=== PATIENT | female | born 1940 | race Caucasian/White ===

== ENCOUNTER 2025-02-01 04:11 | Emergency (ER) | payer MEDICARE, SELFPAY ==
--- NOTE | 2025-02-01 | ECG_ITS ---
Test Reason : WEAKNESS Blood Pressure : */* mmHG Vent. Rate : 80 BPM Atrial Rate : * BPM P-R Int : * ms QRS Dur : 74 ms QT Int : 378 ms P-R-T Axes : * -10 54 degrees QTcB Int : 435 ms Atrial fibrillation Abnormal ECG No previous ECGs available Referred By: Generic ED Physician Electronically Signed By: ISABEL VERDUGO MD
[2025-02-01 04:13] VITALS: BP 160/90; PULSE 90; O2SAT 98; BMI 23.2
[2025-02-01 04:24] VITALS: BP 167/73; PULSE 100; RESP 16; TEMP 36.7; O2SAT 95
[2025-02-01 04:56] LABS: Appearance Urine Clear; Glucose Urine UA Negative (Negative); PH 7.5 (5.0-9.0); Specific Gravity - Urine <= 1.005 (1.005-1.025); UMIC TRIGGER UACC YES
--- NOTE | 2025-02-01 05:04 | PC.NURSE ---
Pt requested to have Albert and/or Melissa called to let them know where she is. Called and spoke with Melissa and she will be on her way to the hospital.
[2025-02-01 05:09] LABS: Hematocrit 39.8 % (37.0-47.0); Hemoglobin 13.7 g/dl (12.0-16.0); Imm Gran Abs Auto 0.02 X10*3/uL (0.00-0.03); Imm Gran Pct Auto 0.4 % (0.0-0.4); Lymphocytes Absolute Auto 1.5 X10*3/uL (1.2-4.9); MANUAL DIFF FLAG NO; Mean Corpuscular HGB Conc 34.4 g/dl (31.0-35.0); Mean Corpuscular Hemoglobin 29.8 pg (27.0-33.0); Mean Corpuscular Volume 86.7 fL (80.0-98.0); NRBC Abs Auto 0.000 X10*3/uL (0.0-0.012); NRBC Pct Auto 0.0 /100WBC (0.0-0.2); Platelet Count 275 X10*3/uL (160-400); Red Blood Count 4.59 X10*6/uL (4.20-5.50); White Blood Count 5.1 X10*3/uL (4.8-10.8)
[2025-02-01 05:22] LABS: Anion Gap 15 (12-20); Blood Urea Nitrogen 11 mg/dL (9-16); Calcium 9.5 mg/dL (8.4-10.2); Carbon Dioxide 19 mmol/L (22-29); Chloride 106 mmol/L (96-108); Creatinine Clr Calc Pharmacy 44.7; Estimated Glomerular Filt Rate > 60; Potassium 4.2 mmol/L (3.3-5.1); Sodium 136 mmol/L (135-145)
[2025-02-01 06:00] VITALS: BP 162/66; PULSE 109; RESP 18; O2SAT 96
--- NOTE | 2025-02-01 06:35 | ED.GENADULT ---
HPI - General Adult General Chief complaint: General Medical Stated complaint: SNF rambling weak & dizzy Time Seen by Provider: 02/01/25 06:35 Source: patient and family (Son and [id number]) Mode of arrival: EMS Limitations: no limitations History of Present Illness ED Provider: Dr. David Smith HPI narrative: 85-year-old female with a history of hypertension, hyperlipidemia, stroke (07/10/2023-aphasia which resolved), possibly atrial fibrillation in the past who presents emergency department for evaluation of weakness. The patient moved closer to her family in October of 2024 and has her 1st PCP appointment with Dr. Cao on 02/16/2025. Patient states that she has been in her usual state of health until this morning when she felt very weak and could not get out of bed. Patient had no other complaints. She denied fever, chills, chest pain, shortness of breath, nausea, vomiting, diarrhea, dark stools, bloody stools, frequency, urgency or dysuria. Patient states she was taking aspirin but stopped taking your aspirin secondary to developing ?spots ?on her skin. She has been compliant with her other medications which include meclizine, atorvastatin, losartan and amlodipine. At the time my evaluation the patient states she is feeling better in his no longer feeling weak. Related Data Previous Rx's ?Medication ?Instructions ?Recorded apixaban 2.5 mg tablet (Eliquis) 2.5 mg PO Q12H #60 tabs 02/01/25 metoprolol succinate 25 mg 25 mg PO DAILY #30 tabs 02/01/25 tablet,extended release 24 hr (Toprol XL) Allergies Allergy/AdvReac Type Severity Reaction Status Date / Time codeine Allergy Unknown Verified 02/01/25 04:18 Penicillins Allergy Unknown Verified 02/01/25 04:18 Review of Systems Review of Systems: Yes all other systems are reviewed and are negative [facility] Past Medical History [facility] Narrative: Social history: The patient lives in elderly housing at [facility]. She denies tobacco and alcohol use. Her son buster garcia and pbyulhab-ab-chf are here in the emergency department with her. Social History Social History Smoked in Last 30 Days: No Use of substances other than those prescribed or required for medical reasons: No Advance Directives: No Advance Directives Information Provided: Yes Physical Exam ED Vital Signs: Vital Signs - 24 hr 02/01/25 04:24 02/01/25 06:00 02/01/25 07:59 Temperature 98.0 F Pulse Rate 100 109 H 73 Respiratory Rate 16 18 18 Blood Pressure 167/73 H 162/66 H 148/57 H Pulse Oximetry 95 96 99 Oxygen Delivery Method Room Air Room Air Room Air 02/01/25 10:18 Temperature 98 F Pulse Rate 82 Respiratory Rate 18 Blood Pressure 129/55 L Pulse Oximetry 98 Oxygen Delivery Method Room Air BMI result Body Mass Index 23.2 Vital signs revealed an elevated heart rate of 100, elevated blood pressure of 167/73. Exam: General: Awake, alert in no distress Head: Normocephalic, atraumatic EENT: PERRL, Lids normal, sclera normal, conjunctiva normal, nose normal , ears normal, throat without erythema or exudates Neck: Supple, no adenopathy Lung: breath sounds symmetric, no wheezing, rales or rhonchi Chest: symmetric movement, nontender Heart: Irregular rate and rhythm, normal S1, S2 no murmurs or rubs Abdomen: soft, non-tender, nondistended, normal bowel sounds Back: no vertebral tenderness, no CVAT Extremities: no deformities, moves all extremities symmetrically Neuro: Awake, alert, oriented, normal speech, cranial nerves intact, moves all extremities symmetrically Psych: Pleasant, cooperative Medical Decision Making Medical Decision Making MDM Narrative: 85-year-old female with a history of hypertension, hyperlipidemia, stroke (07/10/2023-aphasia which resolved), possibly atrial fibrillation in the past who presents emergency department for evaluation of weakness. The patient moved closer to her family in October of 2024 and has her 1st PCP appointment with Dr. Cao on 02/16/2025. Patient states that she has been in her usual state of health until this morning when she felt very weak and could not get out of bed. Patient had no other complaints. She denied fever, chills, chest pain, shortness of breath, nausea, vomiting, diarrhea, dark stools, bloody stools, frequency, urgency or dysuria. Patient states she was taking aspirin but stopped taking your aspirin secondary to developing ?spots ?on her skin. She has been compliant with her other medications which include meclizine, atorvastatin, losartan and amlodipine. At the time my evaluation the patient states she is feeling better in his no longer feeling weak. Vital signs revealed an elevated heart rate of 100 elevated blood pressure of 167/73. Exam did reveal an irregular irregular heart rate otherwise was unremarkable. Differential diagnosis: ?Includes but is not limited to myocardial infarction, myocardial ischemia, paroxysmal versus new onset atrial fibrillation, anemia, electrolyte abnormalities, urinary tract infection Course: 07:06 My independent interpretation patient's laboratory evaluation is as follows: CBC was normal. Bicarb low 19. Glucose elevated 129. LFTs, lipase, troponin and magnesium are pending Patient's twelve EKG revealed atrial fibrillation with a rate of 80. On the monitor and storage bin tender the patient's rate varies from 80-110. 10:15 Patient's 1st troponin was 2.9 and 3 hour troponin was 4.1 suggesting that you did not have myocardial infarction or myocardial injury is the cause of her weakness today. I did discuss the patient's atrial fibrillation over tiger text with the covering sanitary plumber, Dr. Vega. After this discussion the patient will be started on metoprolol 25 mg daily and Eliquis 2.5 mg q.12 hours. Patient was advised to contact Dr. Veag's office to make a follow-up cardiology appointment and to also keep her PCP appointment. Patient was given printed and verbal instructions and discharged home. Admission/Observation Consideration of admission/observation: Escalation of care including admission/observation considered (Yes) Consult Healthcare Provider Management of the patient was discussed with: Superintendent Meters (Library Services Dean, Dr. Vega) Lab Data MDM Lab Attestation statement: I reviewed the patient's lab results. 02/01/25 05:04 02/01/25 05:04 Labs: Lab Results 02/01/25 02/01/25 02/01/25 Range/Units 04:51 05:04 08:30 WBC 5.1 (4.8-10.8) X10*3/uL RBC 4.59 (4.20-5.50) X10*6/uL Hgb 13.7 (12.0-16.0) g/dl Hct 39.8 (37.0-47.0) % MCV 86.7 (80.0-98.0) fL MCH 29.8 (27.0-33.0) pg MCHC 34.4 (31.0-35.0) g/dl RDW 13.1 (11.0-16.0) % Plt Count 275 (160-400) X10*3/uL MPV 8.6 L (9.4-12.3) fL Immature Gran % (Auto) 0.4 (0.0-0.4) % Neut % (Auto) 57.9 (45-73) % Lymph % (Auto) 29.2 (20-40) % [place] % (Auto) 9.9 (2-11) % Eos % (Auto) 1.6 (0-4) % Baso % (Auto) 1.0 (0-2) % Lymph # (Auto) 1.5 (1.2-4.9) X10*3/uL [place] # (Auto) 0.5 (0.1-1.2) X10*3/uL Eos # (Auto) 0.1 (0.0-0.4) X10*3/uL Baso # (Auto) 0.1 (0.0-0.2) X10*3/uL Abs Immat Gran (auto) 0.02 (0.00-0.03) X10*3/uL Absolute Neuts (auto) 2.9 (2.0-8.3) x10*3/uL Absolute Nucleated RBC 0.000 (0.0-0.012) X10*3/uL Nucleated RBC % (auto) 0.0 (0.0-0.2) /100WBC Sodium 136 (135-145) mmol/L Potassium 4.2 (3.3-5.1) mmol/L Chloride 106 (96-108) mmol/L Carbon Dioxide 19 L (22-29) mmol/L Anion Gap 15 (12-20) BUN 11 (9-16) mg/dL Creatinine 0.76 (0.5-1.4) mg/dL Estim Creat Clear Calc 44.7 Estimated GFR > 60 Random Glucose 129 H (60-115) mg/dL Calcium 9.5 (8.4-10.2) mg/dL Magnesium 2.1 (1.6-2.6) mg/dL Total Bilirubin 0.5 (0.0-1.0) mg/dL Direct Bilirubin 0.2 (0.0-0.5) mg/dL AST 31 (5-31) U/L ALT 34 H (0-31) U/L Alkaline Phosphatase 158 H (39-117) U/L Troponin I High Sens 2.9 4.1 (<3.5-17.0) ng/L Total Protein 7.6 (6.5-8.0) g/dL Albumin 4.6 (3.5-5.0) g/dL Lipase 62 (8-78) U/L Urine Color Yellow Urine Appearance Clear Urine pH 7.5 (5.0-9.0) Ur Specific [place] <= 1.005 (1.005-1.025) Urine Protein 30 (1+) H (Neg-Trace) mg/dL Urine Glucose (UA) Negative (Negative) mg/dL Urine Ketones Negative (Negative) mg/dL Urine Blood Negative (Negative) Urine Nitrite Negative (Negative) Ur Leukocyte Esterase Trace H (Negative) Urine RBC 0-2 (0-2) /HPF Urine WBC 0-5 (0-5) /HPF Ur Squamous Epith Cells 0-2 (0-2) /HPF Urine Bacteria None Seen (None Seen) Hyaline Casts 0-2 (0-2) /LPF Independent Interpretation I performed an independent interpretation of an: EKG Interpretation: My independent interpretation patient's 12 EKG done on 02/01/2025 at 04:51 hours is as follows: Atrial fibrillation with a rate of 80, no ST segment elevation, no ST segment depression, no PACs, no PVCs, no significant T-wave abnormalities Discharge Plan Discharge Clinical Impression: Weakness, Atrial fibrillation Instructions: A-fib (Atrial Fibrillation) (ED) Additional Instructions: Your blood work was unremarkable. Your marker of heart attack/heart damage (troponin) was 2.9 and 4.1. Normal in women is less than 17 which suggests you did not have a heart attack or heart damage as the cause of your weakness. Your EKG showed that you are in atrial fibrillation with a rate that was less than 110. It is possible that your heart rate may have been very fast this morning and this may have caused your feeling of weakness I did discuss treatment of your atrial fibrillation with our covering sanitary plumber, Dr. Vega. He recommended starting you on 2 medications Toprol (metoclopramide) 25 mg once a day. This medication will keep your heart rate from going very fast. Eliquis (apixaban) 2.5 mg every 12 hours-this has a blood thinner. Continue taking your other medications as prescribed by your providers Keep your follow-up appointment with your primary care doctor. Call the cardiology group to make a follow up appointment with the sanitary plumber. The office will let you know when they have an available appointment for you. Please return to the emergency department if your symptoms get worse or if you develop any symptoms that are concerning to you. Prescriptions: New Eliquis 2.5 mg tablet 2.5 mg PO Q12H Qty: 60 3RF metoprolol succinate [Toprol XL] 25 mg tablet extended release 24 hr 25 mg PO DAILY Qty: 30 3RF Referrals: Jackson Vega MD [Physician, Cardiology] Referral Note: Weakness, atrial fibrillation (possibly new diagnosis versus paroxysmal atrial fib), rate controlled without medications in the emergency department. Patient is started on Eliquis 2.5 mg q.12 and Toprol-XL 25 mg daily. Discussed treatment with Dr. Vega Print Language: [place]
[2025-02-01 07:42] LABS: Alanine Aminotransferase 34 U/L (0-31); Albumin Level 4.6 g/dL (3.5-5.0); Alkaline Phosphatase 158 U/L (39-117); Aspartate Amino Transferase 31 U/L (5-31); Lipase 62 U/L (8-78); Magnesium 2.1 mg/dL (1.6-2.6); Total Protein 7.6 g/dL (6.5-8.0)
[2025-02-01 07:50] LABS: Troponin-I High Sensitivity 2.9 ng/L (<3.5-17.0)
--- NOTE | 2025-02-01 07:57 | PC.NURSE ---
assumed care of pt approx 0700, pt a/o x 3, 80's-90's a-fib on monitor while at rest. Assisted pt x 1 to commode, voided moderate amount of CYU. HR increased 140's while MD JESSICA aware.
[2025-02-01 07:59] VITALS: BP 148/57; PULSE 73; RESP 18; O2SAT 99
[2025-02-01 08:59] LABS: Troponin-I High Sensitivity 4.1 ng/L (<3.5-17.0)
[2025-02-01 10:18] VITALS: BP 129/55; PULSE 82; RESP 18; TEMP 36.6; O2SAT 98
[2025-02-01 11:09] VITALS: BP 129/55; PULSE 82; RESP 18; TEMP 36.6; O2SAT 98
== END 2025-02-01 11:10 | disposition home or self-care (01) ==
PROVIDERS: Emergency Provider Emergency Medicine Emergency Medical Services
DX: I48.91 Unspecified atrial fibrillation (principal); R53.1 Weakness; Z79.899 Other long term (current) drug therapy
CPT/HCPCS: 36415; 80048; 80076; 81001; 81003; 83690; 83735; 84484; 85025; 93005; 99283; 99285

== ENCOUNTER → 2025-02-01 04:51 | Outpatient (BNV) | payer MEDICARE, SELFPAY | PROVIDERS: Emergency Provider Emergency Medicine Emergency Medical Services; Visit Provider Internal Medicine Cardiovascular Disease | DX: I48.91 Unspecified atrial fibrillation (principal) | CPT/HCPCS: 93010 ==

== ENCOUNTER 2025-02-16 08:10 | Outpatient (AMB) | payer MEDICARE, SELFPAY ==
[2025-02-16 08:14] VITALS: BP 130/52; PULSE 69; BMI 24.0
--- NOTE | 2025-02-16 08:14 | A.OFFVIS_ITS ---
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: No Financial Operations Consultant: Financial Operations Consultant Present Allergies codeine Allergy (Verified 02/16/25 08:19) Unknown Penicillins Allergy (Verified 02/16/25 08:19) Unknown Sulfa (Sulfonamide Antibiotics) Adverse Reaction (Intermediate, Verified 02/16/25 08:19) Blister Medication List - Last Reconciled 02/16/25 by JOSE LUIS PlasenciaC amlodipine 5 mg PO DAILY apixaban (Eliquis) 2.5 mg PO Q12H atorvastatin 40 mg PO DAILY losartan 25 mg PO DAILY meclizine 25 mg PO DAILY PRN metoprolol succinate ER (Toprol XL) 25 mg PO DAILY HPI HPI 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 Her EKG did show atrial fibrillation. She was referred to Cardiology in follow-up. Today she presents for cardiology consultation and reports that she had seen a supervisor laboratory 5 years ago and she did not pursue ongoing follow-up. She had not been on anticoagulation, only aspirin. She did have a CVA last year then continued on daily aspirin. She recently moved from [place] to this area to live closer to family. She is currently at [facility] in [facility] She has been taking the metoprolol and Eliquis since the time of her recent ER discharge. She denies any bleeding issues. She denies chest discomfort at rest or with activity. No shortness of breath, PND, orthopnea or edema. No heart palpitations, lightheadedness, presyncope, syncope. She expresses much frustration about her speech and the need to take medications. She describes herself as previously very active and healthy in her younger years and she is not liking her current situation. [id number] present. COUNT INCLUDES THE [facility] Medical History (Updated 02/16/25 @ 12:06 by Miriam Pinedo, HEEL NAILING MACHINE OPERATOR-C) HTN (hypertension) Hyperlipidemia CVA (cerebral vascular accident) Atrial fibrillation Review of Systems Const Details: word finding, aphasia All systems reviewed & are unremarkable except as noted in HPI and below ENT Denies dizziness Card Denies chest pain, Denies chest pain at rest, Denies chest pain with activity, Denies rapid heart rate, Denies pedal edema, Denies edema, Denies leg edema, Denies lightheadedness, Denies palpitations, Denies dyspnea, Denies dyspnea on exertion and Denies orthopnea Resp Denies cough, Denies dyspnea and Denies dyspnea on exertion GI Denies hematochezia and Denies change in stool character Musc Denies abnormal gait, Reports limited range of motion, Denies muscle cramps, Denies muscle weakness, Denies numbness, Denies radiating pain into limb, Denies stiffness and Denies tingling Neuro Denies abnormal gait, Denies dizziness, Denies numbness and Denies tingling Endo Denies palpitations Physical Exam Vital Signs: Last Vital Signs Pulse 69 02/16/25 08:14 BP 130/52 L 02/16/25 08:14 BMI result Body Mass Index 24.0 Const General: cooperative, healthy appearing, comfortable and no acute distress Orientation/consciousness: patient oriented x3 Neck Neck: Yes normal visual inspection Resp Effort & Inspection: normal respiratory effort Auscultation: clear to auscultation bilaterally, no rales, no rhonchi and no wheezes Cardio Jugular venous distension: no JVD Rate: regular rate Rhythm: abnormal rhythm Heart sounds: S1 normal heart sound present, S2 normal heart sound present, no gallops, no murmurs and no rubs Neuro General: patient oriented x3 Extrem General: Yes normal to inspection and No no pedal edema Psych Other: some aphasia and word finding from CVA Appearance: grossly normal Mental Status: mental status grossly normal Office Procedures EKG Details: Today, read by me, atrial fibrillation, rate 69, QTC 405 milliseconds [id number], Complete Assessment & Plan Assessment & Plan (1) Atrial fibrillation: Code(s): I48.91 - Unspecified atrial fibrillation Category: Medical Plan: History of atrial fibrillation, 1st diagnosed 5 years ago in [place]. It is not clear if she has persistent or paroxysmal AF at this time. EKG today showing atrial fibrillation, rate 69, asymptomatic. She was recently started on metoprolol XL 25 mg daily and Eliquis 2.5 mg b.i.d. which is appropriate for her age and weight. No bleeding issues reported. Diagnosis of atrial fibrillation, stroke risk with AFib and need for anticoagulation reviewed with her in detail. Continue current med management. Will check echocardiogram to assess for structural heart disease. Will check Holter monitor to assess for AFib rate control and if persistent or paroxysmal. Cardiology follow-up in 6-8 weeks to go over test results. (2) CVA (cerebral vascular accident): Code(s): I63.9 - Cerebral infarction, unspecified Category: Medical Plan: CVA 07/10/2023 with residual expressive aphasia. She is appropriate but having difficulty with word finding at times. With AFib she is at high risk for recurrent stroke with her CHADS-VASc score of 6. Continue Eliquis 2.5 mg b.i.d.. (3) HTN (hypertension): Code(s): I10 - Essential (primary) hypertension Category: Medical Plan: Blood pressure goal less than 130/80. Controlled at this time. Continue metoprolol, amlodipine and losartan. (4) Hyperlipidemia: Code(s): E78.5 - Hyperlipidemia, unspecified Category: Medical Plan: [place] LDL goal less than 100. No recent lipid profile in system for my review. She is on atorvastatin 40 mg daily which she can continue. (5) Hospital discharge follow-up: Code(s): Z09 - Encounter for follow-up examination after completed treatment for conditions other than malignant neoplasm Category: Medical Plan: ER notes reviewed. Plan I discussed with the patient the importance of continuing metoprolol and Eliquis to manage atrial fibrillation and prevent stroke. We reviewed the need for a heart monitor to assess the rhythm and an echocardiogram to evaluate cardiac function. I explained that these tests would help determine if the atrial fibrillation is persistent and if the current treatment is effective. We also talked about the follow-up plan in six to eight weeks to discuss the results and any necessary adjustments to her treatment. The patient expressed concerns about the blood thinner, but I emphasized its role in preventing recurrent strokes. Orders: Orders ECG 3 day holter monitor Today I48.91 - Unspecified atrial fibrillation CA echo transthoracic complete Today I48.91 - Unspecified atrial fibrillation Patient Instructions: - Continue taking metoprolol and Eliquis as prescribed. - Wear the heart monitor as instructed and return it after use. - Attend the scheduled echocardiogram appointment. - Follow up in six to eight weeks for test results and treatment review. Patient was informed and verbally consented to the use of an ambient scribe for clinic note documentation during this visit. Visit time spent on chart review, interview, assessment, orders, documentation. Coding Level of Care Code New Pt Level 4 (80289) Complex EM visit Add On G2211 Diagnoses Atrial fibrillation I48.91 CVA (cerebral vascular accident) I63.9 HTN (hypertension) I10 Hyperlipidemia E78.5 Hospital discharge follow-up Z09 CPT Codes EKG - CPT: 59717-[id number], Complete ([id number]) Time Spent (min) 32
== END 2025-02-16 09:01 | disposition home or self-care (01) ==
LOC: HO.HCS 08:11
PROVIDERS: Visit Provider Nurse Practitioner Family
DX: I48.91 Unspecified atrial fibrillation (principal); I63.9 Cerebral infarction, unspecified; I10 Essential (primary) hypertension; E78.5 Hyperlipidemia, unspecified; Z09 Encounter for follow-up examination after completed treatment for conditions other than malignant neoplasm
CPT/HCPCS: 93010; 99204; G2211

== ENCOUNTER → 2025-02-16 08:10 | Outpatient (BNVA) | payer MEDICARE, SELFPAY | PROVIDERS: Visit Provider Nurse Practitioner Family | DX: I48.91 Unspecified atrial fibrillation (principal); I10 Essential (primary) hypertension; E78.5 Hyperlipidemia, unspecified; M25.571 Pain in right ankle and joints of right foot; M25.572 Pain in left ankle and joints of left foot; G89.29 Other chronic pain; I69.320 Aphasia following cerebral infarction; Z79.01 Long term (current) use of anticoagulants; Z79.899 Other long term (current) drug therapy; Z13.31 Encounter for screening for depression; Z13.39 Encounter for screening examination for other mental health and behavioral disorders | CPT/HCPCS: 93005; 96127; 99202 ==

== ENCOUNTER 2025-02-16 13:32 | Outpatient (AMB) | payer BC, SELFPAY ==
--- OUTSIDE RECORDS SUMMARY | 2025-01-09 07:03 | XMS_ITS | Continuity of Care Document ---
Author Organization [facility] Address [address] [place] [address] Phone Care Team Providers Care Land Surveying Survey Worker Name Role Phone Leticia Russell M.D. Unavailable [...] NOTED NONE PRSNT MED LIST DOCD IN [facility] RVW MEDS BY RX/DR IN [facility] Diastolic Blood Pressure Less Than 80mm Hg Systolic Blood Pressure 131-139mm Hg Apr Office/outpatient visit,est, mod 2023 AMNT PAIN NOTED NONE PRSNT Diastolic Blood Pressure Less Than 80mm Hg Systolic Blood Pressure 131-139mm Hg Aug E/M service [facility] Office/outpatient visit,est, mod 2023 AMNT PAIN NOTED NONE PRSNT Diastolic Blood Pressure Less Than 80mm Hg Systolic Blood Pressure Greater Or Equal To 140mm MTMS BY PHARM EST 15 MIN Void Ticket [facility] MED/CURRENT MED MERGE MTMS BY PHARM BENDING MACHINE OPERATOR 15 MIN MTMS BY PHARM ADDL 15 [...] NOTED NONE PRSNT MED LIST DOCD IN [facility] RVW MEDS BY RX/DR IN [facility] Diastolic Blood Pressure 80-89mm Hg Systolic Blood Pressure Greater Or Equal To 140mm E/M service [facility] Preventive checkup, est,65+ yrs - [...] NOTED NONE PRSNT MED LIST DOCD IN [facility] RVW MEDS BY RX/DR IN [facility] BODY MASS INDEX DOCD Diastolic Blood [...] NOTED PAIN PRSNT MED LIST DOCD IN [facility] RVW MEDS BY RX/DR IN [facility] BODY M[place] INDEX DOCD Diastolic Blood Pressure 80-89mm Hg Systolic Blood Pressure Greater Or Equal To 140mm Office/outpatient visit,est, mod 2020 AMNT PAIN NOTED NONE PRSNT MED LIST DOCD IN [facility] RVW MEDS BY RX/DR IN [facility] BODY MASS INDEX DOCD Diastolic Blood Pressure 80-89mm Hg Systolic Blood Pressure Greater Or Equal To 140mm Office/outpatient visit,est, mod 2020 AMNT PAIN NOTED NONE PRSNT MED LIST DOCD IN [facility] RVW MEDS BY RX/DR IN [facility] BODY MASS INDEX [facility] Diastolic Blood Pressure Less Than 80mm Hg Systolic Blood Pressure Greater Or Equal To 140mm Office/outpatient visit,est, mod 2020 AMNT PAIN NOTED NONE PRSNT MED LIST DOCD IN [facility] RVW MEDS BY RX/DR IN [facility] BODY MASS INDEX [facility] Diastolic Blood Pressure Less Than 80mm Hg Systolic Blood Pressure Greater Or Equal To 140mm E/M service [facility] Preventive checkup, est,65+ yrs 021 AMNT PAIN NOTED NONE PRSNT MED LIST DOCD IN [facility] RVW MEDS BY RX/DR IN [facility] BODY MASS INDEX [facility] Diastolic Blood Pressure Greater Or Equa l To 90mm Systolic Blood Pressure Greater Or Equal To 140mm E/M service [facility] Preventive checkup, est,65+ yrs 020 AMNT PAIN NOTED NONE PRSNT [facility] Diastolic Blood Pressure 80-89mm Hg Systolic Blood Pressure Greater Or Equal To 140mm Office/outpatient visit,est, mod 2019 AMNT PAIN NOTED NONE PRSNT MED LIST DOCD IN [facility] RVW MEDS BY RX/DR IN [facility] Diastolic Blood Pressure Less Than 80mm Hg Systolic Blood Pressure Greater Or Equal To 140mm AMNT PAIN NOTED NONE PRSNT MED LIST DOCD IN [facility] RVW MEDS BY RX/DR IN [facility] BODY MASS INDEX [facility] Diastolic Blood Pressure Less Than 80mm Hg Systolic Blood Pressure Greater Or Equal To 140mm Office/outpatient visit,est, mod 2019 AMNT PAIN NOTED NONE PRSNT MED LIST DOCD IN [facility] RVW MEDS BY RX/DR IN [facility] BODY M[place] INDEX [facility] Diastolic Blood Pressure Less Than 80mm Hg Systolic Blood Pressure Greater Or Equal To 140mm Office/outpatient visit,est, mod 2019 AMNT PAIN NOTED NONE PRSNT [place] INDEX [facility] Diastolic Blood Pressure Greater Or Equa l To 90mm Systolic Blood Pressure Greater Or Equal To 140mm E/M service [facility] Office/outpatient visit,est, mod 2019 AMNT PAIN NOTED NONE PRSNT B[place] INDEX [facility] Diastolic Blood Pressure 80-89mm Hg Systolic Blood Pressure Greater Or Equal To 140mm Office/outpatient visit,est, mod 2019 AMNT PAIN NOTED NONE PRSNT MED LIST DOCD IN [facility] RVW MEDS BY RX/DR IN [facility] BODY M[place] INDEX [facility] Diastolic Blood Pressure 80-89mm Hg Systolic Blood Pressure Greater Or Equal To 140mm Office/outpatient visit,est, mod 2018 AMNT PAIN NOTED NONE PRSNT MED LIST DOCD IN [facility] RVW MEDS BY RX/DR IN [facility] Diastolic Blood Pressure Greater Or Equa l To 90mm Systolic Blood Pressure Greater Or Equal To 140mm Office/outpatient visit,est, min 2018 Diastolic Blood Pressure Less Than 80mm Hg Systolic Blood Pressure Greater Or Equal To 140mm Office/outpatient visit,est, mod 2018 AMNT PAIN NOTED PAIN PRSNT MED LIST DOCD IN [facility] RVW MEDS BY RX/DR IN [facility] Diastolic Blood Pressure Less Than 80mm Hg Systolic Blood Pressure Greater Or Equal To 140mm Office/outpatient visit,est, mod 2018 B[facility] [place] INDEX DOCD Diastolic Blood Pressure Less Than 80mm Hg Systolic Blood Pressure 131-139mm Hg Mar Office/outpatient visit,est, mod 2018 AMNT PAIN NOTED NONE PRSNT MED LIST DOCD IN [facility] RVW MEDS BY RX/DR IN [facility] Diastolic Blood Pressure 80-89mm Hg Systolic Blood Pressure Greater Or Equal To 140mm Office/outpatient visit,est, mod 2018 MED LIST DOCD IN [facility] RVW MEDS BY RX/DR IN [facility] Diastolic Blood Pressure 80-89mm Hg Systolic Blood Pressure Greater Or Equal To 140mm E/M service [facility] E/M service [facility] Preventive checkup, est,65+ yrs 019 AMNT PAIN NOTED NONE PRSNT MED LIST DOCD IN [facility] RVW MEDS BY RX/DR IN [facility] BODY MASS INDEX DOCD Diastolic Blood Pressure Less Than 80mm Hg Systolic Blood Pressure Greater Or Equal To 140mm MED LIST DOCD IN [facility] RVW MEDS BY RX/DR IN [facility] Office/outpatient visit,est, mod 2017 AMNT PAIN [...] Office/outpatient visit,est, mod 2014 [facility] Systolic Blood Pressure 131-139mm Hg Feb Diastolic Blood Pressure Less Than 80mm Hg Office/outpatient visit,est, low 2014 [facility] Systolic Blood Pressure Greater Or Equal To 140mm Diastolic Blood Pressure Less Than 80mm Hg Office/outpatient visit,est, mod 2014 B[place] M[place] INDEX DOCD Systolic Blood Pressure 131-139mm Hg Jan Diastolic Blood Pressure Less Than 80mm Hg [facility] Venipuncture Collection Of Blood 2014 Metabolic panel, basic Urinalysis, non-automated, w/scope Systolic Blood Pressure Greater Or Equal To 140mm Diastolic Blood Pressure Less Than 80mm Hg Office/outpatient visit,est, mod 2014 Spun microhematocrit blood count 2014 Hemoglobin count, colorimetric 15 Preventive checkup, [facility],65+ yrs 015 BODY MASS INDEX [...] Office/outpatient visit,est, mod 2013 [facility] Systolic Blood Pressure 131-139mm Hg Jan Diastolic Blood Pressure Less Than 80mm Hg BODY M[place] INDEX [facility] Systolic Blood Pressure 131-139mm Hg Jan Diastolic Blood Pressure Less Than 80mm Hg Preventive checkup, est,65+ yrs 014 RVW MEDS BY RX/DR IN [facility] Office/outpatient visit,est, mod 2012 RVW MEDS BY RX/DR IN [facility] AMNT PAIN NOTED PAIN PRSNT AMNT [...] Diagnoses Date Provider Providers Copied on Encounter [facility], [address], [place], [place], [id number], [place] tel:[phone] [facility] No Information 5 Christopher Kelly. [address] [place] [address], [address], [place]. tel:[phone] [facility], [address] [place] [address], [id number], [place] tel:[phone] [facility] No Information 0 5 [place] y-Cao Leticia. [address] [place] [address], [address], [place]. tel:[phone] [facility], [address] [place] [address], [id number], [place] tel:[phone] [facility] No Information 5 [place] y[place]ao Leticia. [address] [place] [address], [address], [place]. tel:[phone] E/M service NEC [facility], [address] [place] [address], [id number], [place] tel:[phone] [facility] Senior Wellness Visit (chief complaint)Me dication questions (chief complaint)HE DIS (chief complaint)Fo llow Up of Hypertension (chief complaint) Encounter for general adult medical examination without abnormal findingsEsse ntial hypertension Paroxysmal atrial fibrillation Senile purpuraHyper parathyroidi smAtheroscle rosis of aortaBody mass index [BMI] 23.0-23.9, adultEncount er for examination of blood pressure with abnormal findings 4 [place] [facility] Leticia. [address] [place] [address], [address], [place]. tel:[phone] [facility], [address] [place] [address], [id number], [place] tel:[phone] [facility] No Information 4 [place]ao Leticia. [address] [place] [address], [address], [place]. tel:[phone] [facility], [address] [place] [address], [id number], [place] tel:[phone] [facility] No Information 4 Christopher Kelly. [address] [place], [address], [place]. tel:[phone] Office/outpa tient visit,est, mod [facility], [address], [place], [id number], [place] [phone] [facility] Medication review (chief complaint)Lo wer extremity swelling (chief complaint)cv a (chief complaint) Essential hypertension Paroxysmal atrial fibrillation Aphasia S/P CVAPeriphera l edemaBody mass index [BMI] 22.0-22.9, adultEncount er for examination of blood pressure with abnormal findings 4 Cushingclarissar [facility] Leticia. [address] [place], [address], [place]. [phone] E/M service NEC [facility], [address], [place], [id number], [place] [phone] [facility] Follow Up of Hospital discharge (chief complaint) Paroxysmal atrial fibrillation Essential hypertension Hyperlipidem ia, unspecifiedD izzinessApha selin S/P CVABody mass index [BMI] 22.0-22.9, adultEncount er for examination of blood pressure with abnormal findings 4 Christopher Kelly. [address] [place], [address], [place]. tel:[phone] MTMS BY PHARM EST 15 MIN [facility], [address], [place], [id number], [place] [phone] Pharmacy Encounter for therapeutic drug level monitoringVo id Ticket 4 Rafi Briggs. [address] [place], [place], [id number], [place]. tel:[phone] MTMS BY PHARM BENDING MACHINE OPERATOR 15 MIN [facility], [address], [place], [id number], [place] tel:[phone] Pharmacy Encounter for therapeutic drug level monitoringVo id Ticket 4 Rafi Briggs. [address] [place], [place], [id number], [place]. tel:[phone] Office/outpa tient visit,[facility], [facility], [address], [place], [id number], [place] tel:[phone] [facility] Follow Up of Hypertension (chief complaint) Essential hypertension Body mass index [BMI] 22.0-22.9, [facility] for examination of blood pressure with abnormal findings 4 [place] y[facility]ao Leticia. [address] [place], [address], [place]. tel:[phone] Office/outpa tient visit,[facility], [facility], [address], [place], [id number], [place] tel:[phone] [facility] Follow Up of Hypertension (chief complaint) Essential hypertension Encounter for examination of blood pressure with abnormal findings 3 [place] y[facility]ao Leticia. [address] [place], [address], [place]. tel:[phone] Office/outpa tient visit,[facility], [facility], [address], [place], [id number], [place] tel:[phone] [facility] Follow Up of hypertension (chief complaint) Essential hypertension Body mass index [BMI] 22.0-22.9, [facility] er for examination of blood pressure with abnormal findings 3 [place] y-Cao Leticia. [address] [place], [address], [place]. tel:[phone] E/M service [facility], [address], [place], [id number], [place] tel:[phone] [facility] Senior Wellness Exam (chief complaint)Fo llow Up of Hypertension (chief complaint)Re fill request (chief complaint) Encounter for general adult medical examination without abnormal findingsEsse ntial hypertension Atrial fibrillation , controlledAt herosclerosi s of aortaHyperpa rathyroidism Senile purpuraBody mass index [BMI] 22.0-22.9, [facility] for examination of blood pressure with abnormal findingsSacr oiliitis, not elsewhere classified 3 [place] y-[place]ao Leticia. [address] [place], [address], [place]. tel:[phone] Office/outpa tient visit,[facility], [facility], [address] [place] [address], [id number], [place] tel:[phone] [facility] Follow Up of Hypertension (chief complaint) Essential hypertension Encounter for examination of blood pressure with abnormal findings 3 [place] y[facility]ao Leticia. [address] [place], [address], [place]. tel:[phone] Office/outpa tient visit,est, [facility], [address], [place], [id number], [place] tel:[phone] [facility] Follow Up of ER visit (chief complaint) Essential hypertension LFT elevationAtr ial fibrillation , controlledEn counter for examination of blood pressure with abnormal findings 3 [place] y-[place]ao Leticia. [address] [place], [address], [place]. tel:[phone] Office/outpa tient visit,est, [facility], [address], [place], [id number], [place] tel:[phone] [facility] Request for Kenalog injection (chief complaint)Bl ood pressure (chief complaint) Allergic rhinitis, unspecifiedE ssential hypertension Body mass index [BMI] 24.0-24.9, [facility] for examination of blood pressure without abnormal findings 2 [place] y-[place]ao Leticia. [address] [place], [address], [place]. tel:[phone] Office/outpa tient visit,est, [facility], [address], [place], [id number], [place] tel:[phone] [facility] Prescription refill request (chief complaint)Ma mmogram order (chief complaint) Sciatica of right sideBreast cancer screening by mammogramBod y mass index (BMI) 24.0-24.9, [facility] for exam of blood pressure w/o abnormal findings 1 Cushingberlily y-Cao Leticia. [address] [place], [address], [place]. [phone] [facility], [address], [place], [id number], [place] [phone] [facility] Right hand painRight wrist painDe Quervain's disease (tenosynovit is)Left hand painLeft wrist pain 1 Cushingberlily neves-Cao Leticia. [address] [place], [address], [place]. [phone] Office/outpa tient visit,est, [facility], [address], [place], [id number], [place] [phone] [facility] pain (chief complaint)bl ood pressure (chief complaint) De Quervain's disease (tenosynovit is)Essential hypertension Left sided sciaticaBody mass index (BMI) 24.0-24.9, [facility] of blood pressure w/o abnormal findings 1 [place] y-Cao Leticia. [address] [place], [address], [place]. [phone] Office/outpa tient visit,est, [facility], [address], [place], [id number], [place] tel:[phone] [facility] results (chief complaint)pa in (chief complaint) De Quervain's disease (tenosynovit is)Stage 2 chronic kidney diseaseBody mass index (BMI) 23.0-23.9, adultEncount er for exam of blood pressure w/o abnormal findings 1 Cushjustoberr y-Cao Leticia. [address] [place], [address], [place]. tel:[phone] Office/outpa tient visit,est, [facility], [address] [place] [address], [id number], [place] tel:[phone] [facility] Follow Up of hypertension (chief complaint) Stage 2 chronic kidney diseaseEssen tial hypertension Hyperlipidem ia, unspecifiedF Hx: breast cancerBody mass index (BMI) 23.0-23.9, [facility] for exam of blood pressure w/o abnormal findings 1 [place] [facility] Leticia. [address] [place], [address], [place]. tel:[phone] Office/outpa tient visit,[facility], [facility], [address], [place], [id number], [place] tel:[phone] [facility] Follow Up of Hypertension (chief complaint) Essential hypertension Body mass index (BMI) 23.0-23.9, [facility] er for exam of blood pressure w/o abnormal findings 1 [place] [facility] Leticia. [address] [place], [address], [place]. tel:[phone] E/M service [facility], [address] [place] [address], [id number], [place] tel:[phone] [facility] Senior Wellness Exam (chief complaint)Fo llow Up of Hypertension (chief complaint) Encounter for general adult medical examination without abnormal findingsEsse ntial hypertension Hyperlipidem ia, unspecifiedH yperparathyr oidismParoxy smal atrial fibrillation Atherosclero sis of aortaBody mass index (BMI) 24.0-24.9, adultEncount er for exam of blood pressure w/o abnormal findingsSeni le purpura Michele-2 8-202 1 [place] [facility] Leticia. [address] [place], [address], [place]. tel:[phone] E/M service [facility], [address], [place], [id number], [place] tel:[phone] [facility] senior wellness visit (chief complaint)he dis measures (chief complaint)Fo llow Up of hypertension (chief complaint) Encounter for general adult medical examination without abnormal findingsEsse ntial hypertension Allergic rhinitis, unspecifiedA theroscleros is of aortaSenile purpuraBody mass index (BMI) 24.0-24.9, adultEncount er for exam of blood pressure w/o abnormal findings 0 [place] y[facility] Leticia. [address] [place], [address], [place]. tel:[phone] Office/outpa tient visit,est, [facility], [address], [place], [id number], [place] tel:[phone] [facility] hypertension (chief complaint) Essential hypertension Body mass index (BMI) 24.0-24.9, adultEncount er for exam of blood pressure w/o abnormal findings Mar-2 3202 0 [place] y-Cao Leticia. [address] [place], [address], [place]. tel:[phone] Office/outpa tient visit,est, [facility], [address], [place], [id number], [place] tel:[phone] [facility] Follow Up of Hypertension (chief complaint) Essential hypertension Body mass index (BMI) 24.0-24.9, adultEncount er for exam of blood pressure w/o abnormal findings Sep-0 8-202 0 [place] [facility] Leticia. [address] [place], [address], [place]. tel:[phone] Office/outpa tient visit,est, [facility], [address], [place], [place], [id number], [place] tel:[phone] [facility] Elevated blood pressure (chief complaint) Essential hypertension Body mass index (BMI) 24.0-24.9, [facility] for exam of blood pressure w/o abnormal findings Mar- 0 [place] [facility] Leticia. [address] [place], [address], [place]. tel:[phone] E/M service [facility], [address], [place], [id number], [place] tel:[phone] [facility] Mammogram order (chief complaint)me ds (chief complaint) Essential hypertension Paroxysmal atrial fibrillation Secondary hyperparathy roidismBreas t cancer screeningNon compliance with medical treatmentBod y mass index (BMI) 23.0-23.9, [facility] er for exam of blood pressure w/o abnormal findings 0 [place] [facility] Leticia. [address] [place], [address], [place]. tel:[phone] [facility], [address], [place], [id number], [place] tel:[phone] [facility] Follow Up of hypertension (chief complaint)na useated (chief complaint) Generalized weaknessAtri al fibrillation , controlledEs sential hypertension Epigastric abdominal painBody mass index (BMI) 23.0-23.9, [facility] for exam of blood pressure w/o abnormal findings 0 [place] y-Cao Leticia. [address] [facility], [place], [address], [place]. tel:[phone] Office/outpa [facility]ient [facility], [address], [place], [id number], [place] tel:[phone] [facility] Follow Up of Elevated blood pressure (chief complaint) Paroxysmal atrial fibrillation Essential hypertension Body mass index (BMI) 24.0-24.9, [facility] for exam of blood pressure w/o abnormal findings 9 [place] y-Cao Leticia. [address] [place] [address], [address], [place]. [phone] Office/outpa tient visit,[facility], [facility], [address], [place], [id number], [place] tel:[phone] [place] [address] Procedures BP check (chief complaint) Elevated blood-pressu re reading, without diagnosis of hypertension Encounter for exam of blood pressure w/o abnormal findings 9 [place] Leticia. [address] [place] [address], [address], [place]. tel:[phone] Office/outpa tient visit,[facility], [facility], [address], [place], [id number], [place] tel:[phone] [facility] referral request (chief complaint)pa perwork (chief complaint) Sciatica of left sideElevated BP without diagnosis of hypertension Body mass index (BMI) 24.0-24.9, [facility] er for exam of blood pressure w/o abnormal findings 9 [place] y-Cao Leticia. [address] [place], [address], [place]. tel:[phone] Office/outpa tient visit,[facility], [facility], [address], [place], [id number], [place] [phone] [facility] referral request (chief complaint) Skin lesion of backAtrial fibrillation , controlledBo dy mass index (BMI) 23.0-23.9, [facility] er for exam of blood pressure w/o abnormal findings 9 [place] [facility]ao Leticia. [address] [place], [address], [place]. tel:[phone] Office/outpa tient visit,[facility], [facility], [address], [place], [id number], tel:[phone] [facility] mammo order (chief complaint)ma note (chief complaint) Breast cancer screeningAtr ial fibrillation , controlledBo dy mass index (BMI) 24.0-24.9, adultEncount er for exam of blood pressure w/o abnormal findings 9 Christopher neves-Cao Leticia. [address] [place] [address], [address], [place]. tel:[phone] Office/outpa tient visit,est, [facility], [address] [place] [address], [id number], [place] tel:[phone] [facility] Follow Up of A-fib (chief complaint) Atrial fibrillation by electrocardi ogramBody mass index (BMI) 23.0-23.9, adultEncount er for exam of blood pressure w/o abnormal findings Christopher neves-Cao Leticia. [address] [place] [address], [address], [place]. [phone] E/M service [facility], [address] [place] [address], [id number], tel:[phone] [facility] senior wellness visit (chief complaint)al [...] abnormal findings 9 Cushjustoberr y-Cao Leticia. [address] [place], [address], [place]. tel:[phone] Office/outpa tient visit,est, [facility], [address], [place], [id number], [place] tel:[phone] [facility] Mammogram (chief complaint) Breast cancer screeningWhi te coat syndrome with diagnosis of hypertension 8 [facility] [facility]-Cao Leticia. [address] [place], [address], [place]. [phone] Office/outpa tient visit,est, mod [facility], [address], [place], [id number], [place] [phone] [facility] Follow Up of HTN/Thyroid (chief complaint)Al lergies (chief complaint) Allergic rhinitis, unspecifiedS econdary hyperparathy roidismCKD (chronic kidney disease) stage 2, GFR 60-89 ml/min 8 [place] [facility] Leticia. [address] [place], [address], [place]. [phone] E/M service NEC [facility], [address], [place], [id number], [place] [phone] [facility] Senior Wellness Exam (chief complaint)Sc iatic pain (chief complaint)Al lergies (chief complaint) Encntr for general adult medical exam w/o abnormal findingsAlle rgic rhinitis, unspecifiedS ciatica of right sideAtherosc lerosis of aortaHyperli pidemia, unspecifiedH yperparathyr oidismCKD (chronic kidney disease) stage 2, GFR 60-89 ml/minEncoun ter for exam of blood pressure w/o abnormal findings 8 [place] [facility] Leticia. [address] [place], [address], [place]. [phone] [facility], [address], [place], [id number], [place] tel:[phone] [facility] Laboratory tests ordered as part of a complete physical exam (CPE) 8 [place] [facility] Leticia. [address] [place], [address], [place]. tel:[phone] Office/outpa tient visit,[facility], [address] [place] [address], [id number], [place] tel:[phone] [facility] follow up (chief complaint)ba ck pain (chief complaint) Fatigue, unspecified typeOsteoart hritis of spine with radiculopath y, lumbar regionHyperl ipidemia, unspecifiedE ncounter for exam of blood pressure w/o abnormal findings 7 [facility] [facility]icia. [address] [place] [address], [address], [place]. [phone] Office/outpa tient visit,[facility], [address] [place] [address], [id number], [place] tel:[phone] [facility] tired/weak (chief complaint) Fatigue, unspecified typeDepressi on screeningWhi te coat syndrome with diagnosis of hypertension Allergic rhinitis, unspecifiedB vincenzo mass index (BMI) 23.0-23.9, [facility] of blood pressure w/o abnormal findings 7 [place] [facility] Leticia. [address] [place] [address], [address], [place]. [phone] Office/outpa tient visit,est, [facility], [address] [place] [address], [id number], [place] [phone] [facility] follow up (chief complaint)ar thritis questions (chief complaint)ma mmagram (chief complaint) Hyperlipidem ia, unspecifiedO steoarthriti s of spine with radiculopath y, lumbar regionInconc lusive mammogramEnc ounter for exam of blood pressure w/o abnormal findings 7 [place] [facility] Leticia. [address] [place], [address], [place]. tel:[phone] E/M service NEC [facility], [address], [place], [place], [id number], [place] [phone] [facility] sciatic nerve pain (chief complaint)al lergy shot (chief complaint)ma mmogram (chief complaint)se nior well visit (chief complaint) Encntr for general adult medical exam w/o abnormal findingsAlle rgic rhinitis, unspecifiedO steoarthriti s of spine with radiculopath y, lumbar regionAthero sclerosis of aortaBreast cancer screening November-0 3201 7 [place] [facility] Leticia. [address] [place], [address], [place]. tel:[phone] [facility], [address], [place], [id number], [place] [phone] [place] [address] Inconclusive mammogram 201 6 [place] [facility]icia. [address] [place], [address], [place]. tel:[phone] Office/outpa tient visit,est, mod [facility], [address], [id number], [place] tel:[phone] [place] [address] ER follow up (chief complaint) Acute right-sided low back pain with right-sided sciatica Sep-0 6-201 6 [place] Leticia. [address] [place], [address], [place]. tel:[phone] Office/outpa tient visit,est, low [facility], [address], [place], [place], [id number], [place] [phone] [place] [address] Mammogram results (chief complaint) Inconclusive mammogram Sep-0 -201 6 [place] [facility] Leticia. [address] [facility], [place], [address], [place]. tel:[phone] Office/outpa tient visit,est, mod [facility], [address], [place], [id number], [place] tel:[phone] [facility] Breast discharge (chief complaint) Discharge from right nipple 6 [place] [facility] Leticia. [address] [place], [address], [place]. tel:[phone] Preventive checkup, est,65+ yrs [facility], [address], [address], [place] tel:[phone] [facility] Senior Wellness Exam (chief complaint)Cl inical guidelines (chief complaint)Ma mmogram order (chief complaint) Encntr for general adult medical exam w/o abnormal findingsHype rlipidemia, unspecifiedV itamin D deficiency, unspecifiedB reast cancer screeningBod y mass index (BMI) 24.0-24.9, [facility] of blood pressure w/o abnormal findings 6 [place] [facility] Leticia. [address] [place], [address], [place]. tel:[phone] [facility], [address], [place], [id number], [place] tel:[phone] [facility] Routine physical examination 6 [place] [facility] Leticia. [address] [place], [address], [place]. tel:[phone] Office/outpa tient visit,est, mod [facility], [address], [place], [address], [place] tel:[phone] [facility] fatigue (chief complaint) Fatigue Sep-0 5 Lianet Lou. [address] [place], [address], [place]. tel:[phone] Office/outpa tient visit,est, mod [facility], [address], [place], [address], [place] tel:[phone] [facility] rash (chief complaint) Allergic reaction caused by a drugAdv eff medicinal NOS 5 [place] [facility]icia. [address] [place], [address], [place]. tel:[phone] Office/outpa tient visit,est, mod [facility], [address], [place], [address], [place] tel:[phone] [facility] Urgent care f/u (chief complaint) Serous otitis media 5 [place] [facility] Leticia. [address] [place], [address], [place]. tel:[phone] Office/outpa tient visit,est, low [facility], [address], [address], [place] tel:[phone] [facility] Urgent Care Ear pain (chief complaint) Pustule 5 Lianet Lou. [facility] [place], [address], [place]. tel:[phone] Office/outpa tient visit,est, mod [facility], [address], [place], [id number], [place] tel:[phone] [facility] Follow Up of Urgent care (chief complaint) Hyponatremia 5 [place] [facility] Leticia. [address] [place], [address], [place]. tel:[phone] Office/outpa tient visit,est, mod [facility], [address], [address], [place] tel:[phone] [facility] Urgent Care generalized weakness (chief complaint) Suprapubic painWeakness 0 5 Halle Miner. [address] [place] [address], [address], [place]. tel:[phone] Preventive checkup, est,65+ yrs [facility], [address], [place], [address], [place] [phone] [facility] Senior Well Visit (chief complaint) ROUTINE MEDICAL EXAMHYPERLIP IDEMIAVitami n D insufficienc y Malachi-0 2- 5 [facility]. [address] [place], [address], [place]. tel:[phone] Office/outpa tient visit,est, [facility], [address], [place], [id number], [place] tel:[phone] [facility] Mammogram order (chief complaint)sc iatica (chief complaint)sk in lesion (chief complaint) Lumbosacral radiculopath y due to degenerative joint disease of spineScreeni ng breast examinationE levated blood pressure reading without diagnosis Sep-3 5 [place] [facility] [place]. [address] [place] [address], [address], [place]. tel:[phone] Office/outpa tient visit,est, [facility], [address] [place] [address], [id number], [place] tel:[phone] [facility] Follow Up of Ashish. 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 [address] [place], [address], [place]. tel:[phone] Office/outpa tient visit,est, [facility], [address], [place], [address], [place] tel:[phone] [facility] Establish care (chief complaint)re ferral (chief complaint) Sciatic nerve pain Apr- 6 4 [place] [facility]. [address] [place], [address], [place]. tel:[phone] Office/outpa tient visit,est, [facility], [address], [place], [place], [address], [place] tel:[phone] [facility] Urgent care f/u (chief complaint) Pain in joint, pelvic region and thigh Sep-1 4 Christopher Kelly. [address] [place], [address], [place]. tel:[phone] Office/outpa tient visit,est, mod [facility], [address], [place], [place], [address], [place] tel:[phone] [facility] Urgent Care Back pain (chief complaint)L leg pain (chief complaint) Lower back painSciatic nerve pain Sep-0 4 Roxie Aguilar. [address] [place] [address], [address], [place]. tel:[phone] Preventive checkup, est,65+ yrs [facility], [address], [place], [address], [place] tel:[phone] [facility] Senior Wellness Visit (chief complaint) BMI BETWEEN 19-24,ADULTO TH SPECIFIED EXAMEXAMINAT ION, WELL ADULTHYPERLI PIDEMIAEXAMI NATION, WELL ADULTGYN EXAM W/ PAPPVD (peripheral vascular disease) 4 Marsha Messer [address], [place], [address], [place]. tel:[phone] Office/outpa tient visit,est, mod [facility], [address], [place], [address], [place] tel:[phone] [facility] hyperlipidem ia (chief complaint) HYPERLIPIDEM IAScreening for osteoporosis SCREEN - OSTEOPOROSIS 3 Marsha Messer [address], [place], [address], [place]. tel:[phone] Preventive checkup, est,65+ yrs [facility], [address], [place], [id number], [place] tel:[phone] [facility] Internal Medicine Senior well visit (chief complaint)Pc p: Dr. Larson (chief complaint) EXAMINATION, WELL ADULTEXAMINA TION, WELL ADULT Oct- 2-201 3 Starr Desmondjose eadan . [address] [place], [address], [place]. tel: [phone] [facility], [address], [place], [place], [address], [place] tel: [phone] [facility] Internal Medicine EXAMINATION, WELL ADULT Oct-0 8-201 3 Starr Denia . [address] [place], [address], [place]. tel: [phone] [facility], [address], [place], [address], [place] tel: [phone] [facility] Visit for screening mammogramMam jenniferram, Screening 1- 3 Marsha Zeng. [address], [address], [place], [address], [place]. tel: [phone] Preventive checkup, est,65+ yrs [facility], [address], [place], [address], [place] tel: [phone] [facility] Senior Wellness Visit (chief complaint) EXAMINATION, WELL ADULTHYPERLI PIDEMIAEXAMI NATION, WELL ADULTVisit for screening mammogram 2 Marsha Zeng. [address], [address], [place], [address], [place]. tel: [phone] [facility], [address], [address], [place] tel: [phone] [facility] Internal Medicine EXAMINATION, WELL ADULT 0 7201 2 Keya Davis. [address] [place], [address], [place]. tel: [phone] [facility], [address], [place], [place], [id number], [place] tel: [phone] [facility] Procedures EKG (chief complaint) Pre-op examLacerati on of tendon of left rotator cuff Aug 1 Adriano Benitez. [address] [place], [address], [place]. tel:[phone] Referring Provider: Eli Oh, [address] [place], [address]. tel:[phone] Office/outpa tient visit,est, [facility], [address], [place], [place], [address], [place] tel:[phone] [facility] right shoulder pain (chief complaint) JOINT PAIN-SHLDER 1 Domo Davis. [address] [facility], [address], [address], [place]. tel:[phone] Referring Provider: Ryan Reyez, [address], [address]. tel:[phone] Office/outpa tient visit,[facility], [address], [place], [place], [address], [place] tel:[phone] [facility] right arm/shoulder pain (chief complaint) JOINT PAIN-SHLDER 1 Domo Davis. [address], [address], [place]. tel:[phone] Referring Provider: Ryan Reyez, [address], [address]. tel:[phone] Office/outpa tient visit,[facility], [address], [place], [place], [address], [place] tel:[phone] [facility] shoulder pain (chief complaint) JOINT PAIN-SHLDER 1 Domo Davis. [address] [employer], [address], [address], [place]. tel:[phone] Referring Provider: Ryan Reyez, [address], [address]. tel:[phone] Office/outpa tient visit,est, mod [facility], [address], [place], [place], [address], [place] tel:[phone] [facility] Family Practice right arm pain (chief complaint) Right shoulder pain 1 Marsha Messer [address], [place], [address], [place]. tel:[phone] Referring Provider: Brit[address], [place], [address]. tel:[phone] Office/outpa tient visit,est, low [facility], [address], [address], [place] tel:[phone] [facility] Urgent Care pain rt. arm x 1 week (chief complaint) Strain of upper arm 1 Chapin Noble. [address] [place] [address], [address], [place]. tel:[phone] Referring Provider: Jeremie Galicia, [address] [place] [address], [address]. tel:[phone] [facility], [address], [place], [place], [address], [place] tel:[phone] [facility] Mammogram No Information Sep-0 8-201 0 Marsha Messer [address], [place], [address], [place]. tel:[phone] Referring Provider: Karri Griffin, [address], [place], [address]. [phone] Preventive checkup, est,65+ yrs [facility], [address], [place], [place], [address], [place] tel:[phone] [facility] Family Practice physical exam (chief complaint) EXAMINATION, WELL ADULTMammogr am, ScreeningHYP ERLIPIDEMIAE XAMINATION, WELL ADULT Sep-0 7-201 0 Marsha Messer [address], [place], [address], [place]. tel:[phone] Referring Provider: Karri Griffin, [address] [facility] [address], [place], [address]. tel:[phone] Office/outpa tient visit,est, low [facility], [address], [address], [place] tel: [phone] [facility] Urgent Care No Information 9 Chapin Noble. [address] [place] [address], [address], [place]. tel:[phone] [facility], [address], [place], [address], [place] tel:[phone] [facility] Mammogram No Information 9 Adriano Benitez. [address] [place] [address], [address], [place]. tel:[phone] Referring Provider: Tan Alas, [address] [employer] [address], [address]. tel:[phone] Office/outpa tient visit,est, mod [facility], [address], [place] [address], [place] tel:[phone] [facility] physical exam (chief complaint) BREAST SCREEN FOR CAHYPERLIPID EMIAHEMORRHO IDS INTERNAL NO COMPLICATION SHEMORRHOIDS INTERNAL NO COMPLICATION S 9 Janice Maddox. [address], [address], [place]. tel:[phone] Office/outpa tient visit,est, mod [facility], [address], [place], [address], [place] tel:[phone] [facility] U/C f/u 09-28-08 (chief complaint)ma notes (chief complaint) GI BLEED, GASTROINTEST INAL HEMORRHAGE UNSPECIFIEDH YPERLIPIDEMI A Sep- 9 Janice Maddox. [address] [employer], [facility] [address], [place], [address], [place]. tel: [phone] Office/outpa tient visit,est, low [facility], [address], [place], [place], [address], [place] tel: [phone] [facility] Urgent Care No Information 2 7-200 9 Oliver Franz. [address] [place] [address], [address], [place]. tel: [phone] [facility], [address], [place], [place], [address], [place] tel: [phone] [facility] Mammogram No Information 0 5-200 8 [facility]. [address] [place] [address], [address], [place]. tel: [phone] Office/outpa tient visit,est, mod [facility], [address], [place], [place], [address], [place] tel: [phone] [facility] HEDIS (chief complaint)ph ysical exam (chief complaint)hy perlipidemia (chief complaint) PURE HYPERCHOLEST EROLEM 8-200 8 No Information [facility], [address], [place], [address], [place] tel: [phone] [facility] Mammogram No Information 0 9-200 7 [facility]. [address] [place] [address], [address], [place]. tel: [phone] Office/outpa tient visit,est, mod [facility], [address], [place], [place], [address], [place] tel: [phone] [facility] annual physical (chief complaint) Leukocytopen ia UnspPURE HYPERCHOLEST EROLEM 5-200 7 No Information Office/outpa tient visit,est, mod [facility], [address], [place], [place], [address], [place] tel: [phone] [facility] Urgent Care No Information 4-200 7 Chapin Noble. [address] [place] [address], [address], [place]. tel: [phone] [facility], [address], [place], [place], [address], [place] tel:[phone] [facility] Mammogram No Information [facility]. [address] [place] [address], [address], [place]. tel:[phone] Family History Family Member Type Diagnosis Age [...] Authoriza tion(s) [employer] O [facility] [id number] Social History Type Description Quantity Date Captured Comments Sex Female Smoking Status No Information Sexual Orientation Straight or heterosexual Mar Chief Complaint And Reason For Visit No Information Reason For Referral Reason For Referral No Information Plan Of Treatment Date Type Action Status Goal TSH. Due on due Goal Zoster vaccine. Due on due Goal Unhealthy drug u se screening. Due on due Goal Cognitive assess ment. Due on due Goal VOYAGE MANAGEMENT SYSTEM OPERATOR exam. Due on due Goal AST. Due [...] Due on due Goal FLUZONE QUAD MDV 9167-8140. Due on due Goal H&P. Due on [...] due Goal ALT. Due on due Goal VOYAGE MANAGEMENT SYSTEM OPERATOR exam. Due on due Goal ECG. Due on due Goal Eye Exam. Due on due Goal FLUZONE QUAD MDV 6929-7030. Due on due Goal TSH. Due on [...] Due on due Goal FLUZONE QUAD MDV 9235-7926. Due on due Goal Zoster vaccine. Due on due Goal ECG. Due on due Goal Eye Exam. Due on due Goal Oncology (colore ctal) screening. Due on due Goal Cognitive assess ment. Due on due Goal Zoster vaccine ( ). Due on due Goal Depression scree ginette. Due on due Goal VOYAGE MANAGEMENT SYSTEM OPERATOR exam. Due on due Goal Pneumococcal Vac cine. Due on due Goal Influenza Vaccin e. Due on due Goal TD Vaccine. Due on due Goal Pneumococcal Vac cine. Due on due Goal ALT. Due on due Goal FLUZONE QUAD MDV 7076-3704. Due on due Goal TSH. Due on [...] u se screening. Due on due Goal VOYAGE MANAGEMENT SYSTEM OPERATOR exam. Due on due Goal Tdap Vaccine [...] Pneumococcal Vac cine. Due on due Goal VOYAGE MANAGEMENT SYSTEM OPERATOR exam. Due on due Goal AST. Due on due Goal H&P. Due on due Goal ECG. Due on due Goal Zoster vaccine. Due on due Goal Tdap Vaccine . Due on due Goal DEXA Scan. Due on due Goal VOYAGE MANAGEMENT SYSTEM OPERATOR exam. Due on due Goal TSH. Due on due Goal FLUZONE QUAD MDV 8358-2872. Due on due Goal ALT. Due on [...] Due on due Goal FLUZONE QUAD MDV 9188-8615. Due on due Goal AST. Due on due Goal VOYAGE MANAGEMENT SYSTEM OPERATOR exam. Due on due Goal Zoster vaccine. Due on due Goal Breast exam. Due on due Goal Eye Exam. Due on due Goal TSH. Due on due Goal TD Vaccine. Due on due Goal Depression scree ginette. Due on due Goal Cognitive assess ment. Due on due Goal VOYAGE MANAGEMENT SYSTEM OPERATOR exam. Due on due Goal Zoster vaccine. Due on due Goal H&P. Due on due Goal Influenza Vaccin e. Due on due Goal FLUZONE QUAD MDV 9376-1955. Due on due Goal Eye Exam. Due [...] due Goal ECG. Due on due Goal VOYAGE MANAGEMENT SYSTEM OPERATOR exam. Due on due Goal Zoster vaccine. [...] Due on due Goal FLUZONE QUAD MDV 7463-8312. Due on due Goal DEXA Scan. Due [...] (colore ctal) screening. Due on due Goal VOYAGE MANAGEMENT SYSTEM OPERATOR exam. Due on due Goal Depression scree [...] Goal Zoster vaccine. Due on due Goal VOYAGE MANAGEMENT SYSTEM OPERATOR exam. Due on due Goal TD Vaccine. Due on due Goal Pneumococcal Vac cine. Due on due Goal TSH. Due on due Goal AST. Due on due Goal Unhealthy drug u se screening. Due on due Goal Depression scree ginette. Due on due Goal Breast exam. Due on 023 due Goal Zoster vaccine ( 1st). Due on due Goal Zoster vaccine. Due on due Goal TD Vaccine. Due on due Goal H&P. Due on due Goal Influenza Vaccin e. Due on due Goal Pneumococcal Vac cine. Due on due Goal TSH. Due on due Goal Lipid Panel. Due on 026 due Goal FLUZONE QUAD MDV 5134-6623. Due on due Goal ALT. Due on [...] Depression scree ginette. Due on due Goal VOYAGE MANAGEMENT SYSTEM OPERATOR exam. Due on due Goal DEXA Scan. Due on due Goal ALT. Due on due Goal Breast exam. Due on 021 due Goal ECG. Due on due Goal Zoster vaccine. Due on due Goal FLUZONE QUAD MDV 8310-2744. Due on due Goal Eye Exam. Due on due Goal VOYAGE MANAGEMENT SYSTEM OPERATOR exam. Due on due Goal Influenza Vaccin [...] Tdap Vaccine . Due on due Goal VOYAGE MANAGEMENT SYSTEM OPERATOR exam. Due on due Goal Oncology (colore [...] Due on due Goal FLUZONE QUAD MDV 8547-3560. Due on due Goal Eye Exam. Due on due Goal Pneumococcal Vac cine. Due on due Goal Lipid Panel. Due on 026 due Goal Tdap Vaccine . Due on due Goal VOYAGE MANAGEMENT SYSTEM OPERATOR exam. Due on due Goal ALT. Due [...] Influenza Vaccin e. Due on due Goal VOYAGE MANAGEMENT SYSTEM OPERATOR exam. Due on due Goal Zoster vaccine. Due on due Goal Depression scree ginette. Due on due Goal DEXA Scan. Due on due Goal Pneumococcal Vac cine. Due on due Goal ECG. Due on due Goal AST. Due on due Goal FLUZONE QUAD MDV 3089-3947. Due on due Goal Tdap Vaccine . Due on due Goal Eye Exam. Due on due Goal Oncology (colore ctal) screening. Due on due Goal Lipid Panel. Due on due Goal Hemoglobin A1C. Due on due Goal ALT. Due on due Goal VOYAGE MANAGEMENT SYSTEM OPERATOR exam. Due on due Goal Hemoglobin A1C. Due on due Goal Tdap Vaccine . Due on due Goal FLUZONE QUAD MDV 6449-5781. Due on due Goal Influenza Vaccin e. [...] due Goal H&P. Due on due Goal VOYAGE MANAGEMENT SYSTEM OPERATOR exam. Due on due Goal Tdap Vaccine . Due on due Goal Pneumococcal Vac cine. Due on due Goal ALT. Due on due Goal FLUZONE QUAD MDV 0434-0080. Due on due Goal Hemoglobin A1C. Due [...] due Goal AST. Due on due Goal VOYAGE MANAGEMENT SYSTEM OPERATOR exam. Due on due Goal Lipid Panel. Due on 026 due Goal TD Vaccine. Due on 21 due Goal Breast exam. Due on 021 due Goal Influenza Vaccin e. Due on due Goal TSH. Due on due Goal Zoster vaccine. Due on due Goal FLUZONE QUAD MDV 2222-4434. Due on due Goal Depression scree ginette. Due on due Goal Cognitive assess ment. Due on due Goal Tdap Vaccine . Due on due Goal FLUZONE QUAD MDV 7374-5760. Due on due Goal TSH. Due on [...] Influenza Vaccin e. Due on due Goal VOYAGE MANAGEMENT SYSTEM OPERATOR exam. Due on due Goal Oncology (colore [...] Due on due Goal FLUZONE QUAD MDV 3028-9692. Due on due Goal VOYAGE MANAGEMENT SYSTEM OPERATOR exam. Due on due Goal Influenza Vaccin [...] Goal Lipid Panel. Due on due Goal VOYAGE MANAGEMENT SYSTEM OPERATOR exam. Due on due Goal Zoster vaccine. Due on due Goal ECG. Due on due Goal Breast exam. Due on due Goal DEXA Scan. Due on 0 due Goal AST. Due on due Goal H&P. Due on due Goal Hemoglobin A1C. Due on due Goal ALT. Due on due Goal Influenza Vaccin e. Due on due Goal FLUZONE QUAD MDV [id number]. Due on due Goal TSH. Due on due Goal Depression scree ginette. Due on due Goal Cognitive assess ment. Due on due Goal AST. Due on due Goal ECG. Due on due Goal Pneumococcal Vac cine. Due on due Goal Hemoglobin A1C. Due on due Goal Tdap Vaccine . Due on due Goal ALT. Due on due Goal VOYAGE MANAGEMENT SYSTEM OPERATOR exam. Due on due Goal H&P. Due on due Goal DEXA Scan. Due on 0 due Goal Oncology (colore ctal) screening. Due on due Goal FLUZONE QUAD MDV [id number]. Due on due Goal Eye Exam. Due on due Goal Lipid Panel. Due on 024 due Goal Breast exam. Due on 020 due Goal TSH. Due on due Goal [...] 024 due Goal Breast exam. Due on due Goal Oncology (colore ctal) screening. Due on due Goal FLUZONE QUAD MDV [id number]. Due on due Goal AST. Due on due Goal DEXA Scan. Due on 0 due Goal VOYAGE MANAGEMENT SYSTEM OPERATOR exam. Due on due Goal Tdap Vaccine [...] (colore ctal) screening. Due on due Goal VOYAGE MANAGEMENT SYSTEM OPERATOR exam. Due on due Goal Pneumococcal Vac [...] due Goal Colonoscopy. Due on due Goal VOYAGE MANAGEMENT SYSTEM OPERATOR exam. Due on due Goal TSH. Due [...] due Goal ECG. Due on due Goal VOYAGE MANAGEMENT SYSTEM OPERATOR exam. Due on due Goal Lipid Panel. [...] Influenza Vaccin e. Due on due Goal VOYAGE MANAGEMENT SYSTEM OPERATOR exam. Due on due Goal FLUZONE QUAD [...] due Goal TSH. Due on due Goal VOYAGE MANAGEMENT SYSTEM OPERATOR exam. Due on due Goal Tdap Vaccine [...] Goal Breast exam. Due on due Goal VOYAGE MANAGEMENT SYSTEM OPERATOR exam. Due on due Goal AST. Due [...] Goal Breast exam. Due on due Goal VOYAGE MANAGEMENT SYSTEM OPERATOR exam. Due on due Goal Tdap Vaccine . Due on due Goal Zoster vaccine. Due on due Goal Eye Exam. Due on due Goal Colonoscopy. Due on due Goal Hemoglobin A1C. Due on due Goal ECG. Due on due Goal H&P. Due on due Goal AST. Due on due Goal Breast exam. Due on due Goal Zoster vaccine. Due on due Goal VOYAGE MANAGEMENT SYSTEM OPERATOR exam. Due on due Goal Lipid Panel. [...] Goal Zoster vaccine. Due on due Goal VOYAGE MANAGEMENT SYSTEM OPERATOR exam. Due on due Goal Influenza Vaccin [...] due Goal TSH. Due on due Goal VOYAGE MANAGEMENT SYSTEM OPERATOR exam. Due on due Goal Breast exam. [...] Influenza Vaccin e. Due on due Goal VOYAGE MANAGEMENT SYSTEM OPERATOR exam. Due on due Goal Breast exam. [...] Goal DEXA Scan. Due on due Goal VOYAGE MANAGEMENT SYSTEM OPERATOR exam. Due on due Goal Zoster vaccine. [...] Influenza Vaccin e. Due on due Goal VOYAGE MANAGEMENT SYSTEM OPERATOR exam. Due on due Goal Zoster vaccine. [...] Influenza Vaccin e. Due on due Goal VOYAGE MANAGEMENT SYSTEM OPERATOR exam. Due on due Goal ECG. Due [...] Depression scree ginette. Due on due Goal VOYAGE MANAGEMENT SYSTEM OPERATOR exam. Due on due Goal TSH. Due on due Goal Zoster vaccine. Due on due Goal Pneumococcal Vac cine. Due on due Goal DEXA Scan. Due on due Goal Eye Exam. Due on due Goal VOYAGE MANAGEMENT SYSTEM OPERATOR exam. Due on due Goal Tdap Vaccine [...] Depression scree ginette. Due on due Goal VOYAGE MANAGEMENT SYSTEM OPERATOR exam. Due on due Goal DEXA Scan. Due on due Goal VOYAGE MANAGEMENT SYSTEM OPERATOR exam. Due on due Goal Tdap Vaccine [...] due Goal ALT. Due on due Goal VOYAGE MANAGEMENT SYSTEM OPERATOR exam. Due on due Goal Cognitive assess ment. Due on due Goal ECG. Due on due Goal Breast exam. Due on 017 due Goal Tdap Vaccine . Due on due Goal Depression scree ginette. Due on due Goal Eye Exam. Due on due Goal VOYAGE MANAGEMENT SYSTEM OPERATOR exam. Due on due Goal DEXA Scan. [...] Influenza Vaccin e. Due on due Goal VOYAGE MANAGEMENT SYSTEM OPERATOR exam. Due on due Goal TSH. Due on due Goal Zoster vaccine. Due on due Goal Depression scree ginette. Due on due Goal DEXA Scan. Due on due Goal ECG. Due on due Goal Tdap Vaccine . Due on due Goal Pneumococcal Vac cine. Due on due Goal VOYAGE MANAGEMENT SYSTEM OPERATOR exam. Due on due Goal Cognitive assess ment. Due on due Goal ECG. Due on due Goal Depression scree ginette. Due on due Goal Cognitive assess ment. Due on due Goal Tdap Vaccine . Due on due Goal Pneumococcal Vac cine. Due on due Goal VOYAGE MANAGEMENT SYSTEM OPERATOR exam. Due on due Goal DEXA Scan. Due on due Goal Zoster vaccine. Due on due Goal TSH. Due on due Goal TSH. Due on due Goal Zoster vaccine. Due on due Goal Cognitive assess ment. Due on due Goal Pneumococcal Vac cine. Due on due Goal DEXA Scan. Due on due Goal VOYAGE MANAGEMENT SYSTEM OPERATOR exam. Due on due Goal ECG. Due [...] Goal Zoster vaccine. Due on due Goal VOYAGE MANAGEMENT SYSTEM OPERATOR exam. Due on due Goal Influenza Vaccin e. Due on due Goal H&P. Due on due Goal Pneumococcal Vac cine. Due on due Goal Breast exam. Due on 007 due Goal Hemoglobin A1C. Due on due Goal ECG. Due on due Referral Referred To: [facility], [address] [place], [phone] Ordered: Referrals: Cardiology. [facility], [facility]. Evaluate and treat Appointment date/timeframe: ROUTINE ordered Referral Referred To: [facility] [address] [place] [address], [phone] Ordered: Referrals: Orthopedic Surgery. [facility]. Evaluate and treat Appointment date/timeframe: ROUTINE ordered Referral Referred To: [facility] [address] [facility] [place], [place], [phone] Ordered: Referrals: Dermatology. [facility]. Location: Dr. Fernandez. Evaluate and treat Appointment date/timeframe: ROUTINE ordered Referral Referred To: [facility] [address] [place], [place], [phone] Ordered: Referrals: Cardiology. [facility]. Evaluate and treat Appointment date/timeframe: ROUTINE ordered Referral Ordered: Mammography Diagnostic Bilateral ordered Referral Referred To: [facility] [address] [place], [place], [phone] Ordered: Referrals: Radiology. [facility]. Diagnostic testing Appointment date/timeframe: ROUTINE ordered Referral Referred To: [facility] [address] [place], [place], [phone] Ordered: Referrals: Pain Medicine. [facility]. Evaluate and treat Appointment date/timeframe: EXPEDITE [...] Lab Order Basic Me tabolic Panel (8) ([id number]), Sent on: Sent Future Order: Lab Order Hepatic Function Panel (7) ([id number]), Sent on: Sent Future Order: Lab Order Lipid Pa olegario ([id number]), Sent on: Sent Future Order: Lab Order [...] she has always taken Losartan potassium 25mg. [facility] ER Follow-Up for people with chronicconditions Follow Up of Hypertension Risk f actors include age over age 60. Additional information: pt states BP at home this AM was 130/67 Comments: carson davila says no c/o says recently got refill losatran 50 mg q day but on 25mg needs refill --- living for [place] in 2 weeks Senior Wellness Visit 84 [...] not helping has not make appt for adjudication specialist ---- says unable to get there streets too busy--no Family around to help her says needs to sell her place moving to [place] with daughter --- will need find home there Follow Up of hypertension Risk f actors include age over age 60. Additional information: 83 y/[facility] female [facility] Comments: carson davila says taking her meds not helping --- could not get out to [facility] hospital she was sick too much traffic ( the adjudication specialist) side effects sleepy and tired all she does is sleep on the medicine sSays cant keep feeling this way lives alone has to be able to do for herself Refill request Metoprolol Tartr ate 50mg BID. -Vanda IYER Senior Wellness Exam 83 yr. old female presents for annual Senior Wellness Exam. -Vanda I[facility]ER Follow Up of Hypertension Comments: has ap pt with adjudication specialist Wednesday-- blood pressure machine has been compared [...] with request for refill on Gabapentin. [facility]. No lumps or discharge. -[facility] pain 81 y/o female pr esent today complaining of pain in sciatica x 1 month [facility] pain (comments) says was doing y [...] female pr esent today for US results [facility] Follow Up of hypertension Risk f actors include age over age 60. Additional information: 80 y/o female present today for f/u on bp states she has stopped taken her medication due to blood pressure readings being the same as when she is not taking it [facility] Follow Up of Hyperte nsion (comments) patient doing well no c/o today -- brought in log Follow Up of Hypertension Senior Wellness Exam 80 yr. old female presents for annual Senior Wellness Exam. Declined EKG. -Vanda [facility] Follow Up of Hypertension Senior Wellness Exam (comments) no c/o today Follow Up of Hyperte nsion (comments) patient says taking blood pressure meds takes q am senior wellness visit 80 y/o fem darrel present today for senior wellness visit, pt refused EKG [facility] hedis measures controlling high bp Follow [...] her loose her hair. -Vanda IYER meds Mammogram order meds (comments) patient says [...] for appt in 2 weeks, verbally understood. [facility] referral request (comments) pilo ent now having pain left side buttock down to legs - has had sciatic 5 yrs hurts to tie shoe hurts to sit down and get up. paperwork pt requesting WILFREDO goff paperwork to be filled out [facility] referral request 79 y/o female p resent today requesting referral to pain management for sciatica pain [facility] referral request (comments) has a lesion on upper back for years would like removed wants to see Dr. fernandez referral request 79 y/o female p resent today requesting derm referral for skin lesion on back [facility] mammo order (comments) needs ord er for mammogram ma note pt states she sa w cardio is scheduled for echo and holter monitor mammo order 78 y/o female pr esent today requesting mammo order [facility] Follow Up of A-fib (comments) sa [...] has an appt with cardiology december 13. [facility] senior wellness visit 78 y/o fem darrel present today for senior wellness visit. [facility] allergies Additional infor mation: pt complaining of bad allergies would like allergy shot. allergies (comments) c/o watery itchy eyes and nose Mammogram Pt states she is here to get a breast exam and an order for her annual Mammogram. Abr[facility] Allergies The patient pres ents with itchy eyes, sneezing and watery eyes. Additional information: Pateint requesting injection for sx's relief. -Vanda METAL ROOM DENTAL TECHNICIAN. Follow Up of HTN/Thyroid Follow Up of HTN/Thy roid (comments) here to f/u on parathyroid Allergies (comments) c/o of sque ezing runny nose - lot of trees in yard . does own gardening. Senior Wellness Exam 77 yr. old female presents for annual Senior Wellness exam. -Vanda TALLEY Sciatic pain Allergies Additional infor mation: Pateint requesting an injection to improve sx's . -Aliciaz METAL ROOM DENTAL TECHNICIAN. Sciatic pain (comments) right le g pain got worst. - morning cant straight up back helps when takes advil about 11 am - stop pain management afraid of shots - and tried accupunction. follow up pt is here for 1 week recheck on bp/ [facility] follow up (comments) patient fee ls better [...] something to find out whats wrong[facility]weak (comments) patient sa ys feels real [...] foll ow up and lab results/ [facility] arthritis questions pt has quest ions about arthritis/ [facility] mammagram arthritis questions (comments) s ay someone [...] to hurt her when she walks/ [facility] allergy shot pt wonders if caroline cooper could possibly get an allergy shot due to runny nose, watery eyes, sneezing/ [facility] mammogram pt states that s he would like to get a mammo ordered/ [facility] senior well visit pt here for a senior well visit/ [facility] ER follow up (comments) patient says pain [...] take it due to all side effects. -[facility] Mammogram results 76 yr. old fem darrel presents to discuss results on Mammogram performed on 02-26-2016. -[facility] Mammogram results (comments) pat inent here [...] guidelines Per clinical guidelines pateint due for TSH,VOYAGE MANAGEMENT SYSTEM OPERATOR,Dexa scan,Eye exam, Cognitive assessment,Depression screening,Pneumonia,Tdap vaccine, and Zoster.-[facility] Mammogram order Patient requesti ng order for Mammogram. Has been set up for Breast exam today. -[facility] Senior Wellness Exam (comments) no c/o today doing well fatigue This is an initi al visit. The symptoms began 4 days ago and began suddenly. The patient presents with abdominal pain, fatigue and muscle weakness. The fatigue is associated with change in sleep cycle and generalized weakness. Additional information: [facility]. rash (comments) rash x 2 days un [...] has been taking it for 1wk. [facility]. Urgent care f/u 75 yr. old femmihaela cooper presents for urgent care f/u. Was seen at [facility] urgent care for pain in the left [...] are no associated symptoms. Additional information: Deyvi PIANO CASE MAKER. Follow Up of Urgent care 75 yr. old female presents for urgent care f/u. Was seen at [facility] urgent care on 01-01-2015 for weakness and [...] on 11/27/14. Mammogram done on 11/01/14. [facility] METAL ROOM DENTAL TECHNICIAN Mammogram order 74 yr. old femal e [...] purpura update problem list patient moving to [place] cbc, cmp today declined influenza vaccine Related [...] S/P CVA continue meclizine 25 mg tid pr n Related to Dizziness continue atorvastatin 40 mg [...] continue current med s keep appt with adjudication specialist continue home blood pressure monitoring twice dayf/u [...] 25 mg q day keep appt with adjudication specialist Related to Essential hypertension update problem list [...] atrial fibrillation f/u repeat bp Related to [place] reinaldo BP without diagnosis of hypertension conservative [...] Related to HYPERLIPIDEMIA willl follow Related to [place] ted blood pressure reading without diagnosis refer for [...]
[2025-02-16 13:44] VITALS: BP 120/60; PULSE 60; RESP 18; TEMP 36.2; O2SAT 97; BMI 24.2
--- NOTE | 2025-02-16 13:44 | A.OFFPC_ITS ---
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 Accompanied by: Self / Same As Patient Allergies codeine Allergy (Verified 02/16/25 14:49) Unknown Penicillins Allergy (Verified 02/16/25 14:49) Unknown Sulfa (Sulfonamide Antibiotics) Adverse Reaction (Intermediate, Verified 14:49) Blister Medication List - Last Reconciled 02/16/25 by NAM Syed amlodipine 5 mg PO DAILY apixaban (Eliquis) 2.5 mg PO Q12H atorvastatin 40 mg PO DAILY losartan 25 mg PO DAILY meclizine 25 mg PO DAILY PRN metoprolol succinate ER (Toprol XL) 25 mg PO DAILY Tobacco use date assessed: 02/16/25 Fall risk assessment: No Falls in past year Last assessed Fall Risk: 02/16/25 Dental Screening Dental Screen Date: 02/16/25 Did you have a dental visit in the last 12 months?: No Did you have a dental problem in the last 6 months where you did not have access to dental care?: No Was dental information given to patient?: No HPI Pharmacy Resident establish care HPI Details Previous PCP: Dr. Cao, Last visit:years prior, then she saw a in [place] once of medication refill Last PE:couple of years Specialist:cardiology OBGYN: Past medical history: cva 07/14/23, expressive aphasia. Reports that she was seeing speech therapist, Medications: Family HX: Problem: The patient is an 85-year-old female presenting for management of atrial fibrillation and stroke prevention. The patient has a history of atrial fibrillation, which was not initially treated with anticoagulation therapy, leading to a stroke. She does not recall receiving blood pressure medication until after the stroke occurred. The patient is currently on anticoagulation therapy to prevent further thromboembolic events. She reports experiencing peripheral edema, which she attributes to medication us e and increased activity levels. The edema resolves after resting with her legs elevated for several hours. The patient has a history of sciatica, which required the use of a walker for approximately one year. She no longer uses a walker but experiences pain in her ankles and weakness in her legs, particularly after prolonged walking. Hypercholesterolemia is being managed with atorvastatin, and the patient is advised to maintain low cholesterol levels to prevent cardiovascular events. She is aware of the importance of controlling cholesterol and blood pressure to reduce the risk of stroke and heart attack. The patient has trouble while can distance due to bilateral ankle pain. We will have the patient fills out the application for a placard upon her next visit. FORMERLY [facility], [facility] Medical History Atrial fibrillation Dizziness HTN (hypertension) Hyperlipidemia CVA (cerebral vascular accident) Family History Father Heart attack Social History Household Members: Other Housing: Apartment Alcohol intake: never Patient Tobacco Use Status: Never used Tobacco e-Cigarette/Vaping Use: Never Used service: No Current occupational status: retired Cognitive needs: Yes Hearing needs: No Vision needs: Yes Questionnaire PHQ-9 Over the last 2 weeks, how often have you been bothered by any of the following problems? 1. Little interest or pleasure in doing things: several days 2. Feeling down, depressed, or hopeless: not at all 3. Trouble falling or staying asleep, or sleeping too much: not at all 4. Feeling tired or having little energy: nearly every day 5. Poor appetite or overeating: more than half the days 6. Feeling bad about yourself - or that you are a failure or have let yourself or your family down: not at all 7. Trouble concentrating on things, such as reading the newspaper or watching television: not at all 8. Moving or speaking so slowly that other people could have noticed. Or the opposite - being so fidgety or restless that you have been moving around a lot more than usual: not at all 9. Thoughts that you would be better off or of hurting yourself in some way: not at all Total score: 6 Depression Screening Interpretation: Positive Depression Screening Done: Yes 94023 - PHQ-9 Billing: Yes Source: Developed by Drs. Alfa Lawrence, Claude Mo and colleagues, with an educational laurel from [employer]. Thrive Questionnaire Date Thrive assessed: 02/16/25 I am a: Patient What is your living situation today?: I have a steady place to live Within the past 12 months, did the food you bought not last and you didn't have the money to get more?: Never true Within the past 12 months, did you worry whether your food would run out before you got money to buy more?: Never true Do you have trouble paying for medicines?: No Do you have trouble getting transportation to medical appointments?: No Do you have trouble paying your heating and electricity bill?: No Do you have trouble taking care of your child, family member or friend?: No Do you have trouble with day-to-day activities such as bathing, preparing meals, shopping, managing finances, etc.?: No Are you currently unemployed and looking for a job?: No Are you interested in more education?: No Please select the resources that you would like help with: None Currently or been in a relationship where the following occur: No concerns reported THRIVE Score: 0 AUDIT C Alcohol Use Questionnaire (AUDIT-C) 1. How often do you have a drink containing alcohol?: Never 3. How often do you have six or more drinks on one occasion?: Never Total Score: 0 AIRAM-7 AMB Questionnaire AIRAM-7 Date AIRAM - 7 assessed: 02/16/25 Feeling nervous, anxious, or on edge: 1 = Several days Not being able to stop or control worryin = Several days Worrying too much about different things: 2 = More than half the days Trouble relaxin = Not at all Being so restless that it is hard to sit still: 0 = Not at all Becoming easily annoyed or irritable: 1 = Several days Feeling afraid as if something awful might happen: 0 = Not at all Total AIRAM-7 score (0-4 normal; 5-9 mild; 10-14 moderate; 15-21 severe): 5 Source: Developed by Drs. Alfa Lawrence, Claude Mo and colleagues, with an educational laurel from [employer]. AIRAM-7 Assessment Billing AIRAM-7 Assessment Tool: AIRAM-7 Assessment 61313 Review of Systems Const Denies headache(s) Eyes Denies loss of vision ENT Denies vertigo, Reports dizziness (hx, has been stable), Denies headache(s) and Denies sore throat Card Denies chest pain, Reports leg edema (peripheral edema-bilateral) and Denies lightheadedness Resp Denies cough, Denies hemoptysis and Denies wheezing GI Denies abdominal pain, Denies melena, Denies constipation, Denies diarrhea and Denies vomiting Denies urinary frequency, Denies dysuria and Denies urinary urgency Musc Reports arthralgias (bilateral ankles), Denies joint swelling, Denies numbness and Denies tingling Neuro Denies behavioral changes, Denies vertigo, Reports dizziness (hx, has been stable), Denies headache(s), Denies loss of vision, Denies memory loss, Denies numbness and Denies tingling Psych Denies anxiety, Denies behavioral changes, Denies depression, Denies memory loss and Denies panic attacks Oleksandr/Lymph Denies easy bleeding and Denies easy bruising Aller/Immun Denies wheezing Physical exam (Primary Care) Vital Signs: Last Vital Signs Temp 97.1 F 02/16/25 13:44 Pulse 60 02/16/25 13:44 Resp 18 02/16/25 13:44 BP 128/52 L 02/16/25 14:53 Pulse Ox 97 02/16/25 13:44 Oxygen Delivery Method Room Air 02/16/25 13:44 BMI result Body Mass Index 24.2 Tobacco/Smoking Status: Tobacco use Status Tobacco use date assessed 02/16/25 02/16/25 13:45 Patient Tobacco Use Status Never used Tobacco 02/16/25 14:17 e-Cigarette/Vaping Use Never Used 02/16/25 14:17 PHQ-9: PHQ-9 Score PHQ-9: Total score 6 02/17/25 16:45 Depression Screening Interpretation: Positive Thrive Assessment: Date of Thrive Assessment Date Thrive assessed 02/16/25 02/16/25 13:45 Currently or been in a relationship where the following occur: No concerns reported Const General: healthy appearing, no acute distress, alert and awake Nutritional Appearance: well nourished Orientation/consciousness: oriented to person, oriented to place and oriented to time HENMT Ears: TM's normal bilaterally General nose exam: Normal nasal mucous membranes and turbinates present Eyes Conjunctivae: conjunctivae normal Sclerae: sclerae normal Pupils: Equal, round and reactive pupils present Neck Neck: Yes no lymphadenopathy and Yes no JVD Thyroid: Thyroid normal Carotids: no bruits Resp Effort & Inspection: normal respiratory effort and not tachypneic Auscultation: no crackles, no rales, no rhonchi and no wheezes Cardio Rate: regular rate Rhythm: abnormal rhythm irregularly irregular Heart sounds: no murmurs and normal S1 and S2 GI Palpation (GI): Soft to palpation, nontender, no hepatomegaly and no splenomegaly Auscultation: normal bowel sounds Skin General skin exam: no rashes or lesions noted and dry skin Neuro General: oriented to person, oriented to place and oriented to time Cranial nerves: Yes Equal, round and reactive pupils present Speech: Expressive aphasia present Gait exam (Neuro): Normal gait present Motor exam (neuro): no tremor noted Extrem Right upper extremity: full ROM Left upper extremity: full ROM Right lower extremity: full ROM, lower leg Details: pitting edema Details: 1+ and ankle Details: no tenderness Left lower extremity: full ROM, edema, lower leg Details: pitting edema Details: 1+ and ankle Details: no tenderness Psych Mental Status: mental status grossly normal Speech and movement: Normal speech and movement present Affect: normal affect Attitude: cooperative Thought process: Normal thought process present Coding Level of Care Code New Pt Level 4 (30004) Diagnoses Atrial fibrillation, unspecified type I48.91 Atrial fibrillation type: unspecified Hypertension, unspecified type I10 Hypertension type: unspecified Hyperlipidemia, unspecified hyperlipidemia type E78.5 Hyperlipidemia type: unspecified Cerebrovascular accident (CVA) due to embolism of cerebral artery I63.40 CVA mechanism: embolism Precerebral and cerebral artery: unspecified cerebral artery Chronic pain of both ankles M25.571; M25.572; G89.29 Chronicity: chronic Additional Codes AIRAM-7 Assessment Billing - AIRAM-7 Assessment Tool: AIRAM-7 Assessment 92008 ([id number]) PHQ-9 - 35083 - PHQ-9 Billing: Yes ([id number]) Time Spent (min) 39 Assessment & Plan Assessment & Plan (1) Atrial fibrillation: Code(s): I48.91 - Unspecified atrial fibrillation Category: Medical Qualifiers: Atrial fibrillation type: unspecified Qualified Code(s): I48.91 - Unspecified atrial fibrillation (2) HTN (hypertension): Code(s): I10 - Essential (primary) hypertension Category: Medical Qualifiers: Hypertension type: unspecified Qualified Code(s): I10 - Essential (primary) hypertension (3) Hyperlipidemia: Code(s): E78.5 - Hyperlipidemia, unspecified Category: Medical Qualifiers: Hyperlipidemia type: unspecified Qualified Code(s): E78.5 - Hyperlipidemia, unspecified (4) CVA (cerebral vascular accident): Code(s): I63.9 - Cerebral infarction, unspecified Category: Medical Qualifiers: CVA mechanism: embolism Precerebral and cerebral artery: unspecified cerebral artery Qualified Code(s): I63.40 - Cerebral infarction due to embolism of unspecified cerebral artery (5) Bilateral ankle pain: Code(s): M25.571 - Pain in right ankle and joints of right foot; M25.572 - Pain in left ankle and joints of left foot Category: Medical Qualifiers: Chronicity: chronic Qualified Code(s): M25.571 - Pain in right ankle and joints of right foot; M25.572 - Pain in left ankle and joints of left foot; G89.29 - Other chronic pain Plan The patient will continue anticoagulation therapy to manage atrial fibrillation and prevent further strokes. She was referred to Cardiology by the emergency room to ensure comprehensive management of her cardiovascular health and to prevent recurrent cerebrovascular events. In the emergency room she was placed on apixaban 2.5 mg b.i.d. and metoprolol succinate ER 25 mg daily. The patient is also on amlodipine 5 mg daily and losartan 25 mg daily for blood pressure management. Reinforced low-sodium diet. The patient has a history of dizziness that was ruled to be benign positional vertigo for which she takes meclizine 25 mg p.r.n. Management of peripheral edema includes advising the patient to elevate her legs and consider the use of compression stockings if necessary. The patient is ad vised to monitor her activity levels to prevent exacerbation of edema. For hypercholesterolemia, the patient will continue atorvastatin 40 mg therapy and is encouraged to maintain a diet low in cholesterol. Regular monitoring of cholesterol levels is advised to ensure therapeutic goals are met. Patient was informed and verbally consented to the use of an ambient scribe for clinic note documentation during this visit. Orders: Orders Complete Blood Count Auto Diff 02/16/25 E78.5 - Hyperlipidemia, unspecified, I10 - Essential (primary) hypertension, I63.9 - Cerebral infarction, unspecified, Z00.00 - Encounter for general adult medical examination without abnormal findings Comprehensive [place]. Panel Fast 02/16/25 E78.5 - Hyperlipidemia, unspecified, I10 - Essential (primary) hypertension, I63.9 - Cerebral infarction, unspecified, Z00.00 - Encounter for general adult medical examination without abnormal findings UA CC w/rflx Micro + Cult 02/16/25 E78.5 - Hyperlipidemia, unspecified, I10 - Essential (primary) hypertension, I63.9 - Cerebral infarction, unspecified, Z00.00 - Encounter for general adult medical examination without abnormal findings Lipid Panel 02/16/25 E78.5 - Hyperlipidemia, unspecified, I10 - Essential (primary) hypertension, I63.9 - Cerebral infarction, unspecified, Z00.00 - Encounter for general adult medical examination without abnormal findings TSH reflex Free T4 02/16/25 E78.5 - Hyperlipidemia, unspecified, I10 - Essential (primary) hypertension, I63.9 - Cerebral infarction, unspecified, Z00.00 - Encounter for general adult medical examination without abnormal findings Vitamin D 25-OH Total 02/16/25 E78.5 - Hyperlipidemia, unspecified, I10 - Essential (primary) hypertension, I63.9 - Cerebral infarction, unspecified, Z00.00 - Encounter for general adult medical examination without abnormal findings B Type Natriuretic Peptide 02/16/25 E78.5 - Hyperlipidemia, unspecified, I10 - Essential (primary) hypertension, I63.9 - Cerebral infarction, unspecified, Z00.00 - Encounter for general adult medical examination without abnormal findings Medications: New amlodipine 5 mg PO DAILY 90 tabs 3RF atorvastatin 40 mg PO DAILY 90 tabs 3RF losartan 25 mg PO DAILY 90 tabs 3RF Patient Instructions: - Continue taking anticoagulation medication as prescribed. - follow up with Cardiology as scheduled. - Elevate legs when resting to help reduce swelling. - Consider using compression stockings if swelling persists. - Maintain a low-cholesterol diet and continue atorvastatin therapy. - Monitor cholesterol levels regularly.
[2025-02-16 14:53] VITALS: BP 128/52
== END 2025-02-16 15:29 | disposition home or self-care (01) ==
LOC: HO.HMCH 13:33
DX: I48.91 Unspecified atrial fibrillation (principal); I10 Essential (primary) hypertension; E78.5 Hyperlipidemia, unspecified; I63.40 Cerebral infarction due to embolism of unspecified cerebral artery; M25.571 Pain in right ankle and joints of right foot; M25.572 Pain in left ankle and joints of left foot; G89.29 Other chronic pain

== ENCOUNTER 2025-03-02 10:09 | Outpatient (REF) | payer MEDICARE, SELFPAY ==
[2025-03-02 10:44] LABS: MANUAL DIFF FLAG NO
[2025-03-02 11:35] LABS: Hematocrit 39.2 % (37.0-47.0); Hemoglobin 13.2 g/dl (12.0-16.0); Imm Gran Abs Auto 0.02 X10*3/uL (0.00-0.03); Imm Gran Pct Auto 0.4 % (0.0-0.4); Lymphocytes Absolute Auto 1.2 X10*3/uL (1.2-4.9); Mean Corpuscular HGB Conc 33.7 g/dl (31.0-35.0); Mean Corpuscular Hemoglobin 29.7 pg (27.0-33.0); Mean Corpuscular Volume 88.1 fL (80.0-98.0); NRBC Abs Auto 0.000 X10*3/uL (0.0-0.012); NRBC Pct Auto 0.0 /100WBC (0.0-0.2); Platelet Count 282 X10*3/uL (160-400); Red Blood Count 4.45 X10*6/uL (4.20-5.50); White Blood Count 5.7 X10*3/uL (4.8-10.8)
[2025-03-02 12:04] LABS: Appearance Urine Clear; Glucose Urine UA Negative (Negative); PH 7.5 (5.0-9.0); Specific Gravity - Urine <= 1.005 (1.005-1.025); UMIC TRIGGER UACC YES
[2025-03-02 12:15] LABS: B Type Natriuretic Peptide 218 pg/mL (<100)
[2025-03-02 12:23] LABS: Alanine Aminotransferase 35 U/L (0-31); Albumin Level 4.6 g/dL (3.5-5.0); Alkaline Phosphatase 139 U/L (39-117); Anion Gap 14 (12-20); Aspartate Amino Transferase 30 U/L (5-31); Blood Urea Nitrogen 12 mg/dL (9-16); Calcium 9.6 mg/dL (8.4-10.2); Carbon Dioxide 23 mmol/L (22-29); Chloride 106 mmol/L (96-108); Cholesterol 141 mg/dL (<200); Estimated Glomerular Filt Rate > 60; HDL Cholesterol 66 mg/dL (>40); Potassium 4.9 mmol/L (3.3-5.1); Sodium 138 mmol/L (135-145); Total Protein 7.6 g/dL (6.5-8.0); Triglycerides 43 mg/dL (<150)
== END 2025-03-02 10:10 | disposition home or self-care (01) ==
LOC: HO.LAB 10:09
DX: Z00.00 Encounter for general adult medical examination without abnormal findings (principal); I10 Essential (primary) hypertension; E78.5 Hyperlipidemia, unspecified; I63.9 Cerebral infarction, unspecified
CPT/HCPCS: 36415; 80053; 80061; 81001; 81003; 82306; 83880; 84443; 85025

== ENCOUNTER → 2025-03-23 09:48 | Outpatient (REF) | payer MEDICARE, SELFPAY ==
--- NOTE | 2025-03-23 09:52 | CA_ITS ---
Transthoracic Echocardiogram Patient (Last, First, Middle): Garrick Huerta, Gender: F Date of : 1940 Age: 85 Procedure Date: 03/23/2025 Procedure Type: Transthoracic Echocardiogram Location: OP Height: 160. cm Weight: 60.33 kg BSA: 1.63 m2 Heart Rate: 57 bpm BP: 165 / 70 mmHg Litigation Docket Manager: JOSEMANUEL Referring MD: Miriam Pinedo FORM RAISERDon Symptoms: I48.91 - Unspecified atrial fibrillation Study Quality: Adequate ECG Rhythm: Atrial Fibrillation Conclusions: - The left ventricular systolic function is normal. The calculated ejection fraction is 62% by biplane method. - There is mild aortic valve regurgitation. - There is mild to moderate mitral valve regurgitation. - There is moderate tricuspid valve regurgitation. Findings Left Ventricle Normal left ventricular cavity size. There is normal left ventricular wall thickness. The left ventricular systolic function is normal. The calculated ejection fraction is 62% by biplane method. There is no evidence of regional wall motion abnormalities. Diastolic function is indeterminate on the basis of available data. Right Ventricle Normal right ventricular cavity size. There is mildly decreased right ventricular systolic function. Atria The left atrium is normal in size. The right atrium is mildly dilated. Aortic Valve There is a normal trileaflet aortic valve. There is no aortic valve stenosis. There is mild aortic valve regurgitation. Mitral Valve The mitral valve appears normal. There is mild to moderate mitral valve regurgitation. There is no mitral valve stenosis. Pulmonic Valve There is trace pulmonic valve regurgitation. Tricuspid Valve There is moderate tricuspid valve regurgitation. Borderline RVSP. Great Vessels The asc aorta and aortic arch are normal in size. Venous The inferior vena cava is normal in size and collapses greater than 50% with inspiration. Pericardium/Pleural There is no evidence of pericardial effusion. Prior Study Comparison No prior study available for comparison. Measurements 2D Linear Measurements IVSd: 0.86 0.6-0.9/0.6-1.0 cm LVIDd: 4.25 3.9-5.3/4.2-5.9 cm LVIDd Index: 2.61 2.4-3.2/2.2-3.1 cm/m2 LVIDs: 2.66 2.0-3.6 cm LVPWd: 0.82 0.7-1.1 cm LA Diam: 3.30 2.7-3.8/3.0-4.0 cm LAIDs Index: 2.02 1.5-2.3 cm/m2 LV Mass: 136.92 67-162/88-224 g LV Mass Index: 84.00 43-95/49-115 g/m2 LVOT Diam: 1.90 3.0+(-)1.3 cm 2D Systolic Function EF 4C: 70.50 >55% EF 2C: 50.00 >55% EF BiP: 62.00 >55% Mitral Valve MV Pk E: 1.50 MV Decel Time: 185.00 E'Lateral: 8.77 E'Medial: 7.69 E/E' Med: 19.50 E/E' Lat: 17.10 PHT: 54.00 MVA PHT: 4.07 Decel Berg[place]: 8.11 Aortic Valve AoV Pk Ignacio: 1.75 AoV Mn Ignacio: 1.17 AoV VTI: 0.42 AoV Pk Grad: 12.00 Aov Mn Grad: 7.00 FAUSTO Cont.VTI: 1.48 AI Pk Ignacio: 4.54 AI VTI: 2.05 AI Berg[place]: 3.59 AI Alias Ignacio: 0.39 AI RV - PISA: 18.00 ERO - PISA: 9.00 LVOT LVOT Pk Ignacio: 0.88 LVOT Mn Ginacio: 0.65 LVOT VTI: 0.22 LVOT Pk Grad: 3.00 LVOT Mn Grad: 2.00 LVOT Diam: 1.90 LVOT Area: 2.84 Diastolic Function MV Pk E: 1.50 E'Medial: 7.69 E/E' Med: 19.50 E' Laterial: 8.77 E/E' Lat: 17.10 Right Ventricle TAPSE (mm): 16.30 TVS' Ignacio: 7.71 Tricuspid Valve TR Pk Ignacio: 2.84 TR Pk Grad: 32.00 RA Press: 3.00 RVSP: 35.00 Great Vessels Aorta Sinus of Valsalva: 2.60 2.0-3.5 cm Ao Asc: 3.40 2.1-3.4 cm Ao Arch: 2.60 Pulmonary Valve PV Pk Ignacio: 0.87 Peak PV Grad: 3.00 Updated in Other Vendor System with Status of Final Quoc Scott MD electronically signed on 03/24/2025 1:01:36 PM with status of Final
== END ==
LOC: HO.CARD 09:48
PROVIDERS: Visit Provider Nurse Practitioner Family
DX: I48.91 Unspecified atrial fibrillation (principal)
CPT/HCPCS: 93242; 93306

== ENCOUNTER → 2025-03-23 09:52 | Outpatient (BNV) | payer MEDICARE, SELFPAY | PROVIDERS: Visit Provider Internal Medicine | DX: I34.0 Nonrheumatic mitral (valve) insufficiency (principal); I36.1 Nonrheumatic tricuspid (valve) insufficiency; I35.1 Nonrheumatic aortic (valve) insufficiency | CPT/HCPCS: 93306 ==

== ENCOUNTER 2025-04-06 13:37 | Outpatient (AMB) | payer MEDICARE, SELFPAY ==
--- OUTSIDE RECORDS SUMMARY | 2025-01-09 07:03 | XMS_ITS | Continuity of Care Document ---
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 Operator Name Role Phone Leticia Russell [...] NOTED NONE PRSNT MED LIST DOCD IN [facility] RVW MEDS BY RX/DR IN [facility] Diastolic Blood Pressure Less Than 80mm Hg Systolic Blood Pressure 131-139mm Hg Apr Office/outpatient visit,est, mod 2023 AMNT PAIN NOTED NONE PRSNT Diastolic Blood Pressure Less Than 80mm Hg Systolic Blood Pressure 131-139mm Hg Aug E/M service [facility] Office/outpatient visit,est, mod 2023 AMNT PAIN NOTED NONE PRSNT Diastolic Blood Pressure Less Than 80mm Hg Systolic Blood Pressure Greater Or Equal To 140mm MTMS BY PHARM EST 15 MIN Void Ticket [facility] MED/CURRENT MED MERGE MTMS BY PHARM PATIENT SERVICES TECHNICIAN 15 MIN MTMS BY PHARM ADDL 15 [...] NOTED NONE PRSNT MED LIST DOCD IN [facility] RVW MEDS BY RX/DR IN [facility] Diastolic Blood Pressure 80-89mm Hg Systolic Blood Pressure Greater Or Equal To 140mm E/M service [facility] Preventive checkup, est,65+ yrs - 023 AMNT [...] NOTED NONE PRSNT MED LIST DOCD IN [facility] RVW MEDS BY RX/DR IN [facility] BODY MASS INDEX DOCD Diastolic Blood Pressure [...] NOTED PAIN PRSNT MED LIST DOCD IN [facility] RVW MEDS BY RX/DR IN [facility] BODY [place] INDEX DOCD Diastolic Blood Pressure 80-89mm Hg Systolic Blood Pressure Greater Or Equal To 140mm Office/outpatient visit,est, mod 2020 AMNT PAIN NOTED NONE PRSNT MED LIST DOCD IN [facility] RVW MEDS BY RX/DR IN [facility] BODY M[place] INDEX DOCD Diastolic Blood Pressure 80-89mm Hg Systolic Blood Pressure Greater Or Equal To 140mm Office/outpatient visit,est, mod 2020 AMNT PAIN NOTED NONE PRSNT MED LIST DOCD IN [facility] RVW MEDS BY RX/DR IN [facility] BODY M[place] INDEX [facility] Diastolic Blood Pressure Less Than 80mm Hg Systolic Blood Pressure Greater Or Equal To 140mm Office/outpatient visit,est, mod 2020 AMNT PAIN NOTED NONE PRSNT MED LIST DOCD IN [facility] RVW MEDS BY RX/DR IN [facility] BODY M[place] INDEX [facility] Diastolic Blood Pressure Less Than 80mm Hg Systolic Blood Pressure Greater Or Equal To 140mm E/M service [facility] Preventive checkup, est,65+ yrs 021 AMNT PAIN NOTED NONE PRSNT MED LIST DOCD IN [facility] RVW MEDS BY RX/DR IN [facility] BODY [place] INDEX [facility] Diastolic Blood Pressure Greater Or Equa l To 90mm Systolic Blood Pressure Greater Or Equal To 140mm E/M service [facility] Preventive checkup, est,65+ yrs 020 AMNT PAIN NOTED NONE PRSNT [facility] Diastolic Blood Pressure 80-89mm Hg Systolic Blood Pressure Greater Or Equal To 140mm Office/outpatient visit,est, mod 2019 AMNT PAIN NOTED NONE PRSNT MED LIST DOCD IN [facility] RVW MEDS BY RX/DR IN [facility] Diastolic Blood Pressure Less Than 80mm Hg Systolic Blood Pressure Greater Or Equal To 140mm AMNT PAIN NOTED NONE PRSNT MED LIST DOCD IN [facility] RVW MEDS BY RX/DR IN [facility] BODY [place] INDEX [facility] Diastolic Blood Pressure Less Than 80mm Hg Systolic Blood Pressure Greater Or Equal To 140mm Office/outpatient visit,est, mod 2019 AMNT PAIN NOTED NONE PRSNT MED LIST DOCD IN [facility] RVW MEDS BY RX/DR IN [facility] B[place] INDEX [facility] Diastolic Blood Pressure Less Than 80mm Hg Systolic Blood Pressure Greater Or Equal To 140mm Office/outpatient visit,est, mod 2019 AMNT PAIN NOTED NONE PRSNT [place] INDEX [facility] Diastolic Blood Pressure Greater Or Equa l To 90mm Systolic Blood Pressure Greater Or Equal To 140mm E/M service [facility] Office/outpatient visit,est, mod 2019 AMNT PAIN NOTED NONE PRSNT [place] INDEX [facility] Diastolic Blood Pressure 80-89mm Hg Systolic Blood Pressure Greater Or Equal To 140mm Office/outpatient visit,est, mod 2019 AMNT PAIN NOTED NONE PRSNT MED LIST DOCD IN [facility] RVW MEDS BY RX/DR IN [facility] B[place] INDEX [facility] Diastolic Blood Pressure 80-89mm Hg Systolic Blood Pressure Greater Or Equal To 140mm Office/outpatient visit,est, mod 2018 AMNT PAIN NOTED NONE PRSNT MED LIST DOCD IN [facility] RVW MEDS BY RX/DR IN [facility] Diastolic Blood Pressure Greater Or Equa l To 90mm Systolic Blood Pressure Greater Or Equal To 140mm Office/outpatient visit,est, min 2018 Diastolic Blood Pressure Less Than 80mm Hg Systolic Blood Pressure Greater Or Equal To 140mm Office/outpatient visit,est, mod 2018 AMNT PAIN NOTED PAIN PRSNT MED LIST DOCD IN [facility] RVW MEDS BY RX/DR IN [facility] Diastolic Blood Pressure Less Than 80mm Hg Systolic Blood Pressure Greater Or Equal To 140mm Office/outpatient visit,est, mod 2018 [place] INDEX DOCD Diastolic Blood Pressure Less Than 80mm Hg Systolic Blood Pressure 131-139mm Hg Mar Office/outpatient visit,est, mod 2018 AMNT PAIN NOTED NONE PRSNT MED LIST DOCD IN [facility] RVW MEDS BY RX/DR IN [facility] Diastolic Blood Pressure 80-89mm Hg Systolic Blood Pressure Greater Or Equal To 140mm Office/outpatient visit,est, mod 2018 MED LIST DOCD IN [facility] RVW MEDS BY RX/DR IN [facility] Diastolic Blood Pressure 80-89mm Hg Systolic Blood Pressure Greater Or Equal To 140mm E/M service [facility] E/M service [facility] Preventive checkup, est,65+ yrs 019 AMNT PAIN NOTED NONE PRSNT MED LIST DOCD IN [facility] RVW MEDS BY RX/DR IN [facility] BODY MASS INDEX DOCD Diastolic Blood Pressure Less Than 80mm Hg Systolic Blood Pressure Greater Or Equal To 140mm MED LIST DOCD IN [facility] RVW MEDS BY RX/DR IN [facility] Office/outpatient visit,est, mod 2017 AMNT PAIN NOTED [...] Office/outpatient visit,est, mod 2014 [facility] Systolic Blood Pressure 131-139mm Hg Feb Diastolic Blood Pressure Less Than 80mm Hg Office/outpatient visit,est, low 2014 [facility] Systolic Blood Pressure Greater Or Equal To 140mm Diastolic Blood Pressure Less Than 80mm Hg Office/outpatient visit,est, mod 2014 [place] INDEX DOC[facility] Systolic Blood Pressure 131-139mm Hg Jan Diastolic Blood Pressure Less Than 80mm Hg [facility] Venipuncture Collection Of Blood 2014 Metabolic panel, [...] Office/outpatient visit,est, mod 2013 [facility] Systolic Blood Pressure 131-139mm Hg Jan Diastolic Blood Pressure Less Than 80mm Hg [facility] [place] INDEX [facility] Systolic Blood Pressure 131-139mm Hg Jan Diastolic Blood Pressure Less Than 80mm Hg Preventive checkup, est,65+ yrs 014 RVW MEDS BY RX/DR IN [facility] Office/outpatient visit,est, mod 2012 RVW MEDS BY RX/DR IN [facility] AMNT PAIN NOTED PAIN PRSNT AMNT PAIN [...] Diagnoses Date Provider Providers Copied on Encounter [facility], [address], [place], [place], [id number], [place] tel:[phone] [facility] No Information 5 Christopher Kelly. [address] [place] [address], [address], [place]. tel:[phone] [facility], [address] [place] [address], [id number], [place] tel:[phone] [facility] No Information 0 5 Cushingberr y-Cao Leticia. [address] [place] [address], [address], [place]. tel:[phone] [facility], [address] [place] [address], [id number], [place] tel:[phone] [facility] No Information 5 [place] y-Cao Leticia. [address] [place] [address], [address], [place]. tel:[phone] E/M service NEC [facility], [address] [place] [address], [id number], [place] tel:[phone] [facility] Senior Wellness Visit (chief complaint)Me dication questions (chief complaint)HE DIS (chief complaint)Fo llow Up of Hypertension (chief complaint) Encounter for general adult medical examination without abnormal findingsEsse ntial hypertension Paroxysmal atrial fibrillation Senile purpuraHyper parathyroidi smAtheroscle rosis of aortaBody mass index [BMI] 23.0-23.9, adultEncount er for examination of blood pressure with abnormal findings 4 [place] y-Cao Leticia. [address] [place] [address], [address], [place]. tel:[phone] [facility], [address] [place] [address], [id number], [place] tel:[phone] [facility] No Information 4 [place] y-Cao Leticia. [address] [place] [address], [address], [place]. tel:[phone] [facility], [address] [place] [address], [id number], [place] tel:[phone] [facility] No Information 4 Christopher Kelly. [address] [place], [address], [place]. tel:[phone] Office/outpa tient visit,est, mod [facility], [address], [place], [id number], [place] [phone] [facility] Medication review (chief complaint)Lo wer extremity swelling (chief complaint)cv a (chief complaint) Essential hypertension Paroxysmal atrial fibrillation Aphasia S/P CVAPeriphera l edemaBody mass index [BMI] 22.0-22.9, adultEncount er for examination of blood pressure with abnormal findings 4 Cushingclarissar y-Cao Leticia. [address] [place], [address], [place]. [phone] E/M service NEC [facility], [address], [place], [id number], [place] [phone] [facility] Follow Up of Hospital discharge (chief complaint) Paroxysmal atrial fibrillation Essential hypertension Hyperlipidem ia, unspecifiedD izzinessApha selin S/P CVABody mass index [BMI] 22.0-22.9, adultEncount er for examination of blood pressure with abnormal findings 4 Christopher Kelly. [address] [place], [address], [place]. tel:[phone] MTMS BY PHARM EST 15 MIN [facility], [address], [place], [id number], [place] [phone] Pharmacy Encounter for therapeutic drug level monitoringVo id Ticket 4 Rafi Briggs. [address] [place], [place], [id number], [place]. tel:[phone] MTMS BY PHARM PATIENT SERVICES TECHNICIAN 15 MIN [facility], [address], [place], [id number], [place] tel:[phone] Pharmacy Encounter for therapeutic drug level monitoringVo id Ticket 4 Rafi Briggs. [address] [place], [place], [id number], [place]. tel:[phone] [facility], [facility], [address], [place], [id number], [place] tel:[phone] [facility] Follow Up of Hypertension (chief complaint) Essential hypertension Body mass index [BMI] 22.0-22.9, [facility] of [facility] pressure with abnormal findings 4 [place]berr y-Cao Leticia. [address] [place], [address], [place]. tel:[phone] [facility]pa [facility]ient [facility], [facility], [address], [place], [id number], [place] tel:[phone] [facility] Follow Up of Hypertension (chief complaint) Essential hypertension Encounter for examination of blood pressure with abnormal findings 3 [place] y-Cao Leticia. [address] [place], [address], [place]. tel:[phone] [facility], [facility], [address], [place], [id number], [place] tel:[phone] [facility] Follow Up of hypertension (chief complaint) Essential hypertension Body mass index [BMI] 22.0-22.9, [facility] er for examination of blood pressure with abnormal findings 3 [place]berr y-Cao Leticia. [address] [place], [address], [place]. tel:[phone] E/M service [facility], [address], [place], [id number], [place] tel:[phone] [facility] Senior Wellness Exam (chief complaint)Fo llow Up of Hypertension (chief complaint)Re fill request (chief complaint) Encounter for general adult medical examination without abnormal findingsEsse ntial hypertension Atrial fibrillation , controlledAt herosclerosi s of aortaHyperpa rathyroidism Senile purpuraBody mass index [BMI] 22.0-22.9, [facility] for examination of blood pressure with abnormal findingsSacr oiliitis, not elsewhere classified 3 [place]ber[place] y-Cao Leticia. [address] [place], [address], [place]. tel:[phone] [facility], [facility], [address] [place] [address], [id number], [place] tel:[phone] [facility] Follow Up of Hypertension (chief complaint) Essential hypertension Encounter for examination of blood pressure with abnormal findings 3 [place]berr y-Cao Leticia. [address] [place], [address], [place]. tel:[phone] Office/outpa tient visit,est, [facility], [address], [place], [id number], [place] tel:[phone] [facility] Follow Up of ER visit (chief complaint) Essential hypertension LFT elevationAtr ial fibrillation , controlledEn counter for examination of blood pressure with abnormal findings 3 [place]berr y-Cao Leticia. [address] [place], [address], [place]. tel:[phone] Office/outpa tient visit,est, [facility], [address], [place], [id number], [place] tel:[phone] [facility] Request for Kenalog injection (chief complaint)Bl ood pressure (chief complaint) Allergic rhinitis, unspecifiedE ssential hypertension Body mass index [BMI] 24.0-24.9, [facility] for examination of blood pressure without abnormal findings 2 [place]berr y-Cao Leticia. [address] [place], [address], [place]. tel:[phone] Office/outpa tient visit,est, [facility], [address], [place], [id number], [place] tel:[phone] [facility] Prescription refill request (chief complaint)Ma mmogram order (chief complaint) Sciatica of right sideBreast cancer screening by mammogramBod y mass index (BMI) 24.0-24.9, [facility] for exam of blood pressure w/o abnormal findings 1 Cushingberlily y-Cao Leticia. [address] [place], [address], [place]. [phone] [facility], [address], [place], [id number], [place] [phone] [facility] Right hand painRight wrist painDe Quervain's disease (tenosynovit is)Left hand painLeft wrist pain 1 Cushingberlily neves-Cao Leticia. [address] [place], [address], [place]. [phone] Office/outpa tient visit,est, [facility], [address], [place], [id number], [place] [phone] [facility] pain (chief complaint)bl ood pressure (chief complaint) De Quervain's disease (tenosynovit is)Essential hypertension Left sided sciaticaBody mass index (BMI) 24.0-24.9, [facility] of blood pressure w/o abnormal findings 1 Cushingberr y-Cao Leticia. [address] [place], [address], [place]. [phone] Office/outpa tient visit,est, [facility], [address], [place], [id number], [place] tel:[phone] [facility] results (chief complaint)pa in (chief complaint) De Quervain's disease (tenosynovit is)Stage 2 chronic kidney diseaseBody mass index (BMI) 23.0-23.9, adultEncount er for exam of blood pressure w/o abnormal findings 1 Cushjustoberr y-Cao Leticia. [address] [place], [address], [place]. tel:[phone] Office/outpa tient visit,est, [facility], [address] [place] [address], [id number], [place] tel:[phone] [facility] Follow Up of hypertension (chief complaint) Stage 2 chronic kidney diseaseEssen tial hypertension Hyperlipidem ia, unspecifiedF Hx: breast cancerBody mass index (BMI) 23.0-23.9, [facility] for exam of blood pressure w/o abnormal findings 1 [place]berr y-Cao Leticia. [address] [place], [address], [place]. tel:[phone] [facility], [facility], [address], [place], [id number], [place] tel:[phone] [facility] Follow Up of Hypertension (chief complaint) Essential hypertension Body mass index (BMI) 23.0-23.9, [facility] for exam of blood pressure w/o abnormal findings 1 [place] y-[place]ao Leticia. [address] [place], [address], [place]. tel:[phone] E/M service [facility], [address] [place] [address], [id number], [place] tel:[phone] [facility] Senior Wellness Exam (chief complaint)Fo llow Up of Hypertension (chief complaint) Encounter for general adult medical examination without abnormal findingsEsse ntial hypertension Hyperlipidem ia, unspecifiedH yperparathyr oidismParoxy smal atrial fibrillation Atherosclero sis of aortaBody mass index (BMI) 24.0-24.9, adultEncount er for exam of blood pressure w/o abnormal findingsSeni le purpura Michele-2 8-202 1 [place] [facility]ao Leticia. [address] [place], [address], [place]. tel:[phone] E/M service [facility], [address], [place], [id number], [place] tel:[phone] [facility] senior wellness visit (chief complaint)he dis measures (chief complaint)Fo llow Up of hypertension (chief complaint) Encounter for general adult medical examination without abnormal findingsEsse ntial hypertension Allergic rhinitis, unspecifiedA theroscleros is of aortaSenile purpuraBody mass index (BMI) 24.0-24.9, adultEncount er for exam of blood pressure w/o abnormal findings 0 [place] y-Cao Leticia. [address] [place], [address], [place]. tel:[phone] Office/outpa tient visit,est, [facility], [address], [place], [id number], [place] tel:[phone] [facility] hypertension (chief complaint) Essential hypertension Body mass index (BMI) 24.0-24.9, adultEncount er for exam of blood pressure w/o abnormal findings Mar-2 3202 0 [place] y-Cao Leticia. [address] [place], [address], [place]. tel:[phone] Office/outpa tient visit,est, [facility], [address], [place], [id number], [place] tel:[phone] [facility] Follow Up of Hypertension (chief complaint) Essential hypertension Body mass index (BMI) 24.0-24.9, adultEncount er for exam of blood pressure w/o abnormal findings Sep-0 8-202 0 [place] y-[place]ao Leticia. [address] [place], [address], [place]. tel:[phone] Office/outpa tient visit,est, [facility], [address], [place], [place], [id number], [place] tel:[phone] [facility] Elevated blood pressure (chief complaint) Essential hypertension Body mass index (BMI) 24.0-24.9, [facility] for exam of blood pressure w/o abnormal findings Mar- 0 [place] y-Cao Leticia. [address] [place], [address], [place]. tel:[phone] E/M service [facility], [address], [place], [id number], [place] tel:[phone] [facility] Mammogram order (chief complaint)me ds (chief complaint) Essential hypertension Paroxysmal atrial fibrillation Secondary hyperparathy roidismBreas t cancer screeningNon compliance with medical treatmentBod y mass index (BMI) 23.0-23.9, [facility] for exam of blood pressure w/o abnormal findings 0 [place] y-Cao Leticia. [address] [place], [address], [place]. tel:[phone] Office/outpa tient visit,[facility], [address], [place], [id number], [place] tel:[phone] [facility] Follow Up of hypertension (chief complaint)na useated (chief complaint) Generalized weaknessAtri al fibrillation , controlledEs sential hypertension Epigastric abdominal painBody mass index (BMI) 23.0-23.9, [facility] for exam of blood pressure w/o abnormal findings 0 Cushingberr y-Cao Leticia. [address] [facility], [place], [address], [place]. tel:[phone] Office/outpa tient visit,[facility], [address], [place], [id number], [place] tel:[phone] [facility] Follow Up of Elevated blood pressure (chief complaint) Paroxysmal atrial fibrillation Essential hypertension Body mass index (BMI) 24.0-24.9, [facility] for exam of blood pressure w/o abnormal findings 9 [place]ber[place] y-Cao Leticia. [address] [place] [address], [address], [place]. [phone] Office[facility]pa [facility]ient visit,[facility], [facility], [address], [place], [id number], [place] tel:[phone] [place] [address] Procedures BP check (chief complaint) Elevated blood-pressu re reading, without diagnosis of hypertension Encounter for exam of blood pressure w/o abnormal findings 9 [place] y-[place]ao Leticia. [address] [place] [address], [address], [place]. tel:[phone] Office/outpa [facility]ient visit,[facility], [facility], [address], [place], [id number], [place] tel:[phone] [facility] referral request (chief complaint)pa perwork (chief complaint) Sciatica of left sideElevated BP without diagnosis of hypertension Body mass index (BMI) 24.0-24.9, [facility] er for exam of blood pressure w/o abnormal findings 9 [place] y-Cao Leticia. [address] [place], [address], [place]. tel:[phone] Office/outpa [facility]ient visit,[facility], [facility], [address], [place], [id number], [place] [phone] [facility] referral request (chief complaint) Skin lesion of backAtrial fibrillation , controlledBo dy mass index (BMI) 23.0-23.9, [facility] er for exam of blood pressure w/o abnormal findings 9 [place] y-Cao Leticia. [address] [place], [address], [place]. tel:[phone] Office/outpa [facility]ient visit,[facility], [facility], [address], [place], [id number], tel:[phone] [facility] mammo order (chief complaint)ma note (chief complaint) Breast cancer screeningAtr ial fibrillation , controlledBo dy mass index (BMI) 24.0-24.9, adultEncount er for exam of blood pressure w/o abnormal findings 9 Christopher neves-Cao Leticia. [address] [place] [address], [address], [place]. tel:[phone] Office/outpa tient visit,est, [facility], [address] [place] [address], [id number], [place] tel:[phone] [facility] Follow Up of A-fib (chief complaint) Atrial fibrillation by electrocardi ogramBody mass index (BMI) 23.0-23.9, adultEncount er for exam of blood pressure w/o abnormal findings Christopher neves-Cao Leticia. [address] [place] [address], [address], [place]. [phone] E/M service [facility], [address] [place] [address], [id number], tel:[phone] [facility] senior wellness visit (chief complaint)al lergies (chief [...] abnormal findings 9 Cushjustoberr y-Cao Leticia. [address] [place], [address], [place]. tel:[phone] Office/outpa tient visit,est, [facility], [address], [place], [id number], [place] tel:[phone] [facility] Mammogram (chief complaint) Breast cancer screeningWhi te coat syndrome with diagnosis of hypertension 8 Cushingberr y-Cao Leticia. [address] [place], [address], [place]. [phone] Office/outpa tient visit,est, mod [facility], [address], [place], [id number], [place] [phone] [facility] Follow Up of HTN/Thyroid (chief complaint)Al lergies (chief complaint) Allergic rhinitis, unspecifiedS econdary hyperparathy roidismCKD (chronic kidney disease) stage 2, GFR 60-89 ml/min 8 C[place]ber[place] y-Cao Leticia. [address] [place], [address], [place]. [phone] E/M service NEC [facility], [address], [place], [id number], [place] [phone] [facility] Senior Wellness Exam (chief complaint)Sc iatic pain (chief complaint)Al lergies (chief complaint) Encntr for general adult medical exam w/o abnormal findingsAlle rgic rhinitis, unspecifiedS ciatica of right sideAtherosc lerosis of aortaHyperli pidemia, unspecifiedH yperparathyr oidismCKD (chronic kidney disease) stage 2, GFR 60-89 ml/minEncoun ter for exam of blood pressure w/o abnormal findings 8 Cushingberr y-Cao Leticia. [address] [place], [address], [place]. [phone] [facility], [address], [place], [id number], [place] tel:[phone] [facility] Laboratory tests ordered as part of a complete physical exam (CPE) 8 Cushingber[place] y-Cao Leticia. [address] [place], [address], [place]. tel:[phone] Office/outpa tient visit,[facility], [address] [place] [address], [id number], [place] tel:[phone] [facility] follow up (chief complaint)ba ck pain (chief complaint) Fatigue, unspecified typeOsteoart hritis of spine with radiculopath y, lumbar regionHyperl ipidemia, unspecifiedE ncounter for exam of blood pressure w/o abnormal findings 7 [place] y-[place]ao Leticia. [address] [place] [address], [address], [place]. [phone] Office/outpa tient visit,[facility], [address] [place] [address], [id number], [place] tel:[phone] [facility] tired/weak (chief complaint) Fatigue, unspecified typeDepressi on screeningWhi te coat syndrome with diagnosis of hypertension Allergic rhinitis, unspecifiedB vincenzo mass index (BMI) 23.0-23.9, [facility]En[facility] for exam of blood pressure w/o abnormal findings 7 Cushingberr y-Cao Leticia. [address] [place] [address], [address], [place]. [phone] Office/outpa tient visit,est, [facility], [address] [place] [address], [id number], [place] [phone] [facility] follow up (chief complaint)ar thritis questions (chief complaint)ma mmagram (chief complaint) Hyperlipidem ia, unspecifiedO steoarthriti s of spine with radiculopath y, lumbar regionInconc lusive mammogramEnc ounter for exam of blood pressure w/o abnormal findings 7 Cushingberr y-Cao Leticia. [address] [place], [address], [place]. tel:[phone] E/M service NEC [facility], [address], [place], [id number], [place] [phone] [facility] sciatic nerve pain (chief complaint)al lergy shot (chief complaint)ma mmogram (chief complaint)se nior well visit (chief complaint) Encntr for general adult medical exam w/o abnormal findingsAlle rgic rhinitis, unspecifiedO steoarthriti s of spine with radiculopath y, lumbar regionAthero sclerosis of aortaBreast cancer screening November-0 3201 7 C[place]ber[place] y-Cao Leticia. [address] [place], [address], [place]. tel:[phone] [facility], [address], [place], [id number], [place] [phone] [place] [address] Inconclusive mammogram 201 6 C[place]ber[place] y-Cao Leticia. [address] [place], [address], [place]. tel:[phone] Office/outpa tient visit,est, mod [facility], [address], [id number], [place] tel:[phone] [place] [address] ER follow up (chief complaint) Acute right-sided low back pain with right-sided sciatica Sep-0 6-201 6 Cushingberr y-Cao Leticia. [address] [place], [address], [place]. tel:[phone] Office/outpa tient visit,est, low [facility], [address], [place], [id number], [place] [phone] [place] [address] Mammogram results (chief complaint) Inconclusive mammogram Sep-0 -201 6 Cushingberr y-Cao Leticia. [address] [facility], [place], [address], [place]. tel:[phone] Office/outpa tient visit,est, mod [facility], [address], [id number], [place] tel:[phone] [facility] Breast discharge (chief complaint) Discharge from right nipple 6 Cushingberr y-Cao Leticia. [address] [place], [address], [place]. tel:[phone] Preventive checkup, est,65+ yrs [facility], [address], [place], [id number], [place] tel:[phone] [facility] Senior Wellness Exam (chief complaint)Cl inical guidelines (chief complaint)Ma mmogram order (chief complaint) Encntr for general adult medical exam w/o abnormal findingsHype rlipidemia, unspecifiedV itamin D deficiency, unspecifiedB reast cancer screeningBod y mass index (BMI) 24.0-24.9, [facility]Gar[facility] er for exam of blood pressure w/o abnormal findings 6 Cushingberr y-Cao Leticia. [address] [place], [address], [place]. tel:[phone] [facility], [address], [place], [address], [place] tel:[phone] [facility] Routine physical examination 6 Cushingberr y-Cao Leticia. [address] [place], [address], [place]. tel:[phone] Office/outpa tient visit,est, mod [facility], [address], [id number], [place] tel:[phone] [facility] fatigue (chief complaint) Fatigue Sep-0 5 Lianet Lou. [address] [place], [address], [place]. tel:[phone] Office/outpa tient visit,est, mod [facility], [address], [place], [address], [place] tel:[phone] [facility] rash (chief complaint) Allergic reaction caused by a drugAdv eff medicinal NOS 5 C[place]ber[place] y-Cao Leticia. [address] [place], [address], [place]. tel:[phone] Office/outpa tient visit,est, mod [facility], [address], [place], [address], [place] tel:[phone] [facility] Urgent care f/u (chief complaint) Serous otitis media 5 Cushingberr y-Cao Leticia. [address] [place], [address], [place]. tel:[phone] Office/outpa tient visit,est, low [facility], [address], [place], [id number], [place] tel:[phone] [facility] Ear pain (chief complaint) Pustule 5 Lianet Lou. [facility] [place], [address], [place]. tel:[phone] Office/outpa tient visit,est, mod [facility], [address], [place], [address], [place] tel:[phone] [facility] Follow Up of Urgent care (chief complaint) Hyponatremia 5 Cushingberr y-Cao Leticia. [address] [place], [address], [place]. tel:[phone] Office/outpa tient visit,est, mod [facility], [address], [place], [id number], [place] tel:[phone] [facility] generalized weakness (chief complaint) Suprapubic painWeakness 0 5 Halle Miner. [address] [place] [address], [address], [place]. tel:[phone] Preventive checkup, est,65+ yrs [facility], [address], [place], [id number], [place] [phone] [facility] Senior Well Visit (chief complaint) ROUTINE MEDICAL EXAMHYPERLIP IDEMIAVitami n D insufficienc y Malachi-0 2- 5 Cushingberr y-Cao Leticia. [address] [place], [address], [place]. tel:[phone] Office/outpa tient visit,est, [facility], [address], [place], [id number], [place] tel:[phone] [facility] Mammogram order (chief complaint)sc iatica (chief complaint)sk in lesion (chief complaint) Lumbosacral radiculopath y due to degenerative joint disease of spineScreeni ng breast examinationE levated blood pressure reading without diagnosis Sep-3 5 C[place] y-Cao Leticia. [address] [place] [address], [address], [place]. tel:[phone] Office/outpa tient visit,est, [facility], [address] [place] [address], [id number], [place] tel:[phone] [facility] Follow Up of Ashish. 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 [address] [place], [address], [place]. tel:[phone] Office/outpa tient visit,est, [facility], [address], [place], [id number], [place] tel:[phone] [facility] Establish care (chief complaint)re ferral (chief complaint) Sciatic nerve pain Apr- 6 4 Cushingberr y-Cao Leticia. [address] [place], [address], [place]. tel:[phone] Office/outpa tient visit,est, [facility], [address], [place], [place], [address], [place] tel:[phone] [facility] Urgent care f/u (chief complaint) Pain in joint, pelvic region and thigh Sep-1 4 Christopher Kelly. [address] [place], [address], [place]. tel:[phone] Office/outpa tient visit,est, mod [facility], [address], [place], [place], [address], [place] tel:[phone] [facility] Back pain (chief complaint)L leg pain (chief complaint) Lower back painSciatic nerve pain Sep-0 4 Roxie Aguilar. [address] [place] [address], [address], [place]. tel:[phone] Preventive checkup, est,65+ yrs [facility], [address], [place], [address], [place] tel:[phone] [facility] Senior Wellness Visit (chief complaint) BMI BETWEEN 19-24,ADULTO TH SPECIFIED EXAMEXAMINAT ION, WELL ADULTHYPERLI PIDEMIAEXAMI NATION, WELL ADULTGYN EXAM W/ PAPPVD (peripheral vascular disease) 4 Marsha Messer [address], [place], [address], [place]. tel:[phone] Office/outpa tient visit,est, mod [facility], [address], [id number], [place] tel:[phone] [facility] hyperlipidem ia (chief complaint) HYPERLIPIDEM IAScreening for osteoporosis SCREEN - OSTEOPOROSIS 3 Marsha Messer [address], [place], [address], [place]. tel:[phone] Preventive checkup, est,65+ yrs [facility], [address], [address], [place] tel:[phone] [facility] Senior well visit (chief complaint)Pc p: Dr. Larson (chief complaint) EXAMINATION, WELL ADULTEXAMINA TION, WELL ADULT Oct- 2-201 3 Starr Desmondjose eadan . [address] [place], [address], [place]. tel: [phone] [facility], [address], [place], [place] [address], [place] tel: [phone] [facility] EXAMINATION, WELL ADULT Oct-0 8-201 3 Starr Denia . [address] [facility] [place], [address], [place]. tel: [phone] [facility], [address], [place], [address], [place] tel: [phone] [facility] Visit for screening mammogramMam jenniferram, Screening 1- 3 Marsha Zeng. [address], [address], [place], [address], [place]. tel: [phone] Preventive checkup, est,65+ yrs [facility], [address], [place], [address], [place] tel: [phone] [facility] Senior Wellness Visit (chief complaint) EXAMINATION, WELL ADULTHYPERLI PIDEMIAEXAMI NATION, WELL ADULTVisit for screening mammogram 2 Marsha Zeng. [address], [address], [place], [address], [place]. tel: [phone] [facility], [address], [place], [address], [place] tel: [phone] [facility] EXAMINATION, WELL ADULT 0 7201 2 Keya Davis. [address] [facility] [place], [address], [place]. tel: [phone] [facility], [address], [place], [id number], [place] tel: [phone] [facility] Procedures EKG (chief complaint) Pre-op examLacerati on of tendon of left rotator cuff Aug 1 Adriano Benitez. [address] [place], [address], [place]. tel:[phone] Referring Provider: Eli Oh, [address] [place], [address]. tel:[phone] Office/outpa tient visit,est, [facility], [address], [place], [place], [address], [place] tel:[phone] [facility] right shoulder pain (chief complaint) JOINT PAIN-SHLDER 1 Domo Davis. [address] [facility], [address], [address], [place]. tel:[phone] Referring Provider: Ryan Reyez, [address] [place] [address], [address]. tel:[phone] Office/outpa tient visit,[facility], [address], [place], [place], [address], [place] tel:[phone] [facility] right arm/shoulder pain (chief complaint) JOINT PAIN-SHLDER 1 Domo Davis. [address], [address], [place]. tel:[phone] Referring Provider: Ryan Reyez, [address] [place] [address], [address]. tel:[phone] Office/outpa tient visit,[facility], [address], [place], [place], [address], [place] tel:[phone] [facility] shoulder pain (chief complaint) JOINT PAIN-SHLDER 1 Domo Davis. [address] [employer], [address], [address], [place]. tel:[phone] Referring Provider: Ryan Reyez, [address], [address]. tel:[phone] Office/outpa tient visit,est, mod [facility], [address], [place], [place], [address], [place] tel:[phone] [facility] right arm pain (chief complaint) Right shoulder pain 1 Marsha Messer [address], [place], [address], [place]. tel:[phone] Referring Provider: Britni [address], [place], [address]. tel:[phone] Office/outpa tient visit,est, low [facility], [address], [place], [address], [place] tel:[phone] [facility] pain rt. arm x 1 week (chief complaint) Strain of upper arm 1 Chapin Noble. [address] [place] [address], [address], [place]. tel:[phone] Referring Provider: Jeremie Galicia, [address] [place] [address], [address]. tel:[phone] [facility], [address], [place], [place], [address], [place] tel:[phone] [facility] Mammogram No Information Sep-0 8-201 0 Marsha Messer [address], [place], [address], [place]. tel:[phone] Referring Provider: Karri Griffin, [address], [place], [address]. [phone] Preventive checkup, est,65+ yrs [facility], [address], [place], [place], [address], [place] tel:[phone] [facility] physical exam (chief complaint) EXAMINATION, WELL ADULTMammogr am, ScreeningHYP ERLIPIDEMIAE XAMINATION, WELL ADULT Sep-0 7-201 0 Marsha Messer [address], [place], [address], [place]. tel:[phone] Referring Provider: Karri Griffin, [address] [facility] [address], [place], [address]. tel:[phone] Office/outpa tient visit,est, low [facility], [address], [place], [address], [place] tel:[phone] [facility] No Information 9 Chapin Noble. [address] [place] [address], [address], [place]. tel:[phone] [facility], [address], [place], [address], [place] tel:[phone] [facility] Mammogram No Information 9 Adriano Benitez. [address] [place] [address], [address], [place]. tel:[phone] Referring Provider: Tan Alas, [address], [address]. tel:[phone] Office/outpa tient visit,est, mod [facility], [address], [place], [address], [place] tel:[phone] [facility] physical exam (chief complaint) BREAST SCREEN FOR CAHYPERLIPID EMIAHEMORRHO IDS INTERNAL NO COMPLICATION SHEMORRHOIDS INTERNAL NO COMPLICATION S 9 Janice Maddox. [address], [address], [place]. tel:[phone] Office/outpa tient visit,est, mod [facility], [address], [place], [address], [place] tel:[phone] [facility] U/C f/u 09-28-08 (chief complaint)ma notes (chief complaint) GI BLEED, GASTROINTEST INAL HEMORRHAGE UNSPECIFIEDH YPERLIPIDEMI A Sep- 9 Janice Maddox. [address], [facility] [address], [place], [address], [place]. tel: [phone] Office/outpa tient visit,est, low [facility], [address], [place], [place], [address], [place] tel: [phone] [facility] No Information 2 7-200 9 Oliver Franz. [address] [place] [address], [address], [place]. tel: [phone] [facility], [address], [place], [place], [address], [place] tel: [phone] [facility] Mammogram No Information 0 5-200 8 [facility]. [address] [place] [address], [address], [place]. tel: [phone] Office/outpa tient visit,est, mod [facility], [address], [place], [place], [address], [place] tel: [phone] [facility] HEDIS (chief complaint)ph ysical exam (chief complaint)hy perlipidemia (chief complaint) PURE HYPERCHOLEST EROLEM 8-200 8 No Information [facility], [address], [place], [address], [place] tel: [phone] [facility] Mammogram No Information 0 9-200 7 [facility]. [address] [place] [address], [address], [place]. tel: [phone] Office/outpa tient visit,est, mod [facility], [address], [place], [place], [address], [place] tel: [phone] [facility] annual physical (chief complaint) Leukocytopen ia UnspPURE HYPERCHOLEST EROLEM 5-200 7 No Information Office/outpa tient visit,est, mod [facility], [address], [place], [place], [address], [place] tel: [phone] [facility] No Information 4-200 7 Chapin Noble. [address] [place] [address], [address], [place]. tel: [phone] [facility], [address], [place], [place], [address], [place] tel:[phone] [facility] No Information [facility]. [address] [place] [address], [address], [place]. tel:[phone] Family History Family Member Type Diagnosis Age At Onset Problem (finding) Family history of Heart disease Sister Problem (finding) Parkinson's disease Problem (finding) Family history of Cance r -breast Immunizations Vaccine Date Status Comments Pneumococcal vaccine cancelled Source: New Immunization Record Td vaccine cancelled Source: New Imm unization Record Payers Payer name Insurance type Covered green party ID Authoriza tion(s) [employer] [facility] [id number] Social History Type Description Quantity Date [...] Cognitive assess ment. Due on due Goal CAR STEREO INSTALLER exam. Due on due Goal AST. Due [...] Due on due Goal FLUZONE QUAD MDV 5639-5058. Due on due Goal H&P. Due on [...] due Goal ALT. Due on due Goal CAR STEREO INSTALLER exam. Due on due Goal ECG. Due on due Goal Eye Exam. Due on due Goal FLUZONE QUAD MDV 8400-4759. Due on due Goal TSH. Due on due Goal Tdap Vaccine . Due on due Goal Cognitive assess ment. Due on due Goal Zoster vaccine ( 1st). Due on due Goal Breast exam. Due on due Goal Unhealthy drug u [...] Due on due Goal FLUZONE QUAD MDV 7963-1886. Due on due Goal Zoster vaccine. Due on due Goal ECG. Due on due Goal Eye Exam. Due on due Goal Oncology (colore ctal) screening. Due on due Goal Cognitive assess ment. Due on due Goal Zoster vaccine ( 1st). Due on due Goal Depression scree ginette. Due on due Goal CAR STEREO INSTALLER exam. Due on due Goal Pneumococcal Vac cine. Due on due Goal Influenza Vaccin e. Due on due Goal TD Vaccine. Due on due Goal Pneumococcal Vac cine. Due on due Goal ALT. Due on due Goal FLUZONE QUAD MDV . Due on due Goal TSH. Due [...] vaccine ( 1st). Due on due Goal Oncology (colore ctal) screening. Due on due Goal Unhealthy drug u se screening. Due on due Goal CAR STEREO INSTALLER exam. Due on due Goal Tdap Vaccine [...] Pneumococcal Vac cine. Due on due Goal CAR STEREO INSTALLER exam. Due on due Goal AST. Due on due Goal H&P. Due on due Goal ECG. Due on due Goal Zoster vaccine. Due on due Goal Tdap Vaccine . Due on due Goal DEXA Scan. Due on due Goal CAR STEREO INSTALLER exam. Due on due Goal TSH. Due on due Goal FLUZONE QUAD MDV 7780-2889. Due on due Goal ALT. Due on due Goal Pneumococcal Vac cine. Due on due Goal Eye Exam. Due on due Goal Oncology (colore ctal) screening. Due on due Goal Zoster vaccine ( 1st). Due on due Goal TD Vaccine. Due on 24 due Goal Unhealthy drug u se screening. [...] Goal H&P. Due on due Goal Zoster vaccine ( 1st). Due on due Goal Influenza Vaccin e. Due on due Goal FLUZONE QUAD MDV 3040-7429. Due on due Goal AST. Due on due Goal CAR STEREO INSTALLER exam. Due on due Goal Zoster vaccine. Due on due Goal Breast exam. Due on due Goal Eye Exam. Due on due Goal TSH. Due on due Goal TD Vaccine. Due on due Goal Depression scree ginette. Due on due Goal Cognitive assess ment. Due on due Goal CAR STEREO INSTALLER exam. Due on due Goal Zoster vaccine. Due on due Goal H&P. Due on due Goal Influenza Vaccin e. Due on due Goal FLUZONE QUAD MDV 2925-3673. Due on due Goal Eye Exam. Due on due Goal AST. Due on due Goal DEXA Scan. Due on due Goal Breast exam. Due on due Goal Zoster vaccine ( 1st). Due on due Goal Tdap Vaccine . Due on due Goal ALT. Due on due Goal Pneumococcal Vac cine. Due on due Goal Oncology (colore ctal) screening. Due on due Goal Unhealthy drug u se screening. Due on due Goal ECG. Due on due Goal CAR STEREO INSTALLER exam. Due on due Goal Zoster vaccine. Due on due Goal Breast exam. Due on 023 due Goal Cognitive assess ment. Due on due Goal Depression scree ginette. Due on due Goal TD Vaccine. Due on due Goal Zoster vaccine ( 1st). Due on due Goal TSH. Due on due Goal ALT. Due on due Goal ECG. Due on due Goal Tdap Vaccine . Due on due Goal Influenza Vaccin e. Due on due Goal Oncology (colore ctal) screening. Due on due Goal FLUZONE QUAD MDV 5883-2962. Due on due Goal DEXA Scan. Due [...] QUAD MDV . Due on due Goal Eye Exam. Due on due Goal TSH. Due on due Goal Zoster vaccine ( 1st). Due on due Goal H&P. Due on due Goal Oncology (colore ctal) screening. Due on due Goal CAR STEREO INSTALLER exam. Due on due Goal Depression scree ginette. Due on due Goal Breast exam. Due on 023 due Goal ECG. Due on due Goal FLUZONE QUAD MDV . Due on due Goal DEXA Scan. Due on due Goal Influenza Vaccin e. Due on due Goal Oncology (colore ctal) screening. Due on due Goal ALT. Due on due Goal H&P. Due on due Goal Tdap Vaccine . Due on due Goal Eye Exam. Due on due Goal Cognitive assess ment. Due on due Goal Zoster vaccine. Due on due Goal CAR STEREO INSTALLER exam. Due on due Goal TD Vaccine. Due on due Goal Pneumococcal Vac cine. Due on due Goal TSH. Due on due Goal AST. Due on due Goal Unhealthy drug u se screening. Due on due Goal Depression scree ginette. Due on due Goal Breast exam. Due on due Goal Zoster vaccine ( ). Due on due Goal Zoster vaccine. Due on due Goal TD Vaccine. Due on due Goal H&P. Due on due Goal Influenza Vaccin e. Due on due Goal Pneumococcal Vac cine. Due on due Goal TSH. Due on due Goal Lipid Panel. Due on 026 due Goal FLUZONE QUAD MDV 8586-9489. Due on due Goal ALT. Due on [...] Depression scree ginette. Due on due Goal CAR STEREO INSTALLER exam. Due on due Goal DEXA Scan. Due on due Goal ALT. Due on due Goal Breast exam. Due on 021 due Goal ECG. Due on due Goal Zoster vaccine. Due on due Goal FLUZONE QUAD MDV 2477-4538. Due on due Goal Eye Exam. Due on due Goal CAR STEREO INSTALLER exam. Due on due Goal Influenza Vaccin [...] Lipid Panel. Due on 026 due Goal H&P. Due on due Goal [...] Tdap Vaccine . Due on due Goal CAR STEREO INSTALLER exam. Due on due Goal Oncology (colore ctal) screening. Due on due Goal Hemoglobin A1C. Due on due Goal AST. Due on due Goal Depression scree ginette. Due on due Goal Cognitive assess ment. Due on due Goal Breast exam. Due on due Goal ECG. Due on due Goal DEXA Scan. Due on due Goal TD Vaccine. Due on due Goal FLUZONE QUAD MDV . Due on due Goal Eye Exam. Due on due Goal Pneumococcal Vac cine. Due on due Goal Lipid Panel. Due on 026 due Goal Tdap Vaccine . Due on due Goal CAR STEREO INSTALLER exam. Due on due Goal ALT. Due [...] Influenza Vaccin e. Due on due Goal CAR STEREO INSTALLER exam. Due on due Goal Zoster vaccine. Due on due Goal Depression scree ginette. Due on due Goal DEXA Scan. Due on due Goal Pneumococcal Vac cine. Due on due Goal ECG. Due on due Goal AST. Due on due Goal FLUZONE QUAD MDV 9310-8526. Due on due Goal Tdap Vaccine . Due on due Goal Eye Exam. Due on due Goal Oncology (colore ctal) screening. Due on due Goal Lipid Panel. Due on due Goal Hemoglobin A1C. Due on due Goal ALT. Due on due Goal CAR STEREO INSTALLER exam. Due on due Goal Hemoglobin A1C. Due on due Goal Tdap Vaccine . Due on due Goal FLUZONE QUAD MDV [id number]. Due on due Goal Influenza Vaccin e. [...] due Goal H&P. Due on due Goal CAR STEREO INSTALLER exam. Due on due Goal Tdap Vaccine . Due on due Goal Pneumococcal Vac cine. Due on due Goal ALT. Due on due Goal FLUZONE QUAD MDV 6202-3114. Due on due Goal Hemoglobin A1C. Due on due Goal AST. Due on due Goal Eye Exam. Due on due Goal ECG. Due on due Goal Influenza Vaccin e. Due on due Goal Oncology (colore ctal) screening. Due on due Goal DEXA Scan. Due on due Goal Depression scree ginette. Due on due Goal Breast exam. Due on 021 due Goal Lipid Panel. Due on 026 [...] due Goal AST. Due on due Goal CAR STEREO INSTALLER exam. Due on due Goal Lipid Panel. Due on 026 due Goal TD Vaccine. Due on 21 due Goal Breast exam. Due on 021 due Goal Influenza Vaccin e. Due on due Goal TSH. Due on due Goal Zoster vaccine. Due on due Goal FLUZONE QUAD MDV 8781-9522. Due on due Goal Depression scree ginette. Due on due Goal Cognitive assess ment. Due on due Goal Tdap Vaccine . Due on due Goal FLUZONE QUAD MDV 4931-9167. Due on due Goal TSH. Due on [...] Influenza Vaccin e. Due on due Goal CAR STEREO INSTALLER exam. Due on due Goal Oncology (colore [...] Due on due Goal FLUZONE QUAD MDV 1827-5140. Due on due Goal CAR STEREO INSTALLER exam. Due on due Goal Influenza Vaccin [...] Goal Lipid Panel. Due on due Goal CAR STEREO INSTALLER exam. Due on due Goal Zoster vaccine. Due on due Goal ECG. Due on due Goal Breast exam. Due on due Goal DEXA Scan. Due on 0 due Goal AST. Due on due Goal H&P. Due on due Goal Hemoglobin A1C. Due on due Goal ALT. Due on due Goal Influenza Vaccin e. Due on due Goal FLUZONE QUAD MDV 9015-8595. Due on due Goal TSH. Due on due Goal Depression scree ginette. Due on due Goal Cognitive assess ment. Due on due Goal AST. Due on due Goal ECG. Due on due Goal Pneumococcal Vac cine. Due on due Goal Hemoglobin A1C. Due on due Goal Tdap Vaccine . Due on due Goal ALT. Due on due Goal CAR STEREO INSTALLER exam. Due on due Goal H&P. Due on due Goal DEXA Scan. Due on 0 due Goal Oncology (colore ctal) screening. Due on due Goal FLUZONE QUAD MDV 3546-4492. Due on due Goal Eye Exam. Due [...] Due on due Goal FLUZONE QUAD MDV 5404-5542. Due on due Goal AST. Due on due Goal DEXA Scan. Due on 0 due Goal CAR STEREO INSTALLER exam. Due on due Goal Tdap Vaccine [...] (colore ctal) screening. Due on due Goal CAR STEREO INSTALLER exam. Due on due Goal Pneumococcal Vac cine. Due on due Goal FLUZONE QUAD MDV . Due on due Goal Zoster vaccine. Due on due Goal Breast exam. Due on due Goal Depression scree gintete. Due on due Goal H&P. Due on due Goal Influenza Vaccin e. Due on due Goal FLUZONE QUAD MDV . Due on due Goal Tdap Vaccine . Due on due Goal ECG. Due on due Goal ALT. Due on due Goal Lipid Panel. Due on due Goal Colonoscopy. Due on due Goal CAR STEREO INSTALLER exam. Due on due Goal TSH. Due on due Goal Cognitive assess ment. Due on due Goal Hemoglobin A1C. Due on due Goal Eye Exam. Due on due Goal Pneumococcal Vac cine. Due on due Goal AST. Due on due Goal Oncology (colore ctal) screening. Due on due Goal DEXA Scan. Due on 9 due Goal Depression scree ginette. Due on due Goal Zoster vaccine. Due on due Goal Breast exam. Due on due Goal TD Vaccine. Due on 19 due Goal Hemoglobin A1C. Due on due Goal TSH. Due on due Goal Zoster vaccine. Due on due Goal Influenza Vaccin e. Due on due Goal Pneumococcal Vac cine. Due on due Goal ECG. Due on due Goal CAR STEREO INSTALLER exam. Due on due Goal Lipid Panel. [...] Influenza Vaccin e. Due on due Goal CAR STEREO INSTALLER exam. Due on due Goal FLUZONE QUAD [...] due Goal TSH. Due on due Goal CAR STEREO INSTALLER exam. Due on due Goal Tdap Vaccine [...] TD Vaccine. Due on 19 due Goal Tdap Vaccine . Due on due Goal Oncology (colore ctal) screening. Due on due Goal DEXA Scan. Due on 9 due Goal Pneumococcal Vac cine. Due on due Goal Breast exam. Due on due Goal CAR STEREO INSTALLER exam. Due on due Goal AST. Due on due Goal H&P. Due on due Goal Eye Exam. Due on due Goal Hemoglobin A1C. Due on due Goal Influenza Vaccin e. Due on due Goal FLUZONE QUAD MDV . Due on due Goal ECG. Due on due Goal ALT. Due on due Goal Cognitive assess ment. Due on due Goal Lipid Panel. Due on 024 due Goal Pneumococcal Vac cine. Due on [...] Goal Breast exam. Due on due Goal CAR STEREO INSTALLER exam. Due on due Goal Tdap Vaccine . Due on due Goal Zoster vaccine. Due on due Goal Eye Exam. Due on due Goal Colonoscopy. Due on due Goal Hemoglobin A1C. Due on due Goal ECG. Due on due Goal H&P. Due on due Goal AST. Due on due Goal Breast exam. Due on due Goal Zoster vaccine. Due on due Goal CAR STEREO INSTALLER exam. Due on due Goal Lipid Panel. Due on 024 due Goal Tdap Vaccine . Due on due Goal FLUZONE QUAD MDV . Due on due Goal Influenza Vaccin e. Due on due Goal Depression scree ginette. Due on due Goal Colonoscopy. Due on 019 due Goal ALT. Due on due Goal [...] Goal Zoster vaccine. Due on due Goal CAR STEREO INSTALLER exam. Due on due Goal Influenza Vaccin [...] due Goal TSH. Due on due Goal CAR STEREO INSTALLER exam. Due on due Goal Breast exam. [...] Influenza Vaccin e. Due on due Goal CAR STEREO INSTALLER exam. Due on due Goal Breast exam. Due on due Goal Tdap Vaccine [...] Goal DEXA Scan. Due on due Goal CAR STEREO INSTALLER exam. Due on due Goal Zoster vaccine. [...] Influenza Vaccin e. Due on due Goal CAR STEREO INSTALLER exam. Due on due Goal Zoster vaccine. [...] Influenza Vaccin e. Due on due Goal CAR STEREO INSTALLER exam. Due on due Goal ECG. Due on due Goal Eye Exam. Due on due Goal Zoster vaccine. Due on due Goal Pneumococcal Vac cine. Due on due Goal AST. Due on due Goal Breast exam. Due on 017 due Goal Cognitive assess ment. Due on [...] Breast exam. Due on 017 due Goal ALT. Due on due Goal Pneumococcal Vac cine. Due on due Goal Depression scree ginette. Due on due Goal CAR STEREO INSTALLER exam. Due on due Goal TSH. Due on due Goal Zoster vaccine. Due on due Goal Pneumococcal Vac cine. Due on due Goal DEXA Scan. Due on due Goal Eye Exam. Due on due Goal CAR STEREO INSTALLER exam. Due on due Goal Tdap Vaccine [...] Depression scree ginette. Due on due Goal CAR STEREO INSTALLER exam. Due on due Goal DEXA Scan. Due on due Goal CAR STEREO INSTALLER exam. Due on due Goal Tdap Vaccine [...] due Goal ALT. Due on due Goal CAR STEREO INSTALLER exam. Due on due Goal Cognitive assess ment. Due on due Goal ECG. Due on due Goal Breast exam. Due on 017 due Goal Tdap Vaccine . Due on due Goal Depression scree ginette. Due on due Goal Eye Exam. Due on due Goal CAR STEREO INSTALLER exam. Due on due Goal DEXA Scan. [...] Influenza Vaccin e. Due on due Goal CAR STEREO INSTALLER exam. Due on due Goal TSH. Due on due Goal Zoster vaccine. Due on due Goal Depression scree ginette. Due on due Goal DEXA Scan. Due on due Goal ECG. Due on due Goal Tdap Vaccine . Due on due Goal Pneumococcal Vac cine. Due on due Goal CAR STEREO INSTALLER exam. Due on due Goal Cognitive assess ment. Due on due Goal ECG. Due on due Goal Depression scree ginette. Due on due Goal Cognitive assess ment. Due on due Goal Tdap Vaccine . Due on due Goal Pneumococcal Vac cine. Due on due Goal CAR STEREO INSTALLER exam. Due on due Goal DEXA Scan. Due on due Goal Zoster vaccine. Due on due Goal TSH. Due on due Goal TSH. Due on due Goal Zoster vaccine. Due on due Goal Cognitive assess ment. Due on due Goal Pneumococcal Vac cine. Due on due Goal DEXA Scan. Due on due Goal CAR STEREO INSTALLER exam. Due on due Goal ECG. Due [...] Pneumococcal Vac cine. Due on due Goal Mammogram. Due on [...] Breast exam. Due on 007 due Goal Pneumococcal Vac cine. Due on due Goal FLUZONE HIGH DOS E. Due [...] Goal Zoster vaccine. Due on due Goal CAR STEREO INSTALLER exam. Due on due Goal Influenza Vaccin e. Due on due Goal H&P. Due on due Goal Pneumococcal Vac cine. Due on due Goal Breast exam. Due on 007 due Goal Hemoglobin A1C. Due on due Goal ECG. Due on due [place]erral [place] [facility] [address], [phone] Ordered: Referrals: [place]. [facility] [facility]uate and treat Appointment date/timeframe: ROUTINE ordered Referral Referred To: [facility] [address] [place], [place], [phone] Ordered: Referrals: Orthopedic Surgery. [facility]. Evaluate and treat Appointment date/timeframe: ROUTINE ordered Referral Referred To: [facility] [address] [place], [place], [phone] Ordered: Referrals: Dermatology. [facility]. Location: Dr. Fernandez. Evaluate and treat Appointment date/timeframe: ROUTINE ordered Referral Referred To: [facility] [address] [place], [place], [phone] Ordered: Referrals: Cardiology. [facility]. Evaluate and treat Appointment date/timeframe: ROUTINE ordered Referral Ordered: Mammography Diagnostic Bilateral ordered Referral Referred To: [facility] [address] [place], [place], [phone] Ordered: Referrals: Radiology. [facility]. Diagnostic testing Appointment date/timeframe: ROUTINE ordered Referral Referred To: [facility] [address] [place], [place], [phone] Ordered: Referrals: Pain Medicine. [facility]. Evaluate and treat Appointment date/timeframe: EXPEDITE ordered [...] Lab Order Basic Me tabolic Panel (8) ([id number]), Sent on: Sent Future Order: Lab Order Hepatic Function Panel (7) ([id number]), Sent on: Sent Future Order: Lab Order Lipid Pa olegario ([id number]), Sent on: Sent Future Order: Lab Order [...] she has always taken Losartan potassium 25mg. [facility] Follow[facility]Up for people with chronicconditions [...] not helping has not make appt for director of program management ---- says unable to get there streets too busy--no Family around to help her says needs to sell her place moving to [place] with daughter --- will need find home there Follow Up of hypertension Risk f actors include age over age 60. Additional information: 83 y/o female present [facility] Comments: carson davila says taking her meds not helping --- could not get out to heart hospital she was sick too much traffic ( the director of program management) side effects sleepy and tired all she does is sleep on the medicine sSays cant keep feeling this way lives alone has to be able to do for herself Refill request Metoprolol Tartr ate 50mg BID. -Vanda IYER Senior Wellness Exam 83 yr. old female presents for annual Senior Wellness Exam. -Vanda IYER Follow Up of Hypertension Comments: has ap pt with director of program management Wednesday-- blood pressure machine has been compared [...] symptoms in spring Mammogram order (comments) no s ymptoms Prescription refill request 81 y r. old female presents with request for refill on Gabapentin. -Vanda [facility] Mammogram order Self exam at [facility]. No lumps or discharge. -Vanda [facility] pain 81 y/o female pr esent today complaining of pain in sciatica x 1 month formerly [facility] pain (comments) says was doing y gisel work on the 16 of january says now using the walker has not been out of house since happen --- wants to go back to pain management ---- been taking advil 3 in morning to help wrist still has pain heating pad hurt the most. blood pressure blood pressure (comments) not ta rico her meds pain pt complaining o f left wrist pain x couple months states Tylenol results 80 y/o female pr esent today for US results formerly [facility] Follow Up of hypertension Risk f actors include age over age 60. Additional information: 80 y/o female present today for f/u on bp states she has stopped taken her medication due to blood pressure readings being the same as when she is not taking it formerly [facility] Follow Up of Hyperte nsion (comments) patient doing well no c/o today -- brought in log Follow Up of Hypertension Senior Wellness Exam 80 yr. old female presents for annual Senior Wellness Exam. Declined EKG. -Vanda [facility] Follow Up of Hypertension Senior Wellness Exam (comments) no c/o today Follow Up of Hyperte nsion (comments) patient says taking blood pressure meds takes q am senior wellness visit 80 y/o fem darrel present today for senior wellness visit, pt refused EKG [facility] hedis measures controlling high bp Follow [...] not make her loose her hair. -Vanda [facility] meds Mammogram order meds (comments) patient says sto p taking all meds don't feel she needs them does check her blood pressure been high at home not taking meds makes hair fall out don't want to try another medicine -- just don't want to take pillsdenies chest pain or palpitations Follow Up of opal ledesma (comments) leg feels better nauseated nauseated (comments) c/o stomach pain feels week [...] for appt in 2 weeks, verbally understood. [facility] referral request (comments) pilo ent now having pain left side buttock down to legs - has had sciatic 5 yrs hurts to tie shoe hurts to sit down and get up. paperwork pt requesting WILFREDO goff paperwork to be filled out formerly [facility] referral request 79 y/o female p resent today requesting referral to pain management for sciatica pain formerly [facility] referral request (comments) has a lesion on upper back for years would like removed wants to see Dr. fernandez referral request 79 y/o female p resent today requesting derm referral for skin lesion on back [facility] mammo order (comments) needs ord er for mammogram ma note pt states she sa w cardio is scheduled for echo and holter monitor mammo order 78 y/o female pr esent today requesting mammo order formerly [facility] Follow Up of A-fib (comments) sa [...] has an appt with cardiology december 13. [facility] senior wellness visit 78 y/o fem darrel present today for senior wellness visit. formerly [facility] allergies Additional infor mation: pt complaining of bad allergies would like allergy shot. allergies (comments) c/o watery itchy eyes and nose Mammogram Pt states she is here to get a breast exam and an order for her annual Mammogram. Abril [facility] Allergies The patient pres ents with itchy eyes, sneezing and watery eyes. Additional information: Pateint requesting injection for sx's relief. -Vanda TALLEY. Follow Up of HTN/Thyroid Follow Up of HTN/Thy roid (comments) here to f/u on parathyroid Allergies (comments) c/o of sque ezing runny nose - lot of trees in yard . does own gardening. Senior Wellness Exam 77 yr. old female presents for annual Senior Wellness exam. -Vanda TALLEY Sciatic pain Allergies Additional infor mation: Pateint requesting an injection to improve sx's . -Vanda TALLEY. Sciatic pain (comments) right le g pain got worst. - morning cant straight up back helps when takes advil about 11 am - stop pain management afraid of shots - and tried accupunction. follow up pt is here for 1 week recheck on bp/ [facility] follow up (comments) patient fee ls better [...] something to find out whats wrong/ [facility] tired/weak (comments) patient sa ys feels real tired and weak gettin use to back pain . has been eating more help with fatiguedenies depression has a cough comes out of no where non- productive no shortness of breath for about 3 weeks- Says dad and sister with heart disease. renato bp-- this morning at home 135/ follow up pt here for foll ow up and lab results/ [facility] arthritis questions pt has quest ions about arthritis/ [facility] mammagram arthritis questions (comments) s ay someone showed her from excercises for back wants to know if they will make her artheritis worst. - patient did not take gabapentin too many side effects listed mammagram (comments) patient say s declined to do mri breast says has not had any breast discharge had x once only last yr small spot - says she has been schedule for bilateral breast ultrsound allergy shot (comments) usually have ruunny nose [...] to hurt her when she walks/ [facility] allergy shot pt wonders if caroline cooper could possibly get an allergy shot due to runny nose, watery eyes, sneezing/ [facility] mammogram pt states that s he would like to get a mammo ordered/ [facility] senior well visit pt here for a senior well visit/ [facility] ER follow up (comments) patient says pain [...] it due to all side effects. -Vsaens [employer] Mammogram results 76 yr. old fem darrel presents to discuss results on Mammogram performed on 02-26-2016. -[facility] Mammogram results (comments) pat inent [...] guidelines Per clinical guidelines pateint due for TSH,CAR STEREO INSTALLER,Dexa scan,Eye exam, Cognitive assessment,Depression screening,Pneumonia,Tdap vaccine, and Zoster.-[facility] Mammogram order Patient requesti ng order for Mammogram. Has been set up for Breast exam today. -[facility] Senior Wellness Exam (comments) no c/o today doing well fatigue This is an initi al visit. The symptoms began 4 days ago and began suddenly. The patient presents with abdominal pain, fatigue and muscle weakness. The fatigue is associated with change in sleep cycle and generalized weakness. Additional information: [facility]. rash (comments) rash x 2 days un [...] has been taking it for 1wk. [facility]. Urgent care f/u 75 yr. old femmihaela cooper presents for urgent care f/u. [place] [facility] [place] for pain in the left [...] are no associated symptoms. Additional information: Deyvi [employer]ANCER. Follow Up of Urgent care 75 yr. old female presents for urgent care f/u. Was [place] [facility] [place] 01-01-2015 for weakness and [...] 113/84. Feels much better now. generalized weakness (comments) pt states she has increased stress due to termal illness of a family member - unsure it that may be causing her symptoms denies any chronic conditions besides low back pain generalized weakness Senior Well Visit (comments) pat ient no c/o takes ocutavite for eyes and , flax seed capsule, occ advil Senior Well Visit Patient is her e for her Senior well visit and had her labs done on 11/27/14. Mammogram done on 11/01/14. [employer] Mammogram order 74 yr. old femal e [...] Dr. Karri Larson. referral Pt requesting re ferral for Physical therapy. Pt states she would [...] continue current med s keep appt with director of program management continue home blood pressure monitoring twice dayf/u 4 weeks Related to Essential hypertension needs to see cardiol ogist was referred in 04/2023 reports no transportation - check transport benefits - does have 6 rides add amlodipine 5 mg q day and continue bystolic 10 mg and losartan 25 mg f/u 2 weeks refer for case consultant Related to Essential hypertension patient reports cant [...] 25 mg q day keep appt with director of program management Related to Essential hypertension update problem list [...] refer to cardiology Related to Essential hypertension Feb-16-2022 PATIENT [facility]CL[facility] MED ICAL MANAGEMENT Related to [...] atrial fibrillation f/u repeat bp Related to K[facility] reinaldo BP without diagnosis of hypertension conservative [...] D insufficiency reviewed labs Related to ROUTI NE MEDICAL EXAM continue curent cindi ement and [...]
--- NOTE | 2025-04-06 13:59 | A.OFFVIS_ITS ---
Vital Signs 04/06/25 14:00 Height 5 ft 3 in Weight 135 lb 5.821 oz BMI 24.0 BP 134/62 Blood Pressure Location Lt brachial Position Sitting Pulse 63 Pulse Source Monitor Intake Visit Reasons: f/u after echo and holter Document Control Coordinator Required: No Accompanied by: Other Relationship Allergies codeine Allergy (Verified 04/06/25 14:03) Unknown Penicillins Allergy (Verified 04/06/25 14:03) Unknown Sulfa (Sulfonamide Antibiotics) Adverse Reaction (Intermediate, Verified 04/06/25 14:03) Blister Medication List - Last Reconciled 04/06/25 by Miriam Pinedo NP-C amlodipine 5 mg PO DAILY apixaban (Eliquis) 2.5 mg PO Q12H atorvastatin 40 mg PO DAILY losartan 25 mg PO DAILY meclizine 25 mg PO DAILY PRN metoprolol succinate ER (Toprol XL) 25 mg PO DAILY HPI HPI f/u after echo and holter: Details: Garrick is a 85-year-old female with past medical history of hypertension, hyperlipidemia, 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 - She did see a grill cook 5 years ago and did not pursue follow-up. She had not been on anticoagulation with the exception of aspirin and did have a CVA last year. On last visit here she was seen for Cardiology consultation and a Holter monitor and echocardiogram were ordered. She now presents for follow-up. Today she reports that she is frustrated that she just does not feel well. She believes it may be the medications she is taking. She feels she is worse since starting on atorvastatin. She tires very easily when she tries to do activities such as making her bed. She is not noticing heart palpitations, lighthead edness, presyncope, syncope. She denies chest discomfort at rest or with activity. No shortness of breath, PND, orthopnea. He does get mild ankle edema at times. She expresses much frustration about her speech and the need to take medications. She describes herself as previously very active and healthy in her younger years and she is not liking her current situation. No bleeding issues reported. [id number] present. [facility] Medical History Atrial fibrillation Dizziness HTN (hypertension) Hyperlipidemia CVA (cerebral vascular accident) Family History Father Heart attack Social History Household Members: Other Housing: Apartment Alcohol intake: never Patient Tobacco Use Status: Never used Tobacco e-Cigarette/Vaping Use: Never Used service: No Current occupational status: retired Cognitive needs: Yes Hearing needs: No Vision needs: Yes Review of Systems Const Details: expressive aphagia All systems reviewed & are unremarkable except as noted in HPI and below Denies daytime sleepiness, Denies difficulty sleeping, Reports fatigue, Reports lethargy, Denies snoring, Denies stops breathing during sleep and Denies weakness Card Denies chest pain, Denies rapid heart rate, Denies irregular heart rhythm, Denies claudication, Denies leg edema, Denies lightheadedness, Denies palpitations, Reports dyspnea, Denies dyspnea on exertion, Denies orthopnea, Denies paroxysmal nocturnal dyspnea and Denies slow heart rate Resp Denies cough, Reports dyspnea, Denies dyspnea on exertion and Denies snoring GI Reports no additional complaints, Denies hematochezia, Denies change in stool character and Denies dyspepsia Musc Denies abnormal gait, Denies muscle weakness and Denies numbness Neuro Denies abnormal gait, Denies numbness and Denies weakness Endo Reports fatigue and Denies palpitations Physical Exam Vital Signs: Last Vital Signs Pulse 63 04/06/25 14:00 BP 134/62 04/06/25 14:00 BMI result Body Mass Index 24.0 Const General: cooperative, healthy appearing, comfortable and no acute distress Orientation/consciousness: patient oriented x3 Neck Neck: Yes normal visual inspection Resp Effort & Inspection: normal respiratory effort Auscultation: clear to auscultation bilaterally, no rales, no rhonchi and no wheezes Cardio Jugular venous distension: no JVD Rate: regular rate Rhythm: abnormal rhythm Heart sounds: S1 normal heart sound present, S2 normal heart sound present, no gallops, no murmurs and no rubs Neuro General: patient oriented x3 Extrem General: Yes normal to inspection and No no pedal edema Psych Other: some aphasia and word finding from CVA Appearance: grossly normal Mental Status: mental status grossly normal Office Procedures EKG Details: Today, read by me, atrial fibrillation, right axis, low-voltage QRS, rate 63, QTC 388 milliseconds [id number], Complete Assessment & Plan Assessment & Plan (1) Atrial fibrillation: Code(s): I48.91 - Unspecified atrial fibrillation Category: Medical Qualifiers: Atrial fibrillation type: unspecified Qualified Code(s): I48.91 - Unspecified atrial fibrillation Plan: History of atrial fibrillation, 1st diagnosed 5 years ago in [place]. It is not clear if she has been persistent or paroxysmal -however most likely persistent. EKG last visit showed atrial fibrillation. Holter monitor done 03/23/2025 showed atrial fibrillation, average heart rate 59 beats per minute. Echocardiogram 03/23/2025 showed EF 62%, right atrium mildly dilated, mild aortic regurgitation, [id number] mitral regurgitation and moderate tricuspid regurgitation. EKG done today showing atrial fibrillation, rate 63. Symptoms of fatigue, lack of energy. Will reduce metoprolol XL down to 12.5 mg daily. Continue Eliquis 2.5 mg b.i.d. which is appropriate for her age and weight. We discussed trying to pursue rhythm control and she is unsure. She wants to see if she feels better after her medicine changes. Cardiology follow-up in 6 weeks, sooner if needed to reassess symptom and further determine plan of care (2) CVA (cerebral vascular accident): Code(s): I63.9 - Cerebral infarction, unspecified Category: Medical Qualifiers: CVA mechanism: embolism Precerebral and cerebral artery: unspecified cerebral artery Qualified Code(s): I63.40 - Cerebral infarction due to embolism of unspecified cerebral artery Plan: CVA 07/10/2023 with residual expressive aphasia. She is appropriate but having difficulty with word finding at times. With AFib she is at high risk for recurrent stroke with her CHADS-VASc score of 6. Continue Eliquis 2.5 mg b.i.d.. (3) HTN (hypertension): Code(s): I10 - Essential (primary) hypertension Category: Medical Qualifiers: Hypertension type: unspecified Qualified Code(s): I10 - Essential (primary) hypertension Plan: Blood pressure goal less than 130/80. Controlled at this time. Continue metoprolol, amlodipine and losartan. (4) Hyperlipidemia: Code(s): E78.5 - Hyperlipidemia, unspecified Category: Medical Qualifiers: Hyperlipidemia type: unspecified Qualified Code(s): E78.5 - Hyperlipidemia, unspecified Plan: Etlan LDL goal less than 100. No recent lipid profile in system for my review. She is on atorvastatin 40 mg daily and feels that she has not been feeling well since starting this medication. She does have fatigue and some back muscle aching. Will have her put atorvastatin on hold and see if her symptoms improve. Plan to re-evaluate next visit. Plan Time spent on chart review, documentation, interview and assessment Medications: Changed From metoprolol succinate ER (Toprol XL) 25 mg PO DAILY 30 tabs 3RF To metoprolol succinate ER (Toprol XL) Take 1/2 tablet daily 12.5 mg (1/2 x 25 mg) PO DAILY 45 tabs 1RF 90 days On Hold atorvastatin Hold Comment: Doctor's Order 40 mg PO DAILY 90 tabs 3RF Coding Level of Care Code Est Pt Level 4 (88444) Complex EM visit Add On G2211 Diagnoses Atrial fibrillation, unspecified type I48.91 Atrial fibrillation type: unspecified Cerebrovascular accident (CVA) due to embolism of cerebral artery I63.40 CVA mechanism: embolism Precerebral and cerebral artery: unspecified cerebral artery Hypertension, unspecified type I10 Hypertension type: unspecified Hyperlipidemia, unspecified hyperlipidemia type E78.5 Hyperlipidemia type: unspecified CPT Codes EKG - CPT: 66705-[id number], Complete ([id number]) Time Spent (min) 32
[2025-04-06 14:00] VITALS: BP 134/62; PULSE 63; BMI 24.0
== END 2025-04-06 14:54 | disposition home or self-care (01) ==
LOC: HO.HCS 13:38
PROVIDERS: Visit Provider Nurse Practitioner Family
DX: I48.91 Unspecified atrial fibrillation (principal); I63.40 Cerebral infarction due to embolism of unspecified cerebral artery; I10 Essential (primary) hypertension; E78.5 Hyperlipidemia, unspecified
CPT/HCPCS: 93010; 99214; G2211

== ENCOUNTER → 2025-04-06 13:37 | Outpatient (BNVA) | payer MEDICARE, SELFPAY | PROVIDERS: Visit Provider Nurse Practitioner Family | DX: Z71.2 Person consulting for explanation of examination or test findings (principal); I48.91 Unspecified atrial fibrillation; I63.40 Cerebral infarction due to embolism of unspecified cerebral artery; I10 Essential (primary) hypertension; E78.5 Hyperlipidemia, unspecified | CPT/HCPCS: 93005; 99212 ==

== ENCOUNTER 2025-05-01 09:55 | Outpatient (AMB) | payer MEDICARE, SELFPAY ==
[2025-05-01 10:02] VITALS: BP 132/52; PULSE 84; RESP 18; TEMP 36.2; O2SAT 99; BMI 23.9
--- NOTE | 2025-05-01 10:02 | A.OFFPC_ITS ---
Vital Signs 05/01/25 10:02 Height 5 ft 3 in Weight 135 lb BMI 23.9 BP 132/52 L Blood Pressure Location Lt brachial Position Sitting Respiration 18 Pulse 84 Pulse Source Pulse Oximeter Temp 97.1 F Temp Source Temporal Artery Scan Pulse Oximetry (%) 99 Oxygen Delivery Method Room Air Intake Visit Reasons: annual physical/lab review Broadcast Operations Director Required: No Accompanied by: Self / Same As Patient Allergies codeine Allergy (Verified 05/01/25 10:11) Unknown Penicillins Allergy (Verified 05/01/25 10:11) Unknown Sulfa (Sulfonamide Antibiotics) Adverse Reaction (Intermediate, Verified 05/01/25 10:11) Blister Medication List - Last Reconciled 05/01/25 by NAM Syed amlodipine 5 mg PO DAILY apixaban (Eliquis) 2.5 mg PO BID atorvastatin 40 mg PO DAILY Held on 04/06/25. Instructions: Doctor's Order losartan 25 mg PO DAILY meclizine 25 mg PO DAILY PRN metoprolol succinate ER (Toprol XL) 12.5 mg (1/2 x 25 mg) PO DAILY 90 days Tobacco use date assessed: 05/01/25 Fall risk assessment: No Falls in past year Last assessed Fall Risk: 05/01/25 Dental Screening Dental Screen Date: 05/01/25 Did you have a dental visit in the last 12 months?: No Did you have a dental problem in the last 6 months where you did not have access to dental care?: No Was dental information given to patient?: No HPI annual physical/lab review HPI Details Dentist: not in a year Eye: not in a year, needs a new plant operator helper Snellen: Right: Left: Corrected vision: STI screening: Colonoscopy: Pap Smer: PHQ-9: Flu: does not take this COVID: x2 Tdap: not a risk Diet: regular Exercise: reports that she was not a exercise person The patient is an 85-year-old female presenting for annual physical and for review of lab results. She was recently seen by her digital learning platforms manager, who decreased her metoprolol to 12.5 mg and placed her cholesterol medication on hold. The cholesterol medication was stopped because it was making her feel tired and weak , and she reports feeling better with more energy since its discontinuation. The patient has a history of a stroke, with the first event occurring in July. She is on Eliquis for secondary stroke prevention. Regarding health maintenance, the patient has not seen a dentist in over a year. Her last eye exam with an plant operator helper was also over a year ago in [place], where she had a LASIK procedure previously. She declines the annual flu vaccine but has received two COVID-19 vaccines. She is no longer undergoing screenings such as mammograms, Pap smears, or colonoscopies. Her caregiver has expressed concerns about her balance, noting she tends to lose her balance on ramps and has had multiple near-falls. The patient uses a walker for tasks like going to the laundry room but does not feel she needs it regularly. She declines physical therapy but is agreeable to using her walker more frequently. The patient daughter will call to give the informatoin on a specific ophthalmol ogist that she wants the patient to be referred to. [facility], LAT[facility] Medical History Atrial fibrillation Dizziness HTN (hypertension) Hyperlipidemia CVA (cerebral vascular accident) Family History Father Heart attack Social History Household Members: Other Housing: Apartment Alcohol intake: never Patient Tobacco Use Status: Never used Tobacco e-Cigarette/Vaping Use: Never Used service: No Current occupational status: retired Cognitive needs: Yes Hearing needs: No Vision needs: Yes Questionnaire PHQ-9 Over the last 2 weeks, how often have you been bothered by any of the following problems? Depression Screening Interpretation: Positive Depression Screening Done: Yes Source: Developed by Drs. Alfa Lawrence, Deb Gonzales, Claude pham nd colleagues, with an educational laurel from [employer]. Thrive Questionnaire Date Thrive assessed: 02/14/25 I am a: Patient What is your living situation today?: I have a steady place to live Within the past 12 months, did the food you bought not last and you didn't have the money to get more?: Never true Within the past 12 months, did you worry whether your food would run out before you got money to buy more?: Never true Do you have trouble paying for medicines?: No Do you have trouble getting transportation to medical appointments?: No Do you have trouble paying your heating and electricity bill?: No Do you have trouble taking care of your child, family member or friend?: No Do you have trouble with day-to-day activities such as bathing, preparing meals, shopping, managing finances, etc.?: No Are you currently unemployed and looking for a job?: No Are you interested in more education?: No Please select the resources that you would like help with: None Currently or been in a relationship where the following occur: No concerns reported THRIVE Score: 0 AUDIT C Alcohol Use Questionnaire (AUDIT-C) 2. How many drinks containing alcohol do you have on a typical day when you are drinking?: 1 or 2 Total Score: 0 AIRAM-7 AMB Questionnaire AIRAM-7 Date AIRAM - 7 assessed: 02/16/25 Source: Developed by Drs. Alfa Lawrence, Deb Gonzales, Claude Rodriguez and colleagues, with an educational laurel from [employer]. Review of Systems Const Denies headache(s) Eyes Denies loss of vision ENT Denies vertigo, Reports dizziness (hx, has been stable), Denies headache(s) and Denies sore throat Card Denies chest pain, Reports leg edema (peripheral edema-bilateral) and Denies lightheadedness Resp Denies cough, Denies hemoptysis and Denies wheezing GI Denies abdominal pain, Denies melena, Denies constipation, Denies diarrhea and Denies vomiting Denies urinary frequency, Denies dysuria and Denies urinary urgency Musc Reports arthralgias (bilateral ankles), Denies joint swelling, Denies numbness and Denies tingling Neuro Denies behavioral changes, Denies vertigo, Reports dizziness (hx, has been stable), Denies headache(s), Denies loss of vision, Denies memory loss, Denies numbness and Denies tingling Psych Denies anxiety, Denies behavioral changes, Denies depression, Denies memory loss and Denies panic attacks Oleksandr/Lymph Denies easy bleeding and Denies easy bruising Aller/Immun Denies wheezing Physical exam (Primary Care) Vital Signs: Last Vital Signs Temp 97.1 F 05/01/25 10:02 Pulse 84 05/01/25 10:02 Resp 18 05/01/25 10:02 BP 132/52 L 05/01/25 10:02 Pulse Ox 99 05/01/25 10:02 Oxygen Delivery Method Room Air 05/01/25 10:02 BMI result Body Mass Index 23.9 Tobacco/Smoking Status: Tobacco use Status Tobacco use date assessed 05/01/25 05/01/25 10:05 Patient Tobacco Use Status Never used Tobacco 05/01/25 10:05 e-Cigarette/Vaping Use Never Used 05/01/25 10:05 Depression Screening Interpretation: Positive Thrive Assessment: Date of Thrive Assessment Date Thrive assessed 02/14/25 05/01/25 10:05 Currently or been in a relationship where the following occur: No concerns reported Const General: healthy appearing, no acute distress, alert and awake Nutritional Appearance: well nourished Orientation/consciousness: oriented to person, oriented to place and oriented to time HENMT Ears: TM's normal bilaterally General nose exam: Normal nasal mucous membranes and turbinates present Eyes Conjunctivae: conjunctivae normal Sclerae: sclerae normal Pupils: Equal, round and reactive pupils present Neck Neck: Yes no lymphadenopathy and Yes no JVD Thyroid: Thyroid normal Carotids: no bruits Resp Effort & Inspection: normal respiratory effort and not tachypneic Auscultation: no crackles, no rales, no rhonchi and no wheezes Cardio Rate: regular rate Rhythm: regular rhythm Heart sounds: no murmurs and normal S1 and S2 GI Palpation (GI): Soft to palpation, nontender, no hepatomegaly and no splenomegaly Auscultation: normal bowel sounds Skin General skin exam: no rashes or lesions noted and dry skin Neuro General: oriented to person, oriented to place and oriented to time Cranial nerves: Yes Equal, round and reactive pupils present Speech: Expressive aphasia present Gait exam (Neuro): Normal gait present Motor exam (neuro): no tremor noted Deep tendon reflexes (DTR's): Right triceps reflex intensity grade: 2+, Left triceps reflex intensity grade: 2+, Rt Biceps (C5, C6): 2+, Left biceps reflex intensity grade: 1+, Right brachioradialis reflex intensity grade: 1+, Left brachioradialis reflex intensity grade: 1+, Right patellar reflex intensity grade: 2+ and Left patellar reflex intensity grade: 2+ Extrem Right upper extremity: full ROM Left upper extremity: full ROM Right lower extremity: full ROM; no edema Left lower extremity: full ROM; no edema Psych Mental Status: mental status grossly normal Speech and movement: Normal speech and movement present Affect: normal affect Attitude: cooperative Thought process: Normal thought process present Results Reviewed Results Reviewed: Laboratory Tests 03/02/25 03/02/25 10:35 10:41 WBC 5.7 RBC 4.45 Hgb 13.2 Hct 39.2 MCV 88.1 MCH 29.7 MCHC 33.7 RDW 12.9 Plt Count 282 MPV 9.0 L Sodium 138 Potassium 4.9 Chloride 106 Carbon Dioxide 23 Anion Gap 14 BUN 12 Creatinine 0.86 Estimated GFR > 60 Fasting Glucose 107 H Calcium 9.6 Total Bilirubin 0.8 AST 30 ALT 35 H Alkaline Phosphatase 139 H B-Natriuretic Peptide 218 H Total Protein 7.6 Albumin 4.6 Triglycerides 43 Cholesterol 141 LDL Cholesterol, Calc 67 HDL Cholesterol 66 25-OH Vitamin D Total 41.0 TSH 1.80 Urine Color Yellow Urine Appearance Clear Urine pH 7.5 Ur Specific [place] <= 1.005 Urine Protein Negative Urine Glucose (UA) Negative Urine Ketones Negative Urine Blood Negative Urine Nitrite Negative Ur Leukocyte Esterase Trace H Urine RBC 0-2 Urine WBC 0-5 Ur Squamous Epith Cells 0-2 Urine Bacteria None Seen Hyaline Casts 0-2 Coding Level of Care Code Est Pt Prev Care >65y(63185) Diagnoses Annual physical exam Z00.00 Atrial fibrillation, unspecified type I48.91 Atrial fibrillation type: unspecified Hypertension, unspecified type I10 Hypertension type: unspecified Hyperlipidemia, unspecified hyperlipidemia type E78.5 Hyperlipidemia type: unspecified Cerebrovascular accident (CVA) due to embolism of cerebral artery I63.40 CVA mechanism: embolism Precerebral and cerebral artery: unspecified cerebral artery Chronic pain of both ankles M25.571; M25.572; G89.29 Chronicity: chronic Elevated liver enzymes R74.8 Elevated alkaline phosphatase level R74.8 Vertigo R42 Time Spent (min) 38 Assessment & Plan Assessment & Plan (1) Annual physical exam: Code(s): Z00.00 - Encounter for general adult medical examination without abnormal findings Category: Medical Plan: Preventative guidelines and recent labs reviewed with the patient. (2) Atrial fibrillation: Code(s): I48.91 - Unspecified atrial fibrillation Category: Medical Qualifiers: Atrial fibrillation type: unspecified Qualified Code(s): I48.91 - Unspecified atrial fibrillation Plan: The patient will continue anticoagulation therapy to manage atrial fibrillation and prevent further strokes. She was referred to Cardiology by the emergency room to ensure comprehensive management of her cardiovascular health and to prevent recurrent cerebrovascular events. In the emergency room she was placed on apixaban 2.5 mg b.i.d. and metoprolol succinate ER 25 mg daily. (3) HTN (hypertension): Code(s): I10 - Essential (primary) hypertension Category: Medical Qualifiers: Hypertension type: unspecified Qualified Code(s): I10 - Essential (primary) hypertension Plan: Blood pressure 132/52-systolic 140 mmhg Reinforced low-salt diet Continue metoprolol succinate XL 12.5 mg daily, amlodipine 5 mg daily (4) Hyperlipidemia: Code(s): E78.5 - Hyperlipidemia, unspecified Category: Medical Qualifiers: Hyperlipidemia type: unspecified Qualified Code(s): E78.5 - Hyperlipidemia, unspecified Plan: The patient's cholesterol medication was recently discontinued by her digital learning platforms manager due to side effects of fatigue and weakness. The patient feels much better since stopping the medication. Lipid panel will be rechecked in three months to evaluate her cholesterol levels off the medication. The option of trying a lower dose (e.g., 20 mg instead of 40 mg) was discussed as a future possibility depending on the new lab results. (5) CVA (cerebral vascular accident): Code(s): I63.9 - Cerebral infarction, unspecified Category: Medical Qualifiers: CVA mechanism: embolism Precerebral and cerebral artery: unspecified cerebral artery Qualified Code(s): I63.40 - Cerebral infarction due to embolism of unspecified cerebral artery Plan: cva 07/14/23, expressive aphasia. NO focal deficit. The patient has some balance issues, unclear if this related. (6) Bilateral ankle pain: Code(s): M25.571 - Pain in right ankle and joints of right foot; M25.572 - Pain in left ankle and joints of left foot Category: Medical Qualifiers: Chronicity: chronic Qualified Code(s): M25.571 - Pain in right ankle and joints of right foot; M25.572 - Pain in left ankle and joints of left foot; G89.29 - Other chronic pain Plan: The patient's caregiver reports concerns about her balance and multiple near- falls, especially on uneven surfaces like ramps. The risks of falling, particularly hip fractures and subsequent complications, were discussed with the patient. A referral for physical therapy to work on balance and gait was offered, but the patient declined at this time. The patient agreed to use her walker more frequently for safety. The patient continues to have pain in bilateral ankles which she credit to be related to her balance abnormalities. She struggles to ambulated far distance. (7) Elevated liver enzymes: Code(s): R74.8 - Abnormal levels of other serum enzymes Category: Medical Plan: The patient's liver enzymes are noted to be slightly elevated, though they have improved since the last measurement. Potential causes, including medications like the recently stopped statin, fatty foods, Tylenol, and alcohol, were discussed. Plan includes repeating blood work in three months with additional liver-specific tests to further investigate. An abdominal ultrasound may be considered to evaluate for fatty liver if the labs remain abnormal. (8) Elevated alkaline phosphatase level: Code(s): R74.8 - Abnormal levels of other serum enzymes Category: Medical Plan: GGT added to follow up to further evaluate (9) Vertigo: Code(s): R42 - Dizziness and giddiness Category: Medical Plan: The patient has a history of dizziness that was ruled to be benign positional vertigo for which she takes meclizine 25 mg p.r.n. Orders: Orders Complete Blood Count Auto Diff 3 Months NAM Syed E78.5 - Hyperlipidemia, unspecified, I10 - Essential (primary) hypertension, I48.91 - Unspecified atrial fibrillation, I63.40 - Cerebral infarction due to embolism of unspecified cerebral artery, R74.8 - Abnormal levels of other serum enzymes UA CC w/rflx Micro + Cult 3 Months NAM Syed E78.5 - Hyperlipidemia, unspecified, I10 - Essential (primary) hypertension, I48.91 - Unspecified atrial fibrillation, I63.40 - Cerebral infarction due to embolism of unspecified cerebral artery, R74.8 - Abnormal levels of other serum enzymes Transferrin 3 Months NAM Syed E78.5 - Hyperlipidemia, unspecified, I10 - Essential (primary) hypertension, I48.91 - Unspecified atrial fibrilla tion, I63.40 - Cerebral infarction due to embolism of unspecified cerebral artery, R74.8 - Abnormal levels of other serum enzymes IRON PROFILE 3 Months Maximilian Cao RETAIL EVENT AND SALES ASSISTANT-C E78.5 - Hyperlipidemia, unspecified, I10 - Essential (primary) hypertension, I48.91 - Unspecified atrial fibrillation, I63.40 - Cerebral infarction due to embolism of unspecified cerebral artery, R74.8 - Abnormal levels of other serum enzymes Gamma Glutamyl Transpeptidase 3 Months Maximiliankaterin Cao RETAIL EVENT AND SALES ASSISTANT-C E78.5 - Hyperlipidemia, unspecified, I10 - Essential (primary) hypertension, I48.91 - Unspecified atrial fibrillation, I63.40 - Cerebral infarction due to embolism of unspecified cerebral artery, R74.8 - Abnormal levels of other serum enzymes Lipid Panel 3 Months Maximilian Nash RETAIL EVENT AND SALES ASSISTANT-C E78.5 - Hyperlipidemia, unspecified, I10 - Essential (primary) hypertension, I48.91 - Unspecified atrial fibrillation, I63.40 - Cerebral infarction due to embolism of unspecified cerebral artery, R74.8 - Abnormal levels of other serum enzymes Comprehensive [place]. Panel Fast 3 Months Maximiliankaterin Cao RETAIL EVENT AND SALES ASSISTANT-C E78.5 - Hyperlipidemia, unspecified, I10 - Essential (primary) hypertension, I48.91 - Unspecified atrial fibrillation, I63.40 - Cerebral infarction due to embolism of unspecified cerebral artery, R74.8 - Abnormal levels of other serum enzymes TSH reflex Free T4 3 Months Maximiliankaterin Cao RETAIL EVENT AND SALES ASSISTANT-C E78.5 - Hyperlipidemia, unspecified, I10 - Essential (primary) hypertension, I48.91 - Unspecified atrial fibrillation, I63.40 - Cerebral infarction due to embolism of unspecified cerebral artery, R74.8 - Abnormal levels of other serum enzymes Hepatitis A,B,C Profile 3 Months Maximilian Cao RETAIL EVENT AND SALES ASSISTANT-C E78.5 - Hyperlipidemia, unspecified, I10 - Essential (primary) hypertension, I48.91 - Unspecified atrial fibrillation, I63.40 - Cerebral infarction due to embolism of unspecified cereb ral artery, R74.8 - Abnormal levels of other serum enzymes Medications: Changed From apixaban (Eliquis) 2.5 mg PO Q12H 60 tabs 3RF To apixaban (Eliquis) 2.5 mg PO BID David Sciaruto, MD
== END 2025-05-01 11:11 | disposition home or self-care (01) ==
LOC: HO.HMCH 09:58
DX: Z00.00 Encounter for general adult medical examination without abnormal findings (principal); I48.91 Unspecified atrial fibrillation; I63.40 Cerebral infarction due to embolism of unspecified cerebral artery; I10 Essential (primary) hypertension; E78.5 Hyperlipidemia, unspecified; M25.571 Pain in right ankle and joints of right foot; M25.572 Pain in left ankle and joints of left foot; G89.29 Other chronic pain; R74.8 Abnormal levels of other serum enzymes; R42 Dizziness and giddiness

== ENCOUNTER → 2025-05-01 09:55 | Outpatient (BNVA) | payer MEDICARE, SELFPAY | DX: Z00.00 Encounter for general adult medical examination without abnormal findings (principal); I48.91 Unspecified atrial fibrillation; I10 Essential (primary) hypertension; E78.5 Hyperlipidemia, unspecified; M25.571 Pain in right ankle and joints of right foot; M25.572 Pain in left ankle and joints of left foot; G89.29 Other chronic pain; R74.8 Abnormal levels of other serum enzymes; R42 Dizziness and giddiness; Z86.73 Personal history of transient ischemic attack (TIA), and cerebral infarction without residual deficits; Z79.01 Long term (current) use of anticoagulants; Z79.899 Other long term (current) drug therapy | CPT/HCPCS: 99397 ==

== ENCOUNTER 2025-05-07 13:54 | Emergency (ER) | payer MEDICARE, SELFPAY ==
--- OUTSIDE RECORDS SUMMARY | 2025-01-09 06:03 | XMS_ITS | Continuity of Care Document ---
Author Organization [facility] edical Group Address [address] [place] [address] Phone Care Team Providers Care Novelty Printing Machine Operator Name Role Phone Leticia Russell M.D. Unavailable [...] NOTED NONE PRSNT MED LIST DOCD IN [facility] RVW MEDS BY RX/DR IN [facility] Diastolic Blood Pressure Less Than 80mm Hg Systolic Blood Pressure 131-139mm Hg Apr Office/outpatient visit,est, mod 2023 AMNT PAIN NOTED NONE PRSNT Diastolic Blood Pressure Less Than 80mm Hg Systolic Blood Pressure 131-139mm Hg Aug E/M service [facility] Office/outpatient visit,est, mod 2023 AMNT PAIN NOTED NONE PRSNT Diastolic Blood Pressure Less Than 80mm Hg Systolic Blood Pressure Greater Or Equal To 140mm MTMS BY PHARM EST 15 MIN Void Ticket [facility] MED/CURRENT MED MERGE MTMS BY PHARM PLATE PAINTER 15 MIN MTMS BY PHARM ADDL 15 [...] NOTED NONE PRSNT MED LIST DOCD IN [facility] RVW MEDS BY RX/DR IN [facility] Diastolic Blood Pressure 80-89mm Hg Systolic Blood Pressure Greater Or Equal To 140mm E/M service [facility] Preventive checkup, est,65+ yrs - 023 AMNT [...] NOTED NONE PRSNT MED LIST DOCD IN [facility] RVW MEDS BY RX/DR IN [facility] BODY MASS INDEX DOCD Diastolic Blood [...] NOTED PAIN PRSNT MED LIST DOCD IN [facility] RVW MEDS BY RX/DR IN [facility] BODY MASS INDEX DOCD Diastolic Blood Pressure 80-89mm Hg Systolic Blood Pressure Greater Or Equal To 140mm Office/outpatient visit,est, mod 2020 AMNT PAIN NOTED NONE PRSNT MED LIST DOCD IN [facility] RVW MEDS BY RX/DR IN [facility] BODY MASS INDEX DOCD Diastolic Blood Pressure 80-89mm Hg Systolic Blood Pressure Greater Or Equal To 140mm Office/outpatient visit,est, mod 2020 AMNT PAIN NOTED NONE PRSNT MED LIST DOCD IN [facility] RVW MEDS BY RX/DR IN [facility] BODY MASS INDEX [facility] Diastolic Blood Pressure Less Than 80mm Hg Systolic Blood Pressure Greater Or Equal To 140mm Office/outpatient visit,est, mod 2020 AMNT PAIN NOTED NONE PRSNT MED LIST DOCD IN [facility] RVW MEDS BY RX/DR IN [facility] BODY MASS INDEX [facility] Diastolic Blood Pressure Less Than 80mm Hg Systolic Blood Pressure Greater Or Equal To 140mm E/M service [facility] Preventive checkup, est,65+ yrs 021 AMNT PAIN NOTED NONE PRSNT MED LIST DOCD IN [facility] RVW MEDS BY RX/DR IN [facility] BODY MASS INDEX [facility] Diastolic Blood Pressure Greater Or Equa l To 90mm Systolic Blood Pressure Greater Or Equal To 140mm E/M service [facility] Preventive checkup, est,65+ yrs 020 AMNT PAIN NOTED NONE PRSNT [facility] Diastolic Blood Pressure 80-89mm Hg Systolic Blood Pressure Greater Or Equal To 140mm Office/outpatient visit,est, mod 2019 AMNT PAIN NOTED NONE PRSNT MED LIST DOCD IN [facility] RVW MEDS BY RX/DR IN [facility] Diastolic Blood Pressure Less Than 80mm Hg Systolic Blood Pressure Greater Or Equal To 140mm AMNT PAIN NOTED NONE PRSNT MED LIST DOCD IN [facility] RVW MEDS BY RX/DR IN [facility] BODY MASS INDEX [facility] Diastolic Blood Pressure Less Than 80mm Hg Systolic Blood Pressure Greater Or Equal To 140mm Office/outpatient visit,est, mod 2019 AMNT PAIN NOTED NONE PRSNT MED LIST DOCD IN [facility] RVW MEDS BY RX/DR IN [facility] BODY MASS INDEX [facility] Diastolic Blood Pressure Less Than 80mm Hg Systolic Blood Pressure Greater Or Equal To 140mm Office/outpatient visit,est, mod 2019 AMNT PAIN NOTED NONE PRSNT BODY MASS INDEX [facility] Diastolic Blood Pressure Greater Or Equa l To 90mm Systolic Blood Pressure Greater Or Equal To 140mm E/M service [facility] Office/outpatient visit,est, mod 2019 AMNT PAIN NOTED NONE PRSNT BODY MASS INDEX [facility] Diastolic Blood Pressure 80-89mm Hg Systolic Blood Pressure Greater Or Equal To 140mm Office/outpatient visit,est, mod 2019 AMNT PAIN NOTED NONE PRSNT MED LIST DOCD IN [facility] RVW MEDS BY RX/DR IN [facility] BODY MASS INDEX [facility] Diastolic Blood Pressure 80-89mm Hg Systolic Blood Pressure Greater Or Equal To 140mm Office/outpatient visit,est, mod 2018 AMNT PAIN NOTED NONE PRSNT MED LIST DOCD IN [facility] RVW MEDS BY RX/DR IN [facility] Diastolic Blood Pressure Greater Or Equa l To 90mm Systolic Blood Pressure Greater Or Equal To 140mm Office/outpatient visit,est, min 2018 Diastolic Blood Pressure Less Than 80mm Hg Systolic Blood Pressure Greater Or Equal To 140mm Office/outpatient visit,est, mod 2018 AMNT PAIN NOTED PAIN PRSNT MED LIST DOCD IN [facility] RVW MEDS BY RX/DR IN [facility] Diastolic Blood Pressure Less Than 80mm Hg Systolic Blood Pressure Greater Or Equal To 140mm Office/outpatient visit,est, mod 2018 BODY MASS INDEX DOC[facility] Diastolic Blood Pressure Less Than 80mm Hg Systolic Blood Pressure 131-139mm Hg Mar Office/outpatient visit,est, mod 2018 AMNT PAIN NOTED NONE PRSNT MED LIST DOCD IN [facility] RVW MEDS BY RX/DR IN [facility] Diastolic Blood Pressure 80-89mm Hg Systolic Blood Pressure Greater Or Equal To 140mm Office/outpatient visit,est, mod 2018 MED LIST DOCD IN [facility] RVW MEDS BY RX/DR IN [facility] B[facility] Diastolic Blood Pressure 80-89mm Hg Systolic Blood Pressure Greater Or Equal To 140mm E/M service [facility] E/M service [facility] Preventive checkup, est,65+ yrs 019 AMNT PAIN NOTED NONE PRSNT MED LIST DOCD IN [facility] RVW MEDS BY RX/DR IN [facility] BODY MASS INDEX DOC[facility] Diastolic Blood Pressure Less Than 80mm Hg Systolic Blood Pressure Greater Or Equal To 140mm MED LIST DOCD IN [facility] RVW MEDS BY RX/DR IN [facility] Office/outpatient visit,est, mod 2017 AMNT PAIN [...] Office/outpatient visit,est, mod 2014 [facility] Systolic Blood Pressure 131-139mm Hg Feb Diastolic Blood Pressure Less Than 80mm Hg Office/outpatient visit,est, low 2014 [facility] Systolic Blood Pressure Greater Or Equal To 140mm Diastolic Blood Pressure Less Than 80mm Hg Office/outpatient visit,est, mod 2014 BODY MASS INDEX DOC[facility] Systolic Blood Pressure 131-139mm Hg Jan Diastolic Blood Pressure Less Than 80mm Hg [facility] Venipuncture Collection Of Blood 2014 Metabolic panel, basic Urinalysis, non-automated, w/scope Systolic Blood Pressure Greater Or Equal To 140mm Diastolic Blood Pressure Less Than 80mm Hg Office/outpatient visit,est, mod 2014 Spun microhematocrit blood count 2014 Hemoglobin count, colorimetric 15 Preventive checkup, [facility],65+ yrs 015 BODY MASS INDEX DOC[facility] Systolic [...] Office/outpatient visit,est, mod 2013 [facility] Systolic Blood Pressure 131-139mm Hg Jan Diastolic Blood Pressure Less Than 80mm Hg BODY MASS INDEX [facility] Systolic Blood Pressure 131-139mm Hg Jan Diastolic Blood Pressure Less Than 80mm Hg Preventive checkup, est,65+ yrs 014 RVW MEDS BY RX/DR IN [facility] Office/outpatient visit,est, mod 2012 RVW MEDS BY RX/DR IN [facility] AMNT PAIN NOTED PAIN PRSNT AMNT [...] Diagnoses Date Provider Providers Copied on Encounter [facility], [address], [place], [place], [id number], [place] tel:[phone] [facility] No Information 5 Christopher Kelly. [address] [place] [address], [address], [place]. tel:[phone] [facility], [address] [place] [address], [id number], [place] tel:[phone] [facility] No Information 0 5 [place] y-Cao Leticia. [address] [place] [address], [address], [place]. tel:[phone] [facility], [address] [place] [address], [id number], [place] tel:[phone] [facility] No Information 5 [place] [facility] Leticia. [address] [place] [address], [address], [place]. tel:[phone] E/M service [facility], [address] [place] [address], [id number], [place] tel:[phone] [facility] Senior Wellness Visit (chief complaint)Me dication questions (chief complaint)HE DIS (chief complaint)Fo llow Up of Hypertension (chief complaint) Encounter for general adult medical examination without abnormal findingsEsse ntial hypertension Paroxysmal atrial fibrillation Senile purpuraHyper parathyroidi smAtheroscle rosis of aortaBody mass index [BMI] 23.0-23.9, adultEncount er for examination of blood pressure with abnormal findings 4 [place] [facility] Leticia. [address] [place] [address], [address], [place]. tel:[phone] [facility], [address] [place] [address], [id number], [place] tel:[phone] [facility] No Information 4 [place] [facility] Leticia. [address] [place] [address], [address], [place]. tel:[phone] [facility], [address] [place] [address], [id number], [place] tel:[phone] [facility] No Information 4 Christopher Kelly. [address] [place], [address], [place]. tel:[phone] Office/outpa tient visit,est, mod [facility], [address], [place], [id number], [place] [phone] [facility] Medication review (chief complaint)Lo wer extremity swelling (chief complaint)cv a (chief complaint) Essential hypertension Paroxysmal atrial fibrillation Aphasia S/P CVAPeriphera l edemaBody mass index [BMI] 22.0-22.9, adultEncount er for examination of blood pressure with abnormal findings 4 Cushingclarissar [facility] Leticia. [address] [place], [address], [place]. [phone] E/M service [facility], [address], [place], [id number], [place] [phone] [facility] Follow Up of Hospital discharge (chief complaint) Paroxysmal atrial fibrillation Essential hypertension Hyperlipidem ia, unspecifiedD izzinessApha selin S/P CVABody mass index [BMI] 22.0-22.9, adultEncount er for examination of blood pressure with abnormal findings 4 Christopher Kelly. [address] [place], [address], [place]. tel:[phone] MTMS BY PHARM EST 15 MIN [facility], [address], [place], [id number], [place] [phone] Pharmacy Encounter for therapeutic drug level monitoringVo id Ticket 4 Rafi Briggs. [address] [place], [place], [id number], [place]. tel:[phone] MTMS BY PHARM PLATE PAINTER 15 MIN [facility], [address], [place], [id number], [place] tel:[phone] Pharmacy Encounter for therapeutic drug level monitoringVo id Ticket 4 Rafi Briggs. [address] [place], [place], [id number], [place]. tel:[phone] [facility], [facility], [address], [place], [id number], [place] tel:[phone] [facility] Follow Up of Hypertension (chief complaint) Essential hypertension Body mass index [BMI] 22.0-22.9, [facility] of blood pressure with abnormal findings 4 [place] y-Cao Leticia. [address] [place], [address], [place]. tel:[phone] [facility]pa [facility]ient visit,[facility], [facility], [address], [place], [id number], [place] tel:[phone] [facility] Follow Up of Hypertension (chief complaint) Essential hypertension Encounter for examination of blood pressure with abnormal findings 3 [place] [facility] Leticia. [address] [place], [address], [place]. tel:[phone] [facility]pa [facility]ient visit,[facility], [facility], [address], [place], [id number], [place] tel:[phone] [facility] Follow Up of hypertension (chief complaint) Essential hypertension Body mass index [BMI] 22.0-22.9, [facility] er for examination of blood pressure with abnormal findings 3 [place] [facility] Leticia. [address] [place], [address], [place]. tel:[phone] E/M service [facility], [address], [place], [id number], [place] tel:[phone] [facility] Senior Wellness Exam (chief complaint)Fo llow Up of Hypertension (chief complaint)Re fill request (chief complaint) Encounter for general adult medical examination without abnormal findingsEsse ntial hypertension Atrial fibrillation , controlledAt herosclerosi s of aortaHyperpa rathyroidism Senile purpuraBody mass index [BMI] 22.0-22.9, [facility] for examination of blood pressure with abnormal findingsSacr oiliitis, not elsewhere classified 3 [place] y-[place]ao Leticia. [address] [place], [address], [place]. tel:[phone] [facility]pa [facility], [facility], [address] [place] [address], [id number], [place] tel:[phone] [facility] Follow Up of Hypertension (chief complaint) Essential hypertension Encounter for examination of blood pressure with abnormal findings 3 [place] [facility] Leticia. [address] [place], [address], [place]. tel:[phone] Office/outpa tient visit,est, [facility], [address], [place], [id number], [place] tel:[phone] [facility] Follow Up of ER visit (chief complaint) Essential hypertension LFT elevationAtr ial fibrillation , controlledEn counter for examination of blood pressure with abnormal findings 3 [place] [facility] Leticia. [address] [place], [address], [place]. tel:[phone] Office/outpa tient visit,est, [facility], [address], [place], [id number], [place] tel:[phone] [facility] Request for Kenalog injection (chief complaint)Bl ood pressure (chief complaint) Allergic rhinitis, unspecifiedE ssential hypertension Body mass index [BMI] 24.0-24.9, [facility] for examination of blood pressure without abnormal findings 2 [place] [facility] Leticia. [address] [place], [address], [place]. tel:[phone] Office/outpa tient visit,est, [facility], [address], [place], [id number], [place] tel:[phone] [facility] Prescription refill request (chief complaint)Ma mmogram order (chief complaint) Sciatica of right sideBreast cancer screening by mammogramBod y mass index (BMI) 24.0-24.9, [facility] for exam of blood pressure w/o abnormal findings 1 [facility] [facility] Leticia. [address] [place], [address], [place]. [phone] [facility], [address], [place], [id number], [place] [phone] [facility] Right hand painRight wrist painDe Quervain's disease (tenosynovit is)Left hand painLeft wrist pain 1 Cushingberlily neves-Cao Leticia. [address] [place], [address], [place]. [phone] Office/outpa tient visit,est, [facility], [address], [place], [id number], [place] [phone] [facility] pain (chief complaint)bl ood pressure (chief complaint) De Quervain's disease (tenosynovit is)Essential hypertension Left sided sciaticaBody mass index (BMI) 24.0-24.9, [facility] for exam of blood pressure w/o abnormal findings 1 [place] y[facility] Leticia. [address] [place], [address], [place]. [phone] Office/outpa tient visit,est, [facility], [address], [place], [id number], [place] tel:[phone] [facility] results (chief complaint)pa in (chief complaint) De Quervain's disease (tenosynovit is)Stage 2 chronic kidney diseaseBody mass index (BMI) 23.0-23.9, adultEncount er for exam of blood pressure w/o abnormal findings 1 Cushjustoberr y-Cao Leticia. [address] [place], [address], [place]. tel:[phone] Office/outpa tient visit,est, [facility], [address] [place] [address], [id number], [place] tel:[phone] [facility] Follow Up of hypertension (chief complaint) Stage 2 chronic kidney diseaseEssen tial hypertension Hyperlipidem ia, unspecifiedF Hx: breast cancerBody mass index (BMI) 23.0-23.9, [facility] for exam of blood pressure w/o abnormal findings 1 [place] [facility] Leticia. [address] [place], [address], [place]. tel:[phone] [facility], [facility], [address], [place], [id number], [place] tel:[phone] [facility] Follow Up of Hypertension (chief complaint) Essential hypertension Body mass index (BMI) 23.0-23.9, [facility] for exam of blood pressure w/o abnormal findings 1 [place] [facility] Leticia. [address] [place], [address], [place]. tel:[phone] E/M service [facility], [address] [place] [address], [id number], [place] tel:[phone] [facility] Senior Wellness Exam (chief complaint)Fo llow Up of Hypertension (chief complaint) Encounter for general adult medical examination without abnormal findingsEsse ntial hypertension Hyperlipidem ia, unspecifiedH yperparathyr oidismParoxy smal atrial fibrillation Atherosclero sis of aortaBody mass index (BMI) 24.0-24.9, adultEncount er for exam of blood pressure w/o abnormal findingsSeni le purpura Michele-2 8-202 1 [place] [facility] Leticia. [address] [place], [address], [place]. tel:[phone] E/M service [facility], [address], [place], [id number], [place] tel:[phone] [facility] senior wellness visit (chief complaint)he dis measures (chief complaint)Fo llow Up of hypertension (chief complaint) Encounter for general adult medical examination without abnormal findingsEsse ntial hypertension Allergic rhinitis, unspecifiedA theroscleros is of aortaSenile purpuraBody mass index (BMI) 24.0-24.9, adultEncount er for exam of blood pressure w/o abnormal findings 0 [place] [facility] Leticia. [address] [place], [address], [place]. tel:[phone] Office/outpa tient visit,est, [facility], [address], [place], [id number], [place] tel:[phone] [facility] hypertension (chief complaint) Essential hypertension Body mass index (BMI) 24.0-24.9, adultEncount er for exam of blood pressure w/o abnormal findings Mar-2 3202 0 [place] [facility] Leticia. [address] [place], [address], [place]. tel:[phone] Office/outpa tient visit,est, [facility], [address], [place], [id number], [place] tel:[phone] [facility] Follow Up of Hypertension (chief complaint) Essential hypertension Body mass index (BMI) 24.0-24.9, adultEncount er for exam of blood pressure w/o abnormal findings Sep-0 8-202 0 [place] [facility] Leticia. [address] [place], [address], [place]. tel:[phone] Office/outpa tient visit,est, [facility], [address], [place], [place], [id number], [place] tel:[phone] [facility] Elevated blood pressure (chief complaint) Essential hypertension Body mass index (BMI) 24.0-24.9, [facility] for exam of blood pressure w/o abnormal findings Mar- 0 [place] [facility] Leticia. [address] [place], [address], [place]. tel:[phone] E/M service [facility], [address], [place], [id number], [place] tel:[phone] [facility] Mammogram order (chief complaint)me ds (chief complaint) Essential hypertension Paroxysmal atrial fibrillation Secondary hyperparathy roidismBreas t cancer screeningNon compliance with medical treatmentBod y mass index (BMI) 23.0-23.9, [facility] for exam of blood pressure w/o abnormal findings 0 [place] [facility] Leticia. [address] [place], [address], [place]. tel:[phone] Office/outpa tient visit,[facility], [address], [place], [id number], [place] tel:[phone] [facility] Follow Up of hypertension (chief complaint)na useated (chief complaint) Generalized weaknessAtri al fibrillation , controlledEs sential hypertension Epigastric abdominal painBody mass index (BMI) 23.0-23.9, [facility] for exam of blood pressure w/o abnormal findings 0 [place] y-[place]ao Leticia. [address] [facility], [place], [address], [place]. tel:[phone] Office/outpa tient visit,[facility], [address], [place], [id number], [place] tel:[phone] [facility] Follow Up of Elevated blood pressure (chief complaint) Paroxysmal atrial fibrillation Essential hypertension Body mass index (BMI) 24.0-24.9, [facility] for exam of blood pressure w/o abnormal findings 9 [place] Leticia. [address] [place] [address], [address], [place]. [phone] Office/[facility]pa [facility]ient visit,[facility], [facility], [address], [place], [id number], [place] tel:[phone] [place] [address] Procedures BP check (chief complaint) Elevated blood-pressu re reading, without diagnosis of hypertension Encounter for exam of blood pressure w/o abnormal findings 9 [place] [facility] Leticia. [address] [place] [address], [address], [place]. tel:[phone] Office/outpa tient visit,[facility], [facility], [address], [place], [id number], [place] tel:[phone] [facility] referral request (chief complaint)pa perwork (chief complaint) Sciatica of left sideElevated BP without diagnosis of hypertension Body mass index (BMI) 24.0-24.9, [facility] er for exam of blood pressure w/o abnormal findings 9 [place] [facility] Leticia. [address] [place], [address], [place]. tel:[phone] Office/outpa [facility]ient visit,[facility], [facility], [address], [place], [id number], [place] [phone] [facility] referral request (chief complaint) Skin lesion of backAtrial fibrillation , controlledBo dy mass index (BMI) 23.0-23.9, [facility] er for exam of blood pressure w/o abnormal findings 9 [place] [facility] Leticia. [address] [place], [address], [place]. tel:[phone] Office/outpa [facility]ient visit,[facility], [facility], [address], [place], [id number], tel:[phone] [facility] mammo order (chief complaint)ma note (chief complaint) Breast cancer screeningAtr ial fibrillation , controlledBo dy mass index (BMI) 24.0-24.9, adultEncount er for exam of blood pressure w/o abnormal findings 9 Christopher neves-Cao Leticia. [address] [place] [address], [address], [place]. tel:[phone] Office/outpa tient visit,est, [facility], [address] [place] [address], [id number], [place] tel:[phone] [facility] Follow Up of A-fib (chief complaint) Atrial fibrillation by electrocardi ogramBody mass index (BMI) 23.0-23.9, adultEncount er for exam of blood pressure w/o abnormal findings Christopher neves-Cao Leticia. [address] [place] [address], [address], [place]. [phone] E/M service [facility], [address] [place] [address], [id number], tel:[phone] [facility] senior wellness visit (chief complaint)al [...] blood pressure w/o abnormal findings 9 Cushjustoberr y-Cao Leticia. [address] [place], [address], [place]. tel:[phone] Office/outpa tient visit,est, [facility], [address], [place], [id number], [place] tel:[phone] [facility] Mammogram (chief complaint) Breast cancer screeningWhi te coat syndrome with diagnosis of hypertension 8 [facility] y-[facility]ao Leticia. [address] [place], [address], [place]. [phone] Office/outpa tient visit,est, mod [facility], [address], [place], [id number], [place] [phone] [facility] Follow Up of HTN/Thyroid (chief complaint)Al lergies (chief complaint) Allergic rhinitis, unspecifiedS econdary hyperparathy roidismCKD (chronic kidney disease) stage 2, GFR 60-89 ml/min 8 [facility] Leticia. [address] [place], [address], [place]. [phone] E/M service NEC [facility], [address], [place], [address], [place] [phone] [facility] Senior Wellness Exam (chief complaint)Sc iatic pain (chief complaint)Al lergies (chief complaint) Encntr for general adult medical exam w/o abnormal findingsAlle rgic rhinitis, unspecifiedS ciatica of right sideAtherosc lerosis of aortaHyperli pidemia, unspecifiedH yperparathyr oidismCKD (chronic kidney disease) stage 2, GFR 60-89 ml/minEncoun ter for exam of blood pressure w/o abnormal findings 8 [facility] Leticia. [address] [place], [address], [place]. [phone] [facility], [address], [place], [id number], [place] tel:[phone] [facility] Laboratory tests ordered as part of a complete physical exam (CPE) 8 [facility] y[facility] Leticia. [address] [place], [address], [place]. tel:[phone] Office/outpa tient visit,[facility], [address] [place] [address], [id number], [place] tel:[phone] [facility] follow up (chief complaint)ba ck pain (chief complaint) Fatigue, unspecified typeOsteoart hritis of spine with radiculopath y, lumbar regionHyperl ipidemia, unspecifiedE ncounter for exam of blood pressure w/o abnormal findings 7 [facility] Leticia. [address] [place] [address], [address], [place]. [phone] Office/outpa tient visit,[facility], [address] [place] [address], [id number], [place] tel:[phone] [facility] tired/weak (chief complaint) Fatigue, unspecified typeDepressi on screeningWhi te coat syndrome with diagnosis of hypertension Allergic rhinitis, unspecifiedB vincenzo mass index (BMI) 23.0-23.9, [facility] for exam of blood pressure w/o abnormal findings 7 [facility] Leticia. [address] [place] [address], [address], [place]. [phone] Office/outpa tient visit,est, [facility], [address] [place] [address], [id number], [place] [phone] [facility] follow up (chief complaint)ar thritis questions (chief complaint)ma mmagram (chief complaint) Hyperlipidem ia, unspecifiedO steoarthriti s of spine with radiculopath y, lumbar regionInconc lusive mammogramEnc ounter for exam of blood pressure w/o abnormal findings 7 [facility] y-[facility]ao Leticia. [address] [place], [address], [place]. tel:[phone] E/M service NEC [facility], [address], [place], [place], [id number], [place] [phone] [facility] sciatic nerve pain (chief complaint)al lergy shot (chief complaint)ma mmogram (chief complaint)se nior well visit (chief complaint) Encntr for general adult medical exam w/o abnormal findingsAlle rgic rhinitis, unspecifiedO steoarthriti s of spine with radiculopath y, lumbar regionAthero sclerosis of aortaBreast cancer screening November-0 3201 7 [facility] y[facility] Leticia. [address] [place], [address], [place]. tel:[phone] [facility], [address], [place], [address], [place] [phone] [place] [address] Inconclusive mammogram 201 6 [facility] Leticia. [address] [place], [address], [place]. tel:[phone] Office/outpa tient visit,est, mod [facility], [address], [place], [address], [place] tel:[phone] [place] [address] ER follow up (chief complaint) Acute right-sided low back pain with right-sided sciatica Sep-0 6-201 6 [facility] y[facility] Leticia. [address] [place], [address], [place]. tel:[phone] Office/outpa tient visit,est, low [facility], [address], [place], [place], [id number], [place] [phone] [place] [address] Mammogram results (chief complaint) Inconclusive mammogram Sep-0 -201 6 C[facility] y-Cao Leticia. [address] [facility], [place], [address], [place]. tel:[phone] Office/outpa tient visit,est, mod [facility], [address], [place], [address], [place] tel:[phone] [facility] Breast discharge (chief complaint) Discharge from right nipple 6 [facility] y-[facility] Leticia. [address] [place], [address], [place]. tel:[phone] Preventive checkup, est,65+ yrs [facility], [address], [place], [address], [place] tel:[phone] [facility] Senior Wellness Exam (chief complaint)Cl inical guidelines (chief complaint)Ma mmogram order (chief complaint) Encntr for general adult medical exam w/o abnormal findingsHype rlipidemia, unspecifiedV itamin D deficiency, unspecifiedB reast cancer screeningBod y mass index (BMI) 24.0-24.9, [facility] exam of blood pressure w/o abnormal findings 6 Cushingberr y-Cao Leticia. [address] [place], [address], [place]. tel:[phone] [facility], [address], [place], [address], [place] tel:[phone] [facility] Routine physical examination 6 [facility] y-[facility]ao Leticia. [address] [place], [address], [place]. tel:[phone] Office/outpa tient visit,est, mod [facility], [address], [place], [address], [place] tel:[phone] [facility] fatigue (chief complaint) Fatigue Sep-0 5 Lianet Lou. [address] [place], [address], [place]. tel:[phone] Office/outpa tient visit,est, mod [facility], [address], [id number], [place] tel:[phone] [facility] rash (chief complaint) Allergic reaction caused by a drugAdv eff medicinal NOS 5 [facility] Leticia. [address] [place], [address], [place]. tel:[phone] Office/outpa tient visit,est, mod [facility], [address], [place], [address], [place] tel:[phone] [facility] Urgent care f/u (chief complaint) Serous otitis media 5 [facility] y-Cao Leticia. [address] [place], [address], [place]. tel:[phone] Office/outpa tient visit,est, low [facility], [address], [address], [place] tel:[phone] [facility] [place] Urgent Care Ear pain (chief complaint) Pustule 5 Lianet Lou. [facility] [place], [address], [place]. tel:[phone] Office/outpa tient visit,est, mod [facility], [address], [place], [address], [place] tel:[phone] [facility] Follow Up of Urgent care (chief complaint) Hyponatremia 5 C[facility]r y-Cao Leticia. [address] [place], [address], [place]. tel:[phone] Office/outpa tient visit,est, mod [facility], [address], [place], [address], [place] tel:[phone] [facility] [place] Urgent Care generalized weakness (chief complaint) Suprapubic painWeakness 0 5 Halle Miner. [address] [place] [address], [address], [place]. tel:[phone] Preventive checkup, est,65+ yrs [facility], [address], [place], [address], [place] [phone] [facility] Senior Well Visit (chief complaint) ROUTINE MEDICAL EXAMHYPERLIP IDEMIAVitami n D insufficienc y Malachi-0 2- 5 [facility] Leticia. [address] [place], [address], [place]. tel:[phone] Office/outpa tient visit,est, [facility], [address], [place], [address], [place] tel:[phone] [facility] Mammogram order (chief complaint)sc iatica (chief complaint)sk in lesion (chief complaint) Lumbosacral radiculopath y due to degenerative joint disease of spineScreeni ng breast examinationE levated blood pressure reading without diagnosis Sep-3 5 [facility] Leticia. [address] [place] [address], [address], [place]. tel:[phone] Office/outpa tient visit,est, [facility], [address] [place] [address], [id number], [place] tel:[phone] [facility] Follow Up of Ashish. 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 [address] [place], [address], [place]. tel:[phone] Office/outpa tient visit,est, [facility], [address], [place], [address], [place] tel:[phone] [facility] Establish care (chief complaint)re ferral (chief complaint) Sciatic nerve pain Apr- 6 4 [facility] Leticia. [address] [place], [address], [place]. tel:[phone] Office/outpa tient visit,est, [facility], [address], [place], [place], [address], [place] tel:[phone] [facility] Urgent care f/u (chief complaint) Pain in joint, pelvic region and thigh Sep-1 4 Christopher Kelly. [address] [place], [address], [place]. tel:[phone] Office/outpa tient visit,est, mod [facility], [address], [place], [place], [address], [place] tel:[phone] [facility] [place] Urgent Care Back pain (chief complaint)L leg pain (chief complaint) Lower back painSciatic nerve pain Sep-0 4 Roxie Aguilar. [address] [place] [address], [address], [place]. tel:[phone] Preventive checkup, est,65+ yrs [facility], [address], [place], [address], [place] tel:[phone] [facility] Senior Wellness Visit (chief complaint) BMI BETWEEN 19-24,ADULTO TH SPECIFIED EXAMEXAMINAT ION, WELL ADULTHYPERLI PIDEMIAEXAMI NATION, WELL ADULTGYN EXAM W/ PAPPVD (peripheral vascular disease) 4 Marsha Messer [address], [place], [address], [place]. tel:[phone] Office/outpa tient visit,est, mod [facility], [address], [place], [address], [place] tel:[phone] [facility] hyperlipidem ia (chief complaint) HYPERLIPIDEM IAScreening for osteoporosis SCREEN - OSTEOPOROSIS 3 Marsha Messer [address], [place], [address], [place]. tel:[phone] Preventive checkup, est,65+ yrs [facility], [address], [place], [address], [place] tel:[phone] [facility] [place] Internal Medicine Senior well visit (chief complaint)Pc p: Dr. Larson (chief complaint) EXAMINATION, WELL ADULTEXAMINA TION, WELL ADULT Oct- 2-201 3 Starr Desmondjose eadan . [address] [place], [address], [place]. tel: [phone] [facility], [address], [place], [place], [address], [place] tel: [phone] [facility] [place] Internal Medicine EXAMINATION, WELL ADULT Oct-0 8-201 3 Starr Denia . [address] [facility] [place], [address], [place]. tel: [phone] [facility], [address], [place], [address], [place] tel: [phone] [facility] Visit for screening mammogramMam jenniferram, Screening 1- 3 Marsha Zeng. [address], [address], [place], [address], [place]. tel: [phone] Preventive checkup, est,65+ yrs [facility], [address], [place], [address], [place] tel: [phone] [facility] Senior Wellness Visit (chief complaint) EXAMINATION, WELL ADULTHYPERLI PIDEMIAEXAMI NATION, WELL ADULTVisit for screening mammogram 2 Marsha Zeng. [address], [address], [place], [address], [place]. tel: [phone] [facility], [address], [place], [address], [place] tel: [phone] [facility] [place] [place] Internal Medicine EXAMINATION, WELL ADULT 0 7201 2 Keya Davis. [address] [facility] [place], [address], [place]. tel: [phone] [facility], [address], [place], [place], [address], [place] tel: [phone] [facility] [place] Procedures EKG (chief complaint) Pre-op examLacerati on of tendon of left rotator cuff Aug 1 Adriano Benitez. [address] [place], [address], [place]. tel:[phone] Referring Provider: Eli Oh, [address] [place], [address]. tel:[phone] Office/outpa tient visit,est, [facility], [address], [place], [place], [address], [place] tel:[phone] [facility] right shoulder pain (chief complaint) JOINT PAIN-SHLDER 1 Domo Davis. [address] [facility], [address], [address], [place]. tel:[phone] Referring Provider: Ryan Reyez, [address], [address]. tel:[phone] Office/outpa tient visit,[facility], [address], [place], [place], [address], [place] tel:[phone] [facility] right arm/shoulder pain (chief complaint) JOINT PAIN-SHLDER 1 Domo Davis. [address], [address], [place]. tel:[phone] Referring Provider: Ryan Reyez, [address], [address]. tel:[phone] Office/outpa tient visit,[facility], [address], [place], [place], [address], [place] tel:[phone] [facility] shoulder pain (chief complaint) JOINT PAIN-SHLDER 1 Domo Davis. [address] [employer], [address], [address], [place]. tel:[phone] Referring Provider: Ryan Reyez, [address], [address]. tel:[phone] Office/outpa tient visit,est, mod [facility], [address], [place], [place], [address], [place] tel:[phone] [facility] [place] Family Practice right arm pain (chief complaint) Right shoulder pain 1 Marsha Messer [address], [place], [address], [place]. tel:[phone] Referring Provider: [address], [place], [address]. tel:[phone] Office/outpa tient visit,est, low [facility], [address], [place], [address], [place] tel:[phone] [facility] [place] Urgent Care pain rt. arm x 1 week (chief complaint) Strain of upper arm 1 Chapin Noble. [address] [place] [address], [address], [place]. tel:[phone] Referring Provider: Jeremie Galicia, [address] [place] [address], [address]. tel:[phone] [facility], [address], [place], [place], [address], [place] tel:[phone] [facility] [place] Mammogram No Information Sep-0 8-201 0 Marsha Messer [address], [place], [address], [place]. tel:[phone] Referring Provider: Karri Griffin, [address], [place], [address]. [phone] Preventive checkup, est,65+ yrs [facility], [address], [place], [place], [address], [place] tel:[phone] [facility] [place] [place] Family Practice physical exam (chief complaint) EXAMINATION, WELL ADULTMammogr am, ScreeningHYP ERLIPIDEMIAE XAMINATION, WELL ADULT Sep-0 7-201 0 Marsha Messer [address], [place], [address], [place]. tel:[phone] Referring Provider: Karri Griffin, [address] [facility] [address], [place], [address]. tel:[phone] Office/outpa tient visit,est, low [facility], [address], [place], [address], [place] tel:[phone] [facility] [place] [place] Urgent Care No Information 9 Chapin Noble. [address] [place] [address], [address], [place]. tel:[phone] [facility], [address], [place], [address], [place] tel:[phone] [facility] [place] [place] Mammogram No Information 9 Adriano Benitez. [address] [place] [address], [address], [place]. tel:[phone] Referring Provider: Tan Alas, [address] [employer] [address], [address]. tel:[phone] Office/outpa tient visit,est, mod [facility], [address], [place], [address], [place] tel:[phone] [facility] physical exam (chief complaint) BREAST SCREEN FOR CAHYPERLIPID EMIAHEMORRHO IDS INTERNAL NO COMPLICATION SHEMORRHOIDS INTERNAL NO COMPLICATION S 9 Janice Maddox. [address], [address], [place]. tel:[phone] Office/outpa tient visit,est, mod [facility], [address], [place], [address], [place] tel:[phone] [facility] U/C f/u 09-28-08 (chief complaint)ma notes (chief complaint) GI BLEED, GASTROINTEST INAL HEMORRHAGE UNSPECIFIEDH YPERLIPIDEMI A Sep- 9 Janice Maddox. [address], [facility] [address], [address], [place]. tel: [phone] Office/outpa tient visit,est, low [facility], [address], [place], [place], [address], [place] tel: [phone] [facility] [place] [place] Urgent Care No Information 2 7-200 9 Oliver Franz. [address] [place] [address], [address], [place]. tel: [phone] [facility], [address], [place], [place], [address], [place] tel: [phone] [facility] [place] [place] Mammogram No Information 0 5-200 8 [facility]. [address] [place] [address], [address], [place]. tel: [phone] Office/outpa tient visit,est, mod [facility], [address], [place], [place], [address], [place] tel: [phone] [facility] HEDIS (chief complaint)ph ysical exam (chief complaint)hy perlipidemia (chief complaint) PURE HYPERCHOLEST EROLEM 8-200 8 No Information [facility], [address], [place], [address], [place] tel: [phone] [facility] [place] [place] Mammogram No Information 0 9-200 7 [facility]. [address] [place] [address], [address], [place]. tel: [phone] Office/outpa tient visit,est, mod [facility], [address], [place], [place], [address], [place] tel: [phone] [facility] annual physical (chief complaint) Leukocytopen ia UnspPURE HYPERCHOLEST EROLEM 5-200 7 No Information Office/outpa tient visit,est, mod [facility], [address], [place], [place], [address], [place] tel: [phone] [facility] [place] [place] Urgent Care No Information 4-200 7 Chapin Noble. [address] [place] [address], [address], [place]. tel: [phone] [facility], [address], [place], [place], [address], [place] tel:[phone] [facility] [place] Mammogram No Information [facility]. [address] [place] [address], [address], [place]. 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 Due on due Goal Zoster vaccine. Due on due Goal Unhealthy drug u se screening. Due on due Goal Cognitive assess ment. Due on due Goal SALES AND SERVICE AGENT exam. Due on due Goal AST. Due on due Goal Oncology (colore ctal) screening. Due on due Goal Breast exam. Due on 024 due Goal ALT. Due on due Goal ECG. Due on due Goal Depression scree ginette. Due on due Goal Eye Exam. Due on due Goal Pneumococcal Vac cine. Due on due Goal Zoster vaccine ( 1st). Due on due Goal Tdap Vaccine . Due on due Goal Influenza Vaccin e. Due on due Goal DEXA Scan. Due on due Goal FLUZONE QUAD MDV 7732-7183. Due on due Goal H&P. Due on due Goal TD Vaccine. Due on due Goal Oncology (colore ctal) screening. Due on due Goal Depression scree ginette. Due on due Goal Influenza Vaccin e. Due on due Goal Zoster vaccine. Due on due Goal AST. Due on due Goal TD Vaccine. Due on due Goal DEXA Scan. Due on due Goal ALT. Due on due Goal SALES AND SERVICE AGENT exam. Due on due Goal ECG. Due on due Goal Eye Exam. Due on due Goal FLUZONE QUAD MDV 8841-2757. Due on due Goal TSH. Due on due Goal Tdap Vaccine . Due on due Goal Cognitive assess ment. Due on due Goal Zoster vaccine ( 1st). Due on due Goal Breast exam. Due on 024 due Goal Unhealthy drug u se screening. Due on due Goal Pneumococcal Vac cine. Due on due Goal H&P. Due on due Goal Zoster vaccine. Due on due Goal ECG. Due on due Goal Eye Exam. Due on due Goal Oncology (colore ctal) screening. Due on due Goal Cognitive assess ment. Due on due Goal Zoster vaccine ( 1st). Due on due Goal Depression scree ginette. Due on due Goal SALES AND SERVICE AGENT exam. Due on due Goal Pneumococcal Vac cine. Due on due Goal Influenza Vaccin e. Due on due Goal TD Vaccine. Due on due Goal TSH. Due on due Goal Unhealthy drug u se screening. Due on due Goal ALT. Due on due Goal AST. Due on due Goal Tdap Vaccine . Due on due Goal H&P. Due on due Goal Breast exam. Due on due Goal DEXA Scan. Due on due Goal FLUZONE QUAD MDV 8514-8690. Due on due Goal TSH. Due on [...] u se screening. Due on due Goal SALES AND SERVICE AGENT exam. Due on due Goal ALT. Due on due Goal FLUZONE QUAD MDV 5088-0216. Due on due Goal Tdap Vaccine . Due on due Goal Cognitive assess ment. Due on due Goal Depression scree ginette. Due on due Goal Oncology (colore ctal) screening. Due on due Goal Eye Exam. Due on due Goal FLUZONE QUAD MDV 4563-6385. Due on due Goal Depression scree ginette. [...] Pneumococcal Vac cine. Due on due Goal SALES AND SERVICE AGENT exam. Due on due Goal ECG. Due on due Goal Tdap Vaccine . Due on due Goal DEXA Scan. Due on due Goal SALES AND SERVICE AGENT exam. Due on due Goal TSH. Due on due Goal FLUZONE QUAD MDV 8774-4344. Due on due Goal ALT. Due on [...] QUAD MDV . Due on due Goal AST. Due on due Goal SALES AND SERVICE AGENT exam. Due on due Goal Zoster vaccine ( 1st). Due on due Goal Influenza Vaccin e. Due on due Goal Zoster vaccine. Due on due Goal Breast exam. Due on 023 due Goal Eye Exam. Due on due Goal Cognitive assess ment. Due on due Goal DEXA Scan. Due on due Goal ALT. Due on [...] Goal Zoster vaccine. Due on due Goal Unhealthy drug u se screening. Due on due Goal ECG. Due on due Goal TSH. Due on due Goal Depression scree ginette. Due on due Goal TD Vaccine. Due on due Goal Cognitive assess ment. Due on due Goal SALES AND SERVICE AGENT exam. Due on due Goal H&P. Due on due Goal Influenza Vaccin e. Due on due Goal FLUZONE QUAD MDV 3032-3632. Due on due Goal Eye Exam. Due [...] Due on due Goal FLUZONE QUAD MDV 6906-9323. Due on due Goal DEXA Scan. Due on 3 due Goal AST. Due on due Goal [...] exam. Due on 023 due Goal Zoster vaccine. Due on due Goal SALES AND SERVICE AGENT exam. Due on due Goal DEXA Scan. Due on 3 due Goal FLUZONE QUAD MDV 6782-7668. Due on due Goal Eye Exam. Due on due Goal TSH. Due on due Goal Zoster vaccine ( ). Due on due Goal H&P. Due on due Goal Oncology (colore ctal) screening. Due on due Goal SALES AND SERVICE AGENT exam. Due on due Goal ECG. Due on due Goal TD Vaccine. Due on due Goal Tdap Vaccine . Due on due Goal Influenza Vaccin e. Due on due Goal AST. Due on due Goal Unhealthy drug u se screening. Due on due Goal Cognitive assess ment. Due on due Goal ALT. Due on due Goal Zoster vaccine. Due on due Goal Pneumococcal Vac cine. Due on due Goal Depression scree ginette. Due on due Goal Breast exam. Due on 023 due Goal ECG. Due on due Goal FLUZONE QUAD MDV 2809-9480. Due on due Goal AST. Due on due Goal DEXA Scan. Due on due Goal Pneumococcal Vac cine. Due on due Goal TSH. Due on due Goal Zoster vaccine. Due on due Goal SALES AND SERVICE AGENT exam. Due on due Goal TD Vaccine. Due on due Goal Influenza Vaccin e. [...] vaccine ( ). Due on due Goal Lipid Panel. Due on 026 due Goal FLUZONE QUAD MDV 6958-5701. Due on due Goal Pneumococcal Vac cine. [...] Depression scree ginette. Due on due Goal SALES AND SERVICE AGENT exam. Due on due Goal DEXA Scan. Due on 2 due Goal Tdap Vaccine . Due on due Goal FLUZONE QUAD MDV 2932-1129. Due on due Goal Eye Exam. Due on due Goal SALES AND SERVICE AGENT exam. Due on due Goal Influenza Vaccin [...] Breast exam. Due on 021 due Goal ECG. Due on due Goal Zoster vaccine. Due on due Goal ALT. Due on due Goal SALES AND SERVICE AGENT exam. Due on due Goal Oncology (colore ctal) screening. Due on due Goal Influenza Vaccin e. Due on due Goal FLUZONE QUAD MDV 8925-9796. Due on due Goal Lipid Panel. Due on 026 due Goal TSH. Due on due Goal [...] Goal TD Vaccine. Due on due Goal FLUZONE QUAD MDV 4930-6354. Due on due Goal Eye Exam. Due on due Goal Pneumococcal Vac cine. Due on due Goal Lipid Panel. Due on due Goal Tdap Vaccine . Due on due Goal SALES AND SERVICE AGENT exam. Due on due Goal ALT. Due on due Goal TSH. Due on due Goal Oncology (colore ctal) screening. Due on due Goal H&P. Due on due Goal Zoster vaccine. Due on due Goal Influenza Vaccin e. Due on due Goal Oncology (colore ctal) screening. Due on due Goal Lipid Panel. Due on due Goal Hemoglobin A1C. Due on due Goal Breast exam. Due on due Goal Cognitive assess ment. Due on due Goal TSH. Due on due Goal TD Vaccine. Due on due Goal H&P. Due on due Goal ALT. Due on due Goal Influenza Vaccin e. Due on due Goal SALES AND SERVICE AGENT exam. Due on due Goal Zoster vaccine. Due on due Goal Depression scree ginette. Due on due Goal DEXA Scan. Due on due Goal Pneumococcal Vac cine. Due on due Goal ECG. Due on due Goal AST. Due on due Goal FLUZONE QUAD MDV 1963-7804. Due on due Goal Tdap Vaccine . Due on due Goal Eye Exam. Due on due Goal SALES AND SERVICE AGENT exam. Due on due Goal Hemoglobin A1C. Due on due Goal Tdap Vaccine . Due on due Goal FLUZONE QUAD MDV 0308-3194. Due on due Goal Influenza Vaccin e. Due on due Goal Lipid Panel. Due on 026 due Goal ECG. Due on due Goal [...] 026 due Goal TD Vaccine. Due on due Goal TSH. Due on due Goal Zoster vaccine. Due on due Goal Cognitive assess ment. Due on due Goal H&P. Due on due Goal SALES AND SERVICE AGENT exam. Due on due Goal Tdap Vaccine . Due on due Goal ECG. Due on due Goal Pneumococcal Vac cine. Due on due Goal ALT. Due on due Goal FLUZONE QUAD MDV 3530-9071. Due on due Goal Hemoglobin A1C. Due on due Goal AST. Due on due Goal Influenza Vaccin e. Due on due Goal Oncology (colore ctal) screening. Due on due Goal H&P. Due on due Goal Cognitive assess ment. Due on due Goal Hemoglobin A1C. Due on due Goal FLUZONE QUAD MDV 6537-7109. Due on due Goal Depression scree ginette. Due on due Goal Lipid Panel. Due on 026 due Goal TD Vaccine. Due on due Goal Breast exam. Due on 021 due Goal Influenza Vaccin e. Due on due Goal TSH. Due on due Goal Zoster vaccine. Due on due Goal Eye Exam. Due on due Goal AST. Due on due Goal SALES AND SERVICE AGENT exam. Due on due Goal DEXA Scan. Due on due Goal ALT. Due on [...] Lipid Panel. Due on 024 due Goal DEXA Scan. Due on 0 due Goal Influenza Vaccin e. Due on due Goal SALES AND SERVICE AGENT exam. Due on due Goal Oncology (colore ctal) screening. Due on due Goal Zoster vaccine. Due on due Goal Pneumococcal Vac cine. Due on due Goal ECG. Due on due Goal Cognitive assess ment. Due on due Goal Tdap Vaccine . Due on due Goal FLUZONE QUAD MDV 7280-5519. Due on due Goal TSH. Due on due Goal Hemoglobin A1C. Due on due Goal Eye Exam. Due on due Goal Breast exam. Due on 020 due Goal DEXA Scan. Due on 0 due Goal Eye Exam. Due on due Goal Tdap Vaccine . Due on due Goal Hemoglobin A1C. Due on due Goal Cognitive assess ment. Due on due Goal ALT. Due on due Goal SALES AND SERVICE AGENT exam. Due on due Goal Influenza Vaccin e. Due on due Goal FLUZONE QUAD MDV 2536-0526. Due on due Goal Pneumococcal Vac cine. Due on due Goal H&P. Due on due Goal Oncology (colore ctal) screening. Due on due Goal Lipid Panel. Due on due Goal Zoster vaccine. Due [...] Due on due Goal FLUZONE QUAD MDV 7816-2028. Due on due Goal TSH. Due on due Goal Depression scree ginette. Due on due Goal Cognitive assess ment. Due on due Goal Pneumococcal Vac cine. Due on due Goal Tdap Vaccine . Due on due Goal TD Vaccine. Due on due Goal Oncology (colore ctal) screening. Due on due Goal Eye Exam. Due on due Goal Lipid Panel. Due on due Goal SALES AND SERVICE AGENT exam. Due on due Goal Zoster vaccine. Due on due Goal ECG. Due on due Goal Breast exam. Due on due Goal DEXA Scan. Due on 0 due Goal AST. Due on due Goal AST. Due on due Goal ECG. Due on due Goal Oncology (colore ctal) screening. Due on due Goal Pneumococcal Vac cine. Due on due Goal Hemoglobin A1C. Due on due Goal Tdap Vaccine . Due on due Goal ALT. Due on due Goal SALES AND SERVICE AGENT exam. Due on due Goal H&P. Due on due Goal DEXA Scan. Due on 0 due Goal Eye Exam. Due on due Goal FLUZONE QUAD MDV 7640-9487. Due on due Goal Cognitive assess ment. Due on due Goal Zoster vaccine. Due on due Goal TSH. Due on due Goal Depression scree ginette. Due on due Goal Influenza Vaccin e. Due on due Goal TD Vaccine. Due on 20 due Goal Breast exam. Due on due Goal Lipid Panel. Due on due Goal H&P. Due on due Goal Cognitive assess ment. Due on due Goal ECG. Due on due Goal Depression scree ginette. Due on due Goal Influenza Vaccin e. Due on due Goal Lipid Panel. Due on due Goal Breast exam. Due on due Goal Oncology (colore ctal) screening. Due on due Goal FLUZONE QUAD MDV 1251-9516. Due on due Goal AST. Due on due Goal DEXA Scan. Due on 0 due Goal SALES AND SERVICE AGENT exam. Due on due Goal Tdap Vaccine . Due on due Goal Pneumococcal Vac cine. Due on due Goal ALT. Due on due Goal TD Vaccine. Due on due Goal TSH. Due on due Goal Colonoscopy. Due on due Goal Hemoglobin A1C. Due on due Goal Eye Exam. Due on due Goal Zoster vaccine. Due on due Goal SALES AND SERVICE AGENT exam. Due on due Goal TSH. Due on due Goal TD Vaccine. Due on 20 due Goal Oncology (colore ctal) screening. Due on due Goal FLUZONE QUAD MDV 4579-7607. Due on due Goal H&P. Due on [...] Cognitive assess ment. Due on due Goal Lipid Panel. Due on due Goal Influenza Vaccin e. [...] Goal Lipid Panel. Due on due Goal Colonoscopy. Due on due Goal SALES AND SERVICE AGENT exam. Due on due Goal TSH. Due on due Goal Cognitive assess ment. Due on due Goal Influenza Vaccin e. Due on due Goal FLUZONE QUAD MDV . Due on due Goal Hemoglobin A1C. Due on due Goal Eye Exam. Due on due Goal Depression scree ginette. Due on due Goal TD Vaccine. Due on 19 due Goal Zoster vaccine. Due on due Goal Breast exam. Due on due Goal Hemoglobin A1C. Due on due Goal TSH. Due on due Goal Zoster vaccine. Due on due Goal Influenza Vaccin e. Due on due Goal Pneumococcal Vac cine. Due on due Goal ECG. Due on due Goal SALES AND SERVICE AGENT exam. Due on due Goal Lipid Panel. Due on due Goal Oncology (colore ctal) screening. Due on due Goal Depression scree ginette. Due on due Goal Breast exam. Due on due Goal FLUZONE QUAD MDV . Due on due Goal TD Vaccine. Due on 19 due Goal Colonoscopy. Due on 019 due Goal DEXA Scan. Due on 9 [...] Influenza Vaccin e. Due on due Goal SALES AND SERVICE AGENT exam. Due on due Goal FLUZONE QUAD MDV . Due on due Goal ALT. Due on due Goal H&P. Due on due Goal DEXA Scan. Due on 9 due Goal Colonoscopy. Due on due Goal Oncology (colore ctal) screening. Due on due Goal AST. Due on due Goal ECG. Due on due Goal Eye Exam. Due on due Goal TD Vaccine. Due [...] due Goal TSH. Due on due Goal SALES AND SERVICE AGENT exam. Due on due Goal Tdap Vaccine . Due on due Goal TD Vaccine. Due on due Goal Pneumococcal Vac cine. Due on due Goal Colonoscopy. Due on due Goal Zoster vaccine. Due [...] due Goal H&P. Due on due Goal SALES AND SERVICE AGENT exam. Due on due Goal Eye Exam. Due on due Goal Hemoglobin A1C. Due on due Goal Influenza Vaccin e. Due on due Goal FLUZONE QUAD MDV . Due on due Goal Lipid Panel. Due on due Goal Eye Exam. Due on due Goal AST. Due on due Goal TD Vaccine. Due on 19 due Goal H&P. Due on due Goal TSH. Due on due Goal Depression scree ginette. Due on due Goal Oncology (colore ctal) screening. Due on due Goal Pneumococcal Vac cine. Due on due Goal DEXA Scan. Due on 9 due Goal Influenza Vaccin e. Due on due Goal Hemoglobin A1C. Due on due Goal FLUZONE QUAD MDV . Due on due Goal Breast exam. Due on due Goal SALES AND SERVICE AGENT exam. Due on due Goal Tdap Vaccine . Due on due Goal Colonoscopy. Due on due Goal ALT. Due on due Goal Lipid Panel. Due on due Goal Cognitive assess ment. Due on due Goal ECG. Due on due Goal Zoster vaccine. Due on due Goal Pneumococcal Vac cine. Due on due Goal Cognitive assess ment. Due on due Goal Oncology (colore ctal) screening. Due on due Goal FLUZONE QUAD MDV 6759-8109. Due on due Goal Influenza Vaccin e. Due on due Goal Depression scree ginette. Due on due Goal Colonoscopy. Due on due Goal ALT. Due on due Goal Eye Exam. Due on due Goal DEXA Scan. Due on 9 due Goal TD Vaccine. Due on 19 due Goal TSH. Due on due Goal Breast exam. Due on due Goal Zoster vaccine. Due on due Goal SALES AND SERVICE AGENT exam. Due on due Goal Lipid Panel. Due on 024 due Goal Tdap Vaccine . Due on due Goal Hemoglobin A1C. Due on due Goal ECG. Due on due Goal H&P. Due on due Goal AST. Due on due Goal TD Vaccine. Due on 18 due Goal AST. Due on due Goal [...] Goal Zoster vaccine. Due on due Goal SALES AND SERVICE AGENT exam. Due on due Goal Influenza Vaccin e. Due on due Goal ALT. Due on due Goal Tdap Vaccine . Due on due Goal Colonoscopy. Due on 018 due Goal Colonoscopy. Due on 018 due Goal Influenza Vaccin e. Due on due Goal ALT. Due on due Goal DEXA Scan. Due on 8 due Goal Zoster vaccine. Due on due Goal Hemoglobin A1C. Due on due Goal H&P. Due on due Goal AST. Due on due Goal ECG. Due on due Goal Lipid Panel. Due on 023 due Goal Cognitive assess ment. Due on due Goal Depression scree ginette. Due on due Goal TSH. Due on due Goal SALES AND SERVICE AGENT exam. Due on due Goal Breast exam. Due on 018 due Goal Pneumococcal Vac cine. Due on due Goal TD Vaccine. Due on 18 due Goal Tdap Vaccine . Due on due Goal Eye Exam. Due on due Goal TSH. Due on due Goal SALES AND SERVICE AGENT exam. Due on due Goal Breast exam. [...] Goal DEXA Scan. Due on due Goal ALT. Due on due Goal Breast exam. Due on due Goal TSH. Due on due Goal ECG. Due on due Goal Pneumococcal Vac cine. Due on due Goal Cognitive assess ment. Due on due Goal SALES AND SERVICE AGENT exam. Due on due Goal Zoster vaccine. [...] Influenza Vaccin e. Due on due Goal SALES AND SERVICE AGENT exam. Due on due Goal Zoster vaccine. Due on due Goal Eye Exam. Due on due Goal ECG. Due on due Goal Influenza Vaccin e. Due on due Goal SALES AND SERVICE AGENT exam. Due on due Goal ECG. Due on due Goal Eye Exam. Due on due Goal Zoster vaccine. Due on due Goal Pneumococcal Vac cine. Due on due Goal AST. Due on due Goal Breast exam. Due on due Goal Cognitive assess ment. Due on due Goal Depression scree ginette. Due on due Goal DEXA Scan. Due on 5 due Goal ALT. Due on due Goal TSH. Due on due Goal Tdap Vaccine . Due on due Goal Pneumococcal Vac cine. Due on due Goal Breast exam. Due on due Goal Depression scree ginette. Due on due Goal SALES AND SERVICE AGENT exam. Due on due Goal ALT. Due on due Goal Zoster vaccine. Due on due Goal Influenza Vaccin e. Due on due Goal ECG. Due on due Goal Cognitive assess ment. Due on due Goal AST. Due on due Goal DEXA Scan. Due on due Goal Tdap Vaccine . Due on due Goal TSH. Due on due Goal Eye Exam. Due on due Goal Depression scree ginette. Due on due Goal ALT. Due on due Goal TSH. Due on due Goal Zoster vaccine. Due on due Goal Pneumococcal Vac cine. Due on due Goal DEXA Scan. Due on due Goal Eye Exam. Due on due Goal SALES AND SERVICE AGENT exam. Due on due Goal Tdap Vaccine . Due on due Goal AST. Due on due Goal Cognitive assess ment. Due on due Goal Influenza Vaccin e. [...] Depression scree ginette. Due on due Goal SALES AND SERVICE AGENT exam. Due on due Goal DEXA Scan. Due on 5 due Goal TSH. Due on due Goal Zoster vaccine. Due on due Goal ALT. Due on due Goal Eye Exam. Due on due Goal Cognitive assess ment. Due on due Goal Depression scree ginette. Due on due Goal Mammogram. Due on 7 due Goal Pneumococcal Vac cine. Due on due Goal AST. Due on due Goal SALES AND SERVICE AGENT exam. Due on due Goal Tdap Vaccine [...] due Goal ALT. Due on due Goal SALES AND SERVICE AGENT exam. Due on due Goal ECG. Due on due Goal Breast exam. Due on 017 due Goal Tdap Vaccine . Due on due Goal Depression scree ginette. Due on due Goal Eye Exam. Due on due Goal SALES AND SERVICE AGENT exam. Due on due Goal DEXA Scan. Due on due Goal Pneumococcal Vac cine. Due on due Goal TSH. Due on due Goal Zoster vaccine. Due on due Goal Cognitive assess ment. Due on due Goal Influenza Vaccin e. Due on due Goal SALES AND SERVICE AGENT exam. Due on due Goal Pneumococcal Vac [...] Pneumococcal Vac cine. Due on due Goal SALES AND SERVICE AGENT exam. Due on due Goal TSH. Due on due Goal Zoster vaccine. Due on due Goal Depression scree ginette. Due on due Goal DEXA Scan. Due on due Goal ECG. Due on due Goal SALES AND SERVICE AGENT exam. Due on due Goal DEXA Scan. Due on due Goal Zoster vaccine. Due on due Goal TSH. Due on due Goal Cognitive assess ment. Due on due Goal Pneumococcal Vac cine. Due on due Goal Depression scree ginette. Due on due Goal ECG. Due on due Goal Tdap Vaccine . Due on due Goal DEXA Scan. Due on due Goal TSH. Due on due Goal Zoster vaccine. Due on due Goal Cognitive assess ment. Due on due Goal Pneumococcal Vac cine. Due on due Goal SALES AND SERVICE AGENT exam. Due on due Goal ECG. Due on due Goal Tdap Vaccine . Due on due Goal Depression scree ginette. Due on due Goal ECG. Due on due Goal TSH. Due on due Goal Zoster vaccine. Due on due Goal Tdap Vaccine . Due on due Goal Depression scree ginette. Due on due Goal Pneumococcal Vac cine. Due on due Goal Pneumococcal Vac cine. [...] Goal Mammogram. Due on 6 due Goal AST. Due on due Goal [...] Cognitive assess ment. Due on due Goal Influenza Vaccin e. Due on due Goal Hemoglobin A1C. Due on due Goal Tdap Vaccine . Due on due Goal Eye Exam. Due on due Goal Depression scree ginette. Due on due Goal Zoster vaccine. Due on due Goal Breast exam. Due on 007 due Goal FLUZONE HIGH DOS E. Due on due Goal FLUZONE MDV 3yrs >. Due on due Goal Pneumococcal Vac cine. Due on due Goal FLUVIRIN MDV 3yr s>. Due on due Goal FLULAVAL. Due on due Goal FLUMIST. Due on due Goal FLUVIRIN PRES FR EE 3yrs>. Due on due Goal Cognitive assess ment. [...] Breast exam. Due on 007 due Goal Hemoglobin A1C. Due on due Goal ECG. Due on due Goal Depression scree ginette. Due on due Goal Cognitive assess ment. Due on due Goal Breast exam. Due on 007 due Goal Influenza Vaccin e. Due on due Goal Pneumococcal Vac cine. Due on due Goal Tdap Vaccine . Due on due Goal Zoster vaccine. Due on due Goal SALES AND SERVICE AGENT exam. Due on due Goal Influenza Vaccin e. Due on due Goal H&P. Due on due Goal Pneumococcal Vac cine. Due on due Goal Breast exam. Due on 007 due Goal Hemoglobin A1C. Due on due Goal ECG. Due on due Referral Referred To: [facility] [place] [place], [address], [phone] Ordered: Referrals: Cardiology. [facility] [place] [place], [facility] [place] [place]. Evaluate and treat Appointment date/timeframe: ROUTINE ordered Referral Referred To: [facility] [address] [place], [place], [phone] Ordered: Referrals: Orthopedic Surgery. [facility]. Evaluate and treat Appointment date/timeframe: ROUTINE ordered Referral Referred To: [facility] [address] [place], [place], [phone] Ordered: Referrals: Dermatology. [facility]. Location: Dr. Fernandez. Evaluate and treat Appointment date/timeframe: ROUTINE ordered Referral Referred To: [facility] [address] [place], [place], [phone] Ordered: Referrals: Cardiology. [facility]. Evaluate and treat Appointment date/timeframe: ROUTINE ordered Referral Ordered: Mammography Diagnostic Bilateral ordered Referral Referred To: [facility] [address] [place], [place], [phone] Ordered: Referrals: Radiology. [facility]. Diagnostic testing Appointment date/timeframe: ROUTINE ordered Referral Referred To: [facility] [address] [place], [place], [phone] Ordered: Referrals: Pain Medicine. [facility]. Evaluate and treat Appointment date/timeframe: EXPEDITE ordered [...] screening mammogram) ordered Referral Ordered: last mammo 03/14 (related to Visit for screening mammogram) ordered [...] Lab Order Basic Me tabolic Panel (8) ([id number]), Sent on: Sent Future Order: Lab Order Hepatic Function Panel (7) ([id number]), Sent on: Sent Future Order: Lab Order Lipid Pa olegario ([id number]), Sent on: Sent Future Order: Lab Order [...] Date Complaint History Of Prese nt Illness Medication questions pt does not know why her Losartan potassium was increased to 50mg pt states she has always taken Losartan potassium 25mg. [facility] people with chronicconditions Follow Up of Hypertension Risk f actors include age over age 60. Additional information: pt states BP at home this AM was 130/67 Comments: carson davila says no c/o says recently got refill losatran 50 mg q day but on 25mg needs refill --- living for [place] in 2 weeks Senior Wellness Visit 84 [...] medication due to lower extremity swelling. -Vanda LEBLANCA Lower extremity swelling Comments: carson davila reports has had 2 strokes since last visit ---- Here with Grand daughter Vy- who now living with here - says not taking eliquis too expensive 300 dollars so on aspirin only Follow Up of Hospital discharge Comments: [facility] cardiology Dr. Parker 08/03 at 9:30 atill feels drowsy and tired Follow Up of Hypertension Risk f actors include age over age 60 and 68 Pulse:. Additional information: Pt brought home BP monitor. Readin/68 Pulse: 63BPM. -Vanda LEBLANCA Follow Up of Hypertension Comments: carson davila says been taking her meds not helping has not make appt for digital field service technician ---- says unable to get there streets too busy--no Family around to help her says needs to sell her place moving to [place] with daughter --- will need find home there Follow Up of hypertension Risk f actors include age over age 60. Additional information: 83 y/o female present [facility] Comments: carson davila says taking her meds not helping --- could not get out to heart hospital she was sick too much traffic ( the digital field service technician) side effects sleepy and tired all she does is sleep on the medicine sSays cant keep feeling this way lives alone has to be able to do for herself Refill request Metoprolol Tartr ate 50mg BID. -Vanda IYER Senior Wellness Exam 83 yr. old female presents for annual Senior Wellness Exam. -Vanda IYER Follow Up of Hypertension Comments: has ap pt with digital field service technician Wednesday-- blood pressure machine has been compared [...] in er again yesterday elevated blood pressure Request for Kenalog injection Blood pressure Today's readin/79. States quit taking BP meds a long time ago. -Vanda IYER Blood pressure (comments) blood pressure -- not worried about it has not been checking at home c/o pain leg and back Request for Kenalog injection (comments) c/o of constant runny nose , + squeezing, has cough form nasal drip all year put has more allergies symptoms in spring Mammogram order (comments) no sy mptoms Prescription refill request 81 y r. old female presents with request for refill on Gabapentin. -Vanda [facility] Mammogram order Self exam at [facility]. No lumps or discharge. -Vanda [facility] pain 81 y/o female pr esent today complaining of pain in sciatica x 1 month [facility] system blood pressure (comments) not ta rico her meds pain (comments) says was doing y gisel work on the 16 of january says now using the walker has not been out of house since happen --- wants to go back to pain management ---- been taking advil 3 in morning to help wrist still has pain heating pad hurt the most. blood pressure results 80 y/o female pr esent today for US results [facility] pain pt complaining o f left wrist pain x couple months states Tylenol Follow Up of hypertension Risk f actors include age over age 60. Additional information: 80 y/o female present today for f/u on bp states she has stopped taken her medication due to blood pressure readings being the same as when she is not taking it [facility] health system Follow Up of Hyperte nsion (comments) patient doing well no c/o today -- brought in log Follow Up of Hypertension Senior Wellness Exam 80 yr. old female presents for annual Senior Wellness Exam. Declined EKG. -Vanda [facility] Follow Up of Hypertension Follow Up of Hyperte nsion (comments) patient says taking blood pressure meds takes q am Senior Wellness Exam (comments) no c/o today Follow Up of hyperte nsion (comments) patient says she thinks got dry cough from the medicine but had cough before tolerating ok for now senior wellness visit 80 y/o fem darrel present today for senior wellness visit, pt refused EKG [facility] health system hedis measures controlling high bp Follow Up of hypertension hypertension Risk factors inc lude age over age 60. Additional information: Here for 2 week f/u. Declines flu vaccine. Sandra [facility] hypertension (comments) here for f/u bp better at home did not bring log stating 139-145/ cant remember no side effects Follow Up of Hypertension Follow Up of Hyperte nsion (comments) patient says bp 147/75 says had [...] not make her loose her hair. -Vanda [facility] meds meds (comments) patient says sto p taking all meds don't feel she needs them does check her blood pressure been high at home not taking meds makes hair fall out don't want to try another medicine -- just don't want to take pillsdenies chest pain or palpitations Mammogram order nauseated (comments) c/o stomach pain feels week occ nauseated -- no fever. last ate this am cereal and cup of tea. had been taking Advil for pain took one yesterday am due to back pain denies heart burn ate pasta and garlic toast last night just feel weak eats 3 meals a day and snacks in between nauseated Follow Up of hyperte nsion (comments) leg feels better Follow Up of hypertension Risk f actors include age over age 60. Additional information: 79 y/o female present today states feeling better [facility] Follow Up of Elevate d blood pressure [...] for appt in 2 weeks, verbally understood. up health system referral request (comments) pilo ent now having pain left side buttock down to legs - has had sciatic 5 yrs hurts to tie shoe hurts to sit down and get up. paperwork pt requesting WILFR[facility]O goff paperwork to be filled out up health system referral request 79 y/o female p resent today requesting referral to pain management for sciatica pain up health system referral request (comments) has a lesion on upper back for years would like removed wants to see Dr. fernandez referral request 79 y/o female p resent today requesting derm referral for skin lesion on back [facility] mammo order (comments) needs ord er for mammogram ma note pt states she sa w cardio is scheduled for echo and holter monitor mammo order 78 y/o female pr esent today requesting mammo order [facility] Follow Up of A-fib 78 y/o female present today for 2 week f/u on A-Fib, pt states has an appt with cardiology december 13. [facility] system Follow Up of A-fib (comments) sa ys felt heart going fast last night feel tired started taking meds on the november 06 says can have palpitation when doing housework feels normal but has also felt while lying down no chest pain allergies Additional infor mation: pt complaining of bad allergies would like allergy shot. senior wellness visit 78 y/o fem darrel present today for senior wellness visit. [facility] (comments) c/o watery itchy eyes and nose Mammogram Pt states she is here to get a breast exam and an order for her annual Mammogram. Nparmenter [facility] Allergies The patient pres ents with itchy eyes, sneezing and watery eyes. Additional information: Pateint requesting injection for sx's relief. -Vanda TALLEY. Follow Up of HTN/Thyroid Follow Up of HTN/Thy roid (comments) here to f/u on parathyroid Allergies (comments) c/o of sque ezing runny nose - lot of trees in yard . does own gardening. Allergies Additional infor mation: Pateint requesting an injection to improve sx's . -Vanda TALLEY. Sciatic pain Senior Wellness Exam 77 yr. old female presents for annual Senior Wellness exam. -Vanda TALLEY Sciatic pain (comments) right le g pain got worst. - morning cant straight up back helps when takes advil about 11 am - stop pain management afraid of shots - and tried accupunction. back pain (comments) says leg do nt hurt unless she over dues it and she does straighting excercises for back- never to gabapentin and did not ask for refill follow up (comments) patient fee ls better says cough still there - and its not everyday back pain follow up pt is here for 1 week recheck on bp/ [facility] tired/weak pt states that s he has been feeling really lethargic for the last couple days and wants to get some lab tests done or something to find out whats wrong/ [facility] tired/weak (comments) patient sa ys feels real [...] pt has quest ions about arthritis/ [facility] follow up pt here for foll ow up and lab results/ [facility] allergy shot (comments) usually have ruunny nose etc november juy allergy meds jeovany sheredinson would like to try allergy shot mammogram [...] to hurt her when she walks/ [facility] allergy shot pt wonders if sh allison could possibly get an allergy shot due to runny nose, watery eyes, sneezing/ [facility]ke [facility] mammogram pt states that s he would like to get a mammo ordered/ [facility] senior well visit pt here for a senior well visit/ [facility] ER follow up (comments) patient says pain [...] take it due to all side effects. -[employer] NUTRITION REPRESENTATIVE Mammogram results 76 yr. old fem darrel presents to discuss results on Mammogram performed on 02-26-2016. -[facility] Mammogram results (comments) pat inent here for [...] female presents for Annual Senior Wellness Exam. Senior Wellness Exam (comments) no c/o today doing well Clinical guidelines Per clinical guidelines pateint due for TSH,SALES AND SERVICE AGENT,Dexa scan,Eye exam, Cognitive assessment,Depression screening,Pneumonia,Tdap vaccine, and Zoster.-[facility] Mammogram order Patient requesti ng order for Mammogram. Has been set up for Breast exam today. -[facility] fatigue This is an initi al visit. The symptoms began 4 days ago and began suddenly. The patient presents with abdominal pain, fatigue and muscle weakness. The fatigue is associated with change in sleep cycle and generalized weakness. Additional information: [facility]. rash (comments) rash x 2 days un [...] has been taking it for 1wk. [facility]. Urgent care f/u 75 yr. old femal e presents for urgent care f/u. Was seen at [facility] [place] [place] urgent care for pain in the left [...] are no associated symptoms. 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 Follow Up of Urgent care 75 yr. old female presents for urgent care f/u. Was seen at [facility] [place] [place] urgent care on 01-01-2015 for weakness and [...] done on 11/27/14. Mammogram done on 11/01/14. NUTRITION REPRESENTATIVE Mammogram order 74 yr. old femal e [...] make her sick with or without food Establish care 74 yr. old ynes cooper presents to establish care with . Previous PCP- Dr. Karri Larson. referral Pt requesting re ferrmihaela for Physical therapy. Pt states she would like to go to [facility]. referral (comments) patient with sciatica seen by ortho order mri told pinched nerve then referred to neurosurgeon. No surgery needed at this time . 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 update problem list patient moving to [place] cbc, cmp today declined influenza vaccine Related [...] continue current med s keep appt with digital field service technician continue home blood pressure monitoring twice dayf/u 4 weeks Related to Essential hypertension needs to see cardiol ogist was referred in 04/2023 reports no transportation - check transport benefits - does have 6 rides add amlodipine 5 mg q day and continue bystolic 10 mg and losartan 25 mg f/u 2 weeks refer for case therapist Related to Essential hypertension patient reports cant [...] to Atr ial fibrillation, controlled dx by Val[facility] spine x ray control modifiable risk factors Related to Atherosclerosis of aorta patient out of metop rolol --- refill to day bid continue losartan 25 mg q day keep appt with digital field service technician Related to Essential hypertension update problem list Related to E ncounter for general adult medical examination without abnormal [...] Quervain's disease (tenosynovitis) patient advise to co shaina breast cancer screening due to family history due in 03/2021 Related to FHx: breast cancer patient denies medic al management encouraged to continue low cholesterol diet [...] inue current meds Related to Hyperlipidemia, unspecified Michele-28-2021 reviewed labs updated problem li st Related [...] atrial fibrillation f/u repeat bp Related to Bridgman reinaldo BP without diagnosis of hypertension conservative measure s declines meds form completed for DMV [place] refer to pain management Related to Sciatica [...] im Related to All ergic rhinitis, unspecified decined medical managment again Related to Hyperlipidemia, unspecified refer to pain meds f or consult and eval Related to Sciatica of right side stop advil repeat labs 3 months Related [...] keep bp log bring to visits Rela reinaldo to White coat syndrome with [...] or do not improve. Related to Fatigue d/c bactrim solumedr ol 125 im bendaryl otc 25 mg q 6 hours prn warn sleepiness trramcinlone cram tid Related to Allergic reaction caused by a drug add bactrim to allergy list Rela reinaldo to Adv eff medicinal NOS start bactrim ds bid x 10 . Rel ated to Serous otitis media apply warm compresse s at 15 minutes intervals; patient to have bacitracin to apply twice a day for 7 days to the affected area Related to Pustule repeat for resolotion f/u prn Re lated to Hyponatremia start vit d 3 supple ment at 2000 iu/dayf/u prn Related to Vitamin D insufficiency continue curent cindi ement and flax seed Related to HYPERLIPIDEMIA reviewed labs Related to ROUTI NE MEDICAL EXAM willl follow Related to Lizzette najera blood pressure reading without diagnosis refer for mammagram Related to S creening breast examination continue pain management Related to Lumbosacral radiculopathy due to degenerative joint disease of spine refer to pain management Related to Lumbosacral radiculopathy due to degenerative joint disease of spine refer to physical th era for pain controll modalities Related to Sciatic nerve pain refer to orthopedics s for eval and txcontinue advil may heof with inflamation. Related to Pain in joint, pelvic region and thigh Review medications Related to HY PERLIPIDEMIA Review medication side effects R elated to HYPERLIPIDEMIA 0 Related to HYPER LIPIDEMIA Call if symptoms persist Related to HYPERLIPIDEMIA Aerobic exercises recommended Re lated to HYPERLIPIDEMIA Walking program recommended Rela reinaldo to HYPERLIPIDEMIA Order consults Related to GI BL EED, GASTROINTESTINAL HEMORRHAGE UNSPECIFIED Renew medications Related to GI BLEED, GASTROINTESTINAL HEMORRHAGE UNSPECIFIED Review medications Related to GI BLEED, GASTROINTESTINAL HEMORRHAGE UNSPECIFIED Review medication side effects R elated to GI BLEED, GASTROINTESTINAL HEMORRHAGE UNSPECIFIED Order labs/studies Related to GI BLEED, GASTROINTESTINAL HEMORRHAGE UNSPECIFIED Call if symptoms persist Related to GI BLEED, GASTROINTESTINAL HEMORRHAGE UNSPECIFIED Walking program recommended Rela reinaldo to GI BLEED, GASTROINTESTINAL HEMORRHAGE UNSPECIFIED Assessments Type Assessment Date No Information Patient Care Teams Name Effective Dates (start - stop) Status Members No Information
--- NOTE | ~2025-05-07 | CT_ITS ---
CLINICAL HISTORY: hallucinations CT head without contrast Comparison: None provided Findings: BRAIN: No acute infarct, hemorrhage, or mass effect. Left parietal lobe encephalomalacia likely represent prior infarct. Scattered periventricular/deep white matter hypodensities, nonspecific, however may represent chronic microvascular ischemic disease. CSF SPACES: No hydrocephalus or effacement of basal cisterns. SKULL: No calvarial fracture. SINUSES: No significant mucosal thickening or effusion on limited views. ORBITS: Limited views are unremarkable. OTHER: Negative. IMPRESSION: 1. No acute intracranial findings. This document has been electronically signed by: Tangela Lee MD on 05/07/2025 19:25:16
[2025-05-07 13:58] VITALS: BP 158/67; PULSE 69; RESP 20; TEMP 37; O2SAT 98; BMI 23.1
--- NOTE | 2025-05-07 13:59 | ED_ITS ---
HPI - General Adult General Chief complaint: Neuro Symptoms/Deficit Stated complaint: pc sent here for stroke concerns Time Seen by Provider: 05/07/25 17:51 Source: patient and family (daughter in law) Mode of arrival: ambulatory Limitations: no limitations History of Present Illness ED Provider: HPI narrative: 85-year-old woman with prior history of stroke and a very slight speech deficit afterwards presenting with reporting hallucination of seeing floating dolls or small girls in the evening for 2 through 3 days about 2-3 weeks ago, she states she has had the same thing in the past when she lived in [facility] some years back. Patient is not on any rstb-saf-nuaaroo medications does not drink, this is smoke, she takes medications for high blood pressure, currently statin has been held, she is on Eliquis this is recent but has been on metoprolol, losartan, has a meclizine as needed for dizziness but has not taken it in a awhile. Denies dysuria chest pain fevers chills nausea or vomiting headaches or vision changes. States her speech is at her baseline. Related Data Home Medications ?Medication ?Instructions ?Recorded ?Confirmed meclizine 25 mg tablet 25 mg PO DAILY PRN 02/16/25 05/01/25 apixaban 2.5 mg tablet (Eliquis) 2.5 mg PO BID 5 05/01/25 Previous Rx's ?Medication ?Instructions ?Recorded amlodipine 5 mg tablet 5 mg PO DAILY #90 tabs 02/16 atorvastatin 40 mg tablet 40 mg PO DAILY #90 tabs 02/02 11/26 Held on 04/06/25. Instructions: Doctor's Order losartan 25 mg tablet 25 mg PO DAILY #90 tabs 02/02 11/26 metoprolol succinate 25 mg 12.5 mg (1/2 x 25 mg) PO DA CHUCK 90 04/06/25 tablet,extended release 24 hr days #45 tabs (Toprol XL) Allergies Allergy/AdvReac Type Severity Reaction Status Date / Time codeine Allergy Unknown Verified 05/07/25 14:02 Penicillins Allergy Unknown Verified 05/07/25 14:02 Sulfa (Sulfonamide AdvReac Intermediate Blister Verified 05/07/25 14:02 Antibiotics) Review of Systems 2 Constitutional: Constitutional: Reports as per HPI PMFSH Past Medical History Medical History Atrial fibrillation Dizziness HTN (hypertension) Hyperlipidemia CVA (cerebral vascular accident) Family History Family History Father Heart attack Social History Social History Household Members: Other Housing: Apartment Alcohol intake: never Patient Tobacco Use Status: Never used Tobacco Smoked in Last 30 Days: No e-Cigarette/Vaping Use: Never Used Use of substances other than those prescribed or required for medical reasons: No Advance Directives: No Advance Directives Information Provided: Yes service: No Current occupational status: retired Cognitive needs: Yes Hearing needs: No Vision needs: Yes Physical Exam ED Exam Exam: General: ?Appears of stated age, no obvious trauma ? ?PERRLA, EOMI, MMM, ? Neck: Supple, no LAD ? ?CV: RRR, no obvious murmurs appreciated ? ?Resp: ?No wheezing rales rhonchi no stridor moving air well ? Abd: ?Bowel sounds are present, no tenderness no rebound no rigidity ? ?MSK: FROM, strength 5/5 all extremities ? Skin: Warm, dry, intact, ? ?Neuro: ?Alert and oriented x3, moving upper and lower extremities symmetrically, no obvious facial asymmetry noted, cranial nerves 2-12 intact, no dysmetria upper or lower extremities, no nystagmus Vital Signs: Vital Signs - 24 hr 05/07/25 13:58 05/07/25 18:15 05/07/25 18:28 Temperature 98.6 F 97.9 F Pulse Rate 69 78 77 Respiratory Rate 20 14 Blood Pressure 158/67 H 164/61 H 97/61 Pulse Oximetry 98 96 Oxygen Delivery Method Room Air Room Air BMI result Body Mass Index 23.1 Course Course Course Narrative: Rapid medical examination performed in triage by Asha Adam PA-C: Patient is an 85 year old assigned female at presenting to the emergency department with hallucinations. Patient states that she is having hallucinations of little girls in her bedroom. Detailed physical exam and review of systems are deferred to the scuba diver. Labs ordered. Patient placed back in the waiting room pending room availability and results. Note: patient's family member states that a different member of the family expressed concerns over the patient having intermittent increased difficulty with speech. When asked to clarify, the family member at the bed side stated that she had not personally noticed any changes and that there has been no mention of consistent changes in the last 48 hours. Patient has no focal deficits on examination. Medical Decision Making Medical Decision Making [facility] Narrative: 6:21 PM 05/07/2025 (Dr. Jass Palmer): I spoke with family and discussed dementia versus delirium, patient has had hallucinations in the past, she is otherwise alert oriented without any evidence for at least an acute stroke, I suspect what she will need as a outpatient brain MRI however patient states she does not feel that she is going to be interested in that, as long as she is in emergency department she is agreeable to CAT scan of the brain if she has had a small stroke or new stroke 3 weeks ago it will show up on our imaging did not feel that CTA is indicated, blood work urinalysis to evaluate for other causes such as electrolyte derangements, UTI, however she is very well-appearing, alert and oriented and with a family member in the room did not specify that patient's behavior is getting worse. I have considered beers criteria as well TSH this [place] was unremarkable Admission/Observation Consideration of admission/observation: Escalation of care including admission/observation considered Lab Data [facility] Lab Attestation statement: I reviewed the patient's lab results. 05/07/25 14:16 05/07/25 14:16 Labs: Lab Results 05/07/25 05/07/25 Range/Units 14:16 16:44 WBC 5.7 (4.8-10.8) X10*3/uL RBC 5.07 (4.20-5.50) X10*6/uL Hgb 14.9 (12.0-16.0) g/dl Hct 45.2 (37.0-47.0) % MCV 89.2 (80.0-98.0) fL MCH 29.4 (27.0-33.0) pg MCHC 33.0 (31.0-35.0) g/dl RDW 13.7 (11.0-16.0) % Plt Count 275 (160-400) X10*3/uL MPV 8.8 L (9.4-12.3) fL Immature Gran % (Auto) 0.4 (0.0-0.4) % Neut % (Auto) 56.3 (45-73) % Lymph % (Auto) 31.2 (20-40) % Lucas % (Auto) 8.9 (2-11) % Eos % (Auto) 2.1 (0-4) % Baso % (Auto) 1.1 (0-2) % Lymph # (Auto) 1.8 (1.2-4.9) X10*3/uL Lucas # (Auto) 0.5 (0.1-1.2) X10*3/uL Eos # (Auto) 0.1 (0.0-0.4) X10*3/uL Baso # (Auto) 0.1 (0.0-0.2) X10*3/uL Abs Immat Gran (auto) 0.02 (0.00-0.03) X10*3/uL Absolute Neuts (auto) 3.2 (2.0-8.3) x10*3/uL Absolute Nucleated RBC 0.000 (0.0-0.012) X10*3/uL Nucleated RBC % (auto) 0.0 (0.0-0.2) /100WBC Sodium 135 (135-145) mmol/L Potassium 4.5 (3.3-5.1) mmol/L Chloride 103 (96-108) mmol/L Carbon Dioxide 24 (22-29) mmol/L Anion Gap 13 (12-20) BUN 12 (9-16) mg/dL Creatinine 0.87 (0.5-1.4) mg/dL Estim Creat Clear Calc 44.2 Estimated GFR > 60 Random Glucose 208 H (60-115) mg/dL Calcium 9.3 (8.4-10.2) mg/dL Magnesium 2.2 (1.6-2.6) mg/dL Total Bilirubin 0.5 (0.0-1.0) mg/dL AST 31 (5-31) U/L ALT 32 H (0-31) U/L Alkaline Phosphatase 117 (39-117) U/L Total Protein 7.8 (6.5-8.0) g/dL Albumin 4.7 (3.5-5.0) g/dL Urine Color Yellow Urine Appearance Clear Urine pH 6.0 (5.0-9.0) Ur Specific [place] 1.010 (1.005-1.025) Urine Protein Negative (Neg-Trace) mg/dL Urine Glucose (UA) Negative (Negative) mg/dL Urine Ketones Negative (Negative) mg/dL Urine Blood Negative (Negative) Urine Nitrite Negative (Negative) Ur Leukocyte Esterase Moderate (2+) H (Negative) Urine RBC 0-2 (0-2) /HPF Urine WBC 11-20 H (0-5) /HPF Ur Squamous Epith Cells 0-2 (0-2) /HPF Urine Bacteria None Seen (None Seen) Hyaline Casts 0-2 (0-2) /LPF Independent Interpretation I performed an independent interpretation of an: CT Scan (On my review some age- appropriate volume loss) Radiology Impression Discussion of test interpretation with radiology: I have reviewed the radiologist's reading. (Negative for acute findings) Radiologist Impression: CLINICAL HISTORY: hallucinations CT head without contrast Comparison: None provided Findings: BRAIN: No acute infarct, hemorrhage, or mass effect. Left parietal lobe encephalomalacia likely represent prior infarct. Scattered periventricular/deep white matter hypodensities, nonspecific, however may represent chronic microvascular ischemic disease. CSF SPACES: No hydrocephalus or effacement of basal cisterns. SKULL: No calvarial fracture. SINUSES: No significant mucosal thickening or effusion on limited views. ORBITS: Limited views are unremarkable. OTHER: Negative. IMPRESSION: 1. No acute intracranial findings. Independent Historian Clinical information obtained from an independent historian. History obtained from or confirmed by: Other (daughter in law) Tests considered The following testing was considered but not selected: CT brain and neck angio Chronic Conditions Patient?s care impacted by: Hypertension and Other (CVA) Discharge Plan Discharge Clinical Impression: Hallucination, visual Patient Disposition: Home, Self-Care Additional Instructions: As discussed visual hallucinations can be due to a number of things such as infection, dehydration, thyroid issues, strokes as well, your workup has been reassuring without any evidence of these, I have also discussed with the you with that sometimes early onset dementia can presented with hallucinations and behavioral changes as well, I recommend that you follow up with the PCP for an outpatient brain MRI and if there is any persistent concern referral to Neurology Prescriptions: No Action metoprolol succinate [Toprol XL] 25 mg tablet extended release 24 hr 12.5 mg PO DAILY 90 Days Qty: 45 1RF Rx Instructions: Take 1/2 tablet daily losartan 25 mg tablet 25 mg PO DAILY Qty: 90 3RF amlodipine 5 mg tablet 5 mg PO DAILY Qty: 90 3RF atorvastatin 40 mg tablet 40 mg PO DAILY Qty: 90 3RF meclizine 25 mg tablet 25 mg PO DAILY PRN Eliquis 2.5 mg tablet 2.5 mg PO BID Print Language: Divehi
[2025-05-07 14:25] LABS: MANUAL DIFF FLAG NO
[2025-05-07 14:26] LABS: Hematocrit 45.2 % (37.0-47.0); Hemoglobin 14.9 g/dl (12.0-16.0); Imm Gran Abs Auto 0.02 X10*3/uL (0.00-0.03); Imm Gran Pct Auto 0.4 % (0.0-0.4); Lymphocytes Absolute Auto 1.8 X10*3/uL (1.2-4.9); Mean Corpuscular HGB Conc 33.0 g/dl (31.0-35.0); Mean Corpuscular Hemoglobin 29.4 pg (27.0-33.0); Mean Corpuscular Volume 89.2 fL (80.0-98.0); NRBC Abs Auto 0.000 X10*3/uL (0.0-0.012); NRBC Pct Auto 0.0 /100WBC (0.0-0.2); Platelet Count 275 X10*3/uL (160-400); Red Blood Count 5.07 X10*6/uL (4.20-5.50); White Blood Count 5.7 X10*3/uL (4.8-10.8)
[2025-05-07 14:43] LABS: Alanine Aminotransferase 32 U/L (0-31); Albumin Level 4.7 g/dL (3.5-5.0); Alkaline Phosphatase 117 U/L (39-117); Anion Gap 13 (12-20); Aspartate Amino Transferase 31 U/L (5-31); Blood Urea Nitrogen 12 mg/dL (9-16); Calcium 9.3 mg/dL (8.4-10.2); Carbon Dioxide 24 mmol/L (22-29); Chloride 103 mmol/L (96-108); Creatinine Clr Calc Pharmacy 44.2; Estimated Glomerular Filt Rate > 60; Magnesium 2.2 mg/dL (1.6-2.6); Potassium 4.5 mmol/L (3.3-5.1); Sodium 135 mmol/L (135-145); Total Protein 7.8 g/dL (6.5-8.0)
[2025-05-07 16:50] LABS: Appearance Urine Clear; Glucose Urine UA Negative (Negative); PH 6.0 (5.0-9.0); Specific Gravity - Urine 1.010 (1.005-1.025); UMIC TRIGGER UACC YES
[2025-05-07 16:54] LABS: UACC Culture Trigger YES
[2025-05-07 18:15] VITALS: BP 164/61; PULSE 78; RESP 14; TEMP 36.6; O2SAT 96
[2025-05-07 18:28] VITALS: BP 97/61; PULSE 77
[2025-05-07 19:39] VITALS: BP 97/61; PULSE 77; RESP 16; TEMP -17.7; TEMP 0; O2SAT 99
== END 2025-05-07 19:42 | disposition home or self-care (01) ==
PROVIDERS: Physician Assistant Medical; Emergency Provider Emergency Medicine
DX: R44.1 Visual hallucinations (principal); I10 Essential (primary) hypertension; I48.91 Unspecified atrial fibrillation; I69.328 Other speech and language deficits following cerebral infarction; Z79.899 Other long term (current) drug therapy
CPT/HCPCS: 36415; 70450; 80053; 81001; 83735; 85025; 87086; 99284

== ENCOUNTER → 2025-05-07 18:17 | Outpatient (BNV) | payer MEDICARE, SELFPAY | PROVIDERS: Emergency Provider Emergency Medicine; Visit Provider Student in an Organized Health Care Education/Training Program | DX: R44.1 Visual hallucinations (principal); I69.328 Other speech and language deficits following cerebral infarction | CPT/HCPCS: 70450 ==

== ENCOUNTER 2025-05-21 09:59 | Outpatient (AMB) | payer MEDICARE, SELFPAY ==
--- NOTE | 2025-05-21 10:02 | A.OFFVIS_ITS ---
Vital Signs 05/21/25 10:03 Height 5 ft 6 in Weight 138 lb 7.205 oz BMI 22.3 BP 126/58 L Blood Pressure Location Lt brachial Position Sitting Pulse 66 Pulse Source Pulse Oximeter Intake Visit Reasons: 4-6 wk follow up Marketing Research Analyst Required: No Accompanied by: Other Relationship Allergies codeine Allergy (Verified 05/21/25 10:09) Unknown Penicillins Allergy (Verified 05/21/25 10:09) Unknown Sulfa (Sulfonamide Antibiotics) Adverse Reaction (Intermediate, Verified 05/21/25 10:09) Blister Medication List - Last Reconciled 05/21/25 by ZECHARIAH Plasencia amlodipine 5 mg PO DAILY apixaban (Eliquis) 2.5 mg PO BID atorvastatin 40 mg PO DAILY Held on 04/06/25. 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 - She did see a general accounting clerk 5 years ago and did not pursue follow-up. She had not been on anticoagulation with the exception of aspirin and did have a CVA last year. She was then put on Eliquis. She recently moved to this area and is now being followed by our office. She has findings of seemingly persistent afib with controlled rate. She now presents for follow-up. Today she reports that she is still very frustrated that she just does not feel well. She has fatigue with most any activity. She reports feeling some better after stopping the atorvastatin but not able to clearly say what feels better. She is not noticing heart palpitations, lightheadedness, presyncope, syncope. She denies chest discomfort at rest or with activity. No shortness of breath, PND, orthopnea. He does get mild ankle edema at times. She expresses much frustration about her speech and the need to take medications. She describes herself as previously very active and healthy in her younger years and she is not liking her current situation. She is not happy about getting older and all the things that go along with it. [id number] present. [facility] Medical History Atrial fibrillation Dizziness HTN (hypertension) Hyperlipidemia CVA (cerebral vascular accident) Family History Father Heart attack Social History Household Members: Other Housing: Apartment Alcohol intake: never Patient Tobacco Use Status: Never used Tobacco e-Cigarette/Vaping Use: Never Used service: No Current occupational status: retired Cognitive needs: Yes Hearing needs: No Vision needs: Yes Review of Systems Const All systems reviewed & are unremarkable except as noted in HPI and below Denies daytime sleepiness, Denies difficulty sleeping, Reports fatigue, Reports lethargy, Denies snoring, Denies stops breathing during sleep and Denies weakness Card Denies chest pain, Denies rapid heart rate, Denies irregular heart rhythm, Denies claudication, Denies leg edema, Denies lightheadedness, Denies palpit ations, Denies dyspnea, Reports dyspnea on exertion, Denies orthopnea, Denies paroxysmal nocturnal dyspnea and Denies slow heart rate Resp Denies cough, Denies dyspnea, Reports dyspnea on exertion and Denies snoring GI Reports no additional complaints, Denies hematochezia, Denies change in stool character and Denies dyspepsia Musc Denies abnormal gait, Denies muscle weakness and Denies numbness Neuro Denies abnormal gait, Denies numbness and Denies weakness Endo Reports fatigue and Denies palpitations Physical Exam Vital Signs: Last Vital Signs Pulse 66 05/21/25 10:03 BP 126/58 L 05/21/25 10:03 BMI result Body Mass Index 22.3 Const General: cooperative, healthy appearing, comfortable and no acute distress Orientation/consciousness: patient oriented x3 Neck Neck: Yes normal visual inspection Resp Effort & Inspection: normal respiratory effort Auscultation: clear to auscultation bilaterally, no rales, no rhonchi and no wheezes Cardio Jugular venous distension: no JVD Rate: regular rate Rhythm: abnormal rhythm Heart sounds: S1 normal heart sound present, S2 normal heart sound present, no gallops, no murmurs and no rubs Neuro General: patient oriented x3 Extrem General: Yes normal to inspection and No no pedal edema Psych Other: some aphasia and word finding from CVA Appearance: grossly normal Mental Status: mental status grossly normal Assessment & Plan Assessment & Plan (1) Atrial fibrillation: Code(s): I48.91 - Unspecified atrial fibrillation Category: Medical Qualifiers: Atrial fibrillation type: unspecified Qualified Code(s): I48.91 - Unspecified atrial fibrillation Plan: History of atrial fibrillation, 1st diagnosed 5 years ago in [place]. It is not clear if she has been persistent or paroxysmal -however most likely persistent. EKG last visit showed atrial fibrillation. Holter monitor done 03/23/2025 showed atrial fibrillation, average heart rate 59 beats per minute. Echocardiogram 03/23/2025 showed EF 62%, right atrium mildly dilated, mild aortic regurgitation, [id number] mitral regurgitation and moderate tricuspid regurgitation. EKG done today showing atrial fibrillation, rate 63. Chronic symptoms of fatigue, lack of energy. Continue metoprolol XL 12.5 mg daily. Continue Eliquis 2.5 mg b.i.d. which is appropriate for her age and weight. We discussed trying to pursue rhythm control and she is now agreeable. Will discuss with general accounting clerk and call her with plan. Anticipate for use of antiarrythmic medication and cardioversion. Cardiology follow-up will be post cardioversion ( assuming it is done) . (2) CVA (cerebral vascular accident): Code(s): I63.9 - Cerebral infarction, unspecified Category: Medical Qualifiers: CVA mechanism: embolism Precerebral and cerebral artery: unspecified cerebral artery Qualified Code(s): I63.40 - Cerebral infarction due to embolism of unspecified cerebral artery Plan: CVA 07/10/2023 with residual expressive aphasia. She is appropriate but having difficulty with word finding at times. With AFib she is at high risk for recurrent stroke with her CHADS-VASc score of 6. Continue Eliquis 2.5 mg b.i.d.. (3) HTN (hypertension): Code(s): I10 - Essential (primary) hypertension Category: Medical Qualifiers: Hypertension type: unspecified Qualified Code(s): I10 - Essential (primary) hypertension Plan: Blood pressure goal less than 130/80. Controlled at this time. Continue metoprolol, amlodipine and losartan. (4) Hyperlipidemia: Code(s): E78.5 - Hyperlipidemia, unspecified Category: Medical Qualifiers: Hyperlipidemia type: unspecified Qualified Code(s): E78.5 - Hyperlipidemia, unspecified Plan: [place] LDL goal less than 100. No recent lipid profile in system for my review. She was on atorvastatin 40 mg daily and reported it was giving her muscle aches. It was stopped last visit and she does report feeling some better. Plan I discussed with the patient the option of cardioversion to address atrial fibrillation, explaining the procedure and potential benefits. We reviewed the need for antiarrhythmic medication post-cardioversion and the importance of continuing Eliquis to prevent stroke. The patient was informed about the risks of easy bruising with Eliquis and advised to monitor for any significant bleeding. I will Follow-up with her general accounting clerk to finalize the treatment plan. Patient Instructions: - Continue taking metoprolol and Eliquis as prescribed. - I will discuss case with general accounting clerk, for further management of atrial fibrillation. Patient was informed and verbally consented to the use of an ambient scribe for clinic note documentation during this visit. Visit time spent on chart review, interview, assessment, orders, documentation. Coding Level of Care Code Est Pt Level 4 (37233) Complex EM visit Add On G2211 Diagnoses Atrial fibrillation, unspecified type I48.91 Atrial fibrillation type: unspecified Cerebrovascular accident (CVA) due to embolism of cerebral artery I63.40 CVA mechanism: embolism Precerebral and cerebral artery: unspecified cerebral artery Hypertension, unspecified type I10 Hypertension type: unspecified Hyperlipidemia, unspecified hyperlipidemia type E78.5 Hyperlipidemia type: unspecified Time Spent (min) 32
[2025-05-21 10:03] VITALS: BP 126/58; PULSE 66; BMI 22.3
== END 2025-05-21 10:41 | disposition home or self-care (01) ==
LOC: HO.HCS 09:59
PROVIDERS: Visit Provider Nurse Practitioner Family
DX: I48.91 Unspecified atrial fibrillation (principal); I63.40 Cerebral infarction due to embolism of unspecified cerebral artery; I10 Essential (primary) hypertension; E78.5 Hyperlipidemia, unspecified
CPT/HCPCS: 99214; G2211

== ENCOUNTER → 2025-05-21 09:59 | Outpatient (BNVA) | payer MEDICARE, SELFPAY | PROVIDERS: Visit Provider Nurse Practitioner Family | DX: I48.91 Unspecified atrial fibrillation (principal); I63.40 Cerebral infarction due to embolism of unspecified cerebral artery; I10 Essential (primary) hypertension; E78.5 Hyperlipidemia, unspecified | CPT/HCPCS: 99212 ==

== ENCOUNTER 2025-06-15 11:57 | Day surgery (SDC) | payer MEDICARE, SELFPAY ==
--- NOTE | 2025-06-12 13:34 | HO.ANESPROP2 ---
Documented by User: Shazia Ortega NP 06/12/25 13:40 HPI - Anesthesia Eval Consult details Narrative: 85 yr old male for cardioversion CVA 07/14/23, expressive aphasia. NO focal deficit. The patient has some balance issues. Atrial fibrillation: [place] [facility] [place], last visit 05/21/25 -Echocardiogram 03/23/2025 showed EF 62%, right atrium mildly dilated, mild aortic regurgitation, [id number] mitral regurgitation and moderate tricuspid regurgitation. - EKG done today showing atrial fibrillation, rate 63. -Chronic symptoms of fatigue, lack of energy. -Continue metoprolol XL 12.5 mg daily. Continue Eliquis 2.5 mg b.i.d. which is appropriate for her age and weight. [facility] Active Problems Active Problems: All Active Problems S/P LASIK surgery (Acute) Hallucination (Acute) Vertigo (Acute) Elevated alkaline phosphatase level (Acute) Elevated liver enzymes (Acute) Bilateral ankle pain (Acute) Atrial fibrillation (Acute) Annual physical exam (Acute) Hospital discharge follow-up (Acute) Hyperlipidemia (Acute) HTN (hypertension) (Acute) CVA (cerebral vascular accident) (Acute) Past Medical History Medical History Atrial fibrillation Dizziness HTN (hypertension) Hyperlipidemia CVA (cerebral vascular accident) Family History Family History Father Heart attack Social History Social History Household Members: Other Housing: Apartment Alcohol intake: never Patient Tobacco Use Status: Never used Tobacco e-Cigarette/Vaping Use: Never Used Use of substances other than those prescribed or required for medical reasons: No Advance Directives: No Advance Directives Information Provided: Yes service: No Current occupational status: retired Cognitive needs: Yes Hearing needs: No Vision needs: Yes Meds Allergies Allergy/AdvReac Type Severity Reaction Status Date / Time codeine Allergy Unknown Verified 05/21/25 10:09 Penicillins Allergy Unknown Verified 05/21/25 10:09 Sulfa (Sulfonamide AdvReac Intermediate Blister Verified 05/21/25 10:09 Antibiotics) Home Medications ?Medication ?Instructions ?Recorded ?Confirmed ?Last Taken ?Type meclizine 25 mg tablet 25 mg PO DAILY PRN Dizziness 08/15/25 11/17/25 12/12/25 History 0800 Exam Pertinent Lab Results Pertinent Lab Results: Laboratory Tests 05/07/25 14:16 WBC 5.7 RBC 5.07 Hgb 14.9 Hct 45.2 Plt Count 275 Sodium 135 Potassium 4.5 BUN 12 Creatinine 0.87 Narrative Narrative: ECHO 03/23/25 Conclusions: - The left ventricular systolic function is normal. The calculated ejection fraction is 62% by biplane method. - There is mild aortic valve regurgitation. - There is mild to moderate mitral valve regurgitation. - There is moderate tricuspid valve regurgitation. Documented by User: Cheyenne Mccray MD 06/15/25 13:11 [facility] Past Medical History Medical History Atrial fibrillation Dizziness HTN (hypertension) Hyperlipidemia CVA (cerebral vascular accident) Family History Family History Father Heart attack Surgical History History of Problems with Anesthesia: No Social History Social History Household Members: Other Housing: Apartment Alcohol intake: never Patient Tobacco Use Status: Never used Tobacco e-Cigarette/Vaping Use: Never Used Use of substances other than those prescribed or required for medical reasons: No Advance Directives: No Advance Directives Information Provided: Yes service: No Current occupational status: retired Cognitive needs: Yes Hearing needs: No Vision needs: Yes Meds Allergies Allergy/AdvReac Type Severity Reaction Status Date / Time codeine Allergy Unknown Verified 05/21/25 10:09 Penicillins Allergy Unknown Verified 05/21/25 10:09 Sulfa (Sulfonamide AdvReac Intermediate Blister Verified 05/21/25 10:09 Antibiotics) Home Medications ?Medication ?Instructions ?Recorded ?Confirmed ?Last Taken ?Type meclizine 25 mg tablet 25 mg PO DAILY PRN Dizziness 02/16/25 05/21/25 06/15/25 History 0800 Exam Airway Mallampati Class: III TM Dist: >3cm Neck ROM: Limited Loose/Missing/Broken Teeth: No Heart: RRR Lungs: CTA Assessment and Plan Assessment Anesthesia Assessment: Anesthesia Plan Discussed and Chart Reviewed Final Anesthetic Review History of Problems with Anesthesia: No NPO: Yes ASA Class: III Final Preanesthetic Review: Meds/Allgs Chart Reviewed, Consent Obtained/Reviewed and Anes Risks/Benef Reviewed Patient Risk: Intermediate Procedure Risk: Intermediate Anesthetic Plan Anesthetic Plan: GA Disposition: Standard PACU
[2025-06-15] VITALS (14 sets, daily range): BP systolic 111–146; BP diastolic 36–94; PULSE 36–94; RESP 12–26; TEMP 36.4–36.6; O2SAT 98–100; BMI 23.8
[2025-06-15] MEDS: Lactated Ringers 1,000 ML 100 ML IVCONT (12:49)
--- NOTE | 2025-06-15 13:34 | MHC.SHP ---
Pre-Procedural Eval Section A - 24 Hr Update-Section A only Date of Service: 06/15/25 The patient is an INPATIENT: No Changes since office visit: Yes Patient answered all questions; No Cold of Flu in the past 2 weeks, No New Medical Problems and No Changes in Medication The patient has been examined within 24 hours of the surgical procedure. The History & Physical has been completed within 30 days and I have reviewed it.: Yes Section B - Complete if H&P > 30 days Chief Complaint: Unspecified atrial fibrillation Allergies: Allergies Allergy/AdvReac Type Severity Reaction Status Date / Time codeine Allergy Unknown Verified 05/21/25 10:09 Penicillins Allergy Unknown Verified 05/21/25 10:09 Sulfa (Sulfonamide AdvReac Intermediate Blister Verified 05/21/25 10:09 Antibiotics) Plan I have reviewed the history and physical and performed a pertinent physical examination on my patient. No changes have occurred unless specified. Time Spent With Patient Time: Total time managing care of this patient today ____ minutes.
--- NOTE | 2025-06-15 13:45 | ECG_ITS ---
Test Reason : S/P CARDIOVERSION Blood Pressure : */* mmHG Vent. Rate : 38 BPM Atrial Rate : 38 BPM P-R Int : 222 ms QRS Dur : 80 ms QT Int : 514 ms P-R-T Axes : -6 -28 27 degrees QTcB Int : 408 ms Marked sinus bradycardia with 1st degree A-V block Abnormal ECG When compared with ECG of 01-Feb-2025 04:51, Sinus rhythm has replaced Atrial fibrillation Vent. rate has decreased by 42 bpm T wave inversion now evident in Anterior leads Referred By: Jackson Vega Electronically Signed By: JACKSON VEGA MD
--- NOTE | 2025-06-15 13:57 | HO.CARDIVERS ---
Cardioversion Procedure Note Cardioversion Date of Procedure: 06/15/2025 Ordering Provider: Miriam Pinedo Performing Provider: Twyla Vega Indication for Procedure: Persistent atrial fibrillation Pre-Op Diagnosis: Same Post-Op Diagnosis: Normal sinus rhythm Performed with Transesophageal Echo: No History: See the last office note Consent: Verbal and Written consent was obtained from the patient before starting and after confirming oral anticoagulation use. The patient was made aware of the risk of synchronized cardioversion including benefits and alternatives Procedure: After consent obtained, cardioversion pads were attached in anteroposterior configuration and the patient was sedated by the anesthesia team. Once adequate sedation achieved, patient was delivered 200 joules of biphasic synchronized energy in anteroposterior configuration Complications: None Impression: Successful conversion Recommendations: 1. 12 lead EKG 2. Continue amiodarone and oral anticoagulation therapy 3. Follow up in the office
== END 2025-06-15 16:23 | disposition home or self-care (01) ==
PROVIDERS: Visit Provider Internal Medicine Cardiovascular Disease
PROC: 5A2204Z Restoration of Cardiac Rhythm, Single (ICD-10-PCS; principal; 2025-06-15 13:30)
DX: I48.19 Other persistent atrial fibrillation (principal); I69.320 Aphasia following cerebral infarction; R60.0 Localized edema; Z79.01 Long term (current) use of anticoagulants; I10 Essential (primary) hypertension; E78.5 Hyperlipidemia, unspecified; R42 Dizziness and giddiness; Z79.82 Long term (current) use of aspirin; Z79.899 Other long term (current) drug therapy; Z88.0 Allergy status to penicillin; Z88.2 Allergy status to sulfonamides; Z88.5 Allergy status to narcotic agent
CPT/HCPCS: 92960; 93005; J2003; J2704

== ENCOUNTER → 2025-06-15 11:57 | Outpatient (BNV) | payer MEDICARE, SELFPAY | PROVIDERS: Visit Provider Internal Medicine Cardiovascular Disease | DX: I48.91 Unspecified atrial fibrillation (principal); I44.0 Atrioventricular block, first degree; R00.1 Bradycardia, unspecified | CPT/HCPCS: 92960; 93010 ==

== ENCOUNTER 2025-06-24 18:57 | Emergency (ER) | payer MEDICARE, SELFPAY ==
--- OUTSIDE RECORDS SUMMARY | 2025-01-09 06:03 | XMS_ITS | Continuity of Care Document ---
Author Organization [facility] Address [address] [place] [address] Phone Care Team Providers Care [employer] Sales Representative Name Role Phone Leticia Russell M.D. Unavailable Unavailable Allergies, Adverse Reactions, Alerts Substance Reaction Status Criticality trimethoprim hives Active No Information sulfamethoxazole hives Active No Informat ion HYDROCODONE BITARTRATE Active No In formation acetaminophen Active No Information penicillin G Active No Information Medications Medication Instructions Dosage Effective Dates (start - stop) Status Comments AMLODIPINE BESYLATE 5 MG TAB TAKE 1 TABLET BY MOUTH EVERY DAY - Active ATORVASTATIN 40 MG TABLET TAKE 1 TABLET BY MOUTH EVERY DAY - Active losartan 25 mg tablet TAKE 1 TABLET BY MOUTH EVERY DAY - Active PLEASE DISCONTINUE LORSARTAN 50 MG meclizine 25 mg tablet take 1 tablet by oral route 3 times every day as needed 25 MG - Active aspirin 81 mg chewable tablet chew 1 tablet by oral route every day 81 MG - Active Procedures Procedure Date E/M service NEC Preventive checkup, est,65+ yrs 024 AMNT PAIN NOTED NONE PRSNT MED LIST DOCD IN [facility] RVW MEDS BY RX/DR IN [facility] Diastolic Blood Pressure Less Than 80mm Hg Systolic Blood Pressure 131-139mm Hg Apr Office/outpatient visit,est, mod 2023 AMNT PAIN NOTED NONE PRSNT Diastolic Blood Pressure Less Than 80mm Hg Systolic Blood Pressure 131-139mm Hg Aug E/M service [facility] Office/outpatient visit,est, mod 2023 AMNT PAIN NOTED NONE PRSNT Diastolic Blood Pressure Less Than 80mm Hg Systolic Blood Pressure Greater Or Equal To 140mm MTMS BY PHARM EST 15 MIN Void Ticket [facility] MED/CURRENT MED MERGE MTMS BY PHARM INSPECTOR GOVERNMENT PROPERTY 15 MIN MTMS BY PHARM ADDL 15 MIN Void Ticket [facility] MED/CURRENT MED MERGE Office/outpatient visit,est, mod 2023 AMNT PAIN NOTED NONE PRSNT Diastolic Blood Pressure Less Than 80mm Hg Systolic Blood Pressure Greater Or Equal To 140mm Office/outpatient visit,est, mod 2022 Diastolic Blood Pressure 80-89mm Hg Systolic Blood Pressure Greater Or Equal To 140mm Office/outpatient visit,est, mod 2022 AMNT PAIN NOTED NONE PRSNT MED LIST DOCD IN [facility] RVW MEDS BY RX/DR IN [facility] Diastolic Blood Pressure 80-89mm Hg Systolic Blood Pressure Greater Or Equal To 140mm E/M service [facility] Preventive checkup, est,65+ yrs - 023 AMNT PAIN NOTED NONE PRSNT Diastolic Blood Pressure Less Than 80mm Hg Systolic Blood Pressure Greater Or Equal To 140mm Office/outpatient visit,est, mod 2022 AMNT PAIN NOTED NONE PRSNT Diastolic Blood Pressure Less Than 80mm Hg Systolic Blood Pressure Greater Or Equal To 140mm Office/outpatient visit,est, mod 2022 AMNT PAIN NOTED NONE PRSNT Diastolic Blood Pressure 80-89mm Hg Systolic Blood Pressure Greater Or Equal To 140mm Office/outpatient visit,est, mod 2021 AMNT PAIN NOTED NONE PRSNT MED LIST DOCD IN [facility] RVW MEDS BY RX/DR IN [facility] BODY MASS INDEX DOCD Diastolic Blood Pressure Less Than 80mm Hg Systolic Blood Pressure Greater Or Equal To 140mm Kenalog Per 10 Mg Office/outpatient visit,est, mod 2020 AMNT PAIN NOTED PAIN PRSNT BODY [place] INDEX DOCD Diastolic Blood Pressure Less Than 80mm Hg Systolic Blood Pressure Greater Or Equal To 140mm Office/outpatient visit,est, mod 2020 AMNT PAIN NOTED PAIN PRSNT MED LIST DOCD IN [facility] RVW MEDS BY RX/DR IN [facility] BODY [place] INDEX DOCD Diastolic Blood Pressure 80-89mm Hg Systolic Blood Pressure Greater Or Equal To 140mm Office/outpatient visit,est, mod 2020 AMNT PAIN NOTED NONE PRSNT MED LIST DOCD IN [facility] RVW MEDS BY RX/DR IN [facility] BODY [place] INDEX DOCD Diastolic Blood Pressure 80-89mm Hg Systolic Blood Pressure Greater Or Equal To 140mm Office/outpatient visit,est, mod 2020 AMNT PAIN NOTED NONE PRSNT MED LIST DOCD IN [facility] RVW MEDS BY RX/DR IN [facility] [facility] Diastolic Blood Pressure Less Than 80mm Hg Systolic Blood Pressure Greater Or Equal To 140mm Office/outpatient visit,est, mod 2020 AMNT PAIN NOTED NONE PRSNT MED LIST DOCD IN [facility] RVW MEDS BY RX/DR IN [facility] [facility] Diastolic Blood Pressure Less Than 80mm Hg Systolic Blood Pressure Greater Or Equal To 140mm E/M service [facility] Preventive checkup, est,65+ yrs 021 AMNT PAIN NOTED NONE PRSNT MED LIST DOCD IN [facility] RVW MEDS BY RX/DR IN [facility] [facility] Diastolic Blood Pressure Greater Or Equa l To 90mm Systolic Blood Pressure Greater Or Equal To 140mm E/M service [facility] Preventive checkup, est,65+ yrs 020 AMNT PAIN NOTED NONE PRSNT [facility] Diastolic Blood Pressure 80-89mm Hg Systolic Blood Pressure Greater Or Equal To 140mm Office/outpatient visit,est, mod 2019 AMNT PAIN NOTED NONE PRSNT MED LIST DOCD IN [facility] RVW MEDS BY RX/DR IN [facility] Diastolic Blood Pressure Less Than 80mm Hg Systolic Blood Pressure Greater Or Equal To 140mm AMNT PAIN NOTED NONE PRSNT MED LIST DOCD IN [facility] RVW MEDS BY RX/DR IN [facility] [facility] Diastolic Blood Pressure Less Than 80mm Hg Systolic Blood Pressure Greater Or Equal To 140mm Office/outpatient visit,est, mod 2019 AMNT PAIN NOTED NONE PRSNT MED LIST DOCD IN [facility] RVW MEDS BY RX/DR IN [facility] [place] [facility] Diastolic Blood Pressure Less Than 80mm Hg Systolic Blood Pressure Greater Or Equal To 140mm Office/outpatient visit,est, mod 2019 AMNT PAIN NOTED NONE PRSNT [place] [facility] Diastolic Blood Pressure Greater Or Equa l To 90mm Systolic Blood Pressure Greater Or Equal To 140mm E/M service [facility] Office/outpatient visit,est, mod 2019 AMNT PAIN NOTED NONE PRSNT [place] [facility] Diastolic Blood Pressure 80-89mm Hg Systolic Blood Pressure Greater Or Equal To 140mm Office/outpatient visit,est, mod 2019 AMNT PAIN NOTED NONE PRSNT MED LIST DOCD IN [facility] RVW MEDS BY RX/DR IN [facility] [facility] Diastolic Blood Pressure 80-89mm Hg Systolic Blood Pressure Greater Or Equal To 140mm Office/outpatient visit,est, mod 2018 AMNT PAIN NOTED NONE PRSNT MED LIST DOCD IN [facility] RVW MEDS BY RX/DR IN [facility] Diastolic Blood Pressure Greater Or Equa l To 90mm Systolic Blood Pressure Greater Or Equal To 140mm Office/outpatient visit,est, min 2018 Diastolic Blood Pressure Less Than 80mm Hg Systolic Blood Pressure Greater Or Equal To 140mm Office/outpatient visit,est, mod 2018 AMNT PAIN NOTED PAIN PRSNT MED LIST DOCD IN [facility] RVW MEDS BY RX/DR IN [facility] Diastolic Blood Pressure Less Than 80mm Hg Systolic Blood Pressure Greater Or Equal To 140mm Office/outpatient visit,est, mod 2018 BODY MASS INDEX DOCD Diastolic Blood Pressure Less Than 80mm Hg Systolic Blood Pressure 131-139mm Hg Mar Office/outpatient visit,est, mod 2018 AMNT PAIN NOTED NONE PRSNT MED LIST DOCD IN [facility] RVW MEDS BY RX/DR IN [facility] Diastolic Blood Pressure 80-89mm Hg Systolic Blood Pressure Greater Or Equal To 140mm Office/outpatient visit,est, mod 2018 MED LIST DOCD IN [facility] RVW MEDS BY RX/DR IN [facility] Diastolic Blood Pressure 80-89mm Hg Systolic Blood Pressure Greater Or Equal To 140mm E/M service [facility] E/M service [facility] Preventive checkup, est,65+ yrs 019 AMNT PAIN NOTED NONE PRSNT MED LIST DOCD IN [facility] RVW MEDS BY RX/DR IN [facility] BODY M[place] INDEX DOCD Diastolic Blood Pressure Less Than 80mm Hg Systolic Blood Pressure Greater Or Equal To 140mm MED LIST DOCD IN [facility] RVW MEDS BY RX/DR IN [facility] Office/outpatient visit,est, mod 2017 AMNT PAIN NOTED NONE PRSNT Office/outpatient visit,est, mod 2017 Kenalog Per 10 Mg E/M service NEC Preventive checkup, est,65+ yrs - 018 Systolic Blood Pressure Greater Or Equal To 140mm Diastolic Blood Pressure 80-89mm Hg Kenalog Per 10 Mg Kenalog Per 10 Mg Office/outpatient visit,est, mod 2016 Systolic Blood Pressure Greater Or Equal To 140mm Diastolic Blood Pressure Less Than 80mm Hg Office/outpatient visit,est, mod 2016 BODY MASS INDEX DOCD Systolic Blood Pressure Greater Or Equal To 140mm Diastolic Blood Pressure 80-89mm Hg Office/outpatient visit,est, low 2016 Systolic Blood Pressure Greater Or Equal To 140mm Diastolic Blood Pressure 80-89mm Hg E/M service NEC Preventive checkup, est,65+ yrs 017 Systolic Blood Pressure Greater Or Equal To 140mm Diastolic Blood Pressure Less Than 80mm Hg Office/outpatient visit,est, mod 2015 Systolic Blood Pressure Greater Or Equal To 140mm Diastolic Blood Pressure Less Than 80mm Hg Office/outpatient visit,est, low 2015 Systolic Blood Pressure Greater Or Equal To 140mm Diastolic Blood Pressure Less Than 80mm Hg Office/outpatient visit,est, mod 2015 BODY MASS INDEX DOCD Systolic Blood Pressure 131-139mm Hg Feb Diastolic Blood Pressure 80-89mm Hg Preventive checkup, est,65+ yrs - 016 BODY M[place] INDEX DOCD Systolic Blood Pressure Greater Or Equal To 140mm Diastolic Blood Pressure Less Than 80mm Hg Office/outpatient visit,est, mod 2014 BODY M[place] INDEX DOCD Systolic Blood Pressure Greater Or Equal To 140mm Diastolic Blood Pressure Less Than 80mm Hg Office/outpatient visit,est, mod 2014 [place] INDEX DOCD Systolic Blood Pressure Less Than 130mm Hg Diastolic Blood Pressure Less Than 80mm Hg Normal BP Reading Documented. F/U Not Re quired Methylprednisolone injection Up To 125mg Office/outpatient visit,est, mod [address] [facility] Systolic Blood Pressure 131-139mm Hg Feb Diastolic Blood Pressure Less Than 80mm Hg Office/outpatient visit,est, low [address] [facility] Systolic Blood Pressure Greater Or Equal To 140mm Diastolic Blood Pressure Less Than 80mm Hg Office/outpatient visit,est, mod 2014 [place] INDEX [facility]D Systolic Blood Pressure 131-139mm Hg Jan Diastolic Blood Pressure Less Than 80mm Hg [facility] Venipuncture Collection Of Blood 2014 Metabolic panel, basic Urinalysis, non-automated, w/scope Systolic Blood Pressure Greater Or Equal To 140mm Diastolic Blood Pressure Less Than 80mm Hg Office/outpatient visit,est, mod 2014 Spun microhematocrit blood count 2014 Hemoglobin count, colorimetric 15 Preventive checkup, [facility],65+ yrs 015 BODY MASS INDEX DOCD Systolic Blood Pressure Less Than 130mm Hg Diastolic Blood Pressure Less Than 80mm Hg BODY MASS INDEX DOCD Systolic Blood Pressure Greater Or Equal To 140mm Diastolic Blood Pressure Less Than 80mm Hg Office/outpatient visit,est, mod 2014 B[place] INDEX DOCD Systolic Blood Pressure Greater Or Equal To 140mm Diastolic Blood Pressure Less Than 80mm Hg Office/outpatient visit,est, low 2013 [place] INDEX [facility] Systolic Blood Pressure Greater Or Equal To 140mm Diastolic Blood Pressure Less Than 80mm Hg Office/outpatient visit,est, low 2013 [place] INDEX [facility] Systolic Blood Pressure Greater Or Equal To 140mm Diastolic Blood Pressure Less Than 80mm Hg Office/outpatient visit,est, mod 2013 [place] INDEX [facility] Systolic Blood Pressure Greater Or Equal To 140mm Diastolic Blood Pressure Less Than 80mm Hg Toradol Per 15mg X-ray exam lower spine 2-3 views 2013 Office/outpatient visit,est, mod [address] [facility] Systolic Blood Pressure 131-139mm Hg Jan Diastolic Blood Pressure Less Than 80mm Hg BODY M[place] INDEX [facility] Systolic Blood Pressure 131-139mm Hg Jan Diastolic Blood Pressure Less Than 80mm Hg Preventive checkup, est,65+ yrs 014 RVW MEDS BY RX/DR IN [facility] Office/outpatient visit,est, mod 2012 RVW MEDS BY RX/DR IN [facility] AMNT PAIN NOTED PAIN PRSNT AMNT PAIN NOTED NONE PRSNT Preventive checkup, est,65+ yrs 013 Preventive checkup, est,65+ yrs 012 Office/outpatient visit,est, mod 2011 Electrocardiogram, complete (ECG) Electrocardiogram, complete (ECG) Measure blood oxygen level, single Office/outpatient visit,est, mod 2010 Office/outpatient visit,est, mod 2010 Measure blood oxygen level, single Office/outpatient visit,est, mod 2010 Office/outpatient visit,est, low 2010 Measure blood oxygen level, single Office/outpatient visit,est, mod 2010 Drain/inject major jointor bursa 2010 Kenalog Per 10 Mg Measure blood oxygen level, single Office/outpatient visit,est, mod 2010 Office/outpatient visit,est, mod 2010 Measure blood oxygen level, single Office/outpatient visit,est, low 2010 X-ray exam of neck spine2-3 views Measure blood oxygen level, single Office/outpatient visit,est, mod 2010 Screening Mammography Bilateral 010 Screening Mammography Bilateral 010 Preventive checkup, est,65+ yrs 010 Office/outpatient visit,est, mod 2009 Preventive checkup, est,65+ yrs 010 Office/outpatient visit,est, low 2008 Infcts antign, streptococcus Grp A Measure blood oxygen level, single Screening Mammography Bilateral 009 Screening Mammography Bilateral 009 Electrocardiogram, complete (ECG) Office/outpatient visit,est, mod 2008 Preventive checkup, est,65+ yrs 009 Office/outpatient visit,est, mod 2008 Office/outpatient visit,est, mod 2008 Office/outpatient visit,est, low 2008 Screening Mammography Bilateral 008 Office/outpatient visit,est, mod 2007 Office/outpatient visit,est, mod 2007 Screening Mammography Bilateral 007 Office/outpatient visit,est, mod 2006 Office/outpatient visit,est, mod 2006 Measure blood oxygen level, single Mammogram, screening, both breasts Advance Directives Directive Yes / No Effective Date File Name No Information Encounters Encounter Description Practice Location Reason(s) For Visit Diagnoses Date Provider Providers Copied on Encounter [facility], [address], [place], [place], [id number], [place] tel:[phone] [facility] No Information 5 Christopher Kelly. [address] [place] [address], [address], [place]. tel:[phone] [facility], [address] [place] [address], [id number], [place] tel:[phone] [facility] No Information 0 5 [place] y-Cao Leticia. [address] [place] [id number], [place]. tel:[phone] [facility], [address] [place] [address], [id number], [place] tel:[phone] [facility] No Information 5 [place] [facility] Leticia. [address] [place] [address], [address], [place]. tel:[phone] E/M service NEC [facility], [address] [place] [address], [id number], [place] tel:[phone] [facility] Senior Wellness Visit (chief complaint)Me dication questions (chief complaint)HE DIS (chief complaint)Fo llow Up of Hypertension (chief complaint) Encounter for general adult medical examination without abnormal findingsEsse ntial hypertension Paroxysmal atrial fibrillation Senile purpuraHyper parathyroidi smAtheroscle rosis of aortaBody mass index [BMI] 23.0-23.9, adultEncount er for examination of blood pressure with abnormal findings 4 [place] [facility] Leticia. [address] [place] [address], [address], [place]. tel:[phone] [facility], [address] [place] [address], [id number], [place] tel:[phone] [facility] No Information 4 [place] [facility] Leticia. [address] [place] [address], [address], [place]. tel:[phone] [facility], [address] [place] [address], [id number], [place] tel:[phone] [facility] No Information 4 Christopher Kelly. [address] [place], [address], [place]. tel:[phone] Office/outpa tient visit,est, mod [facility], [address], [place], [id number], [place] [phone] [facility] Medication review (chief complaint)Lo wer extremity swelling (chief complaint)cv a (chief complaint) Essential hypertension Paroxysmal atrial fibrillation Aphasia S/P CVAPeriphera l edemaBody mass index [BMI] 22.0-22.9, adultEncount er for examination of blood pressure with abnormal findings 4 [place] [facility] Leticia. [address] [place], [address], [place]. [phone] E/M service NEC [facility], [address], [place], [id number], [place] [phone] [facility] Follow Up of Hospital discharge (chief complaint) Paroxysmal atrial fibrillation Essential hypertension Hyperlipidem ia, unspecifiedD izzinessApha selin S/P CVABody mass index [BMI] 22.0-22.9, adultEncount er for examination of blood pressure with abnormal findings 4 Christopher Kelly. [address] [place], [address], [place]. tel:[phone] MTMS BY PHARM EST 15 MIN [facility], [address], [place], [id number], [place] [phone] Pharmacy Encounter for therapeutic drug level monitoringVo id Ticket 4 Rafi Briggs. [address], [place], [id number], [place]. tel:[phone] MTMS BY PHARM INSPECTOR GOVERNMENT PROPERTY 15 MIN [facility], [address], [place], [id number], [place] tel:[phone] Pharmacy Encounter for therapeutic drug level monitoringVo id Ticket 4 Rafi Briggs. [address], [place], [id number], [place]. tel:[phone] Office/outpa tient visit,[facility], [facility], [address], [place], [id number], [place] tel:[phone] [facility] Follow Up of Hypertension (chief complaint) Essential hypertension Body mass index [BMI] 22.0-22.9, [facility] of [facility] pressure with abnormal findings 4 [place] [facility] Leticia. [address] [place], [address], [place]. tel:[phone] Office/outpa tient visit,[facility], [facility], [address], [place], [id number], [place] tel:[phone] [facility] Follow Up of Hypertension (chief complaint) Essential hypertension Encounter for examination of blood pressure with abnormal findings 3 [place] [facility] Leticia. [address] [place], [address], [place]. tel:[phone] Office/outpa tient visit,[facility], [facility], [address], [id number], [place] tel:[phone] [facility] Follow Up of hypertension (chief complaint) Essential hypertension Body mass index [BMI] 22.0-22.9, [facility] er for examination of blood pressure with abnormal findings 3 [place] [facility] Leticia. [address] [place], [address], [place]. tel:[phone] E/M service [facility], [address], [id number], [place] tel:[phone] [facility] Senior Wellness Exam (chief complaint)Fo llow Up of Hypertension (chief complaint)Re fill request (chief complaint) Encounter for general adult medical examination without abnormal findingsEsse ntial hypertension Atrial fibrillation , controlledAt herosclerosi s of aortaHyperpa rathyroidism Senile purpuraBody mass index [BMI] 22.0-22.9, [facility] of blood pressure with abnormal findingsSacr oiliitis, not elsewhere classified 3 [place] [facility] Leticia. [address] [place], [address], [place]. tel:[phone] Office/outpa tient visit,[facility], [facility], [address] [place] [address], [id number], [place] tel:[phone] [facility] Follow Up of Hypertension (chief complaint) Essential hypertension Encounter for examination of blood pressure with abnormal findings 3 [place] [facility] Leticia. [address] [place], [address], [place]. tel:[phone] Office/outpa tient visit,est, [facility], [address], [place], [id number], [place] tel:[phone] [facility] Follow Up of ER visit (chief complaint) Essential hypertension LFT elevationAtr ial fibrillation , controlledEn counter for examination of blood pressure with abnormal findings 3 [place] [facility] Leticia. [address] [place], [address], [place]. tel:[phone] Office/outpa tient visit,est, [facility], [address], [place], [id number], [place] tel:[phone] [facility] Request for Kenalog injection (chief complaint)Bl ood pressure (chief complaint) Allergic rhinitis, unspecifiedE ssential hypertension Body mass index [BMI] 24.0-24.9, [facility] of blood pressure without abnormal findings 2 [place] [facility] Leticia. [address] [place], [address], [place]. tel:[phone] Office/outpa tient visit,est, [facility], [address], [place], [id number], [place] tel:[phone] [facility] Prescription refill request (chief complaint)Ma mmogram order (chief complaint) Sciatica of right sideBreast cancer screening by mammogramBod y mass index (BMI) 24.0-24.9, [facility] for exam of blood pressure w/o abnormal findings 1 [place] [facility] Leticia. [address] [place], [address], [place]. [phone] [facility], [address], [id number], [place] [phone] [facility] Right hand painRight wrist painDe Quervain's disease (tenosynovit is)Left hand painLeft wrist pain 1 [place]lily neves-Cao Leticia. [address] [place], [address], [place]. [phone] Office/outpa tient visit,est, [facility], [address], [place], [id number], [place] [phone] [facility] pain (chief complaint)bl ood pressure (chief complaint) De Quervain's disease (tenosynovit is)Essential hypertension Left sided sciaticaBody mass index (BMI) 24.0-24.9, [facility] of blood pressure w/o abnormal findings 1 [place] [facility] Leticia. [address] [place], [address], [place]. [phone] Office/outpa tient visit,est, [facility], [address], [place], [id number], [place] tel:[phone] [facility] results (chief complaint)pa in (chief complaint) De Quervain's disease (tenosynovit is)Stage 2 chronic kidney diseaseBody mass index (BMI) 23.0-23.9, adultEncount er for exam of blood pressure w/o abnormal findings 1 [place] Leticia. [address] [place], [address], [place]. tel:[phone] Office/outpa tient visit,est, [facility], [address] [place] [address], [id number], [place] tel:[phone] [facility] Follow Up of hypertension (chief complaint) Stage 2 chronic kidney diseaseEssen tial hypertension Hyperlipidem ia, unspecifiedF Hx: breast cancerBody mass index (BMI) 23.0-23.9, [facility] for exam of blood pressure w/o abnormal findings 1 [place] [facility] Leticia. [address] [place], [address], [place]. tel:[phone] Office/outpa tient visit,[facility], [facility], [address], [place], [id number], [place] tel:[phone] [facility] Follow Up of Hypertension (chief complaint) Essential hypertension Body mass index (BMI) 23.0-23.9, [facility] of blood pressure w/o abnormal findings 1 [place] [facility] Leticia. [address] [place], [address], [place]. tel:[phone] E/M service [facility], [address] [address] [place] [address], [id number], [place] tel:[phone] [facility] Senior Wellness Exam (chief complaint)Fo llow Up of Hypertension (chief complaint) Encounter for general adult medical examination without abnormal findingsEsse ntial hypertension Hyperlipidem ia, unspecifiedH yperparathyr oidismParoxy smal atrial fibrillation Atherosclero sis of aortaBody mass index (BMI) 24.0-24.9, adultEncount er for exam of blood pressure w/o abnormal findingsSeni le purpura Michele-2 8-202 1 [place] [facility]ao Leticia. [address] [place], [address], [place]. tel:[phone] E/M service [facility], [address], [id number], [place] tel:[phone] [facility] senior wellness visit (chief complaint)he dis measures (chief complaint)Fo llow Up of hypertension (chief complaint) Encounter for general adult medical examination without abnormal findingsEsse ntial hypertension Allergic rhinitis, unspecifiedA theroscleros is of aortaSenile purpuraBody mass index (BMI) 24.0-24.9, adultEncount er for exam of blood pressure w/o abnormal findings 0 [place] [facility] Leticia. [address] [place], [address], [place]. tel:[phone] Office/outpa tient visit,est, [facility], [address], [place], [id number], [place] tel:[phone] [facility] hypertension (chief complaint) Essential hypertension Body mass index (BMI) 24.0-24.9, adultEncount er for exam of blood pressure w/o abnormal findings Mar-2 3202 0 [place] [facility] Leticia. [address] [place], [address], [place]. tel:[phone] Office/outpa tient visit,est, [facility], [address], [place], [id number], [place] tel:[phone] [facility] Follow Up of Hypertension (chief complaint) Essential hypertension Body mass index (BMI) 24.0-24.9, adultEncount er for exam of blood pressure w/o abnormal findings Sep-0 8-202 0 [place] [facility] Leticia. [address] [place], [address], [place]. tel:[phone] Office/outpa tient visit,est, [facility], [address], [place], [place], [id number], [place] tel:[phone] [facility] Elevated blood pressure (chief complaint) Essential hypertension Body mass index (BMI) 24.0-24.9, [facility] w/o abnormal findings Mar- 0 [place] [facility] Leticia. [address] [place], [address], [place]. tel:[phone] E/M service [facility], [address], [place], [id number], [place] tel:[phone] [facility] Mammogram order (chief complaint)me ds (chief complaint) Essential hypertension Paroxysmal atrial fibrillation Secondary hyperparathy roidismBreas t cancer screeningNon compliance with medical treatmentBod y mass index (BMI) 23.0-23.9, [facility] of blood pressure w/o abnormal findings 0 [place] [facility] Leticia. [address] [place], [address], [place]. tel:[phone] Office/outpa tient visit,[facility], [address], [place], [id number], [place] tel:[phone] [facility] Follow Up of hypertension (chief complaint)na useated (chief complaint) Generalized weaknessAtri al fibrillation , controlledEs sential hypertension Epigastric abdominal painBody mass index (BMI) 23.0-23.9, [facility] of blood pressure w/o abnormal findings 0 [place] y-[place]ao Leticia. [address] [facility], [place], [address], [place]. tel:[phone] Office/outpa tient visit,[facility], [address], [place], [id number], [place] tel:[phone] [facility] Follow Up of Elevated blood pressure (chief complaint) Paroxysmal atrial fibrillation Essential hypertension Body mass index (BMI) 24.0-24.9, [facility] of blood pressure w/o abnormal findings 9 [place] Leticia. [address] [place] [address], [address], [place]. [phone] Office/outpa tient visit,[facility], [facility], [address], [place], [id number], [place] tel:[phone] [place] [address] Procedures BP check (chief complaint) Elevated blood-pressu re reading, without diagnosis of hypertension Encounter for exam of blood pressure w/o abnormal findings 9 [place] Leticia. [address] [place] [address], [address], [place]. tel:[phone] Office/outpa tient visit,[facility], [facility], [address], [place], [id number], [place] tel:[phone] [facility] referral request (chief complaint)pa perwork (chief complaint) Sciatica of left sideElevated BP without diagnosis of hypertension Body mass index (BMI) 24.0-24.9, [facility] er for exam of blood pressure w/o abnormal findings 9 [place] y-[place] Leticia. [address] [place], [address], [place]. tel:[phone] Office/outpa tient visit,[facility], [facility], [address], [place], [id number], [place] [phone] [facility] referral request (chief complaint) Skin lesion of backAtrial fibrillation , controlledBo dy mass index (BMI) 23.0-23.9, [facility] er for exam of blood pressure w/o abnormal findings 9 [place] [facility] Leticia. [address] [place], [address], [place]. tel:[phone] Office/outpa tient visit,[facility], [facility], [address], [place], [id number], tel:[phone] [facility] mammo order (chief complaint)ma note (chief complaint) Breast cancer screeningAtr ial fibrillation , controlledBo dy mass index (BMI) 24.0-24.9, adultEncount er for exam of blood pressure w/o abnormal findings 9 Christopher neves-Cao Leticia. [address] [place] [address], [address], [place]. tel:[phone] Office/outpa tient visit,est, [facility], [address] [place] [address], [id number], [place] tel:[phone] [facility] Follow Up of A-fib (chief complaint) Atrial fibrillation by electrocardi ogramBody mass index (BMI) 23.0-23.9, adultEncount er for exam of blood pressure w/o abnormal findings Christopher neves-Cao Leticia. [address] [place] [address], [address], [place]. [phone] E/M service [facility], [address] [place] [address], [id number], tel:[phone] [facility] senior wellness visit (chief complaint)al lergies (chief complaint) Encntr for general adult medical exam w/o abnormal findingsAtri al fibrillation by electrocardi ogramAtheros clerosis of aortaCKD (chronic kidney disease) stage 2, GFR 60-89 ml/minHyperp arathyroidis mVitamin D deficiency, unspecifiedS enile purpuraHyper lipidemia, unspecifiedA llergic rhinitis, unspecifiedB vincenzo mass index (BMI) 23.0-23.9, adultEncount er for exam of blood pressure w/o abnormal findings 9 [place] y-A[facility] Leticia. [address] [place], [address], [place]. tel:[phone] Office/outpa tient visit,est, [facility], [address], [place], [id number], [place] tel:[phone] [facility] Mammogram (chief complaint) Breast cancer screeningWhi te coat syndrome with diagnosis of hypertension 8 [place] [facility] Leticia. [address] [place], [address], [place]. [phone] Office/outpa tient visit,est, mod [facility], [address], [place], [id number], [place] [phone] [facility] Follow Up of HTN/Thyroid (chief complaint)Al lergies (chief complaint) Allergic rhinitis, unspecifiedS econdary hyperparathy roidismCKD (chronic kidney disease) stage 2, GFR 60-89 ml/min 8 [place] [facility] Leticia. [address] [place], [address], [place]. [phone] E/M service NEC [facility], [address], [place], [id number], [place] [phone] [facility] Senior Wellness Exam (chief complaint)Sc iatic pain (chief complaint)Al lergies (chief complaint) Encntr for general adult medical exam w/o abnormal findingsAlle rgic rhinitis, unspecifiedS ciatica of right sideAtherosc lerosis of aortaHyperli pidemia, unspecifiedH yperparathyr oidismCKD (chronic kidney disease) stage 2, GFR 60-89 ml/minEncoun ter for exam of blood pressure w/o abnormal findings 8 [place] [facility] Leticia. [address] [place], [address], [place]. [phone] [facility], [address], [place], [id number], [place] tel:[phone] [facility] Laboratory tests ordered as part of a complete physical exam (CPE) 8 [place] [facility] Leticia. [address] [place], [address], [place]. tel:[phone] Office/outpa tient visit,[facility], [address] [place] [address], [id number], [place] tel:[phone] [facility] follow up (chief complaint)ba ck pain (chief complaint) Fatigue, unspecified typeOsteoart hritis of spine with radiculopath y, lumbar regionHyperl ipidemia, unspecifiedE ncounter for exam of blood pressure w/o abnormal findings 7 [place] [facility] Leticia. [address] [place] [address], [address], [place]. [phone] Office/outpa tient visit,[facility], [address] [place] [address], [id number], [place] tel:[phone] [facility] tired/weak (chief complaint) Fatigue, unspecified typeDepressi on screeningWhi te coat syndrome with diagnosis of hypertension Allergic rhinitis, unspecifiedB vincenzo mass index (BMI) 23.0-23.9, [facility] for exam of blood pressure w/o abnormal findings 7 [place] [facility] Leticia. [address] [place] [address], [address], [place]. [phone] Office/outpa tient visit,est, [facility], [address] [place] [address], [id number], [place] [phone] [facility] follow up (chief complaint)ar thritis questions (chief complaint)ma mmagram (chief complaint) Hyperlipidem ia, unspecifiedO steoarthriti s of spine with radiculopath y, lumbar regionInconc lusive mammogramEnc ounter for exam of blood pressure w/o abnormal findings 7 [place] [facility]-[place] Leticia. [address] [place], [address], [place]. tel:[phone] E/M service NEC [facility], [address], [place], [place], [id number], [place] [phone] [facility] sciatic nerve pain (chief complaint)al lergy shot (chief complaint)ma mmogram (chief complaint)se nior well visit (chief complaint) Encntr for general adult medical exam w/o abnormal findingsAlle rgic rhinitis, unspecifiedO steoarthriti s of spine with radiculopath y, lumbar regionAthero sclerosis of aortaBreast cancer screening November-0 3201 7 [place] [facility] Leticia. [address] [place], [address], [place]. tel:[phone] [facility], [address], [id number], [place] [phone] [place] [address] Inconclusive mammogram 201 6 [place] [facility] Leticia. [address] [place], [address], [place]. tel:[phone] Office/outpa tient visit,est, mod [facility], [address], [place], [id number], [place] tel:[phone] [place] [address] ER follow up (chief complaint) Acute right-sided low back pain with right-sided sciatica Sep-0 6-201 6 [place] [facility] Leticia. [address] [place], [address], [place]. tel:[phone] Office/outpa tient visit,est, low [facility], [address], [place], [place], [id number], [place] [phone] [place] [address] Mammogram results (chief complaint) Inconclusive mammogram Sep-0 -201 6 [place] y-[place]ao Leticia. [address] [facility], [place], [address], [place]. tel:[phone] Office/outpa tient visit,est, mod [facility], [address], [place], [id number], [place] tel:[phone] [facility] Breast discharge (chief complaint) Discharge from right nipple 6 [place] [facility] Leticia. [address] [place], [address], [place]. tel:[phone] Preventive checkup, est,65+ yrs [facility], [address], [place], [id number], [place] tel:[phone] [facility] Senior Wellness Exam (chief complaint)Cl inical guidelines (chief complaint)Ma mmogram order (chief complaint) Encntr for general adult medical exam w/o abnormal findingsHype rlipidemia, unspecifiedV itamin D deficiency, unspecifiedB reast cancer screeningBod y mass index (BMI) 24.0-24.9, [facility] for exam of blood pressure w/o abnormal findings 6 [place] y-Cao Leticia. [address] [place], [address], [place]. tel:[phone] [facility], [address], [place], [id number], [place] tel:[phone] [facility] Routine physical examination 6 [place] y-[place]ao Leticia. [address] [place], [address], [place]. tel:[phone] Office/outpa tient visit,est, mod [facility], [address], [id number], [place] tel:[phone] [facility] fatigue (chief complaint) Fatigue Sep-0 5 Lianet Lou. [address] [place], [address], [place]. tel:[phone] Office/outpa tient visit,est, mod [facility], [address], [place], [id number], [place] tel:[phone] [facility] rash (chief complaint) Allergic reaction caused by a drugAdv eff medicinal NOS 5 [place] y-[place]ao Leticia. [address] [place], [address], [place]. tel:[phone] Office/outpa tient visit,est, mod [facility], [address], [place], [id number], [place] tel:[phone] [facility] Urgent care f/u (chief complaint) Serous otitis media 5 [place] y-Cao Leticia. [address] [place], [address], [place]. tel:[phone] Office/outpa tient visit,est, low [facility], [address], [id number], [place] tel:[phone] [facility] Ear pain (chief complaint) Pustule 5 Lianet Lou. [facility] [place], [address], [place]. tel:[phone] Office/outpa tient visit,est, mod [facility], [address], [place], [id number], [place] tel:[phone] [facility] Follow Up of Urgent care (chief complaint) Hyponatremia 5 [place] y-Cao Leticia. [address] [place], [address], [place]. tel:[phone] Office/outpa tient visit,est, mod [facility], [address], [id number], [place] tel:[phone] [facility] generalized weakness (chief complaint) Suprapubic painWeakness 0 5 Halle Miner. [address] [place] [address], [address], [place]. tel:[phone] Preventive checkup, est,65+ yrs [facility], [address], [place], [id number], [place] [phone] [facility] Senior Well Visit (chief complaint) ROUTINE MEDICAL EXAMHYPERLIP IDEMIAVitami n D insufficienc y Malachi-0 2- 5 [place] y-[place]ao Leticia. [address] [place], [address], [place]. tel:[phone] Office/outpa tient visit,est, [facility], [address], [place], [id number], [place] tel:[phone] [facility] Mammogram order (chief complaint)sc iatica (chief complaint)sk in lesion (chief complaint) Lumbosacral radiculopath y due to degenerative joint disease of spineScreeni ng breast examinationE levated blood pressure reading without diagnosis Sep-3 5 [place] Leticia. [address] [place] [address], [address], [place]. tel:[phone] Office/outpa tient visit,est, [facility], [address] [place] [address], [id number], [place] tel:[phone] [facility] Follow Up of Ashish. 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 [address] [place], [address], [place]. tel:[phone] Office/outpa tient visit,est, [facility], [address], [place], [id number], [place] tel:[phone] [facility] Establish care (chief complaint)re ferral (chief complaint) Sciatic nerve pain Apr- 6 4 [place] y-Cao Leticia. [address] [place], [address], [place]. tel:[phone] Office/outpa tient visit,est, [facility], [address], [place], [place], [id number], [place] tel:[phone] [facility] Urgent care f/u (chief complaint) Pain in joint, pelvic region and thigh Sep-1 4 Christopher Kelly. [address] [place] [address], [address], [place]. tel:[phone] Office/outpa tient visit,est, mod [facility], [address], [place], [id number], [place] tel:[phone] [facility] Back pain (chief complaint)L leg pain (chief complaint) Lower back painSciatic nerve pain Sep-0 4 Roxie Aguilar. [address] [place] [address], [address], [place]. tel:[phone] Preventive checkup, est,65+ yrs [facility], [address], [place], [id number], [place] tel:[phone] [facility] Senior Wellness Visit (chief complaint) BMI BETWEEN 19-24,ADULTO TH SPECIFIED EXAMEXAMINAT ION, WELL ADULTHYPERLI PIDEMIAEXAMI NATION, WELL ADULTGYN EXAM W/ PAPPVD (peripheral vascular disease) 4 Larson Don. [address], [place], [address], [place]. tel:[phone] Office/outpa tient visit,est, mod [facility], [address], [place], [place], [id number], [place] tel:[phone] [facility] hyperlipidem ia (chief complaint) HYPERLIPIDEM IAScreening for osteoporosis SCREEN - OSTEOPOROSIS 3 Larson Don. [address], [place], [address], [place]. tel:[phone] Preventive checkup, est,65+ yrs [facility], [address], [place], [id number], [place] tel:[phone] [facility] [place] [facility] Senior well visit (chief complaint)Pc p: Dr. Larson (chief complaint) EXAMINATION, WELL ADULTEXAMINA TION, WELL ADULT Oct- 2- 3 Starr Loza . [address] [place], [address], [place]. tel: [phone] [facility], [address], [place], [place], [id number], [place] tel: [phone] [facility] EXAMINATION, WELL ADULT 8201 3 Starr Desmondjeff . [address] [place], [address], [place]. tel: [phone] [facility], [address], [place], [place], [id number], [place] tel: [phone] [facility] Visit for screening mammogramMam ravindra, Screening 3 Marsha Don. [address], [place], [address], [place]. tel: [phone] Preventive checkup, est,65+ yrs [facility], [address], [place], [place], [id number], [place] tel: [phone] [facility] Practice Senior Wellness Visit (chief complaint) EXAMINATION, WELL ADULTHYPERLI PIDEMIAEXAMI NATION, WELL ADULTVisit for screening mammogram 2 Marsha Zeng. [address], [place], [address], [place]. tel: [phone] [facility], [address], [place], [place], [id number], [place] tel: [phone] [facility] [place] EXAMINATION, WELL ADULT 2 Laurachucho Davis. [address] [place], [address], [place]. tel: [phone] [facility], [address], [place], [id number], [place] tel: [phone] [facility] Procedures EKG (chief complaint) Pre-op examLacerati on of tendon of left rotator cuff 1 Adriano Benitez. [address] [place], [address], [place]. tel:[phone] Referring Provider: Eli Oh, [address] [place], [address]. tel:[phone] Office/outpa tient visit,est, [facility], [address], [place], [place], [id number], [place] [phone] [facility] right shoulder pain (chief complaint) JOINT PAIN-SHLDER 1 Domo Davis. [address], [address], [address], [place]. tel:[phone] Referring Provider: Ryan Reyez, [address] [facility] [address], [place], [address]. tel:[phone] Office/outpa tient visit,est, [facility], [address], [place], [place], [id number], [place] tel:[phone] [facility] right arm/shoulder pain (chief complaint) JOINT PAIN-SHLDER 1 Domo Davis. [address], [address], [address], [place]. tel:[phone] Referring Provider: Ryan Reyez, [address], [address]. tel:[phone] Office/outpa tient visit,est, [facility], [address], [place], [place], [id number], [place] [phone] [facility] shoulder pain (chief complaint) JOINT PAIN-SHLDER 1 Domo Davis. [address] [employer] [facility] [address], [place], [address], [place]. tel:[phone] Referring Provider: Ryan Reyez, [address] [employer] [address], [address]. tel:[phone] Office/outpa tient visit,est, mod [facility], [address], [place], [place], [id number], [place] tel:[phone] [facility] right arm pain (chief complaint) Right shoulder pain 1 Marsha Messer [address], [place], [address], [place]. tel:[phone] Referring Provider: Karri Griffin, [address], [place], [address]. tel:[phone] Office/outpa tient visit,est, low [facility], [address], [place], [id number], [place] tel:[phone] [facility] pain rt. arm x 1 week (chief complaint) Strain of upper arm 1 Chapin Noble. [address] [place] [address], [address], [place]. tel:[phone] Referring Provider: Jeremie Galicia, [address] [place] [address], [address]. tel:[phone] [facility], [address], [place], [place], [id number], [place] tel:[phone] [facility] Mammogram No Information Sep-0 8-201 [address], [place], [address], [place]. tel:[phone] Referring Provider: Karri Griffin, [address], [place], [address]. tel:[phone] Preventive checkup, est,65+ yrs [facility], [address], [place], [place], [id number], [place] tel:[phone] [facility] physical exam (chief complaint) EXAMINATION, WELL ADULTMammogr am, ScreeningHYP ERLIPIDEMIAE XAMINATION, WELL ADULT Sep-0 7-201 [address], [place], [address], [place]. tel:[phone] Referring Provider: Karri Griffin, [address], [place], [address]. tel:[phone] Office/outpa tient visit,est, low [facility], [address], [place], [id number], [place] tel:[phone] [facility] No Information 9 Chapin Noble. [address] [place] [address], [address], [place]. tel:[phone] [facility], [address], [place], [id number], [place] tel:[phone] [facility] Mammogram No Information 9 Adriano Benitez. [address] [place] [address], [address], [place]. tel:[phone] Referring Provider: Tan Alas, [address] [facility] [address], [place], [address]. tel:[phone] Office/outpa tient visit,est, mod [facility], [address], [place], [id number], [place] tel:[phone] [facility] physical exam (chief complaint) BREAST SCREEN FOR CAHYPERLIPID EMIAHEMORRHO IDS INTERNAL NO COMPLICATION SHEMORRHOIDS INTERNAL NO COMPLICATION S 9 Janice Maddox. [address] [employer] [address], [place], [address], [place]. tel:[phone] Office/outpa tient visit,est, mod [facility], [address], [place], [id number], [place] tel:[phone] [facility] U/C f/u 09-28-08 (chief complaint)ma notes (chief complaint) GI BLEED, GASTROINTEST INAL HEMORRHAGE UNSPECIFIEDH YPERLIPIDEMI A Sep- 9 Janice Maddox. [address] [employer] [address] [place] [address], [address], [place]. tel:[phone] Office/outpa tient visit,est, low [facility], [address], [place], [id number], [place] tel: [phone] [facility] No Information 7-200 9 Oliver Maria M. [address] [place] [address], [address], [place]. tel: [phone] [facility], [address] [place] [address], [id number], [place] tel: [phone] [facility] Mammogram No Information 0 5-200 8 [facility]. [address] [place] [address], [id number], [place]. tel: [phone] Office/outpa tient visit,est, mod [facility], [address] [place] [address], [id number], [place] tel: [phone] [facility] HEDIS (chief complaint)ph ysical exam (chief complaint)hy perlipidemia (chief complaint) PURE HYPERCHOLEST EROLEM 8-200 8 No Information [facility], [address] [place] [address], [id number], [place] tel: [phone] [facility] [place] No Information [phone] [facility]. [address] [place] [address], [id number], [place]. tel: [phone] Office/outpa tient visit,est, mod [facility], [address] [place] [address], [id number], [place] tel: [phone] [facility] annual physical (chief complaint) Leukocytopen ia UnspPURE HYPERCHOLEST EROLEM 5-200 7 No Information Office/outpa tient visit,est, mod [facility], [address] [place] [address], [id number], [place] tel: [phone] [facility] [place] No Information 4-200 7 [facility]. [address] [place] [address], [id number], [place]. tel: [phone] [facility], [address], [place], [place], [id number], [place] tel:[phone] [facility] [place] No Information [facility]. [address] [place], [address], [place]. tel:[phone] Family History Family Member Type Diagnosis Age At Onset Problem (finding) Family history of Heart disease Sister Problem (finding) Parkinson's disease Problem (finding) Family history of Cance r -breast Immunizations Vaccine Date Status Comments Pneumococcal vaccine cancelled Source: New Immunization Record Td vaccine cancelled Source: New Imm unization Record Payers Payer name Insurance type Covered green party ID Claraa diane(s) Twisted Family Creations Net Seniority Plus O [facility] [id number] Social History Type Description Quantity Date Captured Comments Sex Female Smoking Status No Information Chief Complaint And Reason For Visit No Information Reason For Referral Reason For Referral No Information Plan Of Treatment Date Type Action Status Goal Unhealthy drug u se screening. Due on due Goal Cognitive assess ment. Due on due Goal NEEDLE BAR MOLDER exam. Due on due Goal AST. Due on due Goal Oncology (colore ctal) screening. Due on due Goal Breast exam. Due on due Goal ALT. Due on due Goal ECG. Due on due Goal Depression scree ginette. Due on due Goal Eye Exam. Due on due Goal Pneumococcal Vac cine. Due on due Goal Zoster vaccine ( 1st). Due on due Goal Tdap Vaccine . Due on due Goal Influenza Vaccin e. Due on due Goal DEXA Scan. Due on 4 due Goal FLUZONE QUAD MDV [id number]. Due on due Goal H&P. Due on due Goal TD Vaccine. Due on due Goal Zoster vaccine. Due on due Goal TSH. Due on due Goal TSH. Due on due Goal Tdap Vaccine . Due on due Goal Pneumococcal Vac cine. Due on due Goal H&P. Due on due Goal Oncology (colore ctal) screening. Due on due Goal Depression scree ginette. Due on due Goal Influenza Vaccin e. Due on due Goal Zoster vaccine. Due on due Goal Cognitive assess ment. Due on due Goal Zoster vaccine ( 1st). Due on due Goal Breast exam. Due on 024 due Goal Unhealthy drug u se screening. Due on due Goal AST. Due on due Goal TD Vaccine. Due on due Goal DEXA Scan. Due on 4 due Goal ALT. Due on due Goal NEEDLE BAR MOLDER exam. Due on due Goal ECG. Due on due Goal Eye Exam. Due on due Goal FLUZONE QUAD MDV . Due on due Goal ALT. Due on due Goal AST. Due on due Goal Tdap Vaccine . Due on due Goal H&P. Due on due Goal Breast exam. Due on due Goal DEXA Scan. Due on due Goal FLUZONE QUAD MDV . Due on due Goal Zoster vaccine. Due on due Goal ECG. Due on due Goal Eye Exam. Due on due Goal Oncology (colore ctal) screening. Due on due Goal Cognitive assess ment. Due on due Goal Zoster vaccine ( 1st). Due on due Goal Depression scree ginette. Due on due Goal NEEDLE BAR MOLDER exam. Due on due Goal Pneumococcal Vac cine. Due on due Goal Influenza Vaccin e. Due on due Goal TD Vaccine. Due on due Goal Unhealthy drug u se screening. Due on due Goal TSH. Due on due Goal TSH. Due on due Goal ECG. Due on due Goal Zoster vaccine. Due on due Goal Breast exam. Due on due Goal Influenza Vaccin e. Due on due Goal H&P. Due on due Goal TD Vaccine. Due on due Goal Eye Exam. Due on due Goal AST. Due on due Goal DEXA Scan. Due on due Goal Zoster vaccine ( ). Due on due Goal Oncology (colore ctal) screening. Due on due Goal Unhealthy drug u se screening. Due on due Goal NEEDLE BAR MOLDER exam. Due on due Goal Pneumococcal Vac cine. Due on due Goal ALT. Due on due Goal FLUZONE QUAD MDV . Due on due Goal Tdap Vaccine . Due on due Goal Cognitive assess ment. Due on due Goal Depression scree ginette. Due on due Goal ECG. Due on due Goal Oncology (colore ctal) screening. Due on due Goal Eye Exam. Due on due Goal FLUZONE QUAD MDV . Due on due Goal Depression scree ginette. Due on due Goal Breast exam. Due on due Goal TSH. Due on due Goal TD Vaccine. Due on due Goal ALT. Due on due Goal Zoster vaccine. Due on due Goal AST. Due on due Goal H&P. Due on due Goal DEXA Scan. Due on due Goal Influenza Vaccin e. Due on due Goal Tdap Vaccine . Due on due Goal Unhealthy drug u se screening. Due on due Goal Zoster vaccine ( ). Due on due Goal Cognitive assess ment. Due on due Goal Pneumococcal Vac cine. Due on due Goal NEEDLE BAR MOLDER exam. Due on due Goal Oncology (colore ctal) screening. Due on due Goal Zoster vaccine ( ). Due on due Goal TD Vaccine. Due on due Goal Unhealthy drug u se screening. Due on due Goal Depression scree ginette. Due on due Goal Breast exam. Due on 024 due Goal Influenza Vaccin e. Due on due Goal Cognitive assess ment. Due on due Goal H&P. Due on due Goal ECG. Due on due Goal Zoster vaccine. Due on due Goal Tdap Vaccine . Due on due Goal DEXA Scan. Due on due Goal NEEDLE BAR MOLDER exam. Due on due Goal TSH. Due on due Goal FLUZONE QUAD MDV 9003-3885. Due on due Goal ALT. Due on due Goal Pneumococcal Vac cine. Due on due Goal Eye Exam. Due on due Goal AST. Due on due Goal Eye Exam. Due on due Goal H&P. Due on due Goal FLUZONE QUAD MDV 1449-8689. Due on due Goal AST. Due on due Goal NEEDLE BAR MOLDER exam. Due on due Goal ALT. Due on due Goal Depression scree ginette. Due on due Goal Oncology (colore ctal) screening. Due on due Goal Unhealthy drug u se screening. Due on due Goal TD Vaccine. Due on due Goal Tdap Vaccine . Due on due Goal TSH. Due on due Goal ECG. Due on due Goal Cognitive assess ment. Due on due Goal DEXA Scan. Due on 3 due Goal Zoster vaccine ( 1st). Due on due Goal Influenza Vaccin e. Due on due Goal Zoster vaccine. Due on due Goal Breast exam. Due on due Goal Pneumococcal Vac cine. Due on due Goal Influenza Vaccin e. Due on due Goal Unhealthy drug u se screening. Due on due Goal ECG. Due on due Goal FLUZONE QUAD MDV 4914-8243. Due on due Goal Eye Exam. Due on due Goal AST. Due on due Goal TSH. Due on due Goal Depression scree ginette. Due on due Goal TD Vaccine. Due on due Goal Cognitive assess ment. Due on due Goal NEEDLE BAR MOLDER exam. Due on due Goal Zoster vaccine. Due on due Goal H&P. Due on due Goal Tdap Vaccine . Due on due Goal DEXA Scan. Due on due Goal Breast exam. Due on 023 due Goal Zoster vaccine ( 1st). Due on due Goal ALT. Due on due Goal Pneumococcal Vac cine. Due on due Goal Oncology (colore ctal) screening. Due on due Goal Influenza Vaccin e. Due on due Goal Oncology (colore ctal) screening. Due on due Goal FLUZONE QUAD MDV 3164-5846. Due on due Goal DEXA Scan. Due on due Goal AST. Due on due Goal Unhealthy drug u se screening. Due on due Goal Eye Exam. Due on due Goal H&P. Due on due Goal Pneumococcal Vac cine. Due on due Goal Tdap Vaccine . Due on due Goal ECG. Due on due Goal ALT. Due on due Goal TSH. Due on due Goal Zoster vaccine ( 1st). Due on due Goal TD Vaccine. Due on due Goal Depression scree ginette. Due on due Goal Cognitive assess ment. Due on due Goal Breast exam. Due on due Goal Zoster vaccine. Due on due Goal NEEDLE BAR MOLDER exam. Due on due Goal Pneumococcal Vac cine. Due on due Goal ECG. Due on due Goal TD Vaccine. Due on due Goal Tdap Vaccine . Due on due Goal Influenza Vaccin e. Due on due Goal Zoster vaccine. Due on due Goal ALT. Due on due Goal DEXA Scan. Due on due Goal FLUZONE QUAD MDV 3435-4641. Due on due Goal Eye Exam. Due on due Goal TSH. Due on due Goal Zoster vaccine ( 1st). Due on due Goal H&P. Due on due Goal Oncology (colore ctal) screening. Due on due Goal NEEDLE BAR MOLDER exam. Due on due Goal Breast exam. Due on 023 due Goal AST. Due on due Goal Unhealthy drug u se screening. Due on due Goal Cognitive assess ment. Due on due Goal Depression scree ginette. Due on due Goal Tdap Vaccine . Due on due Goal Eye Exam. Due on due Goal Cognitive assess ment. Due on due Goal Pneumococcal Vac cine. Due on due Goal TSH. Due on due Goal ECG. Due on due Goal FLUZONE QUAD MDV 1693-8786. Due on due Goal DEXA Scan. Due on due Goal Influenza Vaccin e. Due on due Goal Oncology (colore ctal) screening. Due on due Goal ALT. Due on due Goal H&P. Due on due Goal Zoster vaccine. Due on due Goal NEEDLE BAR MOLDER exam. Due on due Goal TD Vaccine. Due on 23 due Goal AST. Due on due Goal Depression scree ginette. Due on due Goal Unhealthy drug u se screening. Due on due Goal Breast exam. Due on 023 due Goal Zoster vaccine ( ). Due on due Goal FLUZONE QUAD MDV 3010-4205. Due on due Goal Zoster vaccine. Due on due Goal TD Vaccine. Due on due Goal H&P. Due on due Goal Influenza Vaccin e. Due on due Goal Pneumococcal Vac cine. Due on due Goal TSH. Due on due Goal Lipid Panel. Due on 026 due Goal ALT. Due on due Goal Oncology (colore ctal) screening. Due on due Goal Breast exam. Due on 022 due Goal AST. Due on due Goal Tdap Vaccine . Due on due Goal Eye Exam. Due on due Goal ECG. Due on due Goal Cognitive assess ment. Due on due Goal Hemoglobin A1C. Due on due Goal Depression scree ginette. Due on due Goal NEEDLE BAR MOLDER exam. Due on due Goal DEXA Scan. Due on due Goal Influenza Vaccin e. Due on due Goal Oncology (colore ctal) screening. Due on due Goal TSH. Due on due Goal Cognitive assess ment. Due on due Goal DEXA Scan. Due on due Goal AST. Due on due Goal Depression scree ginette. Due on due Goal TD Vaccine. Due on due Goal Tdap Vaccine . Due on due Goal H&P. Due on due Goal Lipid Panel. Due on 026 due Goal Hemoglobin A1C. Due on due Goal Pneumococcal Vac cine. Due on due Goal ALT. Due on due Goal Breast exam. Due on due Goal ECG. Due on due Goal Zoster vaccine. Due on due Goal FLUZONE QUAD MDV 7117-8578. Due on due Goal Eye Exam. Due on due Goal NEEDLE BAR MOLDER exam. Due on due Goal Influenza Vaccin e. Due on due Goal TSH. Due on due Goal Pneumococcal Vac cine. Due on due Goal Lipid Panel. Due on due Goal FLUZONE QUAD MDV 4311-6864. Due on due Goal H&P. Due on due Goal Depression scree ginette. Due on due Goal ALT. Due on due Goal Tdap Vaccine . Due on due Goal Hemoglobin A1C. Due on due Goal DEXA Scan. Due on due Goal TD Vaccine. Due on due Goal ECG. Due on due Goal Zoster vaccine. Due on due Goal Cognitive assess ment. Due on due Goal Eye Exam. Due on due Goal Breast exam. Due on due Goal AST. Due on due Goal Oncology (colore ctal) screening. Due on due Goal NEEDLE BAR MOLDER exam. Due on due Goal FLUZONE QUAD MDV 8738-1053. Due on due Goal Eye Exam. Due on due Goal Pneumococcal Vac cine. Due on due Goal Lipid Panel. Due on due Goal Tdap Vaccine . Due on due Goal NEEDLE BAR MOLDER exam. Due on due Goal ALT. Due on due Goal TSH. Due on due Goal Oncology (colore ctal) screening. Due on due Goal H&P. Due on due Goal Zoster vaccine. Due on due Goal Influenza Vaccin e. Due on due Goal Hemoglobin A1C. Due on due Goal AST. Due on due Goal Depression scree ginette. Due on due Goal Cognitive assess ment. Due on due Goal Breast exam. Due on due Goal ECG. Due on due Goal DEXA Scan. Due on due Goal TD Vaccine. Due on due Goal Depression scree ginette. Due on due Goal DEXA Scan. Due on due Goal Pneumococcal Vac cine. Due on due Goal ECG. Due on due Goal AST. Due on due Goal FLUZONE QUAD MDV 6627-8899. Due on due Goal Tdap Vaccine . Due on due Goal Eye Exam. Due on due Goal Oncology (colore ctal) screening. Due on due Goal Lipid Panel. Due on due Goal Hemoglobin A1C. Due on due Goal Cognitive assess ment. Due on due Goal TSH. Due on due Goal TD Vaccine. Due on due Goal H&P. Due on due Goal ALT. Due on due Goal Influenza Vaccin e. Due on due Goal NEEDLE BAR MOLDER exam. Due on due Goal Zoster vaccine. Due on due Goal Breast exam. Due on due Goal FLUZONE QUAD MDV 3882-1234. Due on due Goal Influenza Vaccin e. Due on due Goal Lipid Panel. Due on due Goal ECG. Due on due Goal Depression scree ginette. Due on due Goal Zoster vaccine. Due on due Goal TD Vaccine. Due on due Goal Pneumococcal Vac cine. Due on due Goal Breast exam. Due on due Goal Cognitive assess ment. Due on due Goal H&P. Due on due Goal DEXA Scan. Due on due Goal Eye Exam. Due on due Goal AST. Due on due Goal Oncology (colore ctal) screening. Due on due Goal TSH. Due on due Goal ALT. Due on due Goal NEEDLE BAR MOLDER exam. Due on due Goal Hemoglobin A1C. Due on due Goal Tdap Vaccine . Due on due Goal Cognitive assess ment. Due on due Goal ECG. Due on due Goal H&P. Due on due Goal NEEDLE BAR MOLDER exam. Due on due Goal Tdap Vaccine . Due on due Goal Pneumococcal Vac cine. Due on due Goal ALT. Due on due Goal FLUZONE QUAD MDV 1525-9455. Due on due Goal Hemoglobin A1C. Due on due Goal AST. Due on due Goal Influenza Vaccin e. Due on due Goal Oncology (colore ctal) screening. Due on due Goal DEXA Scan. Due on due Goal Eye Exam. Due on due Goal Breast exam. Due on 021 due Goal Depression scree ginette. Due on due Goal Lipid Panel. Due on 026 due Goal TD Vaccine. Due on 21 due Goal TSH. Due on due Goal Zoster vaccine. Due on due Goal Oncology (colore ctal) screening. Due on due Goal Tdap Vaccine . Due on due Goal Pneumococcal Vac cine. Due on due Goal ECG. Due on due Goal H&P. Due on due Goal Eye Exam. Due on due Goal AST. Due on due Goal NEEDLE BAR MOLDER exam. Due on due Goal Cognitive assess ment. Due on due Goal Hemoglobin A1C. Due on due Goal Lipid Panel. Due on 026 due Goal TD Vaccine. Due on 21 due Goal Breast exam. Due on 021 due Goal Influenza Vaccin e. Due on due Goal TSH. Due on due Goal Zoster vaccine. Due on due Goal FLUZONE QUAD MDV 5362-5557. Due on due Goal Depression scree ginette. Due on due Goal ALT. Due on due Goal DEXA Scan. Due on due Goal Zoster vaccine. Due on due Goal Pneumococcal Vac cine. Due on due Goal ECG. Due on due Goal Cognitive assess ment. Due on due Goal Tdap Vaccine . Due on due Goal FLUZONE QUAD MDV 9965-3907. Due on due Goal TSH. Due on due Goal Hemoglobin A1C. Due on due Goal Eye Exam. Due on due Goal Breast exam. Due on due Goal Depression scree ginette. Due on due Goal H&P. Due on due Goal ALT. Due on due Goal TD Vaccine. Due on 20 due Goal AST. Due on due Goal Lipid Panel. Due on due Goal DEXA Scan. Due on 0 due Goal Influenza Vaccin e. Due on due Goal NEEDLE BAR MOLDER exam. Due on due Goal Oncology (colore ctal) screening. Due on due Goal AST. Due on due Goal Eye Exam. Due on due Goal ECG. Due on due Goal DEXA Scan. Due on 0 due Goal Tdap Vaccine . Due on due Goal Hemoglobin A1C. Due on due Goal Cognitive assess ment. Due on due Goal ALT. Due on due Goal Pneumococcal Vac cine. Due on due Goal FLUZONE QUAD MDV . Due on due Goal H&P. Due on due Goal Oncology (colore ctal) screening. Due on due Goal NEEDLE BAR MOLDER exam. Due on due Goal Influenza Vaccin e. Due on due Goal Zoster vaccine. Due on due Goal Breast exam. Due on due Goal Lipid Panel. Due on due Goal TD Vaccine. Due on due Goal Depression scree ginette. Due on due Goal TSH. Due on due Goal Pneumococcal Vac cine. Due on due Goal Tdap Vaccine . Due on due Goal TD Vaccine. Due on due Goal Oncology (colore ctal) screening. Due on due Goal Eye Exam. Due on due Goal Lipid Panel. Due on due Goal NEEDLE BAR MOLDER exam. Due on due Goal Zoster vaccine. Due on due Goal ECG. Due on due Goal Breast exam. Due on due Goal DEXA Scan. Due on 0 due Goal AST. Due on due Goal H&P. Due on due Goal Hemoglobin A1C. Due on due Goal ALT. Due on due Goal Influenza Vaccin e. Due on due Goal FLUZONE QUAD MDV 4975-8319. Due on due Goal TSH. Due on due Goal Depression scree ginette. Due on due Goal Cognitive assess ment. Due on due Goal Eye Exam. Due on due Goal Pneumococcal Vac cine. Due on due Goal Hemoglobin A1C. Due on due Goal Tdap Vaccine . Due on due Goal ALT. Due on due Goal NEEDLE BAR MOLDER exam. Due on due Goal H&P. Due on due Goal DEXA Scan. Due on 0 due Goal Cognitive assess ment. Due on due Goal AST. Due on due Goal ECG. Due on due Goal FLUZONE QUAD MDV 7868-0893. Due on due Goal Oncology (colore ctal) screening. Due on due Goal TSH. Due on due Goal Depression scree ginette. Due on due Goal Influenza Vaccin e. Due on due Goal Breast exam. Due on 020 due Goal TD Vaccine. Due on 20 due Goal Zoster vaccine. Due on due Goal Lipid Panel. Due on 024 due Goal Depression scree ginette. Due on due Goal Influenza Vaccin e. Due on due Goal Lipid Panel. Due on 024 due Goal Breast exam. Due on 020 due Goal Oncology (colore ctal) screening. Due on due Goal FLUZONE QUAD MDV 6490-6549. Due on due Goal AST. Due on due Goal DEXA Scan. Due on 0 due Goal NEEDLE BAR MOLDER exam. Due on due Goal Tdap Vaccine . Due on due Goal Pneumococcal Vac cine. Due on due Goal ALT. Due on due Goal TD Vaccine. Due on 20 due Goal TSH. Due on due Goal Colonoscopy. Due on due Goal Hemoglobin A1C. Due on due Goal Eye Exam. Due on due Goal H&P. Due on due Goal Cognitive assess ment. Due on due Goal ECG. Due on due Goal Zoster vaccine. Due on due Goal DEXA Scan. Due on 0 due Goal Eye Exam. Due on due Goal Colonoscopy. Due on due Goal AST. Due on due Goal ECG. Due on due Goal ALT. Due on due Goal Hemoglobin A1C. Due on due Goal Tdap Vaccine . Due on due Goal Pneumococcal Vac cine. Due on due Goal FLUZONE QUAD MDV 2630-5121. Due on due Goal H&P. Due on due Goal Lipid Panel. Due on 024 due Goal Influenza Vaccin e. Due on due Goal NEEDLE BAR MOLDER exam. Due on due Goal Zoster vaccine. Due on due Goal TSH. Due on due Goal TD Vaccine. Due on 20 due Goal Oncology (colore ctal) screening. Due on due Goal Breast exam. Due on due Goal Depression scree ginette. Due on due Goal Cognitive assess ment. Due on due Goal AST. Due on due Goal Oncology (colore ctal) screening. Due on due Goal DEXA Scan. Due on 9 due Goal Tdap Vaccine . Due on due Goal ECG. Due on due Goal ALT. Due on due Goal Influenza Vaccin e. Due on due Goal FLUZONE QUAD MDV 5534-5261. Due on due Goal H&P. Due on due Goal Lipid Panel. Due on 024 due Goal Colonoscopy. Due on due Goal NEEDLE BAR MOLDER exam. Due on due Goal TSH. Due on due Goal Cognitive assess ment. Due on due Goal Hemoglobin A1C. Due on due Goal Eye Exam. Due on due Goal Pneumococcal Vac cine. Due on due Goal Breast exam. Due on due Goal Depression scree ginette. Due on due Goal Zoster vaccine. Due on due Goal TD Vaccine. Due on 19 due Goal TD Vaccine. Due on 19 due Goal Colonoscopy. Due on due Goal DEXA Scan. Due on 9 due Goal H&P. Due on due Goal Tdap Vaccine . Due on due Goal Cognitive assess ment. Due on due Goal Hemoglobin A1C. Due on due Goal TSH. Due on due Goal Zoster vaccine. Due on due Goal Influenza Vaccin e. Due on due Goal Pneumococcal Vac cine. Due on due Goal ECG. Due on due Goal NEEDLE BAR MOLDER exam. Due on due Goal AST. Due on due Goal Eye Exam. Due on due Goal ALT. Due on due Goal Lipid Panel. Due on due Goal Oncology (colore ctal) screening. Due on due Goal Depression scree ginette. Due on due Goal Breast exam. Due on due Goal FLUZONE QUAD MDV . Due on due Goal Colonoscopy. Due on due Goal Oncology (colore ctal) screening. Due on due Goal AST. Due on due Goal ECG. Due on due Goal Eye Exam. Due on due Goal Breast exam. Due on due Goal TSH. Due on due Goal Lipid Panel. Due on 024 due Goal Hemoglobin A1C. Due on due Goal Pneumococcal Vac cine. Due on due Goal Tdap Vaccine . Due on due Goal Influenza Vaccin e. Due on due Goal NEEDLE BAR MOLDER exam. Due on due Goal FLUZONE QUAD MDV . Due on due Goal ALT. Due on due Goal H&P. Due on due Goal DEXA Scan. Due on 9 due Goal TD Vaccine. Due on 19 due Goal Depression scree ginette. Due on due Goal Zoster vaccine. Due on due Goal Cognitive assess ment. Due on due Goal Tdap Vaccine . Due on due Goal TD Vaccine. Due on 19 due Goal Pneumococcal Vac cine. Due on due Goal Colonoscopy. Due on 019 due Goal Zoster vaccine. Due on due Goal Breast exam. Due on 019 due Goal FLUZONE QUAD MDV . Due on due Goal Depression scree ginette. Due on due Goal AST. Due on due Goal Influenza Vaccin e. Due on due Goal Eye Exam. Due on due Goal Hemoglobin A1C. Due on due Goal H&P. Due on due Goal Lipid Panel. Due on due Goal DEXA Scan. Due on 9 due Goal Oncology (colore ctal) screening. Due on due Goal TSH. Due on due Goal NEEDLE BAR MOLDER exam. Due on due Goal ECG. Due on due Goal Cognitive assess ment. Due on due Goal ALT. Due on due Goal Pneumococcal Vac cine. Due on due Goal AST. Due on due Goal H&P. Due on due Goal Eye Exam. Due on due Goal Hemoglobin A1C. Due on due Goal Influenza Vaccin e. Due on due Goal FLUZONE QUAD MDV 2972-8739. Due on due Goal Tdap Vaccine . Due on due Goal Oncology (colore ctal) screening. Due on due Goal DEXA Scan. Due on 9 due Goal Breast exam. Due on due Goal NEEDLE BAR MOLDER exam. Due on due Goal Lipid Panel. Due on due Goal Cognitive assess ment. Due on due Goal Depression scree ginette. Due on due Goal TSH. Due on due Goal ALT. Due on due Goal Colonoscopy. Due on due Goal ECG. Due on due Goal Zoster vaccine. Due on due Goal TD Vaccine. Due on due Goal TD Vaccine. Due on due Goal H&P. Due on due Goal TSH. Due on due Goal Depression scree ginette. Due on due Goal Oncology (colore ctal) screening. Due on due Goal Breast exam. Due on due Goal NEEDLE BAR MOLDER exam. Due on due Goal Tdap Vaccine . Due on due Goal Pneumococcal Vac cine. Due on due Goal DEXA Scan. Due on 9 due Goal Influenza Vaccin e. Due on due Goal Hemoglobin A1C. Due on due Goal FLUZONE QUAD MDV . Due on due Goal Lipid Panel. Due on due Goal ALT. Due on due Goal Cognitive assess ment. Due on due Goal ECG. Due on due Goal Zoster vaccine. Due on due Goal Eye Exam. Due on due Goal Colonoscopy. Due on due Goal AST. Due on due Goal Breast exam. Due on due Goal Hemoglobin A1C. Due on due Goal ECG. Due on due Goal H&P. Due on due Goal AST. Due on due Goal Zoster vaccine. Due on due Goal NEEDLE BAR MOLDER exam. Due on due Goal Lipid Panel. Due on 024 due Goal Tdap Vaccine . Due on due Goal ALT. Due on due Goal Eye Exam. Due on due Goal DEXA Scan. Due on 9 due Goal TD Vaccine. Due on 19 due Goal FLUZONE QUAD MDV . Due on due Goal Influenza Vaccin e. Due on due Goal Depression scree ginette. Due on due Goal Colonoscopy. Due on 019 due Goal Pneumococcal Vac cine. Due on due Goal Cognitive assess ment. Due on due Goal Oncology (colore ctal) screening. Due on due Goal TSH. Due on due Goal H&P. Due on due Goal DEXA Scan. Due on 8 due Goal Depression scree ginette. Due on due Goal ECG. Due on due Goal Breast exam. Due on 018 due Goal Pneumococcal Vac cine. Due on due Goal AST. Due on due Goal Eye Exam. Due on due Goal Cognitive assess ment. Due on due Goal TSH. Due on due Goal Hemoglobin A1C. Due on due Goal Lipid Panel. Due on 023 due Goal Zoster vaccine. Due on due Goal NEEDLE BAR MOLDER exam. Due on due Goal Influenza Vaccin e. Due on due Goal ALT. Due on due Goal Tdap Vaccine . Due on due Goal Colonoscopy. Due on 018 due Goal TD Vaccine. Due on 18 due Goal Colonoscopy. Due on 018 due Goal Depression scree ginette. Due on due Goal TSH. Due on due Goal NEEDLE BAR MOLDER exam. Due on due Goal Breast exam. Due on 018 due Goal Pneumococcal Vac cine. Due on due Goal TD Vaccine. Due on 18 due Goal ECG. Due on due Goal Eye Exam. Due on due Goal ALT. Due on due Goal DEXA Scan. Due on 8 due Goal Influenza Vaccin e. Due on due Goal Lipid Panel. Due on 023 due Goal Cognitive assess ment. Due on due Goal H&P. Due on due Goal AST. Due on due Goal Hemoglobin A1C. Due on due Goal Zoster vaccine. Due on due Goal Tdap Vaccine . Due on due Goal Eye Exam. Due on due Goal Breast exam. Due on 017 due Goal Tdap Vaccine . Due on due Goal ALT. Due on due Goal DEXA Scan. Due on due Goal Zoster vaccine. Due on due Goal AST. Due on due Goal Influenza Vaccin e. Due on due Goal NEEDLE BAR MOLDER exam. Due on due Goal TSH. Due on due Goal Cognitive assess ment. Due on due Goal Pneumococcal Vac cine. Due on due Goal ECG. Due on due Goal AST. Due on due Goal Eye Exam. Due on due Goal Influenza Vaccin e. Due on due Goal ALT. Due on due Goal Breast exam. Due on due Goal TSH. Due on due Goal Pneumococcal Vac cine. Due on due Goal Cognitive assess ment. Due on due Goal ECG. Due on due Goal DEXA Scan. Due on due Goal NEEDLE BAR MOLDER exam. Due on due Goal Zoster vaccine. Due on due Goal Tdap Vaccine . Due on due Goal Pneumococcal Vac cine. Due on due Goal ALT. Due on due Goal Breast exam. Due on due Goal Influenza Vaccin e. Due on due Goal NEEDLE BAR MOLDER exam. Due on due Goal Zoster vaccine. Due on due Goal Eye Exam. Due on due Goal ECG. Due on due Goal DEXA Scan. Due on due Goal AST. Due on due Goal TSH. Due on due Goal Cognitive assess ment. Due on due Goal Tdap Vaccine . Due on due Goal Cognitive assess ment. Due on due Goal NEEDLE BAR MOLDER exam. Due on due Goal ECG. Due on due Goal Eye Exam. Due on due Goal Zoster vaccine. Due on due Goal Pneumococcal Vac cine. Due on due Goal AST. Due on due Goal Breast exam. Due on 017 due Goal DEXA Scan. Due on due Goal Depression scree ginette. Due on due Goal ALT. Due on due Goal TSH. Due on due Goal Tdap Vaccine . Due on due Goal Influenza Vaccin e. Due on due Goal DEXA Scan. Due on due Goal Pneumococcal Vac cine. Due on due Goal Depression scree ginette. Due on due Goal NEEDLE BAR MOLDER exam. Due on due Goal Breast exam. Due on 017 due Goal Tdap Vaccine . Due on due Goal Eye Exam. Due on due Goal TSH. Due on due Goal Influenza Vaccin e. Due on due Goal ECG. Due on due Goal Cognitive assess ment. Due on due Goal AST. Due on due Goal Zoster vaccine. Due on due Goal ALT. Due on due Goal Cognitive assess ment. Due on due Goal Depression scree ginette. Due on due Goal ALT. Due on due Goal TSH. Due on due Goal Zoster vaccine. Due on due Goal Influenza Vaccin e. Due on due Goal Pneumococcal Vac cine. Due on due Goal DEXA Scan. Due on due Goal Eye Exam. Due on due Goal NEEDLE BAR MOLDER exam. Due on due Goal Tdap Vaccine . Due on due Goal AST. Due on due Goal DEXA Scan. Due on due Goal Tdap Vaccine . Due on due Goal Cognitive assess ment. Due on due Goal Zoster vaccine. Due on due Goal TSH. Due on due Goal ALT. Due on due Goal AST. Due on due Goal Pneumococcal Vac cine. Due on due Goal Eye Exam. Due on due Goal Depression scree ginette. Due on due Goal NEEDLE BAR MOLDER exam. Due on due Goal NEEDLE BAR MOLDER exam. Due on due Goal Tdap Vaccine . Due on due Goal TSH. Due on due Goal Zoster vaccine. Due on due Goal ALT. Due on due Goal Eye Exam. Due on due Goal Cognitive assess ment. Due on due Goal Depression scree ginette. Due on due Goal Mammogram. Due on 7 due Goal Pneumococcal Vac cine. Due on due Goal AST. Due on due Goal DEXA Scan. Due on due Goal Depression scree ginette. Due on due Goal NEEDLE BAR MOLDER exam. Due on due Goal ALT. Due on due Goal Zoster vaccine. Due on due Goal Pneumococcal Vac cine. Due on due Goal Cognitive assess ment. Due on due Goal Eye Exam. Due on due Goal DEXA Scan. Due on 5 due Goal Tdap Vaccine . Due on due Goal TSH. Due on due Goal AST. Due on due Goal Cognitive assess ment. Due on due Goal ECG. Due on due Goal Breast exam. Due on 017 due Goal Tdap Vaccine . Due on due Goal Depression scree ginette. Due on due Goal Eye Exam. Due on due Goal NEEDLE BAR MOLDER exam. Due on due Goal DEXA Scan. Due on due Goal Pneumococcal Vac cine. Due on due Goal TSH. Due on due Goal Zoster vaccine. Due on due Goal ECG. Due on due Goal Zoster vaccine. Due on due Goal Depression scree ginette. Due on due Goal Influenza Vaccin e. Due on due Goal NEEDLE BAR MOLDER exam. Due on due Goal Tdap Vaccine . Due on due Goal Pneumococcal Vac cine. Due on due Goal DEXA Scan. Due on due Goal Cognitive assess ment. Due on due Goal TSH. Due on due Goal Zoster vaccine. Due on due Goal TSH. Due on due Goal Tdap Vaccine . Due on due Goal Pneumococcal Vac cine. Due on due Goal NEEDLE BAR MOLDER exam. Due on due Goal Depression scree ginette. Due on due Goal DEXA Scan. Due on due Goal ECG. Due on due Goal Cognitive assess ment. Due on due Goal ECG. Due on due Goal Depression scree ginette. Due on due Goal Cognitive assess ment. Due on due Goal Tdap Vaccine . Due on due Goal Pneumococcal Vac cine. Due on due Goal NEEDLE BAR MOLDER exam. Due on due Goal DEXA Scan. Due on due Goal Zoster vaccine. Due on due Goal TSH. Due on due Goal Pneumococcal Vac cine. Due on due Goal DEXA Scan. Due on due Goal NEEDLE BAR MOLDER exam. Due on due Goal ECG. Due on due Goal Tdap Vaccine . Due on due Goal Depression scree ginette. Due on due Goal TSH. Due on due Goal Zoster vaccine. Due on due Goal Cognitive assess ment. Due on due Goal ECG. Due on due Goal TSH. Due on due Goal Zoster vaccine. Due on due Goal Tdap Vaccine . Due on due Goal Depression scree ginette. Due on due Goal Pneumococcal Vac cine. Due on due Goal Cognitive assess ment. Due on due Goal Tdap Vaccine . Due on due Goal Zoster vaccine. Due on due Goal Influenza Vaccin e. Due on due Goal ECG. Due on due Goal Depression scree ginette. Due on due Goal Pneumococcal Vac cine. Due on due Goal Cognitive assess ment. Due on due Goal Eye Exam. Due on due Goal ECG. Due on due Goal Pneumococcal Vac cine. Due on due Goal Zoster vaccine. Due on due Goal Tdap Vaccine . Due on due Goal Depression scree ginette. Due on due Goal Mammogram. Due on 6 due Goal ALT. Due on due Goal AST. Due on due Goal Influenza Vaccin e. Due on due Goal ECG. Due on due Goal Pneumococcal Vac cine. Due on due Goal Breast exam. Due on 016 due Goal Depression scree ginette. Due on due Goal Hemoglobin A1C. Due on due Goal Influenza Vaccin e. Due on due Goal Zoster vaccine. Due on due Goal Tdap Vaccine . Due on due Goal Eye Exam. Due on due Goal Cognitive assess ment. Due on due Goal Tdap Vaccine . Due on due Goal Cognitive assess ment. Due on due Goal ECG. Due on due Goal Hemoglobin A1C. Due on due Goal Eye Exam. Due on due Goal Depression scree ginette. Due on due Goal Zoster vaccine. Due on due Goal Influenza Vaccin e. Due on due Goal FLUZONE MDV 3yrs >. Due on due Goal FLUVIRIN MDV 3yr s>. Due on due Goal FLULAVAL. Due on due Goal FLUMIST. Due on due Goal FLUVIRIN PRES FR EE 3yrs>. Due on due Goal Pneumococcal Vac cine. Due on due Goal Breast exam. Due on 007 due Goal FLUZONE HIGH DOS E. Due on due Goal Zoster vaccine. Due on due Goal Depression scree ginette. Due on due Goal Cognitive assess ment. Due on due Goal Breast exam. Due on 007 due Goal Tdap Vaccine . Due on due Goal Pneumococcal Vac cine. Due on due Goal ECG. Due on due Goal Influenza Vaccin e. Due on due Goal Hemoglobin A1C. Due on due Goal Influenza Vaccin e. Due on due Goal Depression scree ginette. Due on due Goal Hemoglobin A1C. Due on due Goal Pneumococcal Vac cine. Due on due Goal ECG. Due on due Goal Zoster vaccine. Due on due Goal Cognitive assess ment. Due on due Goal Tdap Vaccine . Due on due Goal Breast exam. Due on due Goal ECG. Due on due Goal Depression scree ginette. Due on due Goal Cognitive assess ment. Due on due Goal Breast exam. Due on 007 due Goal Influenza Vaccin e. Due on due Goal Pneumococcal Vac cine. Due on due Goal Hemoglobin A1C. Due on due Goal Tdap Vaccine . Due on due Goal Zoster vaccine. Due on due Goal H&P. Due on due Goal Pneumococcal Vac cine. Due on due Goal Breast exam. Due on due Goal Hemoglobin A1C. Due on due Goal ECG. Due on due Goal NEEDLE BAR MOLDER exam. Due on due Goal Influenza Vaccin e. Due on due Referral [place] [facility] [place] [address], [phone] Ordered: Referrals: [place]iology. [facility] [place] [facility] [place] Evaluate and treat Appointment date/timeframe: ROUTINE ordered Referral Referred To: [facility] [address] [facility] [place], [place], [phone] Ordered: Referrals: Orthopedic Surgery. [facility]. Evaluate and treat Appointment date/timeframe: ROUTINE ordered Referral Referred To: [facility] [address] [facility] [place], [place], [id number] [phone] Ordered: Referrals: Dermatology. [facility]. Location: Dr. Fernandez. Evaluate and treat Appointment date/timeframe: ROUTINE ordered Referral Referred To: [facility] [address] [place], [place], [phone] Ordered: Referrals: Cardiology. [facility]. Evaluate and treat Appointment date/timeframe: ROUTINE ordered Referral Ordered: Mammography Diagnostic Bilateral ordered Referral Referred To: [facility] [address] [place], [place], [phone] Ordered: Referrals: Radiology. [facility]. Diagnostic testing Appointment date/timeframe: ROUTINE ordered Referral Referred To: [facility] [address] [place], [place], [phone] Ordered: Referrals: Pain Medicine. [facility]. 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 Evaluate and treat Appointment date/timeframe: EXPEDITE ordered Referral Ordered: Physical Therapy (related to Sciatic nerve pain) ordered Referral Ordered: Referrals: Physical Therapy. Follow-up and Treat Appointment date/timeframe: ROUTINE ordered Referral Ordered: Orthopedic Surgery (related to Pain in joint, pelvic region and thigh) ordered Referral Ordered: Referrals: Orthopedic Surgery. Consult Appointment date/timeframe: ROUTINE ordered Referral Ordered: see attached notes (related to Screening for osteoporosis) ordered Referral Ordered: see attached notes (related to Visit for screening mammogram) ordered Referral Ordered: last mammo / (related to Visit for screening mammogram) ordered Referral Ordered: Physical Therapy. Appointment date/timeframe: ROUTINE ordered Referral Ordered: Rt shoulder MRI (related to JOINT PAIN-SHLDER) ordered Referral Ordered: Radiology. Appointment date/timeframe: ROUTINE ordered Patient Education Fatigue: After Your Vis it completed Patient Education Sciatica: Exercises com pleted Patient Education Nipple Dischar ge: After Your Visit completed Patient Education Learning About Vitamin D completed Patient Education Hyperlipidemia: After Y our Visit completed Future Order: Radiology Order MA Digital Screening Mammo Bilat (G0202), Sent on: Sent Future Order: Radiology Order MA Digital Screening Mammo Bilat (G0202), Sent on: Sent Future Order: Lab Order Basic Me tabolic Panel (8) ([id number]), Sent on: Sent Future Order: Lab Order Hepatic Function Panel (7) ([id number]), Sent on: Sent Future Order: Lab Order Lipid Pa olegario ([id number]), Sent on: Sent Future Order: Lab Order CBC ([id number]), Sent on: Sent Future Order: Lab Order Comprehe nsive Metabolic (1369), Sent on: Sent Future Order: Lab Order Hemoglob in A1C (1141), Sent on: Sent Future Order: Lab Order Lipid Pr ofile (1413), Sent on: Sent Future Order: Lab Order Thyroxin e (Free T4) (1122), Sent on: Sent Future Order: Lab Order TSH, 3rd Generation (1030), Sent on: Sent Future Order: Lab Order Vitamin D, 25-Hydroxy (1341), Sent on: Sent History Of Present Illness Encounter Date Complaint History Of Prese nt Illness Follow Up of Hypertension Risk f actors include age over age 60. Additional information: pt states BP at home this AM was 130/67 [facility] Follow-Up for people with chronicconditions Medication questions pt does not know why her Losartan potassium was increased to 50mg pt states she has always taken Losartan potassium 25mg. Comments: carson davila says no c/o says recently got refill losatran 50 mg q day but on 25mg needs refill --- living for [place] in 2 weeks Senior Wellness Visit 84 y/o carleen rojo presents today for SWV. vnietoccma Comments: wants to stop the bystolic due to leg swelling has not taking bystolic in 2 days and bp normal says feet swelling is better. was worst yoandy on the right been elevated legs and soaking them in Epsom salt cva Comments: here w ith Grad daughter amanda Comments: seen t he neurologist --- and Home health -- is going to send out a Speech therapist Medication review 83 yr. old carleen rojo presents accompanied by granddaughter-Vy. Patient here to review of Bystolic- does not want to continue medication due to lower extremity swelling. -Vanda IYER Lower extremity swelling Comments: carson davila reports has had 2 strokes since last visit ---- Here with Grand daughter yV- who now living with here - says not taking eliquis too expensive 300 dollars so on aspirin only Follow Up of Hospital discharge Comments: [facility] cardiology Dr. Parker 08/03 at 9:30 atill feels drowsy and tired Follow Up of Hypertension Risk f actors include age over age 60 and 68 Pulse:. Additional information: Pt brought home BP monitor. Readin/68 Pulse: 63BPM. -Vanda IYER Follow Up of Hypertension Comments: carson davila says been taking her meds not helping has not make appt for instrument adjuster ---- says unable to get there streets too busy--no Family around to help her says needs to sell her place moving to [place] with daughter --- will need find home there Follow Up of hypertension Risk f actors include age over age 60. Additional information: 83 y/o female present [facility] Comments: carson davila says taking her meds not helping --- could not get out to heart hospital she was sick too much traffic ( the instrument adjuster) side effects sleepy and tired all she does is sleep on the medicine sSays cant keep feeling this way lives alone has to be able to do for herself Refill request Metoprolol Tartr ate 50mg BID. -Vanda IYER Senior Wellness Exam 83 yr. old female presents for annual Senior Wellness Exam. -Vanda IYER Follow Up of Hypertension Comments: has ap pt with instrument adjuster Wednesday-- blood pressure machine has been compared with ours same . out of metoprolol did not take any today took losartan this am Comments: carson davila says she is taking meds says side effects or tired and sleepy -- and been checking her blood pressure at home today took prior to coming 194/82 Follow Up of Hypertension Risk f actors include age over age 60. Follow Up of ER visit Comments: says w ent to Er for dizziness 04/10/23 bp 225/114--- says been taking metoprolol started taking on wednesday not helping bp still high and feels tired and dizzy ---- but not having vertigo symptoms is being compliant with meds seen in er again yesterday elevated blood pressure Blood pressure Today's readin/79. States quit taking BP meds a long time ago. -Vanda IYER Request for Kenalog injection Blood pressure (comments) blood pressure -- not worried about it has not been checking at home c/o pain leg and back Request for Kenalog injection (comments) c/o of constant runny nose , + squeezing, has cough form nasal drip all year put has more allergies symptoms in spring Mammogram order (comments) no sy mptoms Mammogram order Self exam at [facility]. No lumps or discharge. -Vanda [facility] Prescription refill request 81 y r. old female presents with request for refill on Gabapentin. -Vanda [facility] pain (comments) says was doing y gisel work on the 16 of january says now using the walker has not been out of house since happen --- wants to go back to pain management ---- been taking advil 3 in morning to help wrist still has pain heating pad hurt the most. blood pressure blood pressure (comments) not ta rico her meds pain 81 y/o female pr esent today complaining of pain in sciatica x 1 month [facility] results 80 y/o female pr esent today for US results [facility] pain pt complaining o f left wrist pain x couple months states Tylenol Follow Up of hypertension Risk f actors include age over age 60. Additional information: 80 y/o female present today for f/u on bp states she has stopped taken her medication due to blood pressure readings being the same as when she is not taking it [facility] Follow Up of Hyperte nsion (comments) patient doing well no c/o today -- brought in log Follow Up of Hypertension Senior Wellness Exam 80 yr. old female presents for annual Senior Wellness Exam. Declined EKG. -Vanda [facility] Follow Up of Hypertension Senior Wellness Exam (comments) no c/o today Follow Up of Hyperte nsion (comments) patient says taking blood pressure meds takes q am senior wellness visit 80 y/o fem darrel present today for senior wellness visit, pt refused EKG [facility] hedis measures controlling high bp Follow Up of hypertension Follow Up of hyperte nsion (comments) patient says she thinks got dry cough from the medicine but had cough before tolerating ok for now hypertension (comments) here for f/u bp better at home did not bring log stating 139-145/ cant remember no side effects hypertension Risk factors inc lude age over age 60. Additional information: Here for 2 week f/u. Declines flu vaccine. SHIREEN Flores Follow Up of Hypertension Follow Up of Opal ledesma (comments) patient says bp 147/75 says had little dizziness only with bp meds so went sat down but has not notice anything else taking bp morning in morning Elevated blood pressure 80 yr. o ld female presents with c/o elevated blood pressure. Was seen at Dentist office last week and BP was over 200. Today 199/93. Would like to restart blood pressure medication, but wants something that will not make her loose her hair. -Vanda IYER meds meds (comments) patient says sto p taking all meds don't feel she needs them does check her blood pressure been high at home not taking meds makes hair fall out don't want to try another medicine -- just don't want to take pillsdenies chest pain or palpitations Mammogram order nauseated Follow Up of opal ledesma (comments) leg feels better nauseated (comments) c/o stomach pain feels week occ nauseated -- no fever. last ate this am cereal and cup of tea. had been taking Advil for pain took one yesterday am due to back pain denies heart burn ate pasta and garlic toast last night just feel weak eats 3 meals a day and snacks in between Follow Up of hypertension Risk f actors include age over age 60. Additional information: 79 y/o female present today states feeling better after epidural iselimccma Follow Up of Elevate d blood pressure Follow Up of Elevate d blood pressure (comments) patient no c/o today is not taking her blood pressure meds x 3 weeks makes feel sick --dizzy and nausea, and headache--- and was 157/77 at home had to stay in bed. Concerned about loosing her hair from bp meds is having epidural last week thinks worried about her pain will try restart meds post epidural BP check 79 y/o female pr esent today for BP check, tolerated well. I advised of bp 187/62, will increase carvedilol from 3.125mg to 6.25mg. Pt verbally advised of this states will probably not take it due to dizziness and hair loss, pt was advised to f/u for appt in 2 weeks, verbally understood. [facility] paperwork pt requesting WILFREDO goff paperwork to be filled out [facility] referral request (comments) pilo ent now having pain left side buttock down to legs - has had sciatic 5 yrs hurts to tie shoe hurts to sit down and get up. referral request 79 y/o female p resent today requesting referral to pain management for sciatica pain [facility] referral request (comments) has a lesion on upper back for years would like removed wants to see Dr. fernandez referral request 79 y/o female p resent today requesting derm referral for skin lesion on back [facility] mammo order (comments) needs ord er for mammogram ma note pt states she sa w cardio is scheduled for echo and holter monitor mammo order 78 y/o female pr esent today requesting mammo order [facility] Follow Up of A-fib (comments) sa ys felt heart going fast last night feel tired started taking meds on the november 06 says can have palpitation when doing housework feels normal but has also felt while lying down no chest pain Follow Up of A-fib 78 y/o female present today for 2 week f/u on A-Fib, pt states has an appt with cardiology december 13. [facility] allergies Additional infor charles: pt complaining of bad allergies would like allergy shot. senior wellness visit 78 y/o fem darrel present today for senior wellness visit. [facility] (comments) c/o watery itchy eyes and nose Mammogram Pt states she is here to get a breast exam and an order for her annual Mammogram. Nparmaaron [facility] Allergies The patient pres ents with itchy eyes, sneezing and watery eyes. Additional information: Pateint requesting injection for sx's relief. -Vanda TALLEY. Follow Up of HTN/Thyroid Follow Up of HTN/Thy roid (comments) here to f/u on parathyroid Allergies (comments) c/o of sque ezing runny nose - lot of trees in yard . does own gardening. Sciatic pain Allergies Additional infor mation: Pateint requesting an injection to improve sx's . -Vanda TALLEY. Senior Wellness Exam 77 yr. old female presents for annual Senior Wellness exam. -Vanda TALLEY Sciatic pain (comments) right le g pain got worst. - morning cant straight up back helps when takes advil about 11 am - stop pain management afraid of shots - and tried accupunction. follow up pt is here for 1 week recheck on bp/ [facility] follow up (comments) patient fee ls better says cough still there - and its not everyday back pain back pain (comments) says leg do nt hurt unless she over dues it and she does straighting excercises for back- never to gabapentin and did not ask for refill tired/weak pt states that s he has been feeling really lethargic for the last couple days and wants to get some lab tests done or something to find out whats wrong/ [facility] tired/weak (comments) patient sa ys feels real tired and weak gettin use to back pain . has been eating more help with fatiguedenies depression has a cough comes out of no where non- productive no shortness of breath for about 3 weeks- Says dad and sister with heart disease. renato bp-- this morning at home 135/ mammagram (comments) patient say s declined to do mri breast says has not had any breast discharge had x once only last yr small spot - says she has been schedule for bilateral breast ultrsound arthritis questions (comments) s ay someone showed her from excercises for back wants to know if they will make her artheritis worst. - patient did not take gabapentin too many side effects listed mammagram arthritis questions pt has quest ions about arthritis/ [facility] pt here for foll ow up and lab results/ [facility] allergy shot (comments) usually have ruunny nose etc november juy allergy meds jeovany dc would like to try allergy shot mammogram (comments) no breast c /o sciatic nerve pain (comments) nelson raza back pain flare up in 03/2017 had had several episodes of shot not helping much. mainy have back pain if has to wlk too much like shopping dont tolerate mayny meds can take tylenol usually takes for headache sciatic nerve pain pt states mi t its starting to hurt her when she walks/ [facility] allergy shot pt wonders if caroline cooper could possibly get an allergy shot due to runny nose, watery eyes, sneezing/ [facility] mammogram pt states that s he would like to get a mammo ordered/ [facility] senior well visit pt here for a senior well visit/ [facility] ER follow up (comments) patient says pain in right hip and leg. Patient says started with pain right side of back wednesday then progresses . hard to walk using waler. ER follow up 76 yr. old ynes cooper presents for ER follow up as was seen last wednesday03/07/2016 for back pain. Patients tates is her sciatic nerve. Would like referral to pain management for Epidural injections. Was given pain medication Rx at ER, but patient is scared to take it due to all side effects. -[facility] Mammogram results 76 yr. old fem darrel presents to discuss results on Mammogram performed on 02-26-2016. -[facility] Mammogram results (comments) pat inent here for results has letter. says breast still normal nipple stayed out. will do the ultrasound. Breast discharge Onset: 2 days a go. Location is right breast. Context: post menopausal. Associated symptoms include thick white discharge and occasonal burning sensation. Additional information: Family Hx of breast cancer. Senior Wellness Exam 75 yr. old female presents for Annual Senior Wellness Exam. Clinical guidelines Per clinical guidelines pateint due for TSH,NEEDLE BAR MOLDER,Dexa scan,Eye exam, Cognitive assessment,Depression screening,Pneumonia,Tdap vaccine, and Zoster.-[facility] Mammogram order Patient requesti ng order for Mammogram. Has been set up for Breast exam today. -[facility] Senior Wellness Exam (comments) no c/o today doing well fatigue This is an initi al visit. The symptoms began 4 days ago and began suddenly. The patient presents with abdominal pain, fatigue and muscle weakness. The fatigue is associated with change in sleep cycle and generalized weakness. Additional information: [facility]. rash (comments) rash x 2 days un able to sleep due to itching itching all over rash The patient pres ents for rash. This episode began 1 day ago. The symptom(s) are described as moderate. Affected area(s) include back and abdomen. The patient describes the affected area(s) as itchy and red. Associated symptoms include erythema (skin) and pruritus. Additional information: Patient states she thinks the bactrim caused the rash but states she only has 2 days left and has been taking it for 1wk. [facility]. Urgent care f/u 75 yr. old femmihaela cooper presents for urgent care f/u. [place] [facility] [place] pain in the left ear. States has been using abx ointment given as well as warm compresses recomended. States still has pain. Urgent care f/u (comments) patie nt been putting warm compresses on ear and using antibiotic packets. - still hurts worst at night. right ear pain x week. has a lump in right ear been there for months can touch and move it back and forth dont hurt . Ear pain Onset: 3 days ag o. Severity level is mild. The patient states the earache is in the left ear. Relieving factors include warm compress. There are no associated symptoms. Additional information: [employer]. Follow Up of Urgent care 75 yr. old female presents for urgent care f/u. Was [place] [facility] [place] for weakness and was told had low sodium levels. Follow Up of Urgent care (comments) took blood blood pressure in urgent care took blood --- told sodium too low and drinking too much water. says only took blood one time. says now monitoring her water intadk keping to 8 glasses a day (4 bottles). thinks bp up worried about brother . took bp on 113/84. Feels much better now. generalized weakness generalized weakness (comments) pt states she has increased stress due to termal illness of a family member - unsure it that may be causing her symptoms denies any chronic conditions besides low back pain Senior Well Visit (comments) pat ient no c/o takes ocutavite for eyes and , flax seed capsule, occ advil Senior Well Visit Patient is her e for her Senior well visit and had her labs done on 11/27/14. Mammogram done on 11/01/14. [facility] Mammogram order 74 yr. old femal e presents with request for Routine mammogram. SPatient set up for breast exam. sciatica Mammogram order (comments) does self breeast exam no concerns sciatica (comments) says has had 2 epidurals still with pain walks on leg. skin lesion skin lesion (comments) i notice lesiion on face say been there abou 3 yrs no change in size , color or shape. Follow Up of Ashish. leg pain 74 yr . old female presents for f/u on ashish. leg pain.Per pt states currently attending Physical therapy, but has not improved or helped much w/ sx's. Also states has been already seen by Dr. Narayan (Orthopedic), but continues to experience same sx's.Notes have been requested from Ortho office. Follow Up of Ashish. le g pain (comments) patient c/o pain to bot legs worst on left. says rommel she stands up leg goes numb aind pinss and needle sensation on left. says she has 2 physical therapy sessions left but they have not helped. says also gets an achypain knee down to foot on left. Says most meds make her sick with or without food referral Pt requesting re rileymihaela for Physical therapy. Pt states she would like to go to [facility]. Establish care 74 yr. old ynes cooper presents to establish care with . Previous PCP- Dr. Karri Larson. referral (comments) patient with sciatica seen by ortho order mri told pinched nerve then referred to neurosurgeon. No surgery needed at this time . so would like to go to physical therapystill with pain going down her left leg and pain when walking Urgent care f/u 74 yr. old ynes cooper presents for urgent care f/u due to leg pain. Urgent care f/u (comments) paddy nt started with leg pain left hip to ankle x 9 days. send in urgent care dx with sciatica given shot and pain medspain when stands up only. describes the pain as sharp pain shoots from her outer hip down to her calve. No numbness or tingling. pain at night when trys to sleep.patient reports very sensitive to medications. She is taking advil otc 2 qid . does not help the pain much. but does not tolerate the ultram or robaxin make her sick and she believes the rx ibuprofen 600mg is too strong. She als dont feel like she needs to take pain meds because she only gets pain when tries to stand Back pain Onset: 2 days ag o. The problem is stable. It occurs persistently. Location of pain is lower back. Pain is radiated to the left thigh.The patient describes the pain as shooting. Symptoms are aggravated by changing positions.The patient denies relieving factors. Additional information: no dysuria, no frequency , no fever, no chills, no n/v. L leg pain lower back pain with radiation to the left leg x 2 days, no injury , no muscle weakness Senior Wellness Visit Pt with hy perlipidemia is here for her annual senior wellness visit.Last appt here was in January 2013.Labs done, results reviewed with patient. Lipid profile is worse, total = 251 mg/dl, LDL = 155 mg/dl. Managed by diet. Pt has always been afraid of side effects from taking statins.Rest of labs unremarkable.Pt is otherwise doing well and in her usual state of health and has no new complaints or concerns. Functional Status Date Functional Assessmen t No Information Instructions Date Instruction Additional Infor charles continue atorvastaluis alberto n , dx by L spine x ray control modifiable risk factors Related to Atherosclerosis of aorta continue monitoring Related to H yperparathyroidism continue aspirin 81 mg q day Rel ated to Paroxysmal atrial fibrillation wear protective clot lisy when doing task to protect arms and leg do to aging and aspirin Related to Senile purpura update problem list patient moving to [place] cbc, cmp today declined influenza vaccine Related to Encounter for general adult medical examination without abnormal findings continue amlodipine 5 mg q day and losartan 25mg q day Related to Essential hypertension patient stop lisa shaw thinks that meds continue low sodium diet elevate lower extremities as much as possible Related to Peripheral edema awaiting speech therapy Related to Aphasia S/P CVA patient stopped guerline duke continue aspirin Related to Paroxysmal atrial fibrillation continue current meds Related to Essential hypertension has appt to see neur ologist and speech therapist Related to Aphasia S/P CVA continue meclizine 25 mg tid prn Related to Dizziness continue atorvastatin 40 mg q da y Related to Hyperlipidemia, unspecified should be on losarta n which was increase during hospital stay 25--- to 50 mg q day bystoylic 10 mg q day ; amlodipine 5mg q day Related to Essential hypertension patient prescribed [place] wont take reports can't afford it so taking aspirin she needs to continue her Bystolic 10 mg q day keep cardiology appt Related to Paroxysmal atrial fibrillation continue current med s keep appt with instrument adjuster continue home blood pressure monitoring twice dayf/u 4 weeks Related to Essential hypertension needs to see cardiol ogist was referred in 04/2023 reports no transportation - check transport benefits - does have 6 rides add amlodipine 5 mg q day and continue bystolic 10 mg and losartan 25 mg f/u 2 weeks refer for case reviewer Related to Essential hypertension patient reports cant tolerate the side effects of med too tired do anything stop metoprolol change to bystolic 10 mg continue losartan 25 mg f/u 1 week nurse visit take meds with water only will be doing fasting labs as well Related to Essential hypertension dx by patient manage ment last noted 07/31/21 no treatment indicated at this time Related to Sacroiliitis, not elsewhere classified patient not taking h er blood thinner Related to Senile purpura need to do pth last vit d level wnl 2 yrs ago Related to Hyperparathyroidism refill metoprolol Related to Atr ial fibrillation, controlled dx by L spine x ray control modifiable risk factors Related to Atherosclerosis of aorta patient out of metop rolol --- refill to day bid continue losartan 25 mg q day keep appt with instrument adjuster Related to Essential hypertension update problem list Related to E tiffanieunter for general adult medical examination without abnormal findings continue current med s reports increase fatigue give her more time to adjust to medication handed referral to cardiology f/u 2 weeks Related to Essential hypertension continue metoprolol Related to A trial fibrillation, controlled add losartan 25 mg q day contineu metrorolol 50 mg bid ff/u 2 weeks and refer to cardiology Related to Essential hypertension PATIENT DECLINES MED ICAL MANAGEMENT Related to Essential hypertension Kenalog 40 mg im Related to Koby rgic rhinitis, unspecified has been eval by masha hager management awaiting ct results refill gabapentin 100 mg bid prn Related to Sciatica of right side refer to orthopedics eval and treat Related to De Quervain's disease (tenosynovitis) refer to pain manage ment decline mri cant tolerate ( mri l spine last done 2013 ct lumbar spine no contrast start gabapentin 100 mg bid f/u post ct Related to Left sided sciatica wont take medicine Related to Es sential hypertension renal ultrasound nor mal will follow Related to Stage 2 chronic kidney disease try voltaren gel bid thumb sicca splint otc declined ortho referral for now f/u 4 weeks Related to De Quervain's disease (tenosynovitis) patient advise to co kaiue breast cancer screening due to family history due in 03/2021 Related to FHx: breast cancer patient denies medi liang management encouraged to continue low cholesterol diet Related to Hyperlipidemia, unspecified patient stopped naz zepril renal ultrasound f/u results Related to Stage 2 chronic kidney disease patient brought in b p log patient stop taking her medication benazepril she is to continue home monitoring but does need to check at different times of day Related to Essential hypertension continue current med s low sodium diet continue log f/u 3 months labs Related to Essential hypertension wear protective clot lisy when doing task to protect arms and leg Related to Senile purpura dx by L spine x ray control modifiable risk factors Related to Atherosclerosis of aorta continue aspirin 81 mg patient stopped xarelto and want take beta harry Related to Paroxysmal atrial fibrillation continue monitoring Related to H yperparathyroidism increase benazepril 20 mg bid f/u 4 weeks Related to Essential hypertension declined statin cont inue current meds Related to Hyperlipidemia, unspecified reviewed labs updated problem li st Related to Encounter for general adult medical examination without abnormal findings wear protective clot lisy when doing task to protect arms and leg Related to Senile purpura control modifiable risk factors Related to Atherosclerosis of aorta continue symptomatic treatment R elated to Allergic rhinitis, unspecified continue current med s continue bp log Related to Essential hypertension updated problem list f/u 3 months fasting labs Related to Encounter for general adult medical examination without abnormal findings increase benazepril 20 mg q day keep log and bring to visit and f/u 4 weeks Related to Essential hypertension increase benazepril increase 1.5 tab q day and f/u in 2 weeks Related to Essential hypertension benazepril 10 mg q d ay informed most common side effects cough f/u 1 week Related to Essential hypertension want take medicines Related to N on compliance with medical treatment continue monitoring Related to S econdary hyperparathyroidism patient stopped xarelto Related to Paroxysmal atrial fibrillation refuse to take medicine Related to Essential hypertension Pepcid reflux diet cbc , cmp Rel ated to Epigastric abdominal pain wont take medicine as prescribed Related to Essential hypertension check cbc and cmp Related to Gen eralized weakness continue xarelto no nsaids no advil no aspirin Related to Atrial fibrillation, controlled not taking coreg dec line change in meds at this time want restart once receive epidural feel bp elevated due to pain . f/u 3 weeks Related to Essential hypertension continue xarelto Related to Paro xysmal atrial fibrillation f/u repeat bp Related to [place] reinaldo BP without diagnosis of hypertension conservative measure s declines meds form completed for DMTay goff refer to pain management Related to Sciatica of left side desires removal Related to Skin lesion of back continue current meds Related to Atrial fibrillation, controlled continue coreg and x aralto undergoing cardiology work up Related to Atrial fibrillation, controlled continue coreg and x alrelto keep cardiology appt for eval Related to Atrial fibrillation by electrocardiogram continue current management Rela reinaldo to Vitamin D deficiency, unspecified continue to monitor Related to H yperparathyroidism limit nephrotoxic me ds has stopped aleve and Advilcontrol modifiable risk factors Related to CKD (chronic kidney disease) stage 2, GFR 60-89 ml/min control modifiable risk factors Related to Atherosclerosis of aorta continue current management Rela reinaldo to Encntr for general adult medical exam w/o abnormal findings Kenalog 40 mg im bren ble today will call Related to Allergic rhinitis, unspecified warn patient may wor sen with addition of xalrelto Related to Senile purpura continue dietary man agement declines medical management Related to Hyperlipidemia, unspecified start coreg 3.125 mg bid and xalrelto 20 mg q day refer to cardiology f/u 2 weeks Related to Atrial fibrillation by electrocardiogram refer for mammogram Related to B reast cancer screening continue home bp monitoring Rela reinaldo to White coat syndrome with diagnosis of hypertension continue monitoring Related to C KD (chronic kidney disease) stage 2, GFR 60-89 ml/min kenalogg 40 mg im Related to All ergic rhinitis, unspecified will follow Related to Anthony alston hyperparathyroidism reviewed lab updated problem she et Related to Encntr for general adult medical exam w/o abnormal findings kenalogg 40 mg im Related to All ergic rhinitis, unspecified refer to pain meds f or consult and eval Related to Sciatica of right side decined medical managment again Related to Hyperlipidemia, unspecified stop advil repeat labs 3 months Related to CKD (chronic kidney disease) stage 2, GFR 60-89 ml/min controll modifiable risk factors . Related to Atherosclerosis of aorta repeat labs in 3 months Related to Hyperparathyroidism continue diet modification Relat ed to Hyperlipidemia, unspecified continue exercises d /c gabapentin list as not taking f/u prn Related to Osteoarthritis of spine with radiculopathy, lumbar region continue current man gment check pertussis Related to Allergic rhinitis, unspecified will follow Related to Depre ssion screening keep bp log bring to visits Rela reinalod to White coat syndrome with diagnosis of hypertension repeat labs - done in 11/2016 Rel ated to Fatigue, unspecified type order given for ultrsound. Relat ed to Inconclusive mammogram declined meds contin ue diet modification Related to Hyperlipidemia, unspecified continue conservativ e measure did not take gabapentin Related to Osteoarthritis of spine with radiculopathy, lumbar region controll modifiable risk factors Related to Atherosclerosis of aorta refer to mammagram f/u for resul ts Related to Breast cancer screening start taking tylenol xs 500 mg 1-2 up to tid as needed start gabapentin 100 mg 1 at bedtime discusseds side effects including sleepiness, constipation, problems uriating and swelling f/u 4 weeks Related to Osteoarthritis of spine with radiculopathy, lumbar region kenalogg 40 mg im Related to All ergic rhinitis, unspecified updated proble list labs ordered Related to Encntr for general adult medical exam w/o abnormal findings refer to pain management Related to Acute right-sided low back pain with right-sided sciatica cultrue taken dx lamar magram right breastf/u for results Related to Discharge from right nipple reviewed labsupdated problem lis t Related to Encntr for general adult medical exam w/o abnormal findings continue supplement Related to V itamin D deficiency, unspecified decline meds diet modification R elated to Hyperlipidemia, unspecified Patient to have bloo d work to see if any findings and if abnormal will call patient to be seen, patient UA dipstick within normal. Patient to go to UC if symptoms worsen or do not improve. Related to Fatigue add bactrim to allergy list Rela reinaldo to Adv eff medicinal NOS d/c bactrim solumedr ol 125 im bendaryl otc 25 mg q 6 hours prn warn sleepiness trramcinlone cram tid Related to Allergic reaction caused by a drug start bactrim ds bid x 10 . Rela reinaldo to Serous otitis media apply warm compresse s at 15 minutes intervals; patient to have bacitracin to apply twice a day for 7 days to the affected area Related to Pustule repeat for resolotion f/u prn Re lated to Hyponatremia start vit d 3 supple ment at 2000 iu/dayf/u prn Related to Vitamin D insufficiency reviewed labs Related to ROUTI SUSIE MEDICAL EXAM continue curent cindi ement and flax seed Related to HYPERLIPIDEMIA willl follow Related to Lizzette najera blood pressure reading without diagnosis refer for mammagram Related to S creening breast examination continue pain management Related to Lumbosacral radiculopathy due to degenerative joint disease of spine refer to pain management Related to Lumbosacral radiculopathy due to degenerative joint disease of spine refer to physical th lise for pain controll modalities Related to Sciatic nerve pain refer to orthopedics s for eval and txcontinue advil may heof with inflamation. Related to Pain in joint, pelvic region and thigh 0 Related to HYPER LIPIDEMIA Review medication side effects R elated to HYPERLIPIDEMIA Review medications Related to HY PERLIPIDEMIA Walking program recommended Rela reinaldo to HYPERLIPIDEMIA Aerobic exercises recommended Re lated to HYPERLIPIDEMIA Call if symptoms persist Related to HYPERLIPIDEMIA Walking program recommended Rela reinaldo to GI BLEED, GASTROINTESTINAL HEMORRHAGE UNSPECIFIED Review medications Related to GI BLEED, GASTROINTESTINAL HEMORRHAGE UNSPECIFIED Review medication side effects R elated to GI BLEED, GASTROINTESTINAL HEMORRHAGE UNSPECIFIED Order labs/studies Related to GI BLEED, GASTROINTESTINAL HEMORRHAGE UNSPECIFIED Call if symptoms persist Related to GI BLEED, GASTROINTESTINAL HEMORRHAGE UNSPECIFIED Order consults Related to GI BL EED, GASTROINTESTINAL HEMORRHAGE UNSPECIFIED Renew medications Related to GI BLEED, GASTROINTESTINAL HEMORRHAGE UNSPECIFIED Assessments Type Assessment Date No Information Patient Care Teams Name Effective Dates (start - stop) Status Members No Information
--- NOTE | ~2025-06-24 | CT_ITS ---
CLINICAL HISTORY: dizziness, fall CT head without contrast Comparison: 05/07/2025 Findings: BRAIN: No acute infarct, hemorrhage, or mass effect. Left parietal/temporal lobe encephalomalacia likely represent prior infarct. Scattered periventricular/deep white matter hypodensities, nonspecific, however may represent chronic microvascular ischemic disease. CSF SPACES: No hydrocephalus or effacement of basal cisterns. SKULL: No calvarial fracture. SINUSES: No significant mucosal thickening or effusion on limited views. ORBITS: Limited views are unremarkable. OTHER: Negative. IMPRESSION: 1. No acute intracranial findings. This document has been electronically signed by: Ana Moran MD on 06/24/2025 20:45:23
[2025-06-24 19:02] VITALS: BP 130/66; O2SAT 98
--- NOTE | 2025-06-24 19:07 | ED.GENADULT ---
HPI - General Adult General Chief complaint: Dizziness Stated complaint: took more medication than prescribed, dizzy Time Seen by Provider: 06/24/25 19:07 History of Present Illness ED Provider: Kendra LUGO narrative: The patient is an 85-year-old woman with a history of atrial fibrillation who was on anticoagulation. The patient had a cardioversion as an outpatient [address] Vega. She was found to have atrial fibrillation this summer in the emergency room and was started on beta-blockers and anticoagulation. She then had the outpatient cardioversion 9 days ago. The patient has a more remote history of a stroke that occurred in July of 2023. At that time she was living in [place]. Apparently the stroke primarily affected her speech and she has had some persistent mild speech difficulties. Today the patient was at the laundry room at her assisted living facility. She says that she had walked to the laundry room with her walker. She had finished putting clothes in the rotary drier. She closed the rotary drier door and turned to her walker but she lost her balance and fell down. She does not think that she sustained any injury. However she was found on the floor and an ambulance was called and she was brought here. The patient complains of feeling chronically dizzy. Meclizine without relief. The family seems to think that her dizziness is associated with the initiation of amiodarone therapy around the time of her cardioversion. Related Data Home Medications ?Medication ?Instructions ?Recorded ?Confirmed meclizine 25 mg tablet 25 mg PO DAILY PRN Dizziness 02/16/25 05/21/25 Previous Rx's ?Medication ?Instructions ?Recorded amlodipine 5 mg tablet 5 mg PO DAILY #90 tabs 02/16/25 atorvastatin 40 mg tablet 40 mg PO DAILY #90 tabs 02/16/25 Held on 04/06/25. Instructions: Doctor's Order losartan 25 mg tablet 25 mg PO DAILY #90 tabs 02/16/25 apixaban 2.5 mg tablet (Eliquis) 2.5 mg PO BID #180 tabs 05/25/25 amiodarone 200 mg tablet 200 mg PO DAILY #90 tabs 06/21/25 metoprolol succinate 25 mg 12.5 mg (1/2 x 25 mg) PO DAILY 30 06/24/25 tablet,extended release 24 hr days #15 tabs Allergies Allergy/AdvReac Type Severity Reaction Status Date / Time codeine Allergy Unknown Verified 06/24/25 19:13 Penicillins Allergy Unknown Verified 06/24/25 19:13 Sulfa (Sulfonamide AdvReac Intermediate Blister Verified 06/24/25 19:13 Antibiotics) Review of Systems Review of Systems: Yes all other systems are reviewed and are negative [facility] Past Medical History Medical History Atrial fibrillation Dizziness HTN (hypertension) Hyperlipidemia CVA (cerebral vascular accident) Family History Family History Father Heart attack Social History Social History Household Members: Other Housing: Apartment Alcohol intake: never Patient Tobacco Use Status: Never used Tobacco e-Cigarette/Vaping Use: Never Used service: No Current occupational status: retired Cognitive needs: Yes Hearing needs: No Vision needs: Yes Physical Exam ED Vital Signs: Vital Signs - 24 hr 06/24/25 19:10 Temperature 97.7 F Pulse Rate 84 Respiratory Rate 18 Blood Pressure 161/75 H Pulse Oximetry 97 Oxygen Delivery Method Room Air BMI result Body Mass Index 25.2 Const Other: The patient is an 85-year-old woman who was awake and alert. She is extremely anxious and this seems to complicate communication with her but she does not seem in obvious distress. She is very talkative. She does not seem in pain or exhibit any signs of respiratory difficulty. HENMT Other: The face is symmetrical. ?Mucous membranes moist. Eyes Other: Pupils are round equal, conjunctivae are clear, extraocular movements intact Neck Other: No posterior midline C-spine tenderness. No pain with range of motion of the neck. The C-spine is clinically clear. No JVD. Resp Effort & Inspection: normal respiratory effort Auscultation: clear to auscultation bilaterally Cardio Rate: regular rate Rhythm: abnormal rhythm irregularly irregular Heart sounds: S1 normal heart sound present and S2 normal heart sound present GI Other: Abdomen is soft and nontender Skin Other: Skin is dry and unremarkable Neuro Other: The patient is awake and alert although she has a very anxious demeanor. Pupils are round equal, extraocular movements are intact, lateral gaze is intact, visual ochoa are intact, the face is symmetrical. Her speech is largely normal although she makes occasional mistakes. The patient says this is a longstanding problems since her stroke. She has symmetrical strength in her extremities. No pronator drift. Finger-nose is normal. Heel-akhtar is normal. She is steady on her feet. Extrem Other: No peripheral edema, no deformity or injuries to the extremities. Medications Administered Discontinued Medications Generic Name Dose Route Start Last Admin Trade Name Álvaro PRN Reason Stop Dose Admin Sodium Chloride 1,000 mls @ 999 mls/hr 06/24/25 21:15 06/24/25 22:25 Ns IV 06/24/25 22:15 Infused .Q1H1M NEIL Infusion Medical Decision Making Medical Decision Making [facility] Narrative: The patient is an 85-year-old woman who lives at an independent living facility who fell when she had used her walker to walk down the coreas to the laundry room. She fell after putting clothes in the rotary drier and then turned after closing the rotary drier door. This seems to has been a mechanical fall. Non anticoagulation. Her head CT is negative. Her C-spine is clinically clear. No other signs of injury. The claims that she fell in part because of chronic dizziness. She had in the family attribute the chronic dizziness possibly to the initiation of amiodarone about 10 days ago. The patient had an outpatient cardioversion 9 days ago which was initially successful currently the patient has an atrial fibrillation (although rate controlled). The patient and the family both think that she was less dizzy on metoprolol and that now she is on amiodarone she is more dizzy. Since amiodarone does not seem to be functioning for rhythm control I think that stopping the amiodarone and putting her back on metoprolol for rate control is reasonable. She will therefore be prescribed 12.5 mg of metoprolol succinate which she has been on before the amiodarone. She has some of this at home. I have provided her with a prescription. In the emergency room she was given 1 L of IV fluids. Her urinalysis is abnormal but she has no UTI symptoms so she will not be started on into. She will be discharged as she seems steady on her feet, especially with a walker. She will follow up with her PCP and product development worker. Lab Data 06/24/25 20:15 06/24/25 20:15 Labs: Lab Results 06/24/25 06/24/2506/24/25 Range/Units 20:12 20:15 20:57 WBC 6.7 (4.8-10.8) X10*3/uL RBC 4.64 (4.20-5.50) X10*6/uL Hgb 13.7 (12.0-16.0) g/dl Hct 40.7 (37.0-47.0) % MCV 87.7 (80.0-98.0) fL MCH 29.5 (27.0-33.0) pg MCHC 33.7 (31.0-35.0) g/dl RDW 13.4 (11.0-16.0) % Plt Count 254 (160-400) X10*3/uL MPV 9.1 L (9.4-12.3) fL Immature Gran % (Auto) 0.1 (0.0-0.4) % Neut % (Auto) 78.9 H (45-73) % Lymph % (Auto) 13.6 L (20-40) % Treasure % (Auto) 6.1 (2-11) % Eos % (Auto) 0.6 (0-4) % Baso % (Auto) 0.7 (0-2) % Lymph # (Auto) 0.9 L (1.2-4.9) X10*3/uL Treasure # (Auto) 0.4 (0.1-1.2) X10*3/uL Eos # (Auto) 0.0 (0.0-0.4) X10*3/uL Baso # (Auto) 0.1 (0.0-0.2) X10*3/uL Abs Immat Gran (auto) 0.01 (0.00-0.03) X10*3/uL Absolute Neuts (auto) 5.3 (2.0-8.3) x10*3/uL Absolute Nucleated RBC 0.000 (0.0-0.012) X10*3/uL Nucleated RBC % (auto) 0.0 (0.0-0.2) /100WBC Sodium 134 L (135-145) mmol/L Potassium 4.0 (3.3-5.1) mmol/L Chloride 105 (96-108) mmol/L Carbon Dioxide 19 L (22-29) mmol/L Anion Gap 14 (12-20) BUN 15 (9-16) mg/dL Creatinine 1.05 (0.5-1.4) mg/dL Estim Creat Clear Calc 35.4 Estimated GFR 50 Random Glucose 182 H (60-115) mg/dL Calcium 9.0 (8.4-10.2) mg/dL Magnesium 2.0 (1.6-2.6) mg/dL Total Bilirubin 0.3 (0.0-1.0) mg/dL Direct Bilirubin 0.1 (0.0-0.5) mg/dL AST 28 (5-31) U/L ALT 22 (0-31) U/L Alkaline Phosphatase 102 (39-117) U/L Troponin I High Sens 11.2 D (<3.5-17.0) ng/L C-Reactive Protein < 0.10 (< or = 0.50) mg/dL Total Protein 7.2 (6.5-8.0) g/dL Albumin 4.4 (3.5-5.0) g/dL Urine Color Yellow Urine Appearance Clear Urine pH 7.5 (5.0-9.0) Ur Specific [place] 1.010 (1.005-1.025) Urine Protein 30 (1+) H (Neg-Trace) mg/dL Urine Glucose (UA) Negative (Negative) mg/dL Urine Ketones Negative (Negative) mg/dL Urine Blood Negative (Negative) Urine Nitrite Negative (Negative) Ur Leukocyte Esterase Small (1+) H (Negative) Urine RBC 0-2 (0-2) /HPF Urine WBC 21-50 H (0-5) /HPF Ur Squamous Epith Cells 0-2 (0-2) /HPF Urine Bacteria None Seen (None Seen) Hyaline Casts 0-2 (0-2) /LPF Ethyl Alcohol < 10 mg/dL Influenza Type A (PCR) NEGATIVE (Negative) Influenza Type B (PCR) NEGATIVE (Negative) RSV RNA Qual (PCR) NEGATIVE (Negative) SARS-CoV-2 RNA (RT-PCR) NEGATIVE (Negative) Discharge Plan Discharge Clinical Impression: Dizziness, Fall Patient Disposition: Home, Self-Care Additional Instructions: Please plan on stopping the amiodarone you has been taking. Please resume the metoprolol you were taking before the amiodarone. Continue your other medications as usual. Keep your follow up appointment with the product development worker on July 13 as currently scheduled. Also follow up with your regular doctor. If you feel significantly worse please return to the emergency department. Prescriptions: New metoprolol succinate 25 mg tablet extended release 24 hr 12.5 mg PO DAILY 30 Days Qty: 15 0RF No Action Eliquis 2.5 mg tablet 2.5 mg PO BID Qty: 180 3RF amiodarone 200 mg tablet 200 mg PO DAILY Qty: 90 3RF losartan 25 mg tablet 25 mg PO DAILY Qty: 90 3RF amlodipine 5 mg tablet 5 mg PO DAILY Qty: 90 3RF atorvastatin 40 mg tablet 40 mg PO DAILY Qty: 90 3RF meclizine 25 mg tablet 25 mg PO DAILY PRN (Reason: Dizziness) Referrals: Jackson Vega MD [Physician, Cardiology] Maximilian Cao FNP-C [Primary Care Provider, Internal Medicine] Interventions: ED Discharge Assessment Last Done: 06/24/25 23:21 Discharge Date/Time: 06/24/25 23:21 Print Language: Belarusian
[2025-06-24 19:10] VITALS: BP 161/75; PULSE 84; RESP 18; TEMP 36.5; O2SAT 97; BMI 25.2
--- NOTE | 2025-06-24 19:37 | ECG_ITS ---
Test Reason : FALL Blood Pressure : */* mmHG Vent. Rate : 83 BPM Atrial Rate : * BPM P-R Int : * ms QRS Dur : 84 ms QT Int : 364 ms P-R-T Axes : * 7 70 degrees QTcB Int : 427 ms Atrial fibrillation Low voltage QRS Abnormal ECG When compared with ECG of 15-Jun-2025 13:52, Atrial fibrillation has replaced Sinus rhythm Vent. rate has increased by 45 bpm QRS axis Shifted right T wave inversion no longer evident in Anterior leads Referred By: Norbert Gardner Electronically Signed By: ISABEL VERDUGO MD
[2025-06-24 20:19] LABS: MANUAL DIFF FLAG NO
--- NOTE | 2025-06-24 20:23 | PC.NURSE ---
Pt with radiology. Pts family at bedside Plan of care ongoing
[2025-06-24 20:24] LABS: Hematocrit 40.7 % (37.0-47.0); Hemoglobin 13.7 g/dl (12.0-16.0); Imm Gran Abs Auto 0.01 X10*3/uL (0.00-0.03); Imm Gran Pct Auto 0.1 % (0.0-0.4); Lymphocytes Absolute Auto 0.9 X10*3/uL (1.2-4.9); Mean Corpuscular HGB Conc 33.7 g/dl (31.0-35.0); Mean Corpuscular Hemoglobin 29.5 pg (27.0-33.0); Mean Corpuscular Volume 87.7 fL (80.0-98.0); NRBC Abs Auto 0.000 X10*3/uL (0.0-0.012); NRBC Pct Auto 0.0 /100WBC (0.0-0.2); Platelet Count 254 X10*3/uL (160-400); Red Blood Count 4.64 X10*6/uL (4.20-5.50); White Blood Count 6.7 X10*3/uL (4.8-10.8)
--- NOTE | 2025-06-24 20:28 | PC.NURSE ---
Pt back from radiology Plan of care ongoing.
[2025-06-24 20:42] LABS: Alanine Aminotransferase 22 U/L (0-31); Albumin Level 4.4 g/dL (3.5-5.0); Alkaline Phosphatase 102 U/L (39-117); Anion Gap 14 (12-20); Aspartate Amino Transferase 28 U/L (5-31); Blood Urea Nitrogen 15 mg/dL (9-16); Calcium 9.0 mg/dL (8.4-10.2); Carbon Dioxide 19 mmol/L (22-29); Chloride 105 mmol/L (96-108); Creatinine Clr Calc Pharmacy 35.4; Estimated Glomerular Filt Rate 50; Magnesium 2.0 mg/dL (1.6-2.6); Potassium 4.0 mmol/L (3.3-5.1); Sodium 134 mmol/L (135-145); Total Protein 7.2 g/dL (6.5-8.0)
[2025-06-24 20:45] LABS: Troponin-I High Sensitivity 11.2 ng/L (<3.5-17.0)
[2025-06-24 21:04] LABS: Resp Syncy Virus RNA Qual PCR NEGATIVE (Negative); SARS COV2 PCR INHOUSE NEGATIVE (Negative)
[2025-06-24 21:06] LABS: Appearance Urine Clear; Glucose Urine UA Negative (Negative); PH 7.5 (5.0-9.0); Specific Gravity - Urine 1.010 (1.005-1.025); UMIC TRIGGER UACC YES
[2025-06-24 21:11] LABS: UACC Culture Trigger YES
--- NOTE | 2025-06-24 21:20 | PC.NURSE ---
Pt medicated per sep Pt requested and given warm blanket Pts family at bedside Plan of care ongoing.
[2025-06-24 22:31] VITALS: BP 134/55; PULSE 80; RESP 20; TEMP 36.6; O2SAT 97
--- NOTE | 2025-06-24 22:53 | PC.NURSE ---
Pt ambulates to the restroom with walker Plan of care ongoing.
[2025-06-24 23:21] VITALS: BP 134/55; PULSE 80; RESP 20; TEMP 36.6; O2SAT 97
== END 2025-06-24 23:21 | disposition home or self-care (01) ==
PROVIDERS: Emergency Provider Emergency Medicine
DX: R42 Dizziness and giddiness (principal); Z91.81 History of falling; I48.91 Unspecified atrial fibrillation; I10 Essential (primary) hypertension; E78.5 Hyperlipidemia, unspecified; Z86.73 Personal history of transient ischemic attack (TIA), and cerebral infarction without residual deficits; Z79.01 Long term (current) use of anticoagulants; Z79.899 Other long term (current) drug therapy; Z03.818 Encounter for observation for suspected exposure to other biological agents ruled out
CPT/HCPCS: 51798; 70450; 80048; 80076; 80307; 81001; 83735; 84484; 85025; 86140; 87086; 87637; 93005; 99284; 99285

== ENCOUNTER → 2025-06-24 19:36 | Outpatient (BNV) | payer MEDICARE, SELFPAY | PROVIDERS: Emergency Provider Emergency Medicine; Visit Provider Nuclear Medicine | DX: R42 Dizziness and giddiness (principal); Z04.3 Encounter for examination and observation following other accident | CPT/HCPCS: 70450 ==

== ENCOUNTER → 2025-06-24 19:37 | Outpatient (BNV) | payer MEDICARE, SELFPAY | PROVIDERS: Emergency Provider Emergency Medicine; Visit Provider Internal Medicine Cardiovascular Disease | DX: I48.91 Unspecified atrial fibrillation (principal) | CPT/HCPCS: 93010 ==